=== PATIENT | male | born 1950 | race Caucasian/White ===

== ENCOUNTER 2016-07-16 10:21 | Inpatient (IN) | payer OTHER ==
[~2016-07-16] VITALS: Wt 121.2 kg
[2016-07-16 10:21] VITALS: BP 172/88
[~2016-07-16 10:21] MED LIST: ALBUTEROL0.09 MG/A2 INH; AMLODIPINE BESYL5 MG PO; AMOXICILLIN500 MG PO; APRESOLINE25 MG PO; ASPI-COR81 M1 PO; ASPIRIN81 M1 PO; ATARAX,VISTARIL50 MG PO; AVPAK PRIMIDONE50 M1 PO; BUSPIRONE HYDRO10 MG PO; BUSPIRONE10 MG PO; CAPSAICIN0.025% T; CARBIDOPA & LEV1 TA1 PO; CARVEDILOL25 MG PO; CLONIDINE0.1 MG PO; CLOPIDOGREL75 MG PO; COREG25 MG PO; DEBROX 15 ML15 M1 OT; DEEP SEA 45 ML45 ML NAS; DOXYCYCLINE HY100 M5 PO; DOXYCYCLINE100 M3 PO; DUONEB 3 MG/3 ML3 M1 NEB; Econopred Plus 15 ML OPH; FINASTERIDE5 M1 PO; FLUTICASON0.05 MG/AC NAS; FOSINOPRIL20 MG PO; FUROSEMIDE40 MG PO; GABAPENTIN300 MG PO; GLUCOSE4 G1 PO; GLUCOSE4 GM PO; HUMALOG100 U/ML SC; IBUPROFEN600 MG PO; IMDUR SA30 MG PO; IMDUR SA60 M1 PO; INSULIN; INSULIN-HUMA100 U/ML; ISOSORBIDE30 MG PO; LANTUS SOLOS100 U/M1 SC; LANTUS100 U/ML SC; LASIX20 MG PO; LASIX40 MG PO; LEVOFLOXACIN500 MG PO; LISINOPRIL2.5 MG PO; MULTIVITAMIN PO; NASALIDE0.025 MG/A NAS; NEOMYCIN/POLY B10 M1 OPH; NEURONTIN300 MG PO; NORVASC2.5 MG PO; NOVOLOG FLEX100 U/ML SC; NOVOLOG100 U/ML SC; OMEPRAZOLE D/R20 MG PO; OPTIVE 0.5%-0.9%5 ML OU; OPTIVE OP; PRED FORTE OPH; PREDNISOLONE ACE5 M4 OPH; PREDNISONE10 MG PO; PREDNISONE50 MG PO; PRILOSEC20 M1 PO; PROVENTIL0.09 MG/A1 INH; REFRESH DRY EYE15 ML OPH; RESTASIS0.05% OP; SERTRALINE HCL100 MG PO; SYMBICORT1 AE1 INH; VENTOLIN 02.5 MG/3 M INH; VERAPAMIL HCL180 M1 PO; VERELAN SR 240240 MG PO; VICODIN 5-3001 EACH PO; VISTARIL25 M1 PO; VISTARIL25 MG PO; VISTARIL50 MG PO; VITAMIN B12500 MCG PO; VITAMIN D2400 IU PO; VITAMIN D31000 IU PO; VITAMIN D50000 I1 PO; VITAMIN D50000 I3 PO; VOLTAREN 0.1%2.5 M1 OP; Ventolin 02.5 MG/3 M INH; ZESTRIL,PRINIVI20 MG PO; ZOFRAN4 MG PO; ZOLOFT100 MG PO; [UNRECOGNIZED DRUG - OTHER] T; [UNRECOGNIZED DRUG - OTHER] TP
[2016-07-16 10:58] LABS: HEMATOCRIT 34.5 % (42.0-52.0); HEMOGLOBIN 11.1 g/dl (14.0-18.0); MEAN CELL VOLUME 86.3 fl (80.0-94.0); MEAN CORPUSCULAR HGB 27.8 pg (27.0-31.0); MEAN CORPUSCULAR HGB CONC 32.2 g/dl (33.0-37.0); PLATELET COUNT AUTOMATED 172 10*3/uL (130-400); RED CELL DISTRI WIDTH 14.1 % (0-14.5); WHITE BLOOD COUNT 10.7 10*3/uL (4.8-10.8)
[2016-07-16 11:14] LABS: BUN 44 mg/dl (7-24); CARBON DIOXIDE 29 mmol/L (21-32); CHLORIDE 103 mmol/L (98-107); EST GLOM FILT AFRICAN AMERICAN 23 ml/min; GLUCOSE 108 mg/dL (65-99); POTASSIUM 4.6 mmol/L (3.5-5.1); SODIUM 140 mmol/L (136-145)
[2016-07-16 11:15] LABS: TROPONIN I < 0.015 ng/ml (<0.5)
[2016-07-16 11:19] LABS: LYMPHOCYTE # 0.3 10*3/uL (1.3-4.4); MONOCYTE # 0.3 10*3/uL (0.1-1.0); NEUTROPHIL # 10.1 10*3/uL (2.3-7.9); NEUTROPHILS 94 % (47-73); PLATELET SUFFICIENCY NORMAL (NORMAL); TOTAL CELLS COUNTED 100 #CELLS
[2016-07-16 11:26] VITALS: BP 157/57
[2016-07-16 13:00] VITALS: BP 166/91
[2016-07-16 14:36] VITALS: BP 147/82
[2016-07-16 16:00] VITALS: BP 162/78
[2016-07-16 18:55] LABS: CPK 67 U/L (39-308)
[2016-07-16 19:03] LABS: CKMB < 0.5 ng/ml (0.5-3.6); TROPONIN I < 0.015 ng/ml (<0.5)
[2016-07-16 20:00] VITALS: BP 159/89
[2016-07-17 00:44] LABS: CKMB 0.5 ng/ml (0.5-3.6)
[2016-07-17 00:46] LABS: CPK 84 U/L (39-308); TROPONIN I < 0.015 ng/ml (<0.5)
[2016-07-17 02:00] VITALS: BP 167/74
[2016-07-17 06:36] LABS: HEMATOCRIT 36.2 % (42.0-52.0); HEMOGLOBIN 11.3 g/dl (14.0-18.0); MEAN CORPUSCULAR HGB 27.2 pg (27.0-31.0); MEAN CORPUSCULAR HGB CONC 31.2 g/dl (33.0-37.0); MEAN PLATELET VOLUME 10.7 fl (9.6-12.3); PLATELET COUNT AUTOMATED 168 10*3/uL (130-400); RED BLOOD COUNT 4.16 10*6/uL (4.50-5.90); RED CELL DISTRI WIDTH 14.1 % (0-14.5); WHITE BLOOD COUNT 15.3 10*3/uL (4.8-10.8)
[2016-07-17 06:52] LABS: CKMB 0.7 ng/ml (0.5-3.6); CPK 101 U/L (39-308)
[2016-07-17 06:53] LABS: TROPONIN I < 0.015 ng/ml (<0.5)
[2016-07-17 06:55] LABS: HEMOGLOBIN A1c 8.6 % (4.8-5.6)
[2016-07-17 07:00] LABS: ALBUMIN 3.1 gm/dl (3.1-4.5); BILIRUBIN, TOTAL 0.5 mg/dl (0.2-1.0); FREE T4 0.94 ng/dl (0.76-1.46); MAGNESIUM 2.3 mg/dL (1.5-2.1); PHOSPHOROUS 4.5 mg/dL (2.5-4.9); POTASSIUM 4.6 mmol/L (3.5-5.1); THYROID STIM HORMONE (HS) 0.508 uIU/ml (0.358-4.75); TOTAL PROTEIN 7.3 gm/dL (6.4-8.2)
[2016-07-17 07:18] LABS: INTERNATIONAL NORM RATIO 1.2 (2.0-3.5); PROTHROMBIN TIME 12.7 SECONDS (9.0-12.4)
[2016-07-17 07:21] LABS: FOLIC ACID 13.13 ng/mL (>5.38)
[2016-07-17 07:44] LABS: LYMPHOCYTE # 0.2 10*3/uL (1.3-4.4); MONOCYTE # 0.2 10*3/uL (0.1-1.0); NEUTROPHILS 98 % (47-73); PLATELET SUFFICIENCY NORMAL (NORMAL); TOTAL CELLS COUNTED 100 #CELLS
[2016-07-17 08:00] VITALS: BP 150/64
[2016-07-17] MEDS ORDERED: OMEPRAZOLE D/R20 MG PO (10:56)
[2016-07-17] MEDS ORDERED: FISH OIL500 M1 PO (10:57)
[2016-07-17] MEDS ORDERED: ATORVASTATIN CA20 M1 PO (11:04)
[2016-07-17] MEDS ORDERED: FINASTERIDE5 M1 PO (11:13)
[2016-07-17] MEDS ORDERED: CARVEDILOL25 MG PO (11:15)
[2016-07-17] MEDS ORDERED: EFFIENT10 M1 PO (11:17)
[2016-07-17 12:00] VITALS: BP 156/68
[2016-07-17 16:00] VITALS: BP 178/79
[2016-07-17 20:00] VITALS: BP 171/80
[2016-07-18] VITALS: BP 169/79
[2016-07-18 06:39] LABS: HEMATOCRIT 34.7 % (42.0-52.0); HEMOGLOBIN 11.3 g/dl (14.0-18.0); MEAN CELL VOLUME 84.8 fl (80.0-94.0); MEAN CORPUSCULAR HGB 27.6 pg (27.0-31.0); MEAN CORPUSCULAR HGB CONC 32.6 g/dl (33.0-37.0); PLATELET COUNT AUTOMATED 164 10*3/uL (130-400); RED BLOOD COUNT 4.09 10*6/uL (4.50-5.90); RED CELL DISTRI WIDTH 13.9 % (0-14.5); WHITE BLOOD COUNT 11.4 10*3/uL (4.8-10.8)
[2016-07-18 07:04] LABS: LYMPHOCYTE # 0.1 10*3/uL (1.3-4.4); MONOCYTE # 0.2 10*3/uL (0.1-1.0); NEUTROPHIL # 11.1 10*3/uL (2.3-7.9); NEUTROPHILS 97 % (47-73); TOTAL CELLS COUNTED 100 #CELLS
[2016-07-18 07:05] LABS: PLATELET SUFFICIENCY NORMAL (NORMAL)
[2016-07-18 07:12] LABS: BILIRUBIN, TOTAL 0.3 mg/dl (0.2-1.0); POTASSIUM 4.6 mmol/L (3.5-5.1); TOTAL PROTEIN 6.9 gm/dL (6.4-8.2)
[2016-07-18 08:00] VITALS: BP 176/82
[2016-07-18 09:42] LABS: CKMB 0.8 ng/ml (0.5-3.6); TROPONIN I 0.029 ng/ml (<0.5)
[2016-07-18 12:00] VITALS: BP 140/60
[2016-07-18] MEDS ORDERED: ATORVASTATIN CA20 M1 PO (13:20)
[2016-07-18] MEDS ORDERED: D-1000 185 MG-11 TAB PO (13:20)
[2016-07-18] MEDS ORDERED: IMDUR SA60 M1 PO (13:22)
[2016-07-18] MEDS ORDERED: LANTUS100 U/ML SC ×2 (13:22)
[2016-07-18] MEDS ORDERED: PREDNISONE10 MG PO (13:39)
[2016-07-18] MEDS ORDERED: DOXYCYCLINE100 M3 PO (13:39)
[2016-08-08] MEDS ORDERED: DUONEB 3 MG/3 ML3 M1 INH (18:06)
[2016-08-08] MEDS ORDERED: VIBRAMYCIN100 MG PO (18:06)
[2016-09-05] MEDS ORDERED: NEURONTIN300 MG PO (01:12)
[2016-09-06] MEDS ORDERED: FEROSUL325 MG PO (11:40)
[2016-09-06] MEDS ORDERED: CARDURA2 M1 PO (11:40)
== END 2016-07-18 14:30 | disposition home or self-care (01) | DRG 871 ==
LOC: ED 10:21 → 4E 13:13 → EDHOLD 13:13 → 4E 14:03
PROVIDERS: Emergency Medicine; Family Medicine Adult Medicine; Hospitalist
DX: A41.9 Sepsis, unspecified organism (principal); J96.00 Acute respiratory failure, unspecified whether with hypoxia or hypercapnia; I13.0 Hypertensive heart and chronic kidney disease with heart failure and stage 1 through stage 4 chronic kidney disease, or unspecified chronic kidney disease; N18.4 Chronic kidney disease, stage 4 (severe); E11.22 Type 2 diabetes mellitus with diabetic chronic kidney disease; J18.9 Pneumonia, unspecified organism; I50.9 Heart failure, unspecified; J44.1 Chronic obstructive pulmonary disease with (acute) exacerbation; E66.2 Morbid (severe) obesity with alveolar hypoventilation; J44.0 Chronic obstructive pulmonary disease with (acute) lower respiratory infection; E11.65 Type 2 diabetes mellitus with hyperglycemia; E78.5 Hyperlipidemia, unspecified; D64.9 Anemia, unspecified; J45.909 Unspecified asthma, uncomplicated; I25.10 Atherosclerotic heart disease of native coronary artery without angina pectoris; N40.0 Benign prostatic hyperplasia without lower urinary tract symptoms; E55.9 Vitamin D deficiency, unspecified; Z90.11 Acquired absence of right breast and nipple; Z98.52 Vasectomy status; Z68.39 Body mass index [BMI] 39.0-39.9, adult; Z98.890 Other specified postprocedural states; Z80.9 Family history of malignant neoplasm, unspecified; Z88.5 Allergy status to narcotic agent; Z88.1 Allergy status to other antibiotic agents; Z88.8 Allergy status to other drugs, medicaments and biological substances; Z79.82 Long term (current) use of aspirin; Z79.4 Long term (current) use of insulin; Z79.899 Other long term (current) drug therapy

== ENCOUNTER 2016-12-23 08:59 | Inpatient (IN) | payer OTHER ==
[2016-12-23] VITALS (13 sets, daily range): BP systolic 131–202; BP diastolic 59–112
[~2016-12-23] VITALS: Ht 188 cm; Wt 121.6 kg
[~2016-12-23 08:59] MED LIST changes: +ATORVASTATIN CA20 M1 PO; +CARDURA2 M1 PO; +D-1000 185 MG-11 TAB PO; +DUONEB 3 MG/3 ML3 M1 INH; +EFFIENT10 M1 PO; +FEROSUL325 MG PO; +FISH OIL500 M2 PO; +VIBRAMYCIN100 MG PO
[2016-12-23 09:30] LABS: BASO % 0.3 % (0.0-1.0); EOS # 0.1 10*3/uL (0.0-0.4); EOS % 1.1 % (1.0-4.0); HEMATOCRIT 34.4 % (42.0-52.0); HEMOGLOBIN 11.4 g/dl (14.0-18.0); LYMPH # 1.1 10*3/uL (1.3-4.4); LYMPH % 15.7 % (27.0-41.0); MEAN CELL VOLUME 85.4 fl (80.0-94.0); MEAN CORPUSCULAR HGB 28.3 pg (27.0-31.0); MEAN CORPUSCULAR HGB CONC 33.1 g/dl (33.0-37.0); MONO # 0.5 10*3/uL (0.1-1.0); NEUT # 5.2 10*3/uL (2.3-7.9); NEUT % 75.3 % (47.0-73.0); PLATELET COUNT AUTOMATED 205 10*3/uL (130-400); RED BLOOD COUNT 4.03 10*6/uL (4.50-5.90); RED CELL DISTRI WIDTH 13.9 % (0-14.5)
[2016-12-23 09:39] LABS: INTERNATIONAL NORM RATIO 1.1 (2.0-3.5); PROTHROMBIN TIME 11.8 SECONDS (9.0-12.4)
[2016-12-23 09:45] LABS: ALBUMIN 3.2 gm/dl (3.1-4.5); BILIRUBIN, TOTAL 0.5 mg/dl (0.2-1.0); C-REACTIVE PROTEIN 0.98 MG/DL (0-0.3); CKMB 1.1 ng/ml (0.5-3.6); MAGNESIUM 2.3 mg/dL (1.5-2.1); POTASSIUM 3.5 mmol/L (3.5-5.1); TOTAL PROTEIN 7.3 gm/dL (6.4-8.2)
[2016-12-23 09:50] LABS: TROPONIN I 0.107 ng/ml (<0.045)
[2016-12-23 14:57] LABS: BILIRUBIN NEGATIVE (NEGATIVE); BLOOD 2+ (NEGATIVE); CLARITY CLEAR (CLEAR); COLOR YELLOW (YELLOW); GLUCOSE TRACE (NEGATIVE); KETONE NEGATIVE (NEGATIVE); LEUKO ESTERASE NEGATIVE (NEGATIVE); NITRITE NEGATIVE (NEGATIVE); PH 6.5 (5.0-9.0); PROTEIN 3+ (NEGATIVE); SPECIFIC GRAVITY 1.015 (1.005-1.030); UROBILINOGEN 0.2 E.U./dl (0.2-1.0)
[2016-12-23 15:08] LABS: BACTERIA 1+; EPITHELIAL CELLS 0-2; URINE REFLEX COMMENT YES (NO)
[2016-12-23] MEDS ORDERED: FREEZE IT RE113.4 GM T (15:39)
[2016-12-23] MEDS ORDERED: WELLBUTRIN SR100 MG PO (15:44)
[2016-12-23] MEDS ORDERED: VISTARIL50 MG PO (15:47)
[2016-12-23] MEDS ORDERED: LIPITOR40 MG PO (16:06)
[2016-12-23] MEDS ORDERED: LANTUS100 U/ML SC (16:18)
[2016-12-23] MEDS ORDERED: VITAMIN D5000 UNI1 PO (16:27)
[2016-12-23] MEDS ORDERED: ACETAMINOPHEN500 M4 PO (16:28)
[2016-12-24] VITALS: BP 161/79
[2016-12-24 04:00] VITALS: BP 176/86
[2016-12-24 05:49] LABS: FREE T4 0.99 ng/dl (0.76-1.46); PHOSPHOROUS 4.1 mg/dL (2.5-4.9)
[2016-12-24 05:55] LABS: THYROID STIM HORMONE (HS) 0.803 uIU/ml (0.358-4.75)
[2016-12-24 06:20] LABS: BASO % 0.3 % (0.0-1.0); EOS # 0.1 10*3/uL (0.0-0.4); EOS % 1.8 % (1.0-4.0); HEMATOCRIT 33.9 % (42.0-52.0); HEMOGLOBIN 10.9 g/dl (14.0-18.0); LYMPH # 1.9 10*3/uL (1.3-4.4); LYMPH % 27.6 % (27.0-41.0); MEAN CELL VOLUME 86.9 fl (80.0-94.0); MEAN CORPUSCULAR HGB 27.9 pg (27.0-31.0); MEAN CORPUSCULAR HGB CONC 32.2 g/dl (33.0-37.0); MONO # 0.5 10*3/uL (0.1-1.0); MONO % 7.7 % (3.0-9.0); NEUT # 4.3 10*3/uL (2.3-7.9); NEUT % 62.3 % (47.0-73.0); PLATELET COUNT AUTOMATED 191 10*3/uL (130-400); RED CELL DISTRI WIDTH 14.2 % (0-14.5); WHITE BLOOD COUNT 6.8 10*3/uL (4.8-10.8)
[2016-12-24 06:23] LABS: HEMOGLOBIN A1c 9.8 % (4.8-5.6)
[2016-12-24 07:32] LABS: VITAMIN D, 25-HYDROXY 19.6 ng/mL (30-100)
[2016-12-24 07:33] LABS: FOLIC ACID 8.35 ng/mL (>5.38)
[2016-12-24 08:00] VITALS: BP 172/90
[2016-12-24 16:00] VITALS: BP 149/74
[2016-12-24 20:00] VITALS: BP 169/79
[2016-12-25 00:08] VITALS: BP 166/82
[2016-12-25 03:57] VITALS: BP 156/852
[2016-12-25 05:26] LABS: ALBUMIN 2.8 gm/dl (3.1-4.5); BILIRUBIN, TOTAL 0.2 mg/dl (0.2-1.0); POTASSIUM 4.3 mmol/L (3.5-5.1); TOTAL PROTEIN 6.4 gm/dL (6.4-8.2)
[2016-12-25 05:45] LABS: BASO % 0.2 % (0.0-1.0); EOS # 0.1 10*3/uL (0.0-0.4); EOS % 1.7 % (1.0-4.0); HEMATOCRIT 32.8 % (42.0-52.0); HEMOGLOBIN 10.6 g/dl (14.0-18.0); LYMPH # 1.7 10*3/uL (1.3-4.4); LYMPH % 27.5 % (27.0-41.0); MEAN CELL VOLUME 87.2 fl (80.0-94.0); MEAN CORPUSCULAR HGB 28.2 pg (27.0-31.0); MEAN CORPUSCULAR HGB CONC 32.3 g/dl (33.0-37.0); MEAN PLATELET VOLUME 11.3 fl (9.6-12.3); MONO # 0.5 10*3/uL (0.1-1.0); MONO % 7.5 % (3.0-9.0); NEUT # 3.8 10*3/uL (2.3-7.9); NEUT % 62.6 % (47.0-73.0); PLATELET COUNT AUTOMATED 166 10*3/uL (130-400); RED BLOOD COUNT 3.76 10*6/uL (4.50-5.90); RED CELL DISTRI WIDTH 14.3 % (0-14.5)
[2016-12-25 05:51] VITALS: BP 160/88
[2016-12-25 08:00] VITALS: BP 176/88
[2016-12-25 12:00] VITALS: BP 149/84
[2016-12-25 15:00] VITALS: BP 156/89
== END 2016-12-25 16:08 | disposition home or self-care (01) | DRG 281 ==
LOC: ED 08:59 → EDHOLD 12:42 → ICCU 12:42 → 4E 13:01 → ICCU 14:09
PROVIDERS: Internal Medicine; Registered Nurse; Student in an Organized Health Care Education/Training Program
PROC: 4A02XM4 Measurement of Cardiac Total Activity, External Approach (ICD-10-PCS; principal; 2016-12-23)
DX: I21.4 Non-ST elevation (NSTEMI) myocardial infarction (principal); I16.1 Hypertensive emergency; N18.4 Chronic kidney disease, stage 4 (severe); I13.0 Hypertensive heart and chronic kidney disease with heart failure and stage 1 through stage 4 chronic kidney disease, or unspecified chronic kidney disease; I50.32 Chronic diastolic (congestive) heart failure; E44.1 Mild protein-calorie malnutrition; E83.41 Hypermagnesemia; E11.65 Type 2 diabetes mellitus with hyperglycemia; E11.22 Type 2 diabetes mellitus with diabetic chronic kidney disease; E11.40 Type 2 diabetes mellitus with diabetic neuropathy, unspecified; E78.5 Hyperlipidemia, unspecified; J44.9 Chronic obstructive pulmonary disease, unspecified; D64.9 Anemia, unspecified; K27.9 Peptic ulcer, site unspecified, unspecified as acute or chronic, without hemorrhage or perforation; Z90.11 Acquired absence of right breast and nipple; Z80.9 Family history of malignant neoplasm, unspecified; Z88.6 Allergy status to analgesic agent; Z88.5 Allergy status to narcotic agent; Z88.1 Allergy status to other antibiotic agents; Z88.8 Allergy status to other drugs, medicaments and biological substances; Z79.1 Long term (current) use of non-steroidal anti-inflammatories (NSAID); Z79.51 Long term (current) use of inhaled steroids; Z79.82 Long term (current) use of aspirin; Z79.899 Other long term (current) drug therapy; Z79.4 Long term (current) use of insulin; Z68.34 Body mass index [BMI] 34.0-34.9, adult; Z95.5 Presence of coronary angioplasty implant and graft

== ENCOUNTER 2016-12-31 06:23 | Inpatient (IN) | payer OTHER ==
[~2016-12-31] VITALS: Ht 182.9 cm; Wt 120.3 kg
[2016-12-31] VITALS (9 sets, daily range): BP systolic 144–165; BP diastolic 63–89
[~2016-12-31 06:23] MED LIST changes: +ACETAMINOPHEN500 M4 PO; +FREEZE IT RE113.4 GM T; +LIPITOR40 MG PO; +VITAMIN D5000 UNI1 PO; +WELLBUTRIN SR100 MG PO
[2016-12-31 06:40] LABS: BASO % 0.3 % (0.0-1.0); EOS # 0.1 10*3/uL (0.0-0.4); EOS % 1.9 % (1.0-4.0); HEMATOCRIT 31.2 % (42.0-52.0); HEMOGLOBIN 10.5 g/dl (14.0-18.0); LYMPH # 1.9 10*3/uL (1.3-4.4); LYMPH % 26.1 % (27.0-41.0); MEAN CELL VOLUME 85.2 fl (80.0-94.0); MEAN CORPUSCULAR HGB 28.7 pg (27.0-31.0); MEAN CORPUSCULAR HGB CONC 33.7 g/dl (33.0-37.0); MEAN PLATELET VOLUME 10.3 fl (9.6-12.3); MONO # 0.8 10*3/uL (0.1-1.0); MONO % 10.4 % (3.0-9.0); NEUT # 4.5 10*3/uL (2.3-7.9); NEUT % 60.8 % (47.0-73.0); PLATELET COUNT AUTOMATED 196 10*3/uL (130-400); RED BLOOD COUNT 3.66 10*6/uL (4.50-5.90); RED CELL DISTRI WIDTH 13.9 % (0-14.5); WHITE BLOOD COUNT 7.4 10*3/uL (4.8-10.8)
[2016-12-31 06:56] LABS: BILIRUBIN, TOTAL 0.3 mg/dl (0.2-1.0); MAGNESIUM 1.9 mg/dL (1.5-2.1); POTASSIUM 3.7 mmol/L (3.5-5.1); TOTAL PROTEIN 6.7 gm/dL (6.4-8.2); TROPONIN I 0.021 ng/ml (<0.045)
[2016-12-31] MEDS ORDERED: IMDUR SA60 M1 PO (14:18)
[2016-12-31] MEDS ORDERED: RANEXA500 M1 PO (14:18)
== END 2016-12-31 17:35 | disposition short-term general hospital (02) | DRG 57 ==
LOC: ED 06:23 → EDHOLD 10:19 → 5E 10:33
PROVIDERS: Student in an Organized Health Care Education/Training Program
DX: G91.2 (Idiopathic) normal pressure hydrocephalus (principal); I13.2 Hypertensive heart and chronic kidney disease with heart failure and with stage 5 chronic kidney disease, or end stage renal disease; N18.4 Chronic kidney disease, stage 4 (severe); E11.22 Type 2 diabetes mellitus with diabetic chronic kidney disease; E44.1 Mild protein-calorie malnutrition; M94.0 Chondrocostal junction syndrome [Tietze]; I25.2 Old myocardial infarction; K27.9 Peptic ulcer, site unspecified, unspecified as acute or chronic, without hemorrhage or perforation; E55.9 Vitamin D deficiency, unspecified; E11.65 Type 2 diabetes mellitus with hyperglycemia; E78.5 Hyperlipidemia, unspecified; J44.9 Chronic obstructive pulmonary disease, unspecified; E66.9 Obesity, unspecified; Z68.39 Body mass index [BMI] 39.0-39.9, adult; Z80.9 Family history of malignant neoplasm, unspecified; Z79.899 Other long term (current) drug therapy; Z79.82 Long term (current) use of aspirin; I50.9 Heart failure, unspecified; E11.40 Type 2 diabetes mellitus with diabetic neuropathy, unspecified; R07.89 Other chest pain

== ENCOUNTER 2017-02-06 14:03 | Emergency (ER) | payer OTHER ==
[~2017-02-06] VITALS: Wt 117.9 kg
[~2017-02-06 14:03] MED LIST changes: +RANEXA500 M1 PO
[2017-02-06 14:35] LABS: BASO % 0.3 % (0.0-1.0); EOS # 0.1 10*3/uL (0.0-0.4); EOS % 1.5 % (1.0-4.0); HEMATOCRIT 31.8 % (42.0-52.0); HEMOGLOBIN 10.2 g/dl (14.0-18.0); LYMPH # 1.5 10*3/uL (1.3-4.4); MEAN CELL VOLUME 89.8 fl (80.0-94.0); MEAN CORPUSCULAR HGB 28.8 pg (27.0-31.0); MEAN CORPUSCULAR HGB CONC 32.1 g/dl (33.0-37.0); MEAN PLATELET VOLUME 9.6 fl (9.6-12.3); MONO # 0.5 10*3/uL (0.1-1.0); MONO % 7.3 % (3.0-9.0); NEUT % 69.5 % (47.0-73.0); PLATELET COUNT AUTOMATED 154 10*3/uL (130-400); RED BLOOD COUNT 3.54 10*6/uL (4.50-5.90); RED CELL DISTRI WIDTH 15.4 % (0-14.5); WHITE BLOOD COUNT 7.1 10*3/uL (4.8-10.8)
[2017-02-06 14:51] LABS: BILIRUBIN, TOTAL 0.4 mg/dl (0.2-1.0); C-REACTIVE PROTEIN 0.52 MG/DL (0-0.3); CKMB 2.7 ng/ml (0.5-3.6); POTASSIUM 4.7 mmol/L (3.5-5.1); TOTAL PROTEIN 7.1 gm/dL (6.4-8.2); TROPONIN I 0.018 ng/ml (<0.045)
[2017-02-06 15:04] LABS: INTERNATIONAL NORM RATIO 1.1 (2.0-3.5); PROTHROMBIN TIME 11.2 SECONDS (9.0-12.4)
[2017-02-06 15:38] VITALS: BP 172/74
[2017-02-06] MEDS ORDERED: APRESOLINE10 MG PO (16:48)
== END 2017-02-06 17:10 | disposition home or self-care (01) ==
LOC: ED 14:03
PROVIDERS: Emergency Medicine
DX: I11.0 Hypertensive heart disease with heart failure (principal); I50.9 Heart failure, unspecified; K21.9 Gastro-esophageal reflux disease without esophagitis; E78.5 Hyperlipidemia, unspecified; E11.9 Type 2 diabetes mellitus without complications; J44.9 Chronic obstructive pulmonary disease, unspecified; Z88.1 Allergy status to other antibiotic agents; Z88.6 Allergy status to analgesic agent; Z88.8 Allergy status to other drugs, medicaments and biological substances; Z79.899 Other long term (current) drug therapy

== ENCOUNTER 2017-03-20 14:55 | Inpatient (IN) | payer OTHER ==
[~2017-03-20] VITALS: Ht 182.8 cm; Wt 116.6 kg
--- NOTE | ~2017-03-20 | PR ---
[place], [place] PROGRESS NOTE NAME: NOBLE GENTILE UNIT #: [id number] ROOM: 506 DOCTOR: MOIZ PALOMARES MD BIRTHDATE: [birth year] DOS: 03/22/2017 SUBJECTIVE: The patient was seen and examined. He is awake and alert. He is eating dinner. Denies shortness of breath. Denies nausea or vomiting. He wants to be discharged. He states to me he has an appointment at [place] tomorrow, he has to get to. PHYSICAL EXAMINATION: VITAL SIGNS: Showed temperature 98.3, pulse 65, respiration rate 18, blood pressure 156/67. HEENT: Shows no JVD. Sclerae anicteric. LUNGS: Clear. No crackles or wheeze. HEART: Normal S1, S2. No rub, thrill or gallop. ABDOMEN: Soft, nontender. There is no organomegaly. EXTREMITIES: Showed trace edema. SKIN: Showed no rash. LABORATORY DATA: Sodium 134, potassium 4.1, CO2 of 22, BUN 49, creatinine 3.7. Glucose 327, calcium 8.3. Hemoglobin 10.1, white count is 7.5, platelets of 185. ASSESSMENT AND PLAN: 1. Stage 4 chronic kidney disease. The patient's baseline creatinine appears to be in the upper 3s range. Renal function is at baseline. 2. Recent falls with questionable normal pressure hydrocephalus. Await plans. 3. Anemia of chronic disease. Current H and H is acceptable. 4. Hypertension. Continue medications. 5. Coronary artery disease with history of congestive heart failure. Continue medications. Diuretics as needed. 6. Diabetes mellitus. On insulin. 7. From a renal standpoint, he is acceptable for discharge. He should follow up with his primary data management consultant in [place]. [place], [place] PROGRESS NOTE NAME: NOBLE GENTILE UNIT #: [id number] ROOM: 506 DOCTOR: MOIZ PALOMARES MD BIRTHDATE: [birth year] MOIZ PALOMARES MD CM:PNTRANS [phone] MOIZ PALOMARES MD 03/22/17 2310 interface
--- NOTE | ~2017-03-20 | CON ---
[place], [place] REPORT OF CONSULTATION NAME: NOBLE GENTILE UNIT #: [id number] ROOM: 506 DOCTOR: SAADIA GARVEY,SUDHAKAR BIRTHDATE: [birth year] DOS: 03/21/2017 REASON FOR CONSULTATION: Elevated cardiac enzymes. CONSULTING PHYSICIAN: Dr. Monte. CLINICAL HISTORY: The patient is a 66-year-old patient with history of chronic kidney disease, anemia, hypertension and diabetes who was brought to the Emergency Room for weakness and frequent falls. He also has some urinary incontinence, so he was found to have possible normal pressure hydrocephalus couple of months ago. His blood work showed elevated cardiac troponin, hence Cardiology was consulted for further recommendations. He denies any chest pain, dizziness. No palpitation. No PND, no orthopnea. No nausea, vomiting or diarrhea. No cough or hemoptysis. No fever and chills. No tingling, numbness or weakness. No blurred vision or double vision. No genitourinary symptoms. His main complaint is just weakness and frequent falls. No syncope. REVIEW OF SYSTEMS: Review of the 8 systems negative except as mentioned above. PAST MEDICAL HISTORY: 1. Hypertension. 2. Diabetes type 2. 3. Normal pressure hydrocephalus. 4. Chronic kidney disease. 5. Anemia. 6. Obesity, non-morbid. 7. Peptic ulcer disease. 8. Malnutrition. 9. COPD. 10. Frequent falls. PAST SURGICAL HISTORY: History of back surgery, history of hernia repair, history of vasectomy and right mastectomy. SOCIAL HISTORY: The patient does not smoke or drink, does not use any illicit drugs. FAMILY HISTORY: Noncontributory. Father at the age of 46 from cancer. Mother at the age of 80 from cancer. ALLERGIES: THE PATIENT IS ALLERGIC TO MORPHINE, CIPRO, ZETIA AND FLUVASTATIN. HOME MEDICATIONS: Reviewed. PHYSICAL EXAMINATION: VITAL SIGNS: Blood pressure 148/58, pulse ____ and respiratory rate 20. Weight 113 kilos with a BMI of 35.4. GENERAL: Alert, comfortable, in no acute distress. HEENT: Pupils are round and equal. No jaundice. NECK: Supple, no distended neck veins, no carotid bruit. [place], [place] REPORT OF CONSULTATION NAME: NOBLE GENTILE UNIT #: [id number] ROOM: [facility] DOCTOR: SAADIA GARVEY,SUDHAKAR BIRTHDATE: [birth year] CHEST: Symmetrical, nontender. LUNGS: Clear to auscultation bilaterally. HEART: Regular rhythm. No S3, no grade 1/6 systolic murmur. ABDOMEN: Benign, nontender. Bowel sounds normal. EXTREMITIES: Showed 1+ edema bilaterally. Distal pulses are palpable. SKIN: Warm and dry. No cyanosis, no clubbing. NEUROLOGIC: The patient is alert, oriented. No focal neurologic deficit. RECTAL: Deferred. GENITOURINARY: Deferred. MUSCULOSKELETAL: No joint tenderness or swelling. REVIEW OF THE DIAGNOSTIC TESTS: EKG shows sinus rhythm with lateral ST-T changes. His labs reviewed. Pertinent labs include hemoglobin 10.0, creatinine 4.3. The troponins are 0.48, 0.28 and 0.19 on trending down. CK-MBs are normal. IMPRESSION: 1. Borderline elevation of cardiac troponin due to his chronic kidney disease. 2. Frequent falls. 3. Acute renal failure on top of chronic kidney disease. 4. Hypertension. 5. Diabetes type 2. 6. Normal pressure hydrocephalus. 7. Anemia. RECOMMENDATIONS: 1. He denies any chest pains. 2. Currently, blood pressure and heart rates are stable. 3. Continue IV fluids for acute renal failure. 4. Continue his aspirin and his Coreg. 5. His echo from November 2016 reviewed. 6. No further cardiac testing at this time and continue to watch his heart rate and blood pressures. 7. There is no family at bedside at the time of my examination. SUDHAKAR ZEE MD CM:CONSTR:REPORT OF CONSULTATION 1442 03/21/17 0273 interface
--- NOTE | ~2017-03-20 | CON ---
[place], [place] RE[facility] OF CON[facility]ULTATION [id number] UN[facility] #: [id number] ROOM: 506 DOCTOR: MOIZ PALOMARES MD BIRTHDATE: [birth year] DOS: 03/21/2017 REASON FOR CONSULTATION: Chronic kidney disease, 1950. HISTORY OF PRESENT ILLNESS: This patient is a 66-year-old gentleman with past medical history of known chronic kidney disease. He has a history of uncontrolled diabetes and hypertension. He has been seen by our service in the past. Reviewing his record, he appears to have stage IV chronic kidney disease with a baseline creatinine in the upper 3s range with labs that were noted from earlier this year and just a few months ago. I am not clear of the details but he states to me he does follow with the metal machine operator in [place]. He came to the hospital with complaints of weakness and frequent falls and questionable urinary incontinence, apparently, this year, a few months ago with similar complaints. There had been some concerns and suspicion for possible normal pressure hydrocephalus. He is being admitted for further evaluation presently. His creatinine levels were noted to be slightly higher than baseline. Started on IV fluids and admitted. When I had seen him, he was eating lunch. He denied any major complaints to me. Denied fevers, chills or night sweats, nausea or vomiting. Denied dysuria or hematuria. ALLERGIES: Listed to MORPHINE, QUINOLONE, CIPROFLOXACIN, ZETIA, FLUVASTATIN, NIACIN, PRAVASTATIN, CRESTOR, SIMVASTATIN, CODEINE. HOME MEDICATIONS: Included Tylenol, aspirin, albuterol, Symbicort, Wellbutrin, Coreg, vitamin D, finasteride, Lasix 40 mg daily, Vistaril, insulin, fish oil, omeprazole, FEN. PAST MEDICAL HISTORY: 1. Known chronic kidney disease as stated above. 2. CHF. 3. COPD. 4. Longstanding diabetes. 5. Diabetic neuropathy. 6. Hyperlipidemia. 7. Hypertension. 8. Questionable normal pressure hydrocephalus. 9. Coronary artery disease. 10. Obesity. 11. Peptic ulcer disease. 12. Vitamin D deficiency. 13. Cardiac catheterization. 14. Back surgery. 15. Colonoscopy. 16. EGD. 17. Inguinal hernia repair. 18. Right mastectomy. 19. Vasectomy. 20. Tonsillectomy. FAMILY HISTORY: Negative for chronic kidney disease, otherwise, [place], [place] REPORT OF CONSULTATION NAME: NOBLE GENTILE UNIT #: [id number] ROOM: 506 DOCTOR: MOIZ PALOMARES MD BIRTHDATE: [birth year] noncontributory. SOCIAL HISTORY: No current tobacco, alcohol or illicit drugs were noted. REVIEW OF SYSTEMS: As per HPI, otherwise, a 10-point review of systems was reviewed and was negative. PHYSICAL EXAMINATION: VITAL SIGNS: Temperature afebrile, pulse 66, respiratory rate 20, blood pressure 148/50. GENERAL: He is awake, alert, resting comfortably, in no acute distress. HEENT: Shows no JVD. Sclerae are anicteric. Mucous membranes were moist. Pharynx is clear. NECK: Supple. Trachea was midline. There is no neck lymphadenopathy. There is no thyromegaly. LUNGS: Diminished breath sounds, appreciable wheezes. No tactile fremitus. He is not using accessory muscles of respiration. HEART: Normal S1, S2. No rub, thrill or gallop. ABDOMEN: Soft, nontender. There is no organomegaly or rigidity, rebound or guarding. There is no CVA tenderness. EXTREMITIES: Had 1+ edema. There is no lower extremity lymphadenopathy. Distal pulses are 2+. SKIN: Showed no overt rash. There is no petechiae or purpura. Skin temperature was warm. NEUROLOGIC: He is awake, alert. He was following commands. Cranial nerves are intact. LABORATORY DATA: Glucose 513, sodium 133, potassium 4.2, CO2 23, calcium 7.9, phosphorus 3.9, magnesium 2.3, albumin of 2.9, BUN 55, creatinine 4.19, hemoglobin 10.0, white count of 5.6, platelets of 155. IMPRESSION: 1. Stage 4 chronic kidney disease. The patient's baseline creatinine in the upper 3s range. He has a slight acute element likely related to prerenal factors. 2. Recent falls with questionable normal pressure hydronephrosis. 3. Anemia. 4. Hypertension. 5. Coronary artery disease. 6. Longstanding diabetes. 7. Coronary artery disease with history of congestive heart failure. PLAN: 1. Would discontinue IV fluids. 2. Dose medication for current creatinine clearance. 3. Hold Lasix for now. He likely will require his home dose soon, especially if his creatinine remains stable. 4. Replace electrolytes as needed. 5. Avoid NSAIDs, the nephrotoxic agents. 6. There is no indication for renal replacement therapy presently. [place], [place] REPORT OF CONSULTATION NAME: NOBLE GENTILE UNIT #: [id number] ROOM: [facility] DOCTOR: MOIZ PLAOMARES MD BIRTHDATE: [birth year] Thank you for this consultation. We will follow with you. MOIZ PALOMARES MD CM:CONSTR:REPORT OF CONSULTATION 1506 03/21/17 2323 interface
--- NOTE | ~2017-03-20 | PR ---
[place], [place] PROGRESS NOTE NAME: NOBLE GENTILE UNIT #: [id number] ROOM: 506 DOCTOR: SUDHAKAR ZEE MD BIRTHDATE: [birth year] DOS: 03/22/2017 REASON FOR VISIT: Hypertension and elevated cardiac enzymes. HISTORY OF PRESENT ILLNESS: He is feeling: Denies any chest pain or shortness of breath. Breathing is better. No PND, no orthopnea. No dizziness or syncope. No nausea, vomiting, diarrhea. No cough or hemoptysis. REVIEW OF SYSTEMS: Review of the 8 systems negative except as mentioned above. RHYTHM STRIPS: The patient in sinus rhythm. PHYSICAL EXAMINATION: VITAL SIGNS: Blood pressure 176/71, pulse 60, respiratory rate 18. GENERAL: Alert, comfortable, in no acute distress. HEENT: Pupils are round and equal. No jaundice. Tongue was moist and pharynx was clear. NECK: Supple. No distinct mass, no carotid bruit. CHEST: Symmetrical, nontender. LUNGS: Clear to auscultation bilaterally. HEART: Regular rhythm, no S3, grade 1/6 systolic murmur. ABDOMEN: Benign, nontender. Bowel sounds normal. EXTREMITIES: Showed 1+ edema. Distal pulses palpable. SKIN: Warm and dry. No cyanosis, no clubbing. NEUROLOGIC: The patient is alert, oriented. No focal neurologic deficit. IMPRESSION: 1. Elevated cardiac troponins, due to chronic kidney disease. The patient denied any chest pain. He had a nonischemic stress test, 05/2016. 2. Hypertension, monitor blood pressure. If it is high, increase his hydralazine. 3. Chronic kidney disease. 4. Recurrent falls. 5. Hypertension. 6. Diabetes type 2. 7. Mild valvular heart disease. 8. No further cardiac testing at this time. [place], [place] PROGRESS NOTE NAME: NOBLE GENTILE UNIT #: [id number] ROOM: 506 DOCTOR: SUDHAKAR ZEE MD BIRTHDATE: [birth year] SUDHAKAR ZEE MD CM:PNTRANS 39 [phone] SUDHAKAR ZEE MD 03/22/172349 interface
--- NOTE | ~2017-03-20 | EKG ---
[place], [place] ELECTROCARDIOGRAM REPORT NAME: NOBLE GENTILE UNIT #: [id number] ROOM: 506 DOCTOR: SAADIA GARVEY,SUDHAKAR BIRTHDATE: [birth year] DOS: 03/20/2017 TIME: 1705 hours. IMPRESSION: 1. Normal sinus rhythm. 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 3. Lateral ST-T changes, nondiagnostic. 4. Prolonged QT interval. SUDHAKAR ZEE MD CM:EKGRPT:ELECTROCARDIOGRAM REPORT 1452 [id number] SUDHAKAR ZEE MD
[2017-03-20 14:55] VITALS: BP 137/61
[~2017-03-20 14:55] MED LIST changes: +APRESOLINE10 MG PO
[2017-03-20 16:14] LABS: BASO % 0.3 % (0.0-1.0); EOS # 0.1 10*3/uL (0.0-0.4); EOS % 2.1 % (1.0-4.0); HEMATOCRIT 30.3 % (42.0-52.0); LYMPH # 1.2 10*3/uL (1.3-4.4); LYMPH % 17.6 % (27.0-41.0); MEAN CELL VOLUME 89.1 fl (80.0-94.0); MEAN CORPUSCULAR HGB 29.4 pg (27.0-31.0); MONO # 0.7 10*3/uL (0.1-1.0); MONO % 9.7 % (3.0-9.0); NEUT # 4.8 10*3/uL (2.3-7.9); PLATELET COUNT AUTOMATED 163 10*3/uL (130-400); RED CELL DISTRI WIDTH 14.6 % (0-14.5); WHITE BLOOD COUNT 6.8 10*3/uL (4.8-10.8)
[2017-03-20 16:24] LABS: INTERNATIONAL NORM RATIO 1.1 (2.0-3.5)
[2017-03-20 16:32] LABS: ALBUMIN 3.2 gm/dl (3.1-4.5); CKMB 1.1 ng/ml (0.5-3.6); CREATININE 4.31 mg/dL (0.70-1.30); MAGNESIUM 2.1 mg/dL (1.5-2.1); POTASSIUM 3.9 mmol/L (3.5-5.1)
[2017-03-20 16:38] LABS: TROPONIN I 0.484 ng/ml (<0.045)
[2017-03-20 17:42] LABS: BILIRUBIN NEGATIVE (NEGATIVE); BLOOD 2+ (NEGATIVE); CLARITY CLEAR (CLEAR); COLOR YELLOW (YELLOW); GLUCOSE 2+ (NEGATIVE); KETONE NEGATIVE (NEGATIVE); LEUKO ESTERASE NEGATIVE (NEGATIVE); NITRITE NEGATIVE (NEGATIVE); UROBILINOGEN 0.2 E.U./dl (0.2-1.0)
--- NOTE | 2017-03-20 17:47 | NUR ---
PATIENT UP TO BATHROOM, AMBULATORY WITH A WALKER AT THIS TIME WITH ASSIST OF 1.PATIENT REQESTING DINNER TRAY AT THIS TIME. VITALS STABLE.
[2017-03-20 17:49] VITALS: BP 134/80
[2017-03-20 17:56] LABS: BACTERIA 1+
[2017-03-20 21:57] VITALS: BP 156/84
[2017-03-20 22:20] VITALS: BP 190/92
--- NOTE | 2017-03-20 22:20 | NUR ---
A 66, admitted to , under the services of JOAO Sinclair DO with a diagnosis of FALLS, GEN WEAKNESS, CKD. Chief complaint is MULTIPLE FALLS AT HOME. Patient arrived via wheel chair from ER. Monitor applied. Initial assessment completed. Vital signs taken and recorded. JOAO SINCLAIR DO / DR CRUZ / DR BROWN notified of admission to the unit. Orders received. See assessment for past medical history, medications and allergies. Patient and/or family oriented to unit. [facility] visitation policy reviewed. Clothing/patient valuable form completed. SKY OLSON
[2017-03-20] MEDS ORDERED: AMLODIPINE BESYL5 MG PO (22:43)
[2017-03-20] MEDS ORDERED: LANTUS SOL100 UNIT/1 SC (22:47)
[2017-03-20] MEDS ORDERED: NOVOLOG10 ML SC (22:54)
[2017-03-20] MEDS ORDERED: VISTARIL25 MG PO (22:55)
--- NOTE | 2017-03-20 23:30 | NUR ---
DR UPTON CONTACTED REGARDING CONSULT, NEW ORDERS RECEIVED
--- NOTE | 2017-03-20 23:35 | NUR ---
DR BROWN CONTACTED REGARDING ELEVATED BP, NEW ORDERS RECEIVED
--- NOTE | 2017-03-21 00:11 | NUR ---
MEDICATED WITH TYLENOL PER PRN ORDER FOR COMPLAINTS OF BACK PAIN RATING A 4. ALSO REQUESTED AND RECEIVED RESTORIL TO ASSIST WITH SLEEP. CALL LIGHT WITHIN REACH. WILL MONITOR FOR EFFECTIVENESS
--- NOTE | 2017-03-21 00:30 | NUR ---
TROPONIN CRITICAL HIGH BUT TRENDING DOWN, DR BROWN AWARE
--- NOTE | 2017-03-21 02:00 | NUR ---
DROWSY, RESTING WITH EYES CLOSED. RESPIRATIONS EASY. CALL LIGHT WITHIN REACH. BED ALARM MAINTAINED FOR SAFETY
[2017-03-21 03:30] VITALS: BP 188/90
--- NOTE | 2017-03-21 03:30 | NUR ---
DR BROWN CONTACTED AND MADE AWARE OF ELEVATED TROPONINS THAT ARE TRENDING DOWN. INFORMED BP REMAINS ELEVATED 188/90. ALSO INFORMED OF WOUNDS X 2 TO SECOND TOE OF LEFT FOOT
--- NOTE | 2017-03-21 04:30 | NUR ---
MEDICATED WITH APRESOLINE 1 TIME DOSE FOR ELEVATED BP. WILL MONITOR
[2017-03-21 05:45] VITALS: BP 182/84
--- NOTE | 2017-03-21 06:00 | NUR ---
BP REMAINS 182/84. IV HYDRALAZINE GIVEN PER ORDER. WILL CONTINUE TO MONITOR. BSG CRITICAL HIGH, STAT REFLEX ORDERED PER POLICY
[2017-03-21 06:17] LABS: BASO % 0.4 % (0.0-1.0); EOS # 0.1 10*3/uL (0.0-0.4); EOS % 2.3 % (1.0-4.0); LYMPH # 1.2 10*3/uL (1.3-4.4); LYMPH % 20.4 % (27.0-41.0); MEAN CELL VOLUME 89.3 fl (80.0-94.0); MEAN CORPUSCULAR HGB 29.8 pg (27.0-31.0); MEAN CORPUSCULAR HGB CONC 33.3 g/dl (33.0-37.0); MEAN PLATELET VOLUME 10.7 fl (9.6-12.3); MONO # 0.6 10*3/uL (0.1-1.0); MONO % 9.8 % (3.0-9.0); NEUT # 3.8 10*3/uL (2.3-7.9); NEUT % 66.6 % (47.0-73.0); PLATELET COUNT AUTOMATED 155 10*3/uL (130-400); RED BLOOD COUNT 3.36 10*6/uL (4.50-5.90); RED CELL DISTRI WIDTH 14.5 % (0-14.5); WHITE BLOOD COUNT 5.6 10*3/uL (4.8-10.8)
[2017-03-21 06:26] LABS: ALBUMIN 2.9 gm/dl (3.1-4.5); CREATININE 4.19 mg/dL (0.70-1.30); MAGNESIUM 2.3 mg/dL (1.5-2.1); PHOSPHOROUS 3.9 mg/dL (2.5-4.9); POTASSIUM 4.2 mmol/L (3.5-5.1); TOTAL PROTEIN 6.9 gm/dL (6.4-8.2)
[2017-03-21 06:32] LABS: THYROID STIM HORMONE (HS) 1.08 uIU/ml (0.358-4.75)
--- NOTE | 2017-03-21 06:35 | NUR ---
DR BROWN CONTACTED AND INFORMED OF CRITICAL TROPONIN AND BSG.
[2017-03-21 07:04] LABS: ACT PARTIAL THROMBO TIME 26.7 SECONDS (20.8-31.5); INTERNATIONAL NORM RATIO 1.1 (2.0-3.5)
[2017-03-21 07:37] LABS: VITAMIN D, 25-HYDROXY 15.6 ng/mL (30-100)
--- NOTE | 2017-03-21 07:55 | NUR ---
ATTEMPTED TO REACH NEPHROLOGY REGARDING CONSULT. MESSAGE LEFT WITH JOSE AT ANSWERING SERVICE. PER [facility]IENT, [facility]
[2017-03-21 08:00] VITALS: BP 175/70
--- NOTE | 2017-03-21 10:00 | NUR ---
DR. NICHOLS IN TO SEE PATIENT.
--- NOTE | 2017-03-21 10:00 | NUR ---
APRESOLINE GIVEN FOR ELEVATED BLOOD PRESSURE.
[2017-03-21 12:00] VITALS: BP 148/58
[2017-03-21 16:00] VITALS: BP 146/66
--- NOTE | 2017-03-21 18:22 | NUR ---
RESTING WITH NO COMPLAINTS.
[2017-03-21 20:00] VITALS: BP 180/102; BP 202/94
--- NOTE | 2017-03-21 20:30 | NUR ---
RESTING IN BED WITH NO ACUTE DISTRESS NOTED. RESPIRATIONS EASY. LUNGS DIMINISHED, CLEAR. PULSE OX 96% RA. CALL LIGHT WITHIN REACH. NO VOICED COMPLAINTS
--- NOTE | 2017-03-21 20:55 | NUR ---
DR CRUZ CONTACTED REGARDING BP 202/94. NEW ORDERS RECEIVED
--- NOTE | 2017-03-21 21:10 | NUR ---
1 TIME IV APRESOLINE GIVEN PER ORDER.
--- NOTE | 2017-03-21 23:00 | NUR ---
VOMITED X 1. IV ZOFRAN GIVEN PER ORDER. WILL MONITOR
[2017-03-22] VITALS: BP 160/90
--- NOTE | 2017-03-22 | NUR ---
STATES RELIEF FROM EARLIER ZOFRAN. RESTING MORE COMFORTABLY. RESPIRATIONS EASY. HR 83. BP IMPROVED 160/90. DENIES NAUSEA. CALL LIGHT WITHIN REACH. NO FURTHER VOICED COMPLAINTS
[2017-03-22 04:00] VITALS: BP 182/70
--- NOTE | 2017-03-22 04:00 | NUR ---
SLEEPING WITH NO DISTRESS NOTED. AWAKENS EASILY. RESPIRATIONS EASY. HR 74. BP 182/70. CALL LIGHT WITHIN REACH. NO VOICED COMPLAINTS
--- NOTE | 2017-03-22 06:00 | NUR ---
SLEPT THROUGHOUT NIGHT WITH NO DISTRESS NOTED. RESPIRATIONS EASY. CALL LIGHT WITHIN REACH. NO VOICED COMPLAINTS THIS SHIFT
[2017-03-22 06:10] LABS: BASO % 0.3 % (0.0-1.0); EOS # 0.1 10*3/uL (0.0-0.4); EOS % 1.9 % (1.0-4.0); HEMATOCRIT 30.1 % (42.0-52.0); HEMOGLOBIN 10.1 g/dl (14.0-18.0); LYMPH # 1.3 10*3/uL (1.3-4.4); LYMPH % 17.4 % (27.0-41.0); MEAN CELL VOLUME 88.5 fl (80.0-94.0); MEAN CORPUSCULAR HGB 29.7 pg (27.0-31.0); MEAN CORPUSCULAR HGB CONC 33.6 g/dl (33.0-37.0); MEAN PLATELET VOLUME 10.1 fl (9.6-12.3); MONO # 0.6 10*3/uL (0.1-1.0); NEUT # 5.4 10*3/uL (2.3-7.9); NEUT % 71.9 % (47.0-73.0); PLATELET COUNT AUTOMATED 185 10*3/uL (130-400); RED CELL DISTRI WIDTH 14.6 % (0-14.5); WHITE BLOOD COUNT 7.5 10*3/uL (4.8-10.8)
[2017-03-22 06:32] LABS: CREATININE 3.69 mg/dL (0.70-1.30); POTASSIUM 4.1 mmol/L (3.5-5.1)
--- NOTE | 2017-03-22 06:37 | NUR ---
REQUESTED AND RECEIVED TYLENOL PER PRN ORDER FOR COMPLAINTS OF HEADACHE RATING A 5. CALL LIGHT WITHIN REACH. WILL MONITOR FOR EFFECTIVENESS
[2017-03-22 08:00] VITALS: BP 176/74
--- NOTE | 2017-03-22 10:00 | NUR ---
AM MEDS TAKEN.
[2017-03-22 12:00] VITALS: BP 156/67
--- NOTE | 2017-03-22 14:07 | NUR ---
PATIENT RESTING. NO COMPLAINTS VOICED.
[2017-03-22 16:00] VITALS: BP 189/88
--- NOTE | 2017-03-22 16:13 | NUR ---
DR. NICHOLS NOTIFIED OF BLOOD PRESSURE.
[2017-03-22] MEDS ORDERED: APRESOLINE25 MG PO (17:48)
--- NOTE | 2017-03-22 18:46 | NUR ---
IV REMOVED FOR DISCHARGE. Discharge instructions reviewed with patient/family. Patient receptive and verbalizes understanding. Follow-up care arranged. Written instructions given to patient/family. CHAGO CORADO
== END 2017-03-22 18:50 | disposition home or self-care (01) | DRG 56 ==
LOC: ED 14:55 → 5E 20:56 → EDHOLD 20:56 → 5E 21:32
PROVIDERS: Family Medicine; Hospitalist; Nurse Practitioner Family; ADMIT Internal Medicine
DX: G91.2 (Idiopathic) normal pressure hydrocephalus (principal); N17.0 Acute kidney failure with tubular necrosis; I13.0 Hypertensive heart and chronic kidney disease with heart failure and stage 1 through stage 4 chronic kidney disease, or unspecified chronic kidney disease; E44.1 Mild protein-calorie malnutrition; E66.2 Morbid (severe) obesity with alveolar hypoventilation; N18.4 Chronic kidney disease, stage 4 (severe); E11.22 Type 2 diabetes mellitus with diabetic chronic kidney disease; I50.9 Heart failure, unspecified; D63.1 Anemia in chronic kidney disease; R29.6 Repeated falls; E78.5 Hyperlipidemia, unspecified; E55.9 Vitamin D deficiency, unspecified; E11.42 Type 2 diabetes mellitus with diabetic polyneuropathy; R74.8 Abnormal levels of other serum enzymes; G20 Parkinson's disease; I25.10 Atherosclerotic heart disease of native coronary artery without angina pectoris; J44.9 Chronic obstructive pulmonary disease, unspecified; Z88.6 Allergy status to analgesic agent; Z88.8 Allergy status to other drugs, medicaments and biological substances; Z79.82 Long term (current) use of aspirin; Z79.899 Other long term (current) drug therapy; I25.2 Old myocardial infarction; Z79.4 Long term (current) use of insulin; Z87.11 Personal history of peptic ulcer disease; Z90.11 Acquired absence of right breast and nipple; Z90.89 Acquired absence of other organs; Z98.61 Coronary angioplasty status; Z80.9 Family history of malignant neoplasm, unspecified; Z68.35 Body mass index [BMI] 35.0-35.9, adult

== ENCOUNTER 2017-04-05 05:51 | Emergency (ER) | payer OTHER ==
[~2017-04-05] VITALS: Ht 182.8 cm; Wt 117.9 kg
[~2017-04-05 05:51] MED LIST changes: +LANTUS SOL100 UNIT/1 SC; +NOVOLOG10 ML SC
[2017-04-05 06:22] LABS: BASO % 0.4 % (0.0-1.0); EOS # 0.2 10*3/uL (0.0-0.4); EOS % 2.2 % (1.0-4.0); HEMATOCRIT 30.7 % (42.0-52.0); HEMOGLOBIN 9.9 g/dl (14.0-18.0); LYMPH # 1.3 10*3/uL (1.3-4.4); LYMPH % 17.6 % (27.0-41.0); MEAN CELL VOLUME 91.4 fl (80.0-94.0); MEAN CORPUSCULAR HGB 29.5 pg (27.0-31.0); MEAN CORPUSCULAR HGB CONC 32.2 g/dl (33.0-37.0); MEAN PLATELET VOLUME 9.9 fl (9.6-12.3); MONO # 0.7 10*3/uL (0.1-1.0); MONO % 9.1 % (3.0-9.0); NEUT # 5.2 10*3/uL (2.3-7.9); NEUT % 70.3 % (47.0-73.0); PLATELET COUNT AUTOMATED 157 10*3/uL (130-400); RED BLOOD COUNT 3.36 10*6/uL (4.50-5.90); RED CELL DISTRI WIDTH 13.9 % (0-14.5); WHITE BLOOD COUNT 7.4 10*3/uL (4.8-10.8)
[2017-04-05 06:37] LABS: ALBUMIN 3.2 gm/dl (3.1-4.5); CREATININE 3.94 mg/dL (0.70-1.30); MAGNESIUM 2.3 mg/dL (1.5-2.1); TOTAL PROTEIN 7.1 gm/dL (6.4-8.2)
[2017-04-05 06:38] LABS: TROPONIN I 0.136 ng/ml (<0.045)
[2017-04-05 08:28] LABS: BILIRUBIN NEGATIVE (NEGATIVE); BLOOD 1+ (NEGATIVE); CLARITY SL CLOUDY (CLEAR); COLOR YELLOW (YELLOW); GLUCOSE TRACE (NEGATIVE); KETONE NEGATIVE (NEGATIVE); LEUKO ESTERASE NEGATIVE (NEGATIVE); NITRITE NEGATIVE (NEGATIVE); UROBILINOGEN 0.2 E.U./dl (0.2-1.0)
[2017-04-05 08:37] LABS: BACTERIA TRACE; WBC 0-2 wbc/hpf (0-5)
[2017-04-05 08:52] VITALS: BP 161/74
== END 2017-04-05 09:12 | disposition home or self-care (01) ==
LOC: ED 05:51
PROVIDERS: Emergency Medicine Emergency Medical Services
DX: E11.649 Type 2 diabetes mellitus with hypoglycemia without coma (principal); I13.0 Hypertensive heart and chronic kidney disease with heart failure and stage 1 through stage 4 chronic kidney disease, or unspecified chronic kidney disease; E11.22 Type 2 diabetes mellitus with diabetic chronic kidney disease; N18.9 Chronic kidney disease, unspecified; E11.40 Type 2 diabetes mellitus with diabetic neuropathy, unspecified; E78.5 Hyperlipidemia, unspecified; Z88.1 Allergy status to other antibiotic agents; Z88.8 Allergy status to other drugs, medicaments and biological substances; Z88.6 Allergy status to analgesic agent; Z79.899 Other long term (current) drug therapy; Z79.4 Long term (current) use of insulin

== ENCOUNTER 2017-04-13 00:26 | Emergency (ER) | payer OTHER ==
[~2017-04-13] VITALS: Ht 182.8 cm; Wt 117.9 kg
[2017-04-13 01:08] LABS: BASO % 0.2 % (0.0-1.0); EOS % 0.3 % (1.0-4.0); HEMATOCRIT 33.4 % (42.0-52.0); HEMOGLOBIN 10.8 g/dl (14.0-18.0); LYMPH # 0.9 10*3/uL (1.3-4.4); LYMPH % 9.3 % (27.0-41.0); MEAN CELL VOLUME 88.8 fl (80.0-94.0); MEAN CORPUSCULAR HGB 28.7 pg (27.0-31.0); MEAN CORPUSCULAR HGB CONC 32.3 g/dl (33.0-37.0); MEAN PLATELET VOLUME 10.9 fl (9.6-12.3); MONO # 0.4 10*3/uL (0.1-1.0); MONO % 4.3 % (3.0-9.0); NEUT # 8.5 10*3/uL (2.3-7.9); NEUT % 85.5 % (47.0-73.0); PLATELET COUNT AUTOMATED 182 10*3/uL (130-400); RED BLOOD COUNT 3.76 10*6/uL (4.50-5.90); RED CELL DISTRI WIDTH 13.8 % (0-14.5)
[2017-04-13 01:18] LABS: ACT PARTIAL THROMBO TIME 25.5 SECONDS (20.8-31.5); INTERNATIONAL NORM RATIO 1.1 (2.0-3.5)
[2017-04-13 01:24] LABS: ALBUMIN 3.2 gm/dl (3.1-4.5); CREATININE 4.28 mg/dL (0.70-1.30); POTASSIUM 5.8 mmol/L (3.5-5.1); TOTAL PROTEIN 7.6 gm/dL (6.4-8.2)
[2017-04-13 01:36] LABS: TROPONIN I 0.606 ng/ml (<0.045)
[2017-04-13 03:00] VITALS: BP 158/75
[2017-04-13 03:09] LABS: BILIRUBIN NEGATIVE (NEGATIVE); BLOOD 2+ (NEGATIVE); CLARITY CLEAR (CLEAR); COLOR YELLOW (YELLOW); GLUCOSE 3+ (NEGATIVE); KETONE TRACE (NEGATIVE); LEUKO ESTERASE NEGATIVE (NEGATIVE); NITRITE NEGATIVE (NEGATIVE); UROBILINOGEN 0.2 E.U./dl (0.2-1.0)
== END 2017-04-13 03:43 | disposition short-term general hospital (02) ==
LOC: ED 00:26
PROVIDERS: Student in an Organized Health Care Education/Training Program
DX: I13.0 Hypertensive heart and chronic kidney disease with heart failure and stage 1 through stage 4 chronic kidney disease, or unspecified chronic kidney disease (principal); E11.22 Type 2 diabetes mellitus with diabetic chronic kidney disease; N18.4 Chronic kidney disease, stage 4 (severe); J18.9 Pneumonia, unspecified organism; J96.90 Respiratory failure, unspecified, unspecified whether with hypoxia or hypercapnia; E78.5 Hyperlipidemia, unspecified; E11.40 Type 2 diabetes mellitus with diabetic neuropathy, unspecified; J44.9 Chronic obstructive pulmonary disease, unspecified; Z88.6 Allergy status to analgesic agent; Z79.4 Long term (current) use of insulin; Z88.1 Allergy status to other antibiotic agents; Z88.8 Allergy status to other drugs, medicaments and biological substances; Z79.899 Other long term (current) drug therapy

== ENCOUNTER 2017-05-15 04:58 | Inpatient (IN) | payer OTHER ==
[~2017-05-15] VITALS: Ht 182.9 cm; Wt 115.7 kg
[2017-05-15] VITALS (7 sets, daily range): BP systolic 128–194; BP diastolic 72–93
--- NOTE | ~2017-05-15 | CON ---
[place], [place] REPORT OF CONSULTATION NAME: NOBLE GENTILE UNIT #: [id number] ROOM: 406 DOCTOR: ZENAIDA MERINO MDTAY BIRTHDATE: [birth year] DOS: 05/15/2017 REQUESTING PHYSICIAN: Hospitalist services for assessment of abnormal respiratory symptoms, possibility of pneumonia and others. The patient was independently seen today for the [id number] encounter. The history was personally taken from the patient's physical examination performed. All the available labs were reviewed for the patient including the radiology data from the PAC system. The assessment and management, which was done for this patient personally made for today's visit. Note done by the medical billing supervisor was approved as well. HISTORY OF PRESENT ILLNESS: A 67-year-old poor historian has been admitted to the hospital initially on 05/15/2017. The patient stated that he has been recently admitted to the [facility] in [place], [place], as the patient developed acute myocardial infarction. He required cardiac catheterization and acute coronary intervention with 3 stents inserted. He stated that he has developed symptoms of increased shortness of breath recently. The symptoms have been noted with gradual worsening. The patient was noted with some cough and clear sputum expectoration. He thought that he was getting cold for this patient presented to the hospital Emergency Room and was noted with the decreased oxygen saturation. The patient has been assessed in the hospital currently being admitted for further care. He denies any symptoms of hemoptysis. Denies symptoms of wheezing. Pain was described by the patient intermittently only mild for the patient in the retrosternal area at times, but have not lasted for a significant amount of time. REVIEW OF SYSTEMS: Already done by the medical billing supervisor. PAST MEDICAL HISTORY: 1. Noted with patient with history of congestive heart failure with a diastolic and systolic dysfunction and left ventricular ejection fraction of 40%. 2. Coronary artery disease. 3. Type 2 diabetes mellitus. 4. Essential hypertension. 5. Chronic obesity. 6. Diabetic neuropathy. 7. History of bronchial asthma and chronic obstructive pulmonary disease. 8. Anemia of chronic disease. 9. Vitamin D deficiency. 10. History reported for Pickwickian syndrome, but I do not have any documentation to support that at this time. 11. History of chronic kidney disease stage 3 with the usual creatinine about 3.0 was reported as baseline, which was dictated by the Nephrology services for this patient was last assessment in 02/2017. PAST SURGICAL HISTORY: 1. Reported as previous cardiac catheterization and coronary artery stent insertion. 2. Lumbar laminectomy. 3. Colonoscopy and EGD. [place], [place] REPORT OF CONSULTATION NAME: NOBLE GENTILE UNIT #: [id number] ROOM: 406 DOCTOR: ZENAIDA MERINO MD,TAY BIRTHDATE: [birth year] 4. Bilateral inguinal hernia repair. 5. Right mastectomy. 6. Vasectomy. 7. Tonsillectomy. SOCIAL HISTORY: The patient stated that he is currently not , lives at home. He denies any history of tobacco, alcohol or any illicit drug use for the patient at the present time. He used to drink alcohol in the past, which has been discontinued several years ago. MEDICATIONS: From home were noted as use of Tylenol, Proventil HFA inhaler, aspirin, Symbicort, Wellbutrin, Coreg, vitamin D, finasteride, hydroxyzine, Lantus insulin, omega-3 fatty acid, omeprazole, and Effient. DRUG ALLERGIES: Noted several allergies that include: 1. MORPHINE. 2. FLUOROQUINOLONES. 3. ZETIA. 4. NIACIN. 5. STATIN DRUGS. 6. CODEINE PHOSPHATE. PHYSICAL EXAMINATION: GENERAL: This is a 67-year-old white male, currently sitting at this time on his bed without any distress; use of oxygen supplementation via nasal cannula was noted. Height of 6 feet, weight of 263 pounds, BMI 35.7. VITAL SIGNS: For the patient, which have been recorded shows normal temperature, respiratory rate 20-24, heart 78-80, blood pressure 154/77-128/74. Intake for the patient and output for the patient were not documented yet. Pulse ox saturation with 4 liters nasal cannula 99% saturation. Oxygen saturations noted about 80% room air at presentation in the Emergency Room. HEENT: Moderate obesity. Neck was supple. Head was atraumatic. Eyes nonicterus. NECK: Supple. CARDIOVASCULAR: S1, S2 is audible. LUNGS: For the patient was noted with moderate decreased breath sounds for the patient was noted with inspiratory crackles noted diffusely in the lungs bilaterally. There were no wheezing heard. ABDOMEN: Soft and obese. EXTREMITIES: The patient was noted with minimal edema. CENTRAL NERVOUS SYSTEM: Cranial nerves 2-12 intact. MUSCULOSKELETAL: No deformities. SKIN: No lesions or rashes. LABORATORY DATA: CBC of the patient of 05/15/2017, hemoglobin 7.6, hematocrit 24.1, WBC count normal, platelet count was normal. CMP of the patient this morning, BUN 56, creatinine 4.44. Glucose 115. ProBNP was 3746. The troponin first set was noted as normal. Influenza A and B, nasal washing antigen were noted as negative. CMP repeated again on 05/16/2017 for this patient shows BUN 55, creatinine 4.822. [place], [place] REPORT OF CONSULTATION NAME: NOBLE GENTILE UNIT #: [id number] ROOM: 406 DOCTOR: ZENAIDA MERINO MD,[facility] BIRTHDATE: [birth year] IMPRESSION: The patient presented to the hospital for symptoms of shortness of breath, acute hypoxic respiratory failure secondary to fluid overload related to acute on chronic kidney injury. Possibility of prerenal azotemia of contrast induced to the lung to be considered superimposed on chronic kidney disease stage 3 as one of the causation. There was no evidence of pneumonia for this patient noted for this patient with the chest x-ray suggestive of cardiomegaly with mild pulmonary venous congestion on presentation. 1. Chronic obesity. 2. Rule out obesity hypoventilation. 3. Strong suspicion of current body habitus for obstructive sleep apnea disorder. 4. History of reported bronchial asthma and chronic obstructive pulmonary disease, which is being treated for this patient with medication at this time, the patient does not represent any findings consistent with acute exacerbation of chronic obstructive pulmonary disease or bronchial asthma. PLAN AND RECOMMENDATIONS: Assessment and management of the patient with acute kidney superimposed patient chronic kidney disease with consultation from the nephrology services ____ anemia for this patient as well. Obtain arterial blood gas of the patient on room air for this patient to assess the ventilatory status of the patient and hypercarbia if present. The patient is already noted without any evidence of acute pneumonia for this patient antibiotic use on patient would not be necessary. He was ordered one dose of Lasix 40 mg daily for this patient as well. Consider discontinuation of antibiotics on the patient after all the results become negative. Discontinuation of Solu-Medrol is not needed since there was no evidence of congestive heart failure. Bronchodilators will be continued with patient as previously ordered. DVT prophylaxis in the form of the heparin sulfate for the patient is already continued at 5000 units b.i.d. Supportive plan and management and other care. Cardiac assessment. The patient could be recommended this patient less likely to have another acute myocardial infarction. After the recent coronary intervention the patient already getting Effient. However, the stent closure of the patient would be considered as well. Usual care. All other supportive therapy, plan of management and care plan. Additional treatment changes will be made for this patient based on the progression of the illness. Obtain PA and lateral chest x-ray in the morning to assess the resolution of pulmonary venous congestion, fluid overload or congestive heart failure. He has been known with past history of cardiomyopathy, left ventricular ejection as 40% with systolic and diastolic dysfunction. Thanks for allowing me to participate in the care of this patient. [place], [place] REPORT OF CONSULTATION NAME: NOBLE GENTILE UNIT #: [id number] ROOM: 406 DOCTOR: TAY MCGOWAN MD BIRTHDATE: [birth year] TAY ESTEVEZ MD CM:CONSTR:REPORT OF CONSULTATION 1204 05/15/17 [id number] interface
--- NOTE | ~2017-05-15 | PR ---
[place], [place] PROGRESS NOTE NAME: NOBLE GENTILE UNIT #: [id number] ROOM: 406 DOCTOR: TAY MCGOWAN MD BIRTHDATE: [birth year] DOS: 05/16/2017 PULMONARY FOLLOWUP SUBJECTIVE: He has been noted reduction in symptoms of shortness of breath from yesterday. Minimal cough was noted with symptoms of chest pain or any abdominal pain. He was given diuretic, Lasix yesterday noted ____ for about 1.205 liters. OBJECTIVE: VITAL SIGNS: Temperature remains normal, respiratory rate 16, heart rate 73, blood pressure 114/75 this morning, pulse oxygen saturation recorded at 91% on room air. HEENT: Showed no new change. NECK: Supple. CARDIOVASCULAR: S1, S2 audible. LUNGS: Occasional crackle noted significant improvement noted from yesterday. There was no wheezing. ABDOMEN: Soft, obese, nontender. EXTREMITIES: Showed no new changes. LABORATORY DATA: BMP today: BUN 63, creatinine 4.10. Glucose 226. CBC 05/16/2017, hemoglobin 8.4, hematocrit 25.9. Platelet count was noted as normal. The PTH level was noted as 187, which was elevated. Echocardiogram was done yesterday and that has been dictated by Dr. Sage, media marketing coordinator described with the findings of left ventricle ejection fraction was noted as normal. Mild mitral valve regurgitation was described. IMPRESSION: 1. Acute kidney injury on chronic kidney disease with pulmonary venous congestion, congestive heart failure resulting in shortness of breath was noted, improved from yesterday. 2. Anemia of chronic disease. 3. Recent acute coronary intervention for coronary artery disease. 4. Severe obesity with suspicion of obstructive sleep apnea disorder clinical assessment. PLAN OF MANAGEMENT: Continuation of the current plan of therapy at this time. Nephrology services follow the patient to manage the acute superimposed chronic kidney disease. Continue other supportive therapy, plan of management and care. The Lasix had been given 40 mg IV daily. Antibiotics certainly could be discontinued. There was no suspicion of acute pneumonia. [place], [place] PROGRESS NOTE NAME: NOBLE GENTILE UNIT #: [id number] ROOM: 406 DOCTOR: TYA MCGOWAN MD BIRTHDATE: [birth year] TAY ESTEVEZ MD CM:PNTRANS [phone] TAY MERINO MD 05/16/17 2358 interface
--- NOTE | ~2017-05-15 | PR ---
[place], [place] PROGRESS NOTE NAME: NOBLE GENTILE [facility] #: [id number] UNIT #: [id number] ROOM: 406 DOCTOR: ZENAIDA MERINO MD,TAY BIRTHDATE: [birth year] DOS: 05/18/2017 SUBJECTIVE: He has been noted comfortable at this time, resting in the bed. He has been reported with significant reduction in symptoms of coughing, wheezing, shortness of breath as the patient was started corticosteroid yesterday. He denies any symptoms of chest pain, able to expectorate [id number] amount of sputum, described to be purulent. OBJECTIVE: VITAL SIGNS: Shows a normal temperature, respiratory rate of 20. This morning, heart rate 71, blood pressure 166/80 at 8:00 a.m. Pulse oxygen saturation of the patient was noted as 94% on room air. HEENT: Examination shows no new change. Chronic obesity. CARDIOVASCULAR: S1, S2 audible. LUNGS: Shows reduction in the wheezing were noted, however the wheezing was noted moderate at the present time. ABDOMEN: Soft, obese, nontender. Bowel sounds present. EXTREMITIES: Noted without any edema. LABORATORY DATA: The BMP of patient that was done this morning shows glucose 233. BUN 69, creatinine 3.74. Sodium 134. The CBC of the patient that was done this morning shows hemoglobin of 8.6, hematocrit 26.9, WBC count were normal. Platelet count normal, 95% segmented neutrophils. Bedside blood glucose yesterday evening was noted at 514. IMPRESSION: 1. The patient has been noted with interval development of acute exacerbation of bronchial asthma, acute bronchitis, responding to treatment very well. Reduction of the symptoms in the last 24 hours. 2. Severe hyperglycemia. The patient was also noted related to use of corticosteroid. 3. Resolving acute kidney injury superimposed on chronic kidney disease as well. 4. Severe steroid-induced hyperglycemia. PLAN OF TREATMENT: Reduce dose of Solu-Medrol to 40 mg daily dose for the patient today. Monitor respiratory status. Maximize the ____ diabetes mellitus, which are resulting in improvement in the hyperglycemia. Other supportive therapy, plan of management and care. Continue to monitor and Nephrology services for medical management of acute kidney injury and superimposed chronic kidney disease as well. Ambulation was encouraged for the patient. Continuation of bronchodilators administration as well. [place], [place] PROGRESS NOTE NAME: NOBLE GENTILE UNIT #: [id number] ROOM: 406 DOCTOR: TAY MCGOWAN MD BIRTHDATE: [birth year] TAY ESTEVEZ MD CM:MICHELLE [id number] TAY MERINO MD 05/19/17 0039 interface
--- NOTE | ~2017-05-15 | PR ---
[place], [place] PROGRESS NOTE [id number] UN[facility] #: [id number] ROOM: 406 DOCTOR: JELANI GARVEY,MOIZ Moss BIRTHDATE: [birth year] DOS: 05/16/2017 SUBJECTIVE: The patient was seen and examined. He is awake and alert. He is lying in bed on room air. He tells me he feels much better. Denies fevers, chills or night sweats. Denies dysuria. PHYSICAL EXAMINATION: VITAL SIGNS: Temperature 98, pulse 73, respiratory rate 16, blood pressure 149/75. HEENT: Shows no JVD. LUNGS: Diminished breath sounds with an occasional wheeze. HEART: Normal S1, S2. No rub, thrill or gallop. ABDOMEN: Soft, nontender. There is no organomegaly. EXTREMITIES: Showed no edema. SKIN: Showed no rash. LABORATORY DATA: Hemoglobin 8.4, white count of 8.5, platelets 162, BUN 63, creatinine 4.1, sodium 136, potassium 4.4, CO2 of 26, calcium 8.1, phosphorus 4.5, magnesium 1.9, albumin 3.3. IMPRESSION: 1. Stage 4-5 chronic kidney disease. The patient's true baseline creatinine is not clear, but likely is near baseline. Renal function seems to be fairly stable. He has no uremic symptoms. Continue to follow laboratory data closely. Dose adjusted meds for current creatinine clearance. Avoid nephrotoxic agents. 2. Anemia. The patient likely will require erythropoietin stimulating agents. We can likely provide a dose prior to discharge. 3. Congestive heart failure. He is clinically improving. Diuretics ongoing. 4. Hypertension. Continue medications. 5. Coronary artery disease, status post stenting. Continue medications per Cardiology. MOIZ PALOMARES MD CM:PNTRANS [id number] MOIZ PALOMARES MD 05/16/17 2318 interface
--- NOTE | ~2017-05-15 | PR ---
[place], [place] PROGRESS NOTE NAME: NOBLE GENTILE UNIT #: [id number] ROOM: 406 DOCTOR: MOIZ PALOMARES MD BIRTHDATE: [birth year] DOS: 05/17/2017 SUBJECTIVE: The patient was seen and examined. He is somewhat more short of breath today. He states he has been coughing quite a bit. He denied nausea or vomiting. He was lying flat on room air when I had seen him. He was having his pulse ox taken and was noted to be 92 on room air at the time of evaluation. PHYSICAL EXAMINATION: VITAL SIGNS: Temperature 98.4, pulse 76, respiratory rate 20, blood pressure 154/74. HEENT AND NECK: Shows no JVD. Sclerae are anicteric. LUNGS: Had diminished breath sounds with noted wheeze. HEART: Normal S1, S2. No rub, thrill or gallop. ABDOMEN: Soft, nontender. There is no organomegaly. EXTREMITIES: Had trace edema. SKIN: Showed no rash. LABORATORY DATA: Hemoglobin 8.0, white count of 9.2, platelets of 170. Sodium 137, potassium 4.2, CO2 of 28, BUN 64, creatinine 3.85, calcium 7.7, phosphorus 3.2, magnesium 1.9. IMPRESSION: 1. Stage 4-5 chronic kidney disease with an unclear true baseline creatinine, although likely near baseline. Renal function remains stable. There is no evidence of uremic symptoms at the present time. Continue to follow labs closely. Dose adjust medication for current creatinine clearance and avoid nephrotoxic agents. 2. Anemia. The patient will likely require erythropoietin stimulating agents. This can be provided likely with one dose prior to discharge from the hospital. 3. Congestive heart failure. Continue diuresis. He is wheezing today. Pulmonary is following the case and adjusting some of his therapy. He may require oxygen. 4. Hypertension. Continue medications. 5. Coronary artery disease, status post stenting. Continue medications. [place], [place] PROGRESS NOTE NAME: NOBLE GENTILE UNIT #: [id number] ROOM: 406 DOCTOR: MOIZ PALOMARES MD BIRTHDATE: [birth year] MOIZ PALOMARES MD CM:PNTRANS [phone] MOIZ PALOMARES MD 05/17/17 2001 interface
--- NOTE | ~2017-05-15 | PR ---
[place], [place] PROGRESS NOTE [id number] UN[facility] #: [id number] ROOM: 406 DOCTOR: ZENAIDA MERINO MD,TAY BIRTHDATE: [birth year] DOS: 05/20/2017 SUBJECTIVE: The patient was seen and examined in [id number] encounter today. The history of the patient confirmed. Physical exam was performed. All the labs available were reviewed. The assessment, management personally completed and the recommendation about the management changes were personally made as well. The note done by the er medical technician was approved. The patient has been showing progressive resolution of the current acute symptoms. The coughing has improved markedly. Shortness of breath resolved. There were no symptoms of chest pain. The patient was also showing progressive resolution of the kidney function to the baseline chronic kidney disease stage 4. OBJECTIVE: VITAL SIGNS: Reviewed and they were noted as normal except mildly uncontrolled systolic hypertension. Auscultation of lung were noted clear. Pulse oxygen saturation of the patient on room air was noted as normal at 96%. Lungs were noted clear to auscultation. ABDOMEN: Noted chronic obesity. PLAN OF TREATMENT: The patient could be discharged home today to be followed up by his primary care physician in the office for his pulmonary and cardiology as well. Tapering dose of prednisone should be given. The patient was advised to continue Symbicort inhaler and other medical treatments. ADDENDUM. The patient's note is to be attached to that dictated separately by Dr. Estevez. SUBJECTIVE: The patient was evaluated today. He was awake, alert, oriented, in no acute distress. He states he feels much better and is looking forward to go home. He denies any chest pain, nausea, vomiting, diarrhea or any other symptoms overnight. He states his breathing is significantly improved since the time he has been admitted. OBJECTIVE: VITAL SIGNS: Temperature 97.9, pulse 59, respiratory rate 18, blood pressure 183/75, bedside pulse oximetry 96% on room air. GENERAL: Awake, alert, oriented, no acute distress. CARDIAC: Regular rate and rhythm. No murmurs. LUNGS: Diminished breath sounds with some scattered wheezes, but no rhonchi, rales or crackles. ABDOMEN: Soft, nontender, nondistended. EXTREMITIES: No lower extremity edema, no erythema. NEUROLOGIC: No new focal neural deficits. PSYCHOLOGIC: Appropriate affect and mood. SKIN: No new lesions. IMAGES: No new images today. ASSESSMENT AND PLAN: Acute respiratory failure from congestive heart failure [place], [place] PROGRESS NOTE NAME: NOBLE GENTILE UNIT #: [id number] ROOM: [facility] DOCTOR: ZENAIDA MERINO MD,TAY BIRTHDATE: [birth year] and chronic obstructive pulmonary disease, both seem to be resolving quite well and the patient is okay to be discharged from a pulmonary standpoint. He will need to be on a prednisone taper, but otherwise see Dr. Estevez's note for more details. TAY ESTEVEZ MD CM:PNTRANS [id number] TAY MERINO MD 05/27/17 1902 interface
--- NOTE | ~2017-05-15 | PR ---
[place], [place] PROGRESS NOTE NAME: [facility]ILE [facility] [id number] UNIT #: [id number] ROOM: 406 DOCTOR: ZENAIDA MERINO MD,TAY BIRTHDATE: [birth year] DOS: 05/19/2017 SUBJECTIVE: He continued to do well at this time, getting physical therapy. Shortness of breath has been improving. There was no chest pain. The coughing and wheezing has been improved progressively. OBJECTIVE: VITAL SIGNS: For the patient which has been recorded shows the temperature noted as normal. The respiratory rate recorded as 20, heart rate 63, blood pressure 162/67. Pulse oxygen saturation, 96% saturation on room air. HEENT: Chronic obesity. NECK: Supple. CARDIOVASCULAR: S1, S2 audible. LUNGS: The patient was noted without any wheezing or crackles at the present time. ABDOMEN: Soft, nontender. IMPRESSION: 1. Progressive resolution and improvement was continued for the patient for acute exacerbation of bronchial asthma and acute bronchitis. 2. Resolving acute congestive heart failure as well as acute kidney injury. PLAN OF TREATMENT: No changes from the Pulmonary standpoint. Continue the patient's current therapy as previously in progress. Other supportive therapy, plan of management as well. TAY ESTEVEZ MD CM:PNTRANS 1116 TAY MERINO MD 05/20/1731 interface
--- NOTE | ~2017-05-15 | CON ---
[place], [place] REPORT OF CONSULTATION NAME: NOBLE GENTILE UNIT #: [id number] ROOM: 406 DOCTOR: RUFINO CRUZ DO BIRTHDATE: [birth year] DOS: 05/15/2017 ADDENDUM. Please attach it to Dr. Estevez's a consult note which he will dictate separately and see that for more details if necessary. REASON FOR CONSULTATION: Shortness of breath. HISTORY OF PRESENT ILLNESS: The patient is a 67-year-old male who presented to the ER last night with complaints of shortness of breath. He is status post CA and stent, reportedly receiving 3 stents 2 weeks ago. He states that he has been coughing and having chills and this cough has been productive. He was reportedly found to have a pulse ox in the 80s yesterday when EMS arrived at his home. He admits to having lightheadedness, chest pain and blurred vision. The patient denies any abdominal pain, but he does state that he had a couple episodes of vomiting several days ago. The patient is a poor historian overall and he is somnolent at the time of encounter; therefore, limiting the HPI. PAST MEDICAL HISTORY: Significant for: 1. Recent myocardial infarction. 2. Congestive heart failure. 3. Chronic renal failure, stage 4. 4. Anemia of chronic disease. 5. Chronic obstructive pulmonary disease. 6. Generalized weakness. 7. Hypertension. 8. Insulin-dependent diabetes mellitus. 9. Morbid obesity. 10. Recurrent falls. 11. Normal pressure hydrocephalus. 12. Pickwickian syndrome. 13. Peptic ulcer disease. 14. Vitamin D deficiency. PAST SURGICAL HISTORY: 1. History of heart catheterization as of 2 weeks ago. 2. History of back surgery. 3. Colonoscopy and EGD. 4. History of inguinal hernia repair. 5. History of right mastectomy. 6. History of vasectomy. 7. History of tonsillectomy. SOCIAL HISTORY: Does not drink, smoke or use any drugs. FAMILY HISTORY: Father at the age of 46 from an unknown cancer. Mother at the age of 40 of an unknown cancer. ALLERGIES: MORPHINE, QUINOLONE, CIPRO, NIACIN, PREVASTATIN, , SIMVASTATIN, [place], [place] REPORT OF CONSULTATION NAME: NOBLE GENTILE UNIT #: [id number] ROOM: [facility] DOCTOR: NANCY RUFINO BIRTHDATE: [birth year] [place], and ZETIA. HOME MEDICATIONS: Tylenol as needed, albuterol, aspirin, Symbicort, bupropion, HCL, carvedilol, vitamin D, dextrose p.r.n., finasteride, hydroxyzine, insulin aspart and insulin glargine, methanol/camphor p.r.n., [place] 3 fatty acids, omeprazole, prasugrel (which is Effient). REVIEW OF SYSTEMS: GENERAL: Denies chills, fevers but admits to malaise. HEENT: Reports blurred vision. Denies hearing loss. Denies nasal discharge. Denies ear pain. Denies any throat pain or any other symptoms. CARDIOVASCULAR: Reports chest pain. Reports lower extremity edema. Denies palpitations, diaphoresis. RESPIRATORY: Reports shortness of breath, cough, wheezing and dyspnea on exertion as well as sputum production. ABDOMEN: Reports nausea and vomiting that have now resolved. Denies abdominal pain, diarrhea, or constipation. GENITOURINARY: Denies dysuria, hematuria, but he does have some urgency and frequency occasionally. NEUROLOGIC: Does report lightheadedness and some dizziness and has a history of frequent falls, but denies any confusion. PSYCHIATRIC: Denies depression and anxiety. ENDOCRINE: Denies polydipsia, heat or cold intolerance. SKIN: Denies any new lesions or ulcerations. PHYSICAL EXAMINATION: VITAL SIGNS: Most recent set of vital signs, temperature 98, pulse 78, respiratory rate 20, blood pressure 154/77, bedside pulse oximetry 99% on 4 liters nasal cannula. GENERAL: The patient is arousable, responsive but somnolent. Does not appear to be in acute distress. HEAD: Normocephalic, atraumatic. EYES: PERRL. NECK: Trachea is nondeviated. No masses. THROAT: No erythema. PULMONARY: Bilateral wheezes, crackles can be heard in lower lung rogel bilaterally and there are diminished breath sounds bilaterally as well. CARDIAC: S1, S2 heard. ABDOMEN: Obese, nondistended, nontender. SKIN: No ulcers, no new lesions. NEUROLOGIC: Generalized weakness but no new focal deficits. PSYCHIATRIC: Poor historian. Good remote memory. MUSCULOSKELETAL: Generalized weakness. EXTREMITIES: Edema in lower extremities. No clubbing, no cyanosis. LABORATORY DATA: Chemistries: Sodium 139, potassium 3.9, chloride 104, carbon dioxide 26, BUN 56, creatinine 4.4, GFR 13, glucose 115. Lactic acid 1.3. Total bilirubin is 0.2, AST is 26, ALT 39, alkaline phosphatase 129. Troponin less than 0.015. ProBNP 3746, total protein 6.7, albumin 3.2. Hematology: WBC 5.9, hemoglobin 7.6, hematocrit 24.1 and platelet count is 145. Microbiology [place], [place] REPORT OF CONSULTATION NAME: NOBLE GENTILE UNIT #: [id number] ROOM: 406 DOCTOR: RUFINO CRUZ DO BIRTHDATE: [birth year] cultures pending. We will obtain sputum samples. IMAGING: Chest x-ray shows congestion, but no clear evidence of consolidation. ASSESSMENT: 1. Respiratory failure likely associated with combination of comorbidities with acute congestive heart failure being high on the list. 2. Pickwickian syndrome with hypoxia and poor overall respiratory status chronically, likely due to hypoinflation of the lungs. 3. Status post myocardial infarction. 4. Chest pain. 5. Chronic renal failure. MANAGEMENT AND PLAN: The patient has been given a dose of Bumex. We will add another diuretic, Lasix 40 mg daily has been started. Repeat chest x-ray tomorrow. We will also obtain sputum cultures and gram-stains. We will also obtain a UA as the patient does have some urinary symptoms. Continue to monitor and repeat basic as well as manage and control his diabetes as per orders from the primary care team. Otherwise, we will evaluate tomorrow. Please see Dr. Estevez's note for further details. RUFINO CRUZ DO TAY ESTEVEZ MD CM:CONSTR:REPORT OF CONSULTATION 1236 05/15/17 [id number] interface
--- NOTE | ~2017-05-15 | PR ---
[place], [place] PROGRESS NOTE [id number] UNIT #: [id number] ROOM: 406 DOCTOR: LEVI RODRIGUEZ MD BIRTHDATE: [birth year] DOS: 05/16/2017 SUBJECTIVE: The patient is sleeping flat in bed, does not appear in distress. Denies any ongoing complaint of chest pain. No symptomatic palpitation. OBJECTIVE: VITAL SIGNS: Blood pressure 149/75, heart rate 73, respiratory rate of 14, temperature 98, T-max is 98.3. NECK: Good upstroke. No bruit. HEART: S1, S2 with holosystolic murmur at the left upper sternal border. LUNGS: Significant decrease in air movement. There is also end-expiratory wheezing with mild rhonchi at the base bilateral, slightly improved with deep cough. ABDOMEN: Obese, soft, nontender, present bowel sounds. EXTREMITIES: Lower extremities, edema present. LABORATORY DATA: White count 8.5, hemoglobin currently is 8.4, up from 7.6. Potassium 4.4, BUN 63, creatinine 4.1. GFR is 15%. Alkaline phosphatase 138. Troponin less than 0.015. Vitamin D is 20. ASSESSMENT AND PLAN: Current presentation with complaint of chest pain in a patient who has a previous history of coronary artery disease and stent placed about 3 weeks ago. The patient appears to be in volume overload, most likely due to his acute on chronic renal failure. His hemoglobin appears to be contributing to difficulty in diuresing the patient. His echocardiogram was checked today and showing normal left ventricular function with no significant wall motion abnormalities. At this stage, we will continue with current medical regimen. We will consider adding aspirin when his hemoglobin continues to stabilize. Call us for any chest pains or angina-like symptoms. Increase activity. No further cardiac testing at this time. LEVI RODRIGUEZ MD CM:PNTRANS [phone] LEVI RODRIGUEZ MD 05/27/17 [id number] interface
--- NOTE | ~2017-05-15 | PR ---
[place], [place] PROGRESS NOTE [id number] UNIT #: [id number] ROOM: 406 DOCTOR: ZENAIDA MERINO MD,TAY BIRTHDATE: [birth year] DOS: 05/17/2017 SUBJECTIVE: The patient has been noted without any ongoing acute complaints at this time. He has not been noted symptoms of chest pain, shortness of breath has been improving. He was reported with [id number] nonproductive cough. OBJECTIVE: VITAL SIGNS: For the patient which has been recorded shows the blood pressure was noted as 168/78, respiratory rate 22, heart rate 74, temperature was normal. HEENT: No acute change. NECK: Supple. CARDIOVASCULAR: S1, S2 audible. LUNGS: Shows interval development of [id number]-[id number] expiratory wheezing in the lungs bilaterally. There was no scattered crackles in the lungs. ABDOMEN: Soft and obese. EXTREMITIES: Remains unchanged. LABORATORY DATA: Blood culture from 05/15 showed no bacterial growth. CBC today, hemoglobin 8.0, hematocrit 25.3, platelet count were normal. CMP this morning, BUN 64, creatinine of 3.85, glucose 164. Remaining CMP was normal. Chest x-ray of the patient, which was done, 1 view this morning was personally reviewed from the PACS images as well. The chest x-ray was noted with the cardiomegaly with possibility of small pleural fluid in the right side cannot be excluded, otherwise noted clear for any other acute abnormalities. IMPRESSION: 1. The patient who has been currently noted with acute congestive heart failure, resolving acute chronic injury. 2. The patient with evidence of bronchospasm noted with wheezing as well. PLAN OF TREATMENT: The patient has been started on the respiratory medication of symptomatic management. The cough as well as IV Solu-Medrol 60 mg q.8 hours. The dose will be decreased based on improvement of the respiratory status. However, the dose is noted quite high, which was ordered by the primary care physician and it will be changed to 40 mg b.i.d. should suffice for the current medical management. The patient was given 125 mg Solu-Medrol as well. Other supportive therapy, plan of management and care plan. Usual care and other treatment plan of therapies. [place], [place] PROGRESS NOTE NAME: NOBLE GENTILE UNIT #: [id number] ROOM: [facility] DOCTOR: TAY MCGOWAN MD BIRTHDATE: [birth year] TAY ESTEVEZ MD CM:PNTRANS [id number] TAY MERINO MD 05/18/17 0059 interface
[~2017-05-15 04:58] MED LIST changes: +ASPIR 8181 MG PO; -ASPIRIN81 M1 PO; -EFFIENT10 M1 PO; -LANTUS SOL100 UNIT/1 SC; +LANTUS SOL100 UNIT/1 SQ; +PRASUGREL HCL10 MG PO; +SYMB160 INH; +VITAMIN D31000 UNI1 PO; -VITAMIN D5000 UNI1 PO; -WELLBUTRIN SR100 MG PO; +Wellbutrin Sr100 MG PO
[2017-05-15 05:52] LABS: BASO % 0.2 % (0.0-1.0); EOS # 0.1 10*3/uL (0.0-0.4); EOS % 1.9 % (1.0-4.0); HEMATOCRIT 24.1 % (42.0-52.0); HEMOGLOBIN 7.6 g/dl (14.0-18.0); LYMPH # 1.1 10*3/uL (1.3-4.4); LYMPH % 19.4 % (27.0-41.0); MEAN CELL VOLUME 88.3 fl (80.0-94.0); MEAN CORPUSCULAR HGB 27.8 pg (27.0-31.0); MEAN CORPUSCULAR HGB CONC 31.5 g/dl (33.0-37.0); MEAN PLATELET VOLUME 10.3 fl (9.6-12.3); MONO # 0.7 10*3/uL (0.1-1.0); MONO % 11.9 % (3.0-9.0); NEUT # 3.9 10*3/uL (2.3-7.9); NEUT % 65.9 % (47.0-73.0); PLATELET COUNT AUTOMATED 145 10*3/uL (130-400); RED BLOOD COUNT 2.73 10*6/uL (4.50-5.90); WHITE BLOOD COUNT 5.9 10*3/uL (4.8-10.8)
[2017-05-15 06:00] LABS: ALBUMIN 3.2 gm/dl (3.1-4.5); ALKALINE PHOSPHATASE 129 U/L (45-117); BUN 56 mg/dl (7-24); CHLORIDE 104 mmol/L (98-107); CREATININE 4.44 mg/dL (0.70-1.30); POTASSIUM 3.9 mmol/L (3.5-5.1); SGOT/AST 26 IU/L (3-35); SGPT/ALT 39 U/L (12-78); SODIUM 139 mmol/L (136-145); TOTAL PROTEIN 6.7 gm/dL (6.4-8.2)
[2017-05-15 06:01] LABS: TROPONIN I < 0.015 ng/ml (<0.045)
[2017-05-15 06:04] LABS: ACT PARTIAL THROMBO TIME 25.5 SECONDS (20.8-31.5); INTERNATIONAL NORM RATIO 1.1 (2.0-3.5)
--- NOTE | 2017-05-15 06:22 | NUR ---
CALLED 4E TO GIVE REPORT, NRS IN MEETING, TOLD THEY WOULD CALL BACK LANCE
--- NOTE | 2017-05-15 06:44 | NUR ---
PATIENT SLEEPING IN BED IN LOW FOWLERS POSITION, PULSE OX 97% ON 4LPM VIA NC, AWAITING CALL [facility] TO GIVE REPORT
--- NOTE | 2017-05-15 07:00 | NUR ---
A 67, admitted to , under the services of JYOTSNA Lopez DO with a diagnosis of CHF,ANEMIA,RESP FAILURE. Chief complaint is PT. BECAME SOB. BROUGHT TO ER VIA [facility]. O2 4L IN ROUTHE WITH BREATHING TX. PULSE OX 90%.WHEEZING WITH NO CHEST PAIN. . Patient arrived via stretcher from ER. Monitor applied. Initial assessment completed. Vital signs taken and recorded. JYOTSNA LOPEZ DO notified of admission to the unit. Orders received. See assessment for past medical history, medications and allergies. Patient and/or family oriented to unit. [facility] visitation policy reviewed. Clothing/patient valuable form completed. JEANIE VEGA
--- NOTE | 2017-05-15 07:16 | NUR ---
PT. UNSURE OF ALL MEDICATIONS HE IS ON AT HOME SAID "I FORGOT MY BAG OF MEDICATIONS AT HOME." PT. RECIEVES ALL HIS MEDICATIONS FROM [facility]
[2017-05-15 08:47] LABS: CHOLESTEROL 182 mg/dL (<200); FREE T4 0.81 ng/dl (0.76-1.46); HDL CHOLESTEROL 38 mg/dl (40-60); LDL CHOLESTEROL 101 mg/dL (9-159); PHOSPHOROUS 3.1 mg/dL (2.5-4.9); TRIGLYCERIDES 216 mg/dl (<150); VLDL CHOLESTEROL 43 mg/dL (6-40)
[2017-05-15 08:49] LABS: TROPONIN I < 0.015 ng/ml (<0.045)
--- NOTE | 2017-05-15 09:09 | NUR ---
DR. ESTEVEZ AWARE OF CONSULT AND IN TO SEE PATIENT RE: PLAN OF CARE.
--- NOTE | 2017-05-15 09:55 | NUR ---
PATIENT SIGNED RELEASE OF INFORMATION FOR MEDICAL RECORDS FROM [facility] RE: [place] AND [place], ALSO FOR [facility] TO REQUEST A CURRENT HOME MEDICATIONS LIST. AWAITING FAX FROM BOTH [facility] FACILITIES.
--- NOTE | 2017-05-15 10:39 | NUR ---
DR. RIVERA'S ANSWERING SERVICE NOTIFIED OF CONSULT.
[2017-05-15 10:57] LABS: VITAMIN D, 25-HYDROXY 20.8 ng/mL (30-100)
--- NOTE | 2017-05-15 11:24 | NUR ---
PHYSICAL THERAPY PAtient evaluated on 4, ful evaluation to follow. Continue with PT as p rplanof care with fall, max (A) x 2, acuted ebility and 02 preccautions. PAtient si high complexity via chart review, tests and evaaltuion: 54332. Recommend LTAC versus SNF for significantly impaired mobility. Thank you for this referral. Angie Benson,PT
[2017-05-15 11:41] LABS: HEMATOCRIT 25.2 % (42.0-52.0); HEMOGLOBIN 8.1 g/dl (14.0-18.0); MEAN CELL VOLUME 89.4 fl (80.0-94.0); MEAN CORPUSCULAR HGB 28.7 pg (27.0-31.0); MEAN CORPUSCULAR HGB CONC 32.1 g/dl (33.0-37.0); MEAN PLATELET VOLUME 10.1 fl (9.6-12.3); PLATELET COUNT AUTOMATED 133 10*3/uL (130-400); RED BLOOD COUNT 2.82 10*6/uL (4.50-5.90); RED CELL DISTRI WIDTH 13.9 % (0-14.5); WHITE BLOOD COUNT 5.8 10*3/uL (4.8-10.8)
[2017-05-15 11:43] LABS: ALBUMIN 3.1 gm/dl (3.1-4.5); ALKALINE PHOSPHATASE 138 U/L (45-117); BUN 55 mg/dl (7-24); CHLORIDE 102 mmol/L (98-107); CREATININE 4.22 mg/dL (0.70-1.30); POTASSIUM 4.5 mmol/L (3.5-5.1); SGOT/AST 21 IU/L (3-35); SGPT/ALT 36 U/L (12-78); SODIUM 137 mmol/L (136-145); TOTAL PROTEIN 7.1 gm/dL (6.4-8.2)
[2017-05-15 11:56] LABS: TROPONIN I < 0.015 ng/ml (<0.045)
--- NOTE | 2017-05-15 11:59 | NUR ---
Occupational Therapy evaluation completed on 4 with full eval to follow. Precautions include fall risk, O2 dep, acute debility, high complexity level 12955. Recommend OT per POC and SNF upon d/c to enable safe return to home at [facility]. Thank you for this referral. Luz Elena Stone OTR/L
--- NOTE | 2017-05-15 12:34 | NUR ---
DR. MALDONADO'S OFFICE STAFF NOTIFIED OF CONSULT RE: CHEST PAIN/RECENT ND W/STENTS.
[2017-05-15 12:39] LABS: ABG BASE EXCESS -0.3 mmol/L (-2.0-2.0); ABG HCO3 24.7 mmol/l (22-26); ABG O2 SATURATION 97.5 % (95-97); ARTERIAL BLOOD GAS PCO2 44.5 mmHg (35-45); ARTERIAL BLOOD GAS PH 7.361 (7.35-7.45); ARTERIAL BLOOD GAS PO2 94.5 mmHg (80-90)
[2017-05-15] MEDS ORDERED: LASIX40 MG PO (12:41)
[2017-05-15 12:52] LABS: TOTAL CELLS COUNTED 100 #CELLS
[2017-05-15 12:53] LABS: PLATELET SUFFICIENCY NORMAL (NORMAL); POLYCHROMASIA SLIGHT
[2017-05-15] MEDS ORDERED: NOVOLOG10 ML SC (13:08)
--- NOTE | 2017-05-15 13:08 | NUR ---
MED REC UPDATED PER [facility].
--- NOTE | 2017-05-15 13:10 | NUR ---
DR ABRAMS NOTIFIED OF MED REC UPDATE.
[2017-05-15 13:25] LABS: BILIRUBIN NEGATIVE (NEGATIVE); BLOOD TRACE-INTACT (NEGATIVE); CLARITY CLEAR (CLEAR); COLOR YELLOW (YELLOW); GLUCOSE 2+ (NEGATIVE); KETONE NEGATIVE (NEGATIVE); LEUKO ESTERASE NEGATIVE (NEGATIVE); NITRITE NEGATIVE (NEGATIVE); PH 6.5 (5.0-9.0); UROBILINOGEN 0.2 E.U./dl (0.2-1.0)
[2017-05-15 13:40] LABS: RBC 0-2 rbc/hpf (0-2); WBC 0-2 wbc/hpf (0-5)
--- NOTE | 2017-05-15 13:43 | NUR ---
Volunteer Recruiter in to talk to patient. Patient states lives at home with . There are few steps in the home. Physician: lizbeth [facility]: [facility] Home health services: none Patient's level of ADLs: MODERATE ASSIST Patient has working utilities: all working DME: scooter, walker, ane Follow-up physician's appointment after d/c: will be made by hospitalist nurse director upon discharge Does patient want to access PORTAL?: no Discharge plan discussed with patient, patient lives at home with his , has a scooter and walker, hasn't been getting around very well at this time, discussed with him a short term alf stay and he was agreeable with this, he stated he wanted to go to [facility], asked for a second choice if they didn't have any beds and he didn't have one at this time. cyber intel planner will send referral to [facility], patient will need an insurance precert prior to going. also discussed with patient the follow up from [facility], patient stated that he recently had stents put in and [facility] was supposed to make a cardiology appointment. he also stated that his has talked with someone at [facility] and they are working on this. ANDREAS BARRIENTOS
--- NOTE | 2017-05-15 14:29 | NUR ---
Patient requested referral to be made to [facility] for short term rehab. Contacted stephanie and faxed referral. Waiting on acceptance, will require 3 night stay.
--- NOTE | 2017-05-15 14:48 | NUR ---
PT WAS GIVEN FLUTTER VALVE. INSTRUCTED. PT PERFORMED CORRECTLY INSTRUCTED TO DO IT ON HIS OWN, 10 BREATHS AN HOUR EVERY HOUR WHILE AWAKE
--- NOTE | 2017-05-15 15:45 | NUR ---
PATIENT VOIDED 525ML CLEAR YELLOW URINE, THEN BLADDER SCANNED FOR 0ML URINE.
--- NOTE | 2017-05-15 16:04 | NUR ---
BLADDER SCAN SHOWED ZERO RESIDUAL, DR ABRAMS NOTIFIED. ALSO TO UPDATE MAR [facility]UL[facility].
[2017-05-16] VITALS: BP 154/76
[2017-05-16 06:22] LABS: BASO % 0.1 % (0.0-1.0); HEMATOCRIT 25.9 % (42.0-52.0); HEMOGLOBIN 8.4 g/dl (14.0-18.0); LYMPH # 0.7 10*3/uL (1.3-4.4); LYMPH % 8.7 % (27.0-41.0); MEAN CELL VOLUME 86.9 fl (80.0-94.0); MEAN CORPUSCULAR HGB 28.2 pg (27.0-31.0); MEAN CORPUSCULAR HGB CONC 32.4 g/dl (33.0-37.0); MEAN PLATELET VOLUME 10.8 fl (9.6-12.3); MONO # 0.4 10*3/uL (0.1-1.0); MONO % 4.7 % (3.0-9.0); NEUT # 7.3 10*3/uL (2.3-7.9); NEUT % 86.1 % (47.0-73.0); PLATELET COUNT AUTOMATED 162 10*3/uL (130-400); RED BLOOD COUNT 2.98 10*6/uL (4.50-5.90); RED CELL DISTRI WIDTH 13.9 % (0-14.5); WHITE BLOOD COUNT 8.5 10*3/uL (4.8-10.8)
[2017-05-16 06:57] LABS: ALBUMIN 3.3 gm/dl (3.1-4.5); CREATININE 4.1 mg/dL (0.70-1.30); PHOSPHOROUS 4.5 mg/dL (2.5-4.9); POTASSIUM 4.4 mmol/L (3.5-5.1)
[2017-05-16 08:00] VITALS: BP 170/90
--- NOTE | 2017-05-16 08:00 | NUR ---
PT RESTING IN BED, NO DISTRESS NOTED. LUNG SOUNDS WHEEZY, PT DENIES SOB AT REST, PT ON 4L NC CURRENTLY O2 SAT 99%, TITRATED PT TO 2L NC-98%, REMOVED OXYGEN, PT REMAINS 96%. PT DENIES ANY SOB. PT REPORTS NON-PROD COUGH, SPUTUM CUP AT BEDSIDE. PT DENEIS ANY COMPLAINTS. CALL LIGHT WITHIN REACH.
[2017-05-16 08:23] LABS: FERRITIN 31.8 ng/mL (22.0-322.0); PTH INTACT 187.4 pg/mL (14.0-72.0)
[2017-05-16 11:45] VITALS: BP 149/75
[2017-05-16 16:00] VITALS: BP 162/78; BP 183/71
--- NOTE | 2017-05-16 17:28 | NUR ---
PT RESTING UP IN BED, NO DISTRESS NOTED. STATES HIS BREATHING IS IMPROVED. PT CURRENTLY ON ROOM AIR, NO SOB NOTED AT REST. PT VOIDING WITH URINAL AT BEDSIDE. PT DENIES ANY COMPLAINTS AT THIS TIME. CALL LIGHT WITHIN REACH.
--- NOTE | 2017-05-16 18:51 | NUR ---
SPOKE WITH DR CRUZ REGARDING PT'S COMPLAINTS OF COUGH, ORDER RECEIVED FOR HENRRY WOMACK.
[2017-05-16 20:00] VITALS: BP 153/89
[2017-05-17] VITALS: BP 185/70
--- NOTE | 2017-05-17 02:34 | NUR ---
PT GIVEN TESSALON FOR COUGH SUPRESSION. WILL CONINUE TO MONITOR PT.
[2017-05-17 06:55] LABS: ALBUMIN 3.1 gm/dl (3.1-4.5); CREATININE 3.85 mg/dL (0.70-1.30); PHOSPHOROUS 3.2 mg/dL (2.5-4.9); POTASSIUM 4.2 mmol/L (3.5-5.1)
[2017-05-17 08:00] VITALS: BP 154/74
[2017-05-17 09:59] LABS: BASO % 0.1 % (0.0-1.0); EOS # 0.1 10*3/uL (0.0-0.4); EOS % 0.8 % (1.0-4.0); HEMATOCRIT 25.3 % (42.0-52.0); LYMPH # 1.1 10*3/uL (1.3-4.4); LYMPH % 12.3 % (27.0-41.0); MEAN CELL VOLUME 89.1 fl (80.0-94.0); MEAN CORPUSCULAR HGB 28.2 pg (27.0-31.0); MEAN CORPUSCULAR HGB CONC 31.6 g/dl (33.0-37.0); MONO # 0.7 10*3/uL (0.1-1.0); MONO % 7.7 % (3.0-9.0); NEUT # 7.2 10*3/uL (2.3-7.9); NEUT % 78.6 % (47.0-73.0); PLATELET COUNT AUTOMATED 170 10*3/uL (130-400); RED BLOOD COUNT 2.84 10*6/uL (4.50-5.90); RED CELL DISTRI WIDTH 13.9 % (0-14.5); WHITE BLOOD COUNT 9.2 10*3/uL (4.8-10.8)
[2017-05-17 10:32] LABS: TOTAL PROTEIN 6.8 gm/dL (6.4-8.2)
[2017-05-17 10:34] LABS: ALBUMIN 3.1 gm/dl (3.1-4.5); CREATININE 3.85 mg/dL (0.70-1.30); POTASSIUM 4.2 mmol/L (3.5-5.1)
[2017-05-17 12:00] VITALS: BP 165/72; BP 168/78
--- NOTE | 2017-05-17 12:00 | NUR ---
PT LYING FAR DOWN IN THE BED WITH LEGS HANGING OVER SIDE. ATTEMPTED TO ASSIST PT TO MORE COMFORTABLE POSITION & PT ADAMANTLY DECLINES STATING "I JUST GOT COMFORTABLE" BODY ALARM ATTACHED FOR PT SAFETY. WILL CONTINUE TO MONITOR.
--- NOTE | 2017-05-17 15:00 | NUR ---
ASSUMED CARE OF PT. PT IN BED, SLEEPING. AROUSES EASILY. LUNGS DIMINISHED, DENIES COUGH. PT IS PLEASANT AND COOPERATIVE. NO COMPLAINTS AT THIS TIME.
[2017-05-17 16:00] VITALS: BP 180/80
--- NOTE | 2017-05-17 16:25 | NUR ---
DR. CAMPOS NOTIFIED OF PTs ELEVATED BP.
[2017-05-17 20:00] VITALS: BP 171/79
--- NOTE | 2017-05-17 23:15 | NUR ---
PT REQUESTED PAIN MEDICATION FOR CHRONIC BACK PAIN. PAIN RATED AT 5 OUT OF 10 AND IS DESCRIBED DULL AND ACHING. PRN TYLENOL GIVEN.
--- NOTE | 2017-05-17 23:26 | NUR ---
DR. CARMONA NOTIFIED OF CRITICAL HIGH GLUCOSE. ORDERED TO FOLLOW SLIDING SCALE PER POLICY.
[2017-05-18] VITALS: BP 186/74
--- NOTE | 2017-05-18 00:56 | NUR ---
24 HR chart check completed.
[2017-05-18 04:00] VITALS: BP 164/70
--- NOTE | 2017-05-18 04:08 | NUR ---
Medicated with Tylenol po prn for chronic back pain rating 5/10. Will monitor effectiveness. Call light within reach.
--- NOTE | 2017-05-18 05:10 | NUR ---
Patient resting quietly in bed with eyes closed. Tylenol effective. Will continue to monitor. Call light within reach.
[2017-05-18 07:28] LABS: HEMATOCRIT 26.9 % (42.0-52.0); HEMOGLOBIN 8.6 g/dl (14.0-18.0); MEAN CELL VOLUME 86.2 fl (80.0-94.0); MEAN CORPUSCULAR HGB 27.6 pg (27.0-31.0); MEAN PLATELET VOLUME 10.9 fl (9.6-12.3); PLATELET COUNT AUTOMATED 182 10*3/uL (130-400); RED BLOOD COUNT 3.12 10*6/uL (4.50-5.90); RED CELL DISTRI WIDTH 13.4 % (0-14.5); WHITE BLOOD COUNT 8.5 10*3/uL (4.8-10.8)
[2017-05-18 07:46] LABS: ALBUMIN 3.1 gm/dl (3.1-4.5); CREATININE 3.74 mg/dL (0.70-1.30); PHOSPHOROUS 3.7 mg/dL (2.5-4.9); POTASSIUM 4.2 mmol/L (3.5-5.1); TOTAL PROTEIN 7.3 gm/dL (6.4-8.2)
[2017-05-18 08:00] VITALS: BP 166/80
[2017-05-18 08:06] LABS: PLATELET SUFFICIENCY NORMAL (NORMAL); POLYCHROMASIA SLIGHT; TOTAL CELLS COUNTED 100 #CELLS
--- NOTE | 2017-05-18 09:00 | NUR ---
case management visits with patient, patient has been referred to [facility], will need an insurance precert prior to going, senior vice president working on this
--- NOTE | 2017-05-18 10:56 | NUR ---
PATIENT SEEN 1:1 OT THIS DATE 17 MINUTES THIS DATE. IDENTIFIED PATIENT BY NAME AND DATE OF . PATIENT COMPLETED ADL TASK DRESSING UB/LB MIN A THIS DATE WITH MIN VERBAL CUES SAFETY. COMPLETED SIT TO STAND FROM BED MIN A WITH VERBAL CUES PROPER HAND PLACEMENT AND AMBULATION SHORT DISTANCE TO RECLINER USE FWW CGA AND MIN VERBAL CUES SAFETY USE FWW. PATIENT COMPLETED STAND TOLERANCE CGA USE FWW ACTIVITY 3 MINUTES X 1 AND 2 MINUTES X SECOND STAND WITH C/O FATIGUE AND VERBAL CUES PURSE LIP BREATHING. ANNA ROBLES/Saeed
--- NOTE | 2017-05-18 11:21 | NUR ---
TYLENOL GIVEN FOR C/O GENERALIZED DISCOMFORT. WILL MONITOR.
--- NOTE | 2017-05-18 11:42 | NUR ---
NOTIFIED DR. WILBURN OF PT'S BP. NEW ORDERS GIVEN.
[2017-05-18 11:59] VITALS: BP 180/82
--- NOTE | 2017-05-18 12:20 | NUR ---
TYLENOL EFFECTIVE PER PT.
--- NOTE | 2017-05-18 13:39 | NUR ---
PHYSICAL THERAPY Patient was sitting up in bedside chair upon therapist arrival for pm visit and reports no new c/o's other than increased global weakness. Patient transfers sit to stand CGA x 1 with slow rise and use of wh walker support for standing balance. Patient ambulates 75'x 1, wh walker, demonstrating slow mary with shuffling gait pattern. Patient instructed to improve to even stride with increased heel strike and demosntrates increased fatigue > 50 feet. Patient reports no bouts of dizziness and mild LE weakness upon return to bedside chair. Patient remained in chair with call light, telephone and tray table and would benefit from continued therapy services to improve safe, functional transfers and mobility. Will continue per POC as tolerated. Pancho Malave, BOND BROKER
[2017-05-18 16:00] VITALS: BP 180/80
[2017-05-18 20:00] VITALS: BP 172/80
[2017-05-19] VITALS: BP 171/67
--- NOTE | 2017-05-19 01:25 | NUR ---
PATIENT RESTING IN BED WITH NO S/S OF DISTRESS. RESPS EASY AND REGULAR. BED IN LOWEST POSITION, CALL LIGHT IN REACH
--- NOTE | 2017-05-19 01:47 | NUR ---
24 HR chart check completed.
--- NOTE | 2017-05-19 07:40 | NUR ---
Referred to [facility], waiting on precert.
[2017-05-19 08:00] VITALS: BP 162/67
--- NOTE | 2017-05-19 09:00 | NUR ---
case management visits with patient, patient will be going to [facility] as soon as insurance precert has been obtained
--- NOTE | 2017-05-19 10:23 | NUR ---
PATIENT SEEN 1:1 OT THIS DATE 30 MINUTES. PATIENT INDENTIFIED BY NAME AND DATE OF . PATIENT SEATED IN ARM CHAIR THIS DATE. PATIENT C/O SORENESS IN HIS BACK BUT REPORTS TOLERABLE. PATIENT COMPLETED FUNCTIONAL XFER TRAINING IN ROOM THAT INCLUDED TRANSFERS USE FWW CGA AND COMPLETING SIT TO STAND FROM BED X2, TOILET X 1 USE FWW, AND RECLINER X 4. PATIENT REQUIRED MIN VERBAL CUES PROPER HAND PLACEMENT AND MIN VERBAL CUES FWW MANAGEMENT ESPECIALLY WITH TURNS. PATIENT COMPLETED SIT TO STAND FROM CHAIR WITHOUT ARM REST MIN A AND VERBAL CUES TECHNIQUE AND FORM. PATIENT REQUIRED MOD REST BREAKS THROUGHOUT SESSION THIS DATE. PATIENT COMPLETED STANDING TOLERANCE ACTIVITY USE FWW SUPPORT CGA 1 1/2 MIN X 1 DYNAMIC STAND AND 4 MINUTES STATIC STAND. PATIENT DEMONSTRATED FAIR ACTIVITY TOLERANCE OVERALL THIS DATE THROUGHOUT SESSION. ANNA DONNELLY
--- NOTE | 2017-05-19 11:01 | NUR ---
Abi from [facility] stated they are out of network for patients insurance as are all of the other local facilities. She suggested the [facility] in [place]. Contacted Asiya at the [facility], they are in network. Discussed this with the patient who is in agreement. Faxed referral, waiting on precert.
--- NOTE | 2017-05-19 11:34 | NUR ---
PHYSICAL THERAPY Jose seen this AM 1:1 this is my first time working with Pt. Pt sitting independent at bedside said he was ready to gait. Transfer sit/stand standing balance MIN A X 1. Followed by gait with wheeled walker 80' X 2, with cueing for gait, walker safety and MOD MECHANICAL LEAD X 1, and is very pleased with his progress. Pt up in his bedside chair, call light no complaints. YENNY THOMAS OCCUPATIONAL THERAPY ASSISTANT.
[2017-05-19 12:00] VITALS: BP 153/74
[2017-05-19 16:00] VITALS: BP 165/70
[2017-05-19 20:00] VITALS: BP 166/72
--- NOTE | 2017-05-19 20:43 | NUR ---
PATIENT RESTING IN BED WITH NO S/S OF DISTRESS. RESPS EASY AND REGULAR. BED IN LOWEST POSITION, CALL LIGHT IN REACH
--- NOTE | 2017-05-19 21:18 | NUR ---
PATIENT MEDICATED WITH PRN RESTORIL FOR C/O SLEEPLESSNESS
[2017-05-20] VITALS: BP 172/78
--- NOTE | 2017-05-20 03:00 | NUR ---
PATIENT RESTING IN BED WITH NO S/S OF DISTRESS. RESPS EASY AND REGULAR. BED IN LOWEST POSITION, CALL LIGHT IN REACH
[2017-05-20 08:00] VITALS: BP 183/75
--- NOTE | 2017-05-20 10:38 | NUR ---
PHYSICAL THERAPY Patient presented to therapy sitting at EOB Independently. Patient says he feels great and wants to walk and do therapy. Patient also says he may get to go home today. Patient performed sit to stand transfer Independently. Patient performed gait with W/W and Supervision for 200' x 1. Patient then sat in bedside chair and performed seated ther ex in all planes of mvmt. x 20 reps each. Patient was left in seated position with call light within reach. Patient was 1:1 with this JAI ALAI PLAYER for 25 minutes total. Chris Chanel JAI ALAI PLAYER
--- NOTE | 2017-05-20 11:17 | NUR ---
Patient is referred to the [facility] in [facility], waiting on precert. [facility] instructed to call nursing floor if precert is obtained.
[2017-05-20] MEDS ORDERED: FUROSEMIDE80 MG PO (11:21)
[2017-05-20] MEDS ORDERED: LEVEMIR100 UNIT/1 SC (11:21)
[2017-05-20] MEDS ORDERED: FEROSUL325 MG PO (11:21)
[2017-05-20] MEDS ORDERED: KLOR-CON 1010 ME1 PO (11:26)
[2017-05-20] MEDS ORDERED: HYDRALAZINE HYD50 MG PO (11:26)
--- NOTE | 2017-05-20 11:43 | NUR ---
Patient is discharged, however still waiting on auth for precert. Notified Asiya from the [facility] to please call the nursing floor when precert obtained.
[2017-05-20 12:00] VITALS: BP 181/75
--- NOTE | 2017-05-20 12:45 | NUR ---
CALLED AND GAVE REPORT TO FRANCISCO AT [facility]. A FULL HEALTH HX WAS GIVEN WELL A HEAD TO TOE ASSESSMENT. NO CONCERNS FROM THE NURSE AT [facility] AND PHONE NUMBER LEFT WITH FRANCISCO INCASE OF ANY FUTURE QUESTIONS.
--- NOTE | 2017-05-20 12:56 | NUR ---
PHYSICAL THERAPY CO-SIGN I approve of the Phyical Therapy notes written above. JEWELS SERVIN PT
--- NOTE | 2017-05-20 14:40 | NUR ---
JUST NOTIFIED THAT THE PATIENT HAS REFUSED TO GO TO [facility] AND IS BEING SENT HOME. [facility] NOTIFIED. NO OTHER CONCERNS.
--- NOTE | 2017-05-20 16:10 | NUR ---
Discharge instructions reviewed with patient/family. Patient receptive and verbalizes understanding. Follow-up care arranged. Written instructions given to patient/family. VIRGINIA VASQUEZ
== END 2017-05-20 16:10 | disposition home or self-care (01) | DRG 871 ==
LOC: ED 04:58 → 4E 06:07 → EDHOLD 06:07 → 4E 06:14
PROVIDERS: Hospitalist; Internal Medicine; Internal Medicine Critical Care Medicine; Internal Medicine Nephrology; Student in an Organized Health Care Education/Training Program; ADMIT Internal Medicine
DX: A41.9 Sepsis, unspecified organism (principal); N17.0 Acute kidney failure with tubular necrosis; J96.01 Acute respiratory failure with hypoxia; I50.43 Acute on chronic combined systolic (congestive) and diastolic (congestive) heart failure; E44.0 Moderate protein-calorie malnutrition; I24.9 Acute ischemic heart disease, unspecified; E83.51 Hypocalcemia; N18.4 Chronic kidney disease, stage 4 (severe); I13.0 Hypertensive heart and chronic kidney disease with heart failure and stage 1 through stage 4 chronic kidney disease, or unspecified chronic kidney disease; E66.2 Morbid (severe) obesity with alveolar hypoventilation; J45.901 Unspecified asthma with (acute) exacerbation; J44.0 Chronic obstructive pulmonary disease with (acute) lower respiratory infection; E11.42 Type 2 diabetes mellitus with diabetic polyneuropathy; K27.9 Peptic ulcer, site unspecified, unspecified as acute or chronic, without hemorrhage or perforation; K21.9 Gastro-esophageal reflux disease without esophagitis; F41.9 Anxiety disorder, unspecified; R07.89 Other chest pain; E11.22 Type 2 diabetes mellitus with diabetic chronic kidney disease; E78.5 Hyperlipidemia, unspecified; D50.9 Iron deficiency anemia, unspecified; T38.0X5A Adverse effect of glucocorticoids and synthetic analogues, initial encounter; J20.9 Acute bronchitis, unspecified; D63.1 Anemia in chronic kidney disease; E11.65 Type 2 diabetes mellitus with hyperglycemia; Z68.35 Body mass index [BMI] 35.0-35.9, adult; Z99.81 Dependence on supplemental oxygen; Z72.89 Other problems related to lifestyle; I25.2 Old myocardial infarction; Z88.6 Allergy status to analgesic agent; Z88.1 Allergy status to other antibiotic agents; Z88.5 Allergy status to narcotic agent; Z88.8 Allergy status to other drugs, medicaments and biological substances; Z79.4 Long term (current) use of insulin; Z79.82 Long term (current) use of aspirin; Z79.899 Other long term (current) drug therapy; Z87.01 Personal history of pneumonia (recurrent); Z95.818 Presence of other cardiac implants and grafts; Z90.11 Acquired absence of right breast and nipple; Z98.52 Vasectomy status; Z98.49 Cataract extraction status, unspecified eye; Z80.9 Family history of malignant neoplasm, unspecified; Z83.3 Family history of diabetes mellitus; Z82.49 Family history of ischemic heart disease and other diseases of the circulatory system; Y92.89 Other specified places as the place of occurrence of the external cause

== ENCOUNTER 2017-06-16 05:00 | Inpatient (IN) | payer OTHER ==
[2017-06-16] VITALS (8 sets, daily range): BP systolic 125–195; BP diastolic 59–93
[~2017-06-16] VITALS: Ht 182.9 cm; Wt 117.0 kg
--- NOTE | ~2017-06-16 | PR ---
[place], [place] PROGRESS NOTE NAME: NOBLE GENTILE [facility] #: [id number] UNIT #: [id number] ROOM: [place] [address] DOCTOR: GABRIELE CHRISTIANSON MD BIRTHDATE: [birth year] DOS: 06/17/2017 CARDIOLOGY PROGRESS NOTE SUBJECTIVE: The patient was seen at his bedside today, 06/17/2017 for followup of his atherosclerotic heart disease. He is a 67-year-old man who presented to the hospital with diabetic ketoacidosis. In the hospital, he was noted to have an elevation in troponin. He was recently hospitalized at the [facility] in March 2017 with unstable angina. Catheterization showed multivessel disease. He was evaluated by Surgery and told that he was a very poor candidate for surgery. He then had 4 stents placed. Records are pending. He presented to the hospital now with nausea, vomiting, diarrhea, dyspnea, cough, lightheadedness and malaise. He was found to be in diabetic ketoacidosis and was treated appropriately. Today, he does feel considerably better. He is breathing easily. He has never had chest pain." PHYSICAL EXAMINATION: VITAL SIGNS: His pulse is 65 and regular, blood pressure is 177/97. He is afebrile. NECK: Supple. He has no jugular distention. Carotids are full. LUNGS: Respirations are unlabored. His chest has decreased breath sounds at the bases. HEART: Has a regular rhythm with an S4 gallop. I did not hear an S3. ABDOMEN: Benign. EXTREMITIES: Showed no edema. LABORATORY DATA: His most recent troponin level was 2.260, which is down from its peak of 2.370. Sodium today is 137, potassium 4.4, BUN 52, down from a high of 58, creatinine is 3.54, down from a peak of 3.83. IMPRESSION: 1. Diabetic ketoacidosis, improving. 2. Coronary artery disease. 3. Acute non-ST elevation myocardial infarction, possibly due to medication noncompliance and withholding dual antiplatelet therapies when he was ill with nausea and vomiting. 4. Diabetes, out of control. 5. Acute on chronic renal failure. PLAN: The patient appears hemodynamically stable and is a poor candidate for another catheterization. We will therefore continue to observe him medically. We have reinstituted aspirin and Effient. He will remain on a heparin drip for the time being as well. We will continue to adjust his medications to treat his blood pressure. I did speak to him about a risk stratifying pharmacologic stress test after he has improved further, but he is very unwilling to consider that option and would rather we continue to treat him medically for the time being. [place], [place] PROGRESS NOTE NAME: NOBLE GENTILE UNIT #: [id number] ROOM: [place] [address] DOCTOR: GABRIELE CHRISTIANSON MD BIRTHDATE: [birth year] I thank the hospitalist group for asking our advice regarding his care. GABRIELE CHRISTIANSON MD CM:MICHELLE 15 [phone] GABRIELE CHRISTIANSON MD 06/17/[id number] interface
[~2017-06-16 05:00] MED LIST changes: +FUROSEMIDE80 MG PO; +HYDRALAZINE HYD50 MG PO; +KLOR-CON 1010 ME1 PO; +LEVEMIR100 UNIT/1 SC
[2017-06-16 05:15] LABS: BILIRUBIN NEGATIVE (NEGATIVE); BLOOD 1+ (NEGATIVE); CLARITY CLEAR (CLEAR); COLOR YELLOW (YELLOW); GLUCOSE 3+ (NEGATIVE); KETONE 1+ (NEGATIVE); LEUKO ESTERASE NEGATIVE (NEGATIVE); NITRITE NEGATIVE (NEGATIVE); PH 5.5 (5.0-9.0); UROBILINOGEN 0.2 E.U./dl (0.2-1.0)
[2017-06-16 05:21] LABS: BASO % 0.1 % (0.0-1.0); EOS % 0.1 % (1.0-4.0); HEMATOCRIT 28.8 % (42.0-52.0); HEMOGLOBIN 9.5 g/dl (14.0-18.0); LYMPH # 0.9 10*3/uL (1.3-4.4); LYMPH % 10.5 % (27.0-41.0); MEAN CELL VOLUME 80.4 fl (80.0-94.0); MEAN CORPUSCULAR HGB 26.5 pg (27.0-31.0); MEAN PLATELET VOLUME 10.2 fl (9.6-12.3); MONO # 0.5 10*3/uL (0.1-1.0); MONO % 5.8 % (3.0-9.0); NEUT # 7.5 10*3/uL (2.3-7.9); NEUT % 82.9 % (47.0-73.0); PLATELET COUNT AUTOMATED 237 10*3/uL (130-400); RED BLOOD COUNT 3.58 10*6/uL (4.50-5.90); RED CELL DISTRI WIDTH 13.7 % (0-14.5)
--- NOTE | 2017-06-16 05:21 | NUR ---
PT STATES MED LIST HAS CHANGED "A LOT" AND HE DOES NOT HAVE CURRENT LIST HERE WITH HIM. GETS MEDS FROM [facility].
[2017-06-16 05:25] LABS: BACTERIA TRACE; WBC 0-2 wbc/hpf (0-5)
[2017-06-16 05:31] LABS: ACT PARTIAL THROMBO TIME 28.7 SECONDS (20.8-31.5); INTERNATIONAL NORM RATIO 1.1 (2.0-3.5)
[2017-06-16 05:36] LABS: ALBUMIN 3.4 gm/dl (3.1-4.5); CREATININE 3.75 mg/dL (0.70-1.30); POTASSIUM 5.6 mmol/L (3.5-5.1); TOTAL PROTEIN 7.3 gm/dL (6.4-8.2)
[2017-06-16 05:37] LABS: TROPONIN I 0.468 ng/ml (<0.045)
--- NOTE | 2017-06-16 06:45 | NUR ---
BLOOD SUGAR REMAINS CRITICALLY HIGH. INSULIN DRIP IS AT 12 UNITS/HOUR. CCM INTACT. HYPERTENSIVE BP \
--- NOTE | 2017-06-16 06:48 | NUR ---
[facility] WILL CALL FOR ADMISSION REPORT.
--- NOTE | 2017-06-16 07:30 | NUR ---
A 67, admitted to [facility], under the services of ANNIA Peterson DO with a diagnosis of DKA. Chief complaint is NAUSEA, BODY ACHES. Patient arrived via wheel chair from ER. Monitor applied. Initial assessment completed. Vital signs taken and recorded. ANNIA PETERSON DO notified of admission to the unit. Orders received. See assessment for past medical history, medications and allergies. Patient and/or family oriented to unit. [facility] visitation policy reviewed. Clothing/patient valuable form completed. LEONARDA BENZ
--- NOTE | 2017-06-16 07:33 | NUR ---
[facility] CALLED [facility] CLOS[facility] 0800. WILL ATTEMPT TO RECALL AT A LATER TIME. PER THE PATIENT HE HAS NO CLUE WHAT HE TAKES.
--- NOTE | 2017-06-16 08:13 | NUR ---
DR CHRISTIANSON IN TO SEE PT.
[2017-06-16 08:27] LABS: CREATININE 3.82 mg/dL (0.70-1.30)
[2017-06-16 08:29] LABS: POTASSIUM 4.6 mmol/L (3.5-5.1)
[2017-06-16 08:30] LABS: TROPONIN I 1.59 ng/ml (<0.045)
--- NOTE | 2017-06-16 08:30 | NUR ---
DR WHITEHEAD MADE AWARE OF PT'S ELEVATED CRITICAL TROPONIN OF 1.590.
--- NOTE | 2017-06-16 10:40 | NUR ---
HEPARIN GTT STARTED PER PROTOCOL.
--- NOTE | 2017-06-16 10:49 | NUR ---
I SPOKE WITH [facility] AND THEY STATED THEY WOULD FAX ME A CURRENT MED LIST.
[2017-06-16] MEDS ORDERED: LASIX40 MG PO (11:10)
[2017-06-16] MEDS ORDERED: NORVASC5 MG PO (11:22)
[2017-06-16 11:24] LABS: CREATININE 3.58 mg/dL (0.70-1.30); POTASSIUM 4.2 mmol/L (3.5-5.1)
[2017-06-16 11:26] LABS: TROPONIN I 2.37 ng/ml (<0.045)
[2017-06-16] MEDS ORDERED: LIPITOR40 MG PO (11:36)
[2017-06-16] MEDS ORDERED: FISH OIL 1,0001 EAC5 PO (11:38)
--- NOTE | 2017-06-16 11:45 | NUR ---
DR CHRISTIANSON NOTIFIED OF CRITICAL TROPONIN OF 2.370. ORDER FOR STAT EKG RECEIVED.
--- NOTE | 2017-06-16 12:24 | NUR ---
PT MEDICATED WITH TYLENOL FOR C/O CHRONIC LEG PAIN.
--- NOTE | 2017-06-16 12:48 | NUR ---
DR DAVE MADE AWARE OF PT'S BEDSIDE GLUCOSE DOWN TO 177. STATED HE WILL PUT NEW ORDER IN.
[2017-06-16 14:17] LABS: CREATININE 3.39 mg/dL (0.70-1.30); POTASSIUM 3.8 mmol/L (3.5-5.1)
[2017-06-16 14:24] LABS: TROPONIN I 2.26 ng/ml (<0.045)
--- NOTE | 2017-06-16 14:33 | NUR ---
DUE TO BEDSIDE GLUCOSE OF 90 INSULIN GTT DOSE CUT IN HALF TO 6UNITS/KG/HR PER ORDER BY DR DAVE.
--- NOTE | 2017-06-16 14:55 | NUR ---
DR RIVERA IN TO SEE PT.
--- NOTE | 2017-06-16 16:18 | NUR ---
DR DAVE MADE AWARE OF PT'S BEDSIDE GLUCOSE OF 74 AFTER EATING. INSULIN GTT DECREASED TO 3UNITS/KG/HR. D51/2 NS CONTINUES INFUSING AT 100CC/HR.
[2017-06-16 16:27] LABS: CREATININE 3.27 mg/dL (0.70-1.30); POTASSIUM 3.8 mmol/L (3.5-5.1)
--- NOTE | 2017-06-16 16:30 | NUR ---
INSULIN GTT DC'D PER DR REYES.
--- NOTE | 2017-06-16 16:42 | NUR ---
HEPARIN GTT INCREASED BY 2UNITS/KG/HR TO 14UNITS/KG/HR.
[2017-06-16 18:35] LABS: CREATININE 3.33 mg/dL (0.70-1.30)
[2017-06-16 18:42] LABS: POTASSIUM 4.8 mmol/L (3.5-5.1)
--- NOTE | 2017-06-16 21:09 | NUR ---
PATIENTS BLOOD SUGAR CAME BACK AT CRITICAL HIGH AWATING STAT REFLEX TOLD TO CALL SOON I GET RESULTS.
[2017-06-16] MEDS ORDERED: LANTUS SOL100 UNIT/1 IM (21:47)
--- NOTE | 2017-06-16 21:47 | NUR ---
MED REC UPDATED
[2017-06-16 22:56] LABS: CREATININE 3.54 mg/dL (0.70-1.30); POTASSIUM 4.7 mmol/L (3.5-5.1)
[2017-06-17] VITALS: BP 155/71
[2017-06-17 02:13] LABS: CREATININE 3.83 mg/dL (0.70-1.30); POTASSIUM 4.5 mmol/L (3.5-5.1)
[2017-06-17 04:02] VITALS: BP 157/67
--- NOTE | 2017-06-17 06:10 | NUR ---
PATIENTS APTT WAS DRAWN LATE DUE TO HEPARIN HAVING TO BE TURNED OFF FOR AT LEAST 15MINS PATIENT CAN ONLY BE DRAWN IN RIGHT ARM.
--- NOTE | 2017-06-17 06:25 | NUR ---
PATIENT SLEPT VERY LITTLE THROUGHOUT THE NIGHT DUE4 Q1 HOUR BLOOD SUGARS PATIENT HAS DENIED PAIN. ONLY ASKING THIS MORNING WHEN HE CAN ORDER BREAKFAST.
[2017-06-17 06:33] LABS: BASO % 0.2 % (0.0-1.0); EOS # 0.2 10*3/uL (0.0-0.4); EOS % 2.3 % (1.0-4.0); HEMATOCRIT 25.9 % (42.0-52.0); HEMOGLOBIN 8.5 g/dl (14.0-18.0); LYMPH # 2.3 10*3/uL (1.3-4.4); LYMPH % 26.7 % (27.0-41.0); MEAN CELL VOLUME 81.2 fl (80.0-94.0); MEAN CORPUSCULAR HGB 26.6 pg (27.0-31.0); MEAN CORPUSCULAR HGB CONC 32.8 g/dl (33.0-37.0); MEAN PLATELET VOLUME 10.1 fl (9.6-12.3); MONO # 0.8 10*3/uL (0.1-1.0); MONO % 9.4 % (3.0-9.0); NEUT # 5.3 10*3/uL (2.3-7.9); NEUT % 60.8 % (47.0-73.0); PLATELET COUNT AUTOMATED 172 10*3/uL (130-400); RED BLOOD COUNT 3.19 10*6/uL (4.50-5.90); RED CELL DISTRI WIDTH 13.7 % (0-14.5); WHITE BLOOD COUNT 8.7 10*3/uL (4.8-10.8)
[2017-06-17 06:58] LABS: ALBUMIN 2.9 gm/dl (3.1-4.5); CREATININE 3.51 mg/dL (0.70-1.30); PHOSPHOROUS 3.7 mg/dL (2.5-4.9); TOTAL PROTEIN 6.1 gm/dL (6.4-8.2)
[2017-06-17 07:00] LABS: INTERNATIONAL NORM RATIO 1.1 (2.0-3.5)
[2017-06-17 08:00] VITALS: BP 177/75
--- NOTE | 2017-06-17 08:30 | NUR ---
Bariatric Physician in to talk to patient. Patient states lives at home with his . There are 0 steps in the home. Physician: Dr. Eric Montes Pharmacy: [facility], [place] Home health services: none Patient's level of ADLs: MINIMAL ASSIST Patient has working utilities: yes DME: walker, cane Follow-up physician's appointment after d/c: will be made by hospitalist nurse director upon discharge Does patient want to access PORTAL?: no Discharge plan discussed with patient. He lives at home with his . He ambulates with a cane/walker. He has steps in his house that he doesn't use because he has an incline. [facility] on [facility]. DANEIL BRAVO
[2017-06-17 10:24] LABS: CREATININE 3.54 mg/dL (0.70-1.30); POTASSIUM 4.4 mmol/L (3.5-5.1)
--- NOTE | 2017-06-17 10:30 | NUR ---
DR. RIVERA HERE AND RAMONA AND IS AWARE OF BLOODPRESSURE. IVF'S D/C AT THIS TIME.
[2017-06-17 12:00] VITALS: BP 177/97
--- NOTE | 2017-06-17 12:00 | NUR ---
CALLED DR. DAVE AND UPDATED THAT BP IS STILL ELEVATED AND PATIENT FEELS SHORT OF BREATH. POX 98% RA 2L NC PLACED.
--- NOTE | 2017-06-17 13:12 | NUR ---
Per Lorena at the [facility] there are no ICU beds available today. Will reach out again tomorrow.
[2017-06-17 16:00] VITALS: BP 178/80
[2017-06-17 19:25] LABS: CREATININE 3.68 mg/dL (0.70-1.30); POTASSIUM 4.7 mmol/L (3.5-5.1)
[2017-06-17 20:00] VITALS: BP 197/92
--- NOTE | 2017-06-17 20:15 | NUR ---
CALLED DOCTOR NICHOLS WITH PATIENTS BP OF 197/92. INFORMED THAT PATIENTS BP MEDS WERE DUE AT 2200 HE SAID GIVE THEM NOW. MEDS WERE GIVEN.
--- NOTE | 2017-06-17 20:40 | NUR ---
ORDER TO D/C INSULIN DRIP AFTER CALLING DOCTOR MAGDALENA WITH PATIENTS CURRENT BLOOD GLUCOSE OF 202 AT 1999. AT 2039 PATIENT GIVEN SLIDING SCALE COVERAGE FOR 1999 BLOOD GLUCOSE AND THEN INSULIN DRIP WAS SHUT OFF. PATIENT RESTING COMFORTABLY AT THIS TIME.
--- NOTE | 2017-06-17 22:11 | NUR ---
PATIENT BLOOD GLUCOSE IS 245 CALLED DOCTOR NICHOLS WHO SAID TO COVER HIM WITH THE SLIDING SCALE AGAIN NOW.
[2017-06-18] VITALS (7 sets, daily range): BP systolic 155–198; BP diastolic 60–91
--- NOTE | 2017-06-18 00:03 | NUR ---
CALLED DOCTOR NICHOLS CONCERNING PATIENTS BP OF 176/91. IV HYDRALIZINE ORDER GIVEN.
--- NOTE | 2017-06-18 05:43 | NUR ---
PATIENT SITTING ON THE SIDE OF THE BED STATED HE FELT A LITTLE LIGHT HEADED CHECKED PATIENTS BLOOD GLUCOSE 98 PATIENT STATED HE IS NOT USE TO IT BEING THAT LOW PATIENT GIVEN MILK AND CRACKERS.
[2017-06-18 06:06] LABS: CREATININE 3.46 mg/dL (0.70-1.30); POTASSIUM 4.2 mmol/L (3.5-5.1); TOTAL PROTEIN 6.5 gm/dL (6.4-8.2)
[2017-06-18 06:07] LABS: BASO % 0.2 % (0.0-1.0); EOS # 0.2 10*3/uL (0.0-0.4); EOS % 2.5 % (1.0-4.0); HEMATOCRIT 26.6 % (42.0-52.0); HEMOGLOBIN 8.7 g/dl (14.0-18.0); LYMPH % 24.2 % (27.0-41.0); MEAN CELL VOLUME 81.6 fl (80.0-94.0); MEAN CORPUSCULAR HGB 26.7 pg (27.0-31.0); MEAN CORPUSCULAR HGB CONC 32.7 g/dl (33.0-37.0); MEAN PLATELET VOLUME 10.9 fl (9.6-12.3); MONO # 0.7 10*3/uL (0.1-1.0); MONO % 8.4 % (3.0-9.0); NEUT # 5.3 10*3/uL (2.3-7.9); NEUT % 64.2 % (47.0-73.0); PLATELET COUNT AUTOMATED 180 10*3/uL (130-400); RED BLOOD COUNT 3.26 10*6/uL (4.50-5.90); RED CELL DISTRI WIDTH 14.1 % (0-14.5); WHITE BLOOD COUNT 8.3 10*3/uL (4.8-10.8)
--- NOTE | 2017-06-18 07:23 | NUR ---
Shift chart check completed.24 HR chart check completed.
--- NOTE | 2017-06-18 08:54 | NUR ---
ON ASSESSMENT PATIENT AROUSES EASILY TO HIS NAME, FLAT AFFECT. DENIES PAIN OR SHORTNESS OF BREATH. DR CHRISTIANSON HAS VISITED. HEPARIN DRIP OFF PER ORDER. SEE ALL APPROPRIATE INTERVENTIONS.
--- NOTE | 2017-06-18 13:18 | NUR ---
SPOKE TO YAKELIN AT THE [facility]. THERE ARE NO ICU BEDS AVAILABLE AT THIS TIME. CALL AGAIN IN THE MORNING.
--- NOTE | 2017-06-18 14:10 | NUR ---
PT ARRIVED TO FLOOR FROM ICU.
--- NOTE | 2017-06-18 14:40 | NUR ---
DR DAVE CALLED , PT REQUESTING VILLALOBOS BE REMOVED.
--- NOTE | 2017-06-18 15:20 | NUR ---
VILLALOBOS CATHETER DISCONTINUED.
--- NOTE | 2017-06-18 19:30 | NUR ---
ASSUMED CARE OF PATIENT. PATIENT RESTING IN BEDSIDE CHAIR. PATIENT VERBALIZES FEELING TIRED AND UNABLE TO SLEEP THE PAST FEW DAYS. PATIENT DENIES ANY PAIN OR DISCOMFORT UPON ASSESSMENT. PATIENT DENIES SOB OR DIZZINESS WHEN AMBULATING WITH WALKER +1ASSIST. CALL LIGHT WITHIN REACH. SEE SHIFT ASSESSMENT
[2017-06-19 05:20] LABS: BASO % 0.3 % (0.0-1.0); EOS # 0.2 10*3/uL (0.0-0.4); EOS % 3.1 % (1.0-4.0); HEMOGLOBIN 8.8 g/dl (14.0-18.0); LYMPH # 1.5 10*3/uL (1.3-4.4); LYMPH % 21.4 % (27.0-41.0); MEAN CELL VOLUME 81.3 fl (80.0-94.0); MEAN CORPUSCULAR HGB 26.5 pg (27.0-31.0); MEAN CORPUSCULAR HGB CONC 32.6 g/dl (33.0-37.0); MEAN PLATELET VOLUME 9.5 fl (9.6-12.3); MONO # 0.7 10*3/uL (0.1-1.0); MONO % 9.4 % (3.0-9.0); NEUT # 4.7 10*3/uL (2.3-7.9); NEUT % 65.1 % (47.0-73.0); PLATELET COUNT AUTOMATED 159 10*3/uL (130-400); RED BLOOD COUNT 3.32 10*6/uL (4.50-5.90); RED CELL DISTRI WIDTH 14.3 % (0-14.5); WHITE BLOOD COUNT 7.2 10*3/uL (4.8-10.8)
[2017-06-19 05:42] LABS: CREATININE 3.34 mg/dL (0.70-1.30); POTASSIUM 4.1 mmol/L (3.5-5.1)
[2017-06-19 05:43] LABS: PHOSPHOROUS 3.4 mg/dL (2.5-4.9)
[2017-06-19 08:00] VITALS: BP 180/80
--- NOTE | 2017-06-19 08:00 | NUR ---
Director Supply in to see patient. No new needs or request at this time. He states he is hoping to be discharged today. When medically stable he will be discharged to home.
--- NOTE | 2017-06-19 09:26 | NUR ---
Message left for Lorena at the [facility], [phone], regarding patient being moved from the ICU to a med surg floor. Awaiting return call.
--- NOTE | 2017-06-19 09:58 | NUR ---
ONE TIME DOSE OF IMMODIUM GIVEN FOR PT REPORT DIARRHEA.
[2017-06-19 12:00] VITALS: BP 180/86
--- NOTE | 2017-06-19 14:10 | NUR ---
Attempted PT evaluation wt pt sleeping. Will attempt at later time. Carli Bryan, PT
[2017-06-19 16:00] VITALS: BP 164/70
[2017-06-19] MEDS ORDERED: DOXYCYCLINE100 M3 PO (16:15)
[2017-06-19] MEDS ORDERED: HYDRALAZINE HYD50 MG PO (16:15)
[2017-06-19] MEDS ORDERED: EFFIENT10 M1 PO (16:15)
--- NOTE | 2017-06-19 17:24 | NUR ---
Discharge instructions reviewed with patient/family. Patient receptive and verbalizes understanding. Follow-up care arranged. Written instructions given to patient/family. PALOMA GUERRERO
--- NOTE | 2017-06-23 15:34 | NUR ---
Message left for Lorena at the [place], [phone] regarding patient discharge on 06/19. Awaiting return call.
== END 2017-06-19 17:24 | disposition home or self-care (01) | DRG 280 ==
LOC: ED 05:00 → EDHOLD 05:56 → ICCU 05:56 → 5E 06-18 13:54
PROVIDERS: Emergency Medicine Emergency Medical Services; Family Medicine; Internal Medicine; Student in an Organized Health Care Education/Training Program; ADMIT Emergency Medicine
DX: I21.A1 Myocardial infarction type 2 (principal); J96.00 Acute respiratory failure, unspecified whether with hypoxia or hypercapnia; E11.10 Type 2 diabetes mellitus with ketoacidosis without coma; N17.9 Acute kidney failure, unspecified; E44.0 Moderate protein-calorie malnutrition; J18.1 Lobar pneumonia, unspecified organism; E11.22 Type 2 diabetes mellitus with diabetic chronic kidney disease; E11.49 Type 2 diabetes mellitus with other diabetic neurological complication; I13.0 Hypertensive heart and chronic kidney disease with heart failure and stage 1 through stage 4 chronic kidney disease, or unspecified chronic kidney disease; I50.42 Chronic combined systolic (congestive) and diastolic (congestive) heart failure; G91.2 (Idiopathic) normal pressure hydrocephalus; N18.4 Chronic kidney disease, stage 4 (severe); J44.0 Chronic obstructive pulmonary disease with (acute) lower respiratory infection; E66.2 Morbid (severe) obesity with alveolar hypoventilation; I16.1 Hypertensive emergency; E87.1 Hypo-osmolality and hyponatremia; K27.9 Peptic ulcer, site unspecified, unspecified as acute or chronic, without hemorrhage or perforation; E87.5 Hyperkalemia; R74.8 Abnormal levels of other serum enzymes; R79.82 Elevated C-reactive protein (CRP); E55.9 Vitamin D deficiency, unspecified; K21.9 Gastro-esophageal reflux disease without esophagitis; D63.1 Anemia in chronic kidney disease; E11.65 Type 2 diabetes mellitus with hyperglycemia; I25.10 Atherosclerotic heart disease of native coronary artery without angina pectoris; Z79.4 Long term (current) use of insulin; Z88.1 Allergy status to other antibiotic agents; Z88.5 Allergy status to narcotic agent; Z88.8 Allergy status to other drugs, medicaments and biological substances; Z79.82 Long term (current) use of aspirin; Z90.11 Acquired absence of right breast and nipple; Z98.52 Vasectomy status; Z82.49 Family history of ischemic heart disease and other diseases of the circulatory system; Z83.3 Family history of diabetes mellitus; Z80.9 Family history of malignant neoplasm, unspecified; Z91.14 Patient's other noncompliance with medication regimen; Z68.35 Body mass index [BMI] 35.0-35.9, adult; I25.2 Old myocardial infarction

== ENCOUNTER 2017-06-28 15:32 | Inpatient (IN) | payer OTHER ==
[~2017-06-28] VITALS: Ht 183 cm; Wt 116.7 kg
[~2017-06-28 15:32] MED LIST changes: +EFFIENT10 M1 PO; +FISH OIL 1,0001 EAC5 PO; +LANTUS SOL100 UNIT/1 IM; +NORVASC5 MG PO
[2017-06-28 15:49] LABS: BASO % 0.3 % (0.0-1.0); EOS # 0.1 10*3/uL (0.0-0.4); EOS % 1.8 % (1.0-4.0); HEMATOCRIT 26.7 % (42.0-52.0); HEMOGLOBIN 8.5 g/dl (14.0-18.0); LYMPH # 1.6 10*3/uL (1.3-4.4); LYMPH % 24.1 % (27.0-41.0); MEAN CORPUSCULAR HGB 26.7 pg (27.0-31.0); MEAN CORPUSCULAR HGB CONC 31.8 g/dl (33.0-37.0); MEAN PLATELET VOLUME 10.2 fl (9.6-12.3); MONO # 0.5 10*3/uL (0.1-1.0); NEUT # 4.4 10*3/uL (2.3-7.9); NEUT % 65.4 % (47.0-73.0); PLATELET COUNT AUTOMATED 192 10*3/uL (130-400); RED BLOOD COUNT 3.18 10*6/uL (4.50-5.90); WHITE BLOOD COUNT 6.7 10*3/uL (4.8-10.8)
[2017-06-28 16:00] LABS: ACT PARTIAL THROMBO TIME 25.3 SECONDS (20.8-31.5); INTERNATIONAL NORM RATIO 1.1 (2.0-3.5)
[2017-06-28 16:06] LABS: ALBUMIN 2.9 gm/dl (3.1-4.5); ALKALINE PHOSPHATASE 113 U/L (45-117); BUN 68 mg/dl (7-24); CHLORIDE 102 mmol/L (98-107); CREATININE 3.78 mg/dL (0.70-1.30); SGOT/AST 9 IU/L (3-35); SGPT/ALT 16 U/L (12-78); SODIUM 137 mmol/L (136-145); TOTAL PROTEIN 6.3 gm/dL (6.4-8.2)
[2017-06-28 16:07] LABS: TROPONIN I < 0.015 ng/ml (<0.045)
[2017-06-28 16:55] VITALS: BP 137/69
[2017-06-28 17:52] VITALS: BP 119/76
[2017-06-28 18:30] VITALS: BP 150/86
[2017-06-28 18:48] VITALS: BP 183/77
[2017-06-28 18:59] VITALS: BP 183/77
[2017-06-28 20:00] VITALS: BP 170/73
[2017-06-29] VITALS: BP 167/71
[2017-06-29 06:51] LABS: BASO % 0.2 % (0.0-1.0); EOS # 0.2 10*3/uL (0.0-0.4); EOS % 2.3 % (1.0-4.0); HEMATOCRIT 27.2 % (42.0-52.0); HEMOGLOBIN 8.6 g/dl (14.0-18.0); LYMPH # 1.8 10*3/uL (1.3-4.4); LYMPH % 21.8 % (27.0-41.0); MEAN CELL VOLUME 83.2 fl (80.0-94.0); MEAN CORPUSCULAR HGB 26.3 pg (27.0-31.0); MEAN CORPUSCULAR HGB CONC 31.6 g/dl (33.0-37.0); MEAN PLATELET VOLUME 10.1 fl (9.6-12.3); MONO # 0.7 10*3/uL (0.1-1.0); MONO % 8.9 % (3.0-9.0); NEUT # 5.4 10*3/uL (2.3-7.9); NEUT % 66.3 % (47.0-73.0); PLATELET COUNT AUTOMATED 189 10*3/uL (130-400); RED BLOOD COUNT 3.27 10*6/uL (4.50-5.90); RED CELL DISTRI WIDTH 14.9 % (0-14.5); WHITE BLOOD COUNT 8.1 10*3/uL (4.8-10.8)
[2017-06-29 06:59] LABS: CREATININE 3.43 mg/dL (0.70-1.30); POTASSIUM 3.8 mmol/L (3.5-5.1)
[2017-06-29 07:04] LABS: THYROID STIM HORMONE (HS) 0.8 uIU/ml (0.358-4.75)
[2017-06-29 08:00] VITALS: BP 167/94
[2017-06-29] MEDS ORDERED: FEROSUL325 MG PO (10:07)
[2017-06-29] MEDS ORDERED: BENEFIBER1 EACH PO (10:07)
== END 2017-06-29 12:29 | disposition home or self-care (01) | DRG 552 ==
LOC: ED 15:32 → EDHOLD 17:18 → 4E 18:03
PROVIDERS: Emergency Medicine; Student in an Organized Health Care Education/Training Program
DX: M54.2 Cervicalgia (principal); E44.0 Moderate protein-calorie malnutrition; E11.22 Type 2 diabetes mellitus with diabetic chronic kidney disease; E11.40 Type 2 diabetes mellitus with diabetic neuropathy, unspecified; N18.4 Chronic kidney disease, stage 4 (severe); I13.0 Hypertensive heart and chronic kidney disease with heart failure and stage 1 through stage 4 chronic kidney disease, or unspecified chronic kidney disease; E66.2 Morbid (severe) obesity with alveolar hypoventilation; I50.42 Chronic combined systolic (congestive) and diastolic (congestive) heart failure; J44.9 Chronic obstructive pulmonary disease, unspecified; E11.65 Type 2 diabetes mellitus with hyperglycemia; D64.9 Anemia, unspecified; R07.9 Chest pain, unspecified; I25.2 Old myocardial infarction; Z79.82 Long term (current) use of aspirin; Z79.4 Long term (current) use of insulin; Z68.34 Body mass index [BMI] 34.0-34.9, adult; Z87.11 Personal history of peptic ulcer disease; Z90.11 Acquired absence of right breast and nipple; Z95.5 Presence of coronary angioplasty implant and graft; Z98.52 Vasectomy status; Z82.49 Family history of ischemic heart disease and other diseases of the circulatory system; Z80.9 Family history of malignant neoplasm, unspecified; Z88.1 Allergy status to other antibiotic agents; Z88.8 Allergy status to other drugs, medicaments and biological substances; Z79.899 Other long term (current) drug therapy; Z98.49 Cataract extraction status, unspecified eye; Z83.3 Family history of diabetes mellitus; Z98.41 Cataract extraction status, right eye; Z98.42 Cataract extraction status, left eye

== ENCOUNTER 2017-07-20 13:23 | Inpatient (IN) | payer OTHER ==
[~2017-07-20] VITALS: Ht 182.8 cm; Wt 122.6 kg
--- NOTE | ~2017-07-20 | PR ---
[place], [place] PROGRESS NOTE NAME: NOBLE GENTILE UNIT #: [id number] ROOM: 507 DOCTOR: GABRIELE CHRISTIANSON MD BIRTHDATE: [birth year] DOS: 07/22/2017 SUBJECTIVE: The patient was seen in the cardiology department just prior to his stress test today 07/22/2017. He states that since hospitalization, he has felt well. He has not had any further shoulder or arm pain and denies any cramping in his right hand. Since he has been admitted, his electrolytes have remained stable. Troponin levels have been unremarkable. PHYSICAL EXAMINATION: VITAL SIGNS: Pulse is 62 and regular, blood pressure is 153/75. He is afebrile. He weighs 122.6 kilograms. NECK: Supple. He has no jugular distention. Carotids are full. LUNGS: Respirations are unlabored. His chest is clear to auscultation and percussion. HEART: Has a regular rhythm with an S4 gallop, but no S3 or murmur. ABDOMEN: Soft and normally active. EXTREMITIES: Showed no edema. IMPRESSION: 1. Atypical chest and arm discomfort. 2. Atherosclerotic heart disease, status post cardiac stenting a little over a year ago. 3. Ischemic cardiomyopathy. Echocardiogram 06/18/2017 showed ejection fraction 45-50% with stage 2 diastolic dysfunction. 4. Type 2 diabetes mellitus. 5. Chronic obstructive pulmonary disease. 6. Obesity. PLAN: We will proceed with a pharmacologic stress test today. Further recommendations regarding his cardiac management will depend upon the results of those images. In the interim, we should continue aggressive risk factor modification. I will be increasing his amlodipine to try to better control his blood pressure. I thank his physicians for asking our advice regarding his care. [place], [place] PROGRESS NOTE NAME: NOBLE GENTILE UNIT #: [id number] ROOM: 507 DOCTOR: GABRIELE CHRISTIANSON MD BIRTHDATE: [birth year] GABRIELE CHRISTIANSON MD CM:PNTRANS [id number] GABRIELE CHRISTIANSON MD 07/22/17 1338 interface
[~2017-07-20 13:23] MED LIST changes: +BENEFIBER1 EACH PO
[2017-07-20 13:41] VITALS: BP 110/49
[2017-07-20 14:22] LABS: BASO % 0.1 % (0.0-1.0); EOS # 0.1 10*3/uL (0.0-0.4); EOS % 1.7 % (1.0-4.0); HEMATOCRIT 28.3 % (42.0-52.0); HEMOGLOBIN 8.9 g/dl (14.0-18.0); LYMPH # 1.2 10*3/uL (1.3-4.4); LYMPH % 14.8 % (27.0-41.0); MEAN CORPUSCULAR HGB 26.7 pg (27.0-31.0); MEAN CORPUSCULAR HGB CONC 31.4 g/dl (33.0-37.0); MEAN PLATELET VOLUME 9.6 fl (9.6-12.3); MONO # 0.4 10*3/uL (0.1-1.0); MONO % 5.2 % (3.0-9.0); NEUT # 6.4 10*3/uL (2.3-7.9); NEUT % 77.7 % (47.0-73.0); PLATELET COUNT AUTOMATED 196 10*3/uL (130-400); RED BLOOD COUNT 3.33 10*6/uL (4.50-5.90); RED CELL DISTRI WIDTH 16.4 % (0-14.5); WHITE BLOOD COUNT 8.3 10*3/uL (4.8-10.8)
[2017-07-20 14:31] LABS: ACT PARTIAL THROMBO TIME 24.9 SECONDS (20.8-31.5); INTERNATIONAL NORM RATIO 1.1 (2.0-3.5)
[2017-07-20 14:38] LABS: ALBUMIN 3.1 gm/dl (3.1-4.5); ALKALINE PHOSPHATASE 110 U/L (45-117); BUN 67 mg/dl (7-24); CHLORIDE 108 mmol/L (98-107); CREATININE 4.05 mg/dL (0.70-1.30); POTASSIUM 5.3 mmol/L (3.5-5.1); SGOT/AST 12 IU/L (3-35); SGPT/ALT 24 U/L (12-78); SODIUM 142 mmol/L (136-145); TOTAL PROTEIN 6.6 gm/dL (6.4-8.2)
[2017-07-20 14:39] LABS: TROPONIN I < 0.015 ng/ml (<0.045)
[2017-07-20 15:21] VITALS: BP 112/62
[2017-07-20 16:30] VITALS: BP 115/62
[2017-07-20 17:30] VITALS: BP 164/76
[2017-07-20 17:55] VITALS: BP 164/76
[2017-07-20] MEDS ORDERED: OMEPRAZOLE20 M2 PO (17:55)
[2017-07-20] MEDS ORDERED: BUSPIRONE10 MG PO (17:57)
[2017-07-20] MEDS ORDERED: ZOLOFT100 MG PO (17:58)
[2017-07-20] MEDS ORDERED: HYDROXYZINE HCL25 M1 PO (18:01)
[2017-07-20 20:00] VITALS: BP 145/76
[2017-07-21] VITALS: BP 154/55
[2017-07-21 07:02] LABS: BASO % 0.3 % (0.0-1.0); EOS # 0.2 10*3/uL (0.0-0.4); EOS % 2.8 % (1.0-4.0); HEMATOCRIT 27.8 % (42.0-52.0); HEMOGLOBIN 8.7 g/dl (14.0-18.0); LYMPH # 1.7 10*3/uL (1.3-4.4); LYMPH % 23.4 % (27.0-41.0); MEAN CELL VOLUME 84.2 fl (80.0-94.0); MEAN CORPUSCULAR HGB 26.4 pg (27.0-31.0); MEAN CORPUSCULAR HGB CONC 31.3 g/dl (33.0-37.0); MEAN PLATELET VOLUME 10.5 fl (9.6-12.3); MONO # 0.6 10*3/uL (0.1-1.0); NEUT # 4.6 10*3/uL (2.3-7.9); NEUT % 64.9 % (47.0-73.0); PLATELET COUNT AUTOMATED 205 10*3/uL (130-400); RED CELL DISTRI WIDTH 16.4 % (0-14.5); WHITE BLOOD COUNT 7.1 10*3/uL (4.8-10.8)
[2017-07-21 07:14] LABS: ALBUMIN 3.1 gm/dl (3.1-4.5); CREATININE 3.82 mg/dL (0.70-1.30); PHOSPHOROUS 4.3 mg/dL (2.5-4.9); TOTAL PROTEIN 6.4 gm/dL (6.4-8.2)
[2017-07-21 07:20] LABS: FREE T4 0.74 ng/dl (0.76-1.46); THYROID STIM HORMONE (HS) 1.77 uIU/ml (0.358-4.75)
[2017-07-21 07:21] LABS: POTASSIUM 4.3 mmol/L (3.5-5.1)
[2017-07-21 07:34] LABS: ACT PARTIAL THROMBO TIME 25.1 SECONDS (20.8-31.5); INTERNATIONAL NORM RATIO 1.1 (2.0-3.5)
[2017-07-21 08:00] VITALS: BP 130/70
[2017-07-21 12:00] VITALS: BP 150/64
[2017-07-21 16:00] VITALS: BP 171/75
[2017-07-21 20:00] VITALS: BP 158/79
[2017-07-22] VITALS: BP 155/57
[2017-07-22 07:07] LABS: BASO % 0.3 % (0.0-1.0); EOS # 0.2 10*3/uL (0.0-0.4); EOS % 2.6 % (1.0-4.0); HEMATOCRIT 28.9 % (42.0-52.0); HEMOGLOBIN 9.5 g/dl (14.0-18.0); LYMPH # 1.6 10*3/uL (1.3-4.4); LYMPH % 25.5 % (27.0-41.0); MEAN CELL VOLUME 84.5 fl (80.0-94.0); MEAN CORPUSCULAR HGB 27.8 pg (27.0-31.0); MEAN CORPUSCULAR HGB CONC 32.9 g/dl (33.0-37.0); MEAN PLATELET VOLUME 10.2 fl (9.6-12.3); MONO # 0.5 10*3/uL (0.1-1.0); MONO % 8.4 % (3.0-9.0); NEUT # 3.8 10*3/uL (2.3-7.9); NEUT % 62.9 % (47.0-73.0); PLATELET COUNT AUTOMATED 178 10*3/uL (130-400); RED BLOOD COUNT 3.42 10*6/uL (4.50-5.90); WHITE BLOOD COUNT 6.1 10*3/uL (4.8-10.8)
[2017-07-22 07:29] LABS: CREATININE 3.73 mg/dL (0.70-1.30); POTASSIUM 4.3 mmol/L (3.5-5.1)
[2017-07-22 08:00] VITALS: BP 153/75
== END 2017-07-22 16:43 | disposition home or self-care (01) | DRG 73 ==
LOC: ED 13:23 → EDHOLD 15:00 → 5E 15:00
PROVIDERS: Emergency Medicine; Family Medicine; Internal Medicine
PROC: 4A02XM4 Measurement of Cardiac Total Activity, External Approach (ICD-10-PCS; principal; 2017-07-22)
PROC: 3E073KZ Introduction of Other Diagnostic Substance into Coronary Artery, Percutaneous Approach (ICD-10-PCS; 2017-07-22)
DX: G58.8 Other specified mononeuropathies (principal); N17.0 Acute kidney failure with tubular necrosis; G91.2 (Idiopathic) normal pressure hydrocephalus; E44.0 Moderate protein-calorie malnutrition; E66.2 Morbid (severe) obesity with alveolar hypoventilation; I13.0 Hypertensive heart and chronic kidney disease with heart failure and stage 1 through stage 4 chronic kidney disease, or unspecified chronic kidney disease; I50.42 Chronic combined systolic (congestive) and diastolic (congestive) heart failure; N18.4 Chronic kidney disease, stage 4 (severe); E11.22 Type 2 diabetes mellitus with diabetic chronic kidney disease; E11.49 Type 2 diabetes mellitus with other diabetic neurological complication; K21.9 Gastro-esophageal reflux disease without esophagitis; R07.89 Other chest pain; E11.65 Type 2 diabetes mellitus with hyperglycemia; I25.119 Atherosclerotic heart disease of native coronary artery with unspecified angina pectoris; E55.9 Vitamin D deficiency, unspecified; D63.1 Anemia in chronic kidney disease; I25.5 Ischemic cardiomyopathy; J44.9 Chronic obstructive pulmonary disease, unspecified; E87.5 Hyperkalemia; K27.9 Peptic ulcer, site unspecified, unspecified as acute or chronic, without hemorrhage or perforation; I25.2 Old myocardial infarction; Z79.4 Long term (current) use of insulin; Z68.36 Body mass index [BMI] 36.0-36.9, adult; Z95.5 Presence of coronary angioplasty implant and graft; Z98.52 Vasectomy status; Z90.11 Acquired absence of right breast and nipple; Z80.9 Family history of malignant neoplasm, unspecified; Z88.1 Allergy status to other antibiotic agents; Z88.8 Allergy status to other drugs, medicaments and biological substances; Z79.82 Long term (current) use of aspirin; Z79.899 Other long term (current) drug therapy; Z98.49 Cataract extraction status, unspecified eye; Z83.3 Family history of diabetes mellitus; Z82.49 Family history of ischemic heart disease and other diseases of the circulatory system

== ENCOUNTER 2017-08-11 07:51 | Inpatient (IN) | payer OTHER ==
[~2017-08-11] VITALS: Ht 182.8 cm; Wt 122.5 kg
[2017-08-11 07:51] VITALS: BP 151/69
[~2017-08-11 07:51] MED LIST changes: +HYDROXYZINE HCL25 M1 PO; +OMEPRAZOLE20 M2 PO
[2017-08-11 08:16] LABS: BASO % 0.2 % (0.0-1.0); EOS # 0.1 10*3/uL (0.0-0.4); EOS % 1.9 % (1.0-4.0); HEMATOCRIT 30.1 % (42.0-52.0); HEMOGLOBIN 9.6 g/dl (14.0-18.0); LYMPH # 0.8 10*3/uL (1.3-4.4); LYMPH % 13.6 % (27.0-41.0); MEAN CORPUSCULAR HGB 27.4 pg (27.0-31.0); MEAN CORPUSCULAR HGB CONC 31.9 g/dl (33.0-37.0); MEAN PLATELET VOLUME 10.6 fl (9.6-12.3); MONO # 0.5 10*3/uL (0.1-1.0); MONO % 8.8 % (3.0-9.0); NEUT # 4.6 10*3/uL (2.3-7.9); NEUT % 74.9 % (47.0-73.0); PLATELET COUNT AUTOMATED 141 10*3/uL (130-400); RED CELL DISTRI WIDTH 17.2 % (0-14.5); WHITE BLOOD COUNT 6.2 10*3/uL (4.8-10.8)
[2017-08-11 08:30] LABS: ALBUMIN 3.4 gm/dl (3.1-4.5); CREATININE 4.32 mg/dL (0.70-1.30); POTASSIUM 4.1 mmol/L (3.5-5.1); TOTAL PROTEIN 6.9 gm/dL (6.4-8.2)
[2017-08-11 08:43] VITALS: BP 152/70
[2017-08-11 10:08] VITALS: BP 158/73
[2017-08-11 12:00] VITALS: BP 161/78
[2017-08-11 16:00] VITALS: BP 136/66
[2017-08-11 20:00] VITALS: BP 142/89
[2017-08-12] VITALS: BP 142/72
[2017-08-12 07:19] LABS: BASO % 0.3 % (0.0-1.0); EOS # 0.1 10*3/uL (0.0-0.4); HEMATOCRIT 29.1 % (42.0-52.0); HEMOGLOBIN 9.5 g/dl (14.0-18.0); LYMPH # 1.3 10*3/uL (1.3-4.4); LYMPH % 18.1 % (27.0-41.0); MEAN CELL VOLUME 84.8 fl (80.0-94.0); MEAN CORPUSCULAR HGB 27.7 pg (27.0-31.0); MEAN CORPUSCULAR HGB CONC 32.6 g/dl (33.0-37.0); MEAN PLATELET VOLUME 10.9 fl (9.6-12.3); MONO # 0.5 10*3/uL (0.1-1.0); MONO % 6.8 % (3.0-9.0); NEUT # 5.1 10*3/uL (2.3-7.9); NEUT % 72.5 % (47.0-73.0); PLATELET COUNT AUTOMATED 157 10*3/uL (130-400); RED BLOOD COUNT 3.43 10*6/uL (4.50-5.90); RED CELL DISTRI WIDTH 17.1 % (0-14.5); WHITE BLOOD COUNT 7.1 10*3/uL (4.8-10.8)
[2017-08-12 07:41] LABS: POTASSIUM 4.5 mmol/L (3.5-5.1)
[2017-08-12 08:00] VITALS: BP 167/65
[2017-08-12 08:00] LABS: ACT PARTIAL THROMBO TIME 25.9 SECONDS (20.8-31.5); INTERNATIONAL NORM RATIO 1.1 (2.0-3.5)
[2017-08-12 08:23] LABS: ALBUMIN 3.2 gm/dl (3.1-4.5); CREATININE 4.03 mg/dL (0.70-1.30); FREE T4 0.74 ng/dl (0.76-1.46); PHOSPHOROUS 3.5 mg/dL (2.5-4.9); THYROID STIM HORMONE (HS) 0.907 uIU/ml (0.358-4.75); TOTAL PROTEIN 6.6 gm/dL (6.4-8.2)
[2017-08-12 08:49] LABS: VITAMIN D, 25-HYDROXY 15.8 ng/mL (30-100)
== END 2017-08-12 12:40 | disposition home or self-care (01) | DRG 638 ==
LOC: ED 07:51 → EDHOLD 08:38 → 5E 08:38
PROVIDERS: Emergency Medicine; Family Medicine
DX: E11.649 Type 2 diabetes mellitus with hypoglycemia without coma (principal); I50.42 Chronic combined systolic (congestive) and diastolic (congestive) heart failure; N18.4 Chronic kidney disease, stage 4 (severe); E66.2 Morbid (severe) obesity with alveolar hypoventilation; I13.0 Hypertensive heart and chronic kidney disease with heart failure and stage 1 through stage 4 chronic kidney disease, or unspecified chronic kidney disease; D72.9 Disorder of white blood cells, unspecified; D72.810 Lymphocytopenia; D64.9 Anemia, unspecified; S50.319A Abrasion of unspecified elbow, initial encounter; J44.9 Chronic obstructive pulmonary disease, unspecified; R74.8 Abnormal levels of other serum enzymes; K27.9 Peptic ulcer, site unspecified, unspecified as acute or chronic, without hemorrhage or perforation; E11.42 Type 2 diabetes mellitus with diabetic polyneuropathy; I25.118 Atherosclerotic heart disease of native coronary artery with other forms of angina pectoris; X58.XXXA Exposure to other specified factors, initial encounter; Z91.81 History of falling; Z88.5 Allergy status to narcotic agent; Z88.1 Allergy status to other antibiotic agents; Z88.8 Allergy status to other drugs, medicaments and biological substances; Z79.899 Other long term (current) drug therapy; I25.2 Old myocardial infarction; Z95.5 Presence of coronary angioplasty implant and graft; Z90.11 Acquired absence of right breast and nipple; Z98.52 Vasectomy status; Z90.49 Acquired absence of other specified parts of digestive tract; Z98.42 Cataract extraction status, left eye; Z98.41 Cataract extraction status, right eye; Z80.9 Family history of malignant neoplasm, unspecified; Z82.49 Family history of ischemic heart disease and other diseases of the circulatory system; Z83.3 Family history of diabetes mellitus; Z79.4 Long term (current) use of insulin; Y93.89 Activity, other specified; Y92.89 Other specified places as the place of occurrence of the external cause; Y99.8 Other external cause status; Z68.36 Body mass index [BMI] 36.0-36.9, adult

== ENCOUNTER 2017-08-25 16:00 | Emergency (ER) | payer OTHER ==
[~2017-08-25] VITALS: Ht 182.8 cm; Wt 136.1 kg
[2017-08-25 17:20] LABS: BILIRUBIN NEGATIVE (NEGATIVE); BLOOD NEGATIVE (NEGATIVE); CLARITY CLEAR (CLEAR); COLOR YELLOW (YELLOW); GLUCOSE 1+ (NEGATIVE); KETONE NEGATIVE (NEGATIVE); LEUKO ESTERASE NEGATIVE (NEGATIVE); NITRITE NEGATIVE (NEGATIVE); UROBILINOGEN 0.2 E.U./dl (0.2-1.0)
[2017-08-25 17:39] LABS: BACTERIA TRACE; WBC 0-2 wbc/hpf (0-5)
[2017-08-25 17:58] LABS: BASO % 0.2 % (0.0-1.0); EOS # 0.1 10*3/uL (0.0-0.4); EOS % 1.2 % (1.0-4.0); HEMATOCRIT 30.8 % (42.0-52.0); HEMOGLOBIN 9.7 g/dl (14.0-18.0); LYMPH # 1.4 10*3/uL (1.3-4.4); LYMPH % 20.5 % (27.0-41.0); MEAN CELL VOLUME 87.7 fl (80.0-94.0); MEAN CORPUSCULAR HGB 27.6 pg (27.0-31.0); MEAN CORPUSCULAR HGB CONC 31.5 g/dl (33.0-37.0); MONO # 0.7 10*3/uL (0.1-1.0); MONO % 10.3 % (3.0-9.0); NEUT # 4.4 10*3/uL (2.3-7.9); NEUT % 67.2 % (47.0-73.0); PLATELET COUNT AUTOMATED 175 10*3/uL (130-400); RED BLOOD COUNT 3.51 10*6/uL (4.50-5.90); RED CELL DISTRI WIDTH 17.2 % (0-14.5); WHITE BLOOD COUNT 6.6 10*3/uL (4.8-10.8)
[2017-08-25 18:16] LABS: ALBUMIN 3.5 gm/dl (3.1-4.5); CREATININE 3.85 mg/dL (0.70-1.30); POTASSIUM 4.9 mmol/L (3.5-5.1)
[2017-08-25 21:12] VITALS: BP 182/86
== END 2017-08-26 00:25 | disposition short-term general hospital (02) ==
LOC: ED 16:00
PROVIDERS: Nurse Practitioner
DX: I13.0 Hypertensive heart and chronic kidney disease with heart failure and stage 1 through stage 4 chronic kidney disease, or unspecified chronic kidney disease (principal); N18.9 Chronic kidney disease, unspecified; E11.22 Type 2 diabetes mellitus with diabetic chronic kidney disease; J45.901 Unspecified asthma with (acute) exacerbation; E78.5 Hyperlipidemia, unspecified; I25.10 Atherosclerotic heart disease of native coronary artery without angina pectoris; Z88.6 Allergy status to analgesic agent; Z88.1 Allergy status to other antibiotic agents; Z88.8 Allergy status to other drugs, medicaments and biological substances; Z79.899 Other long term (current) drug therapy

== ENCOUNTER 2017-09-08 20:57 | Inpatient (IN) | payer OTHER ==
[~2017-09-08] VITALS: Ht 180.3 cm; Wt 113.4 kg
[~2017-09-08 20:57] MED LIST changes: -LANTUS SOL100 UNIT/1 IM; +LANTUS SOL100 UNIT/1 SC
[2017-09-08 20:58] VITALS: BP 134/62
[2017-09-08 21:27] LABS: BASO % 0.2 % (0.0-1.0); EOS # 0.1 10*3/uL (0.0-0.4); EOS % 0.8 % (1.0-4.0); HEMATOCRIT 37.1 % (42.0-52.0); HEMOGLOBIN 11.7 g/dl (14.0-18.0); LYMPH % 9.3 % (27.0-41.0); MEAN CELL VOLUME 87.7 fl (80.0-94.0); MEAN CORPUSCULAR HGB 27.7 pg (27.0-31.0); MEAN CORPUSCULAR HGB CONC 31.5 g/dl (33.0-37.0); MEAN PLATELET VOLUME 10.1 fl (9.6-12.3); MONO # 0.6 10*3/uL (0.1-1.0); MONO % 5.7 % (3.0-9.0); NEUT # 8.7 10*3/uL (2.3-7.9); PLATELET COUNT AUTOMATED 177 10*3/uL (130-400); RED BLOOD COUNT 4.23 10*6/uL (4.50-5.90); RED CELL DISTRI WIDTH 16.9 % (0-14.5); WHITE BLOOD COUNT 10.5 10*3/uL (4.8-10.8)
[2017-09-08 21:38] LABS: ACT PARTIAL THROMBO TIME 25.4 SECONDS (20.8-31.5); INTERNATIONAL NORM RATIO 1.1 (2.0-3.5)
[2017-09-08 21:45] LABS: ALBUMIN 3.7 gm/dl (3.1-4.5); ALKALINE PHOSPHATASE 105 U/L (45-117); BUN 65 mg/dl (7-24); CHLORIDE 107 mmol/L (98-107); CREATININE 4.53 mg/dL (0.70-1.30); POTASSIUM 3.9 mmol/L (3.5-5.1); SGOT/AST 26 IU/L (3-35); SGPT/ALT 33 U/L (12-78); SODIUM 142 mmol/L (136-145); TOTAL PROTEIN 7.7 gm/dL (6.4-8.2)
[2017-09-08 21:48] LABS: TROPONIN I < 0.015 ng/ml (<0.045)
[2017-09-08 23:42] VITALS: BP 167/79
[2017-09-09] VITALS: BP 167/79
[2017-09-09 07:12] LABS: BASO % 0.2 % (0.0-1.0); EOS # 0.1 10*3/uL (0.0-0.4); EOS % 1.2 % (1.0-4.0); HEMATOCRIT 33.4 % (42.0-52.0); HEMOGLOBIN 10.9 g/dl (14.0-18.0); LYMPH # 1.5 10*3/uL (1.3-4.4); MEAN CORPUSCULAR HGB 28.4 pg (27.0-31.0); MEAN CORPUSCULAR HGB CONC 32.6 g/dl (33.0-37.0); MEAN PLATELET VOLUME 10.7 fl (9.6-12.3); MONO # 0.5 10*3/uL (0.1-1.0); MONO % 6.2 % (3.0-9.0); NEUT % 73.8 % (47.0-73.0); PLATELET COUNT AUTOMATED 173 10*3/uL (130-400); RED BLOOD COUNT 3.84 10*6/uL (4.50-5.90); RED CELL DISTRI WIDTH 17.2 % (0-14.5); WHITE BLOOD COUNT 8.2 10*3/uL (4.8-10.8)
[2017-09-09 07:29] LABS: ALBUMIN 3.2 gm/dl (3.1-4.5); CREATININE 4.42 mg/dL (0.70-1.30); PHOSPHOROUS 4.4 mg/dL (2.5-4.9); TOTAL PROTEIN 6.4 gm/dL (6.4-8.2)
[2017-09-09 07:35] LABS: THYROID STIM HORMONE (HS) 0.436 uIU/ml (0.358-4.75)
[2017-09-09 08:00] VITALS: BP 154/78
[2017-09-09 08:31] LABS: VITAMIN D, 25-HYDROXY 20.9 ng/mL (30-100)
[2017-09-09] MEDS ORDERED: HYDRALAZINE HYD50 MG PO (11:14)
[2017-09-09 12:00] VITALS: BP 149/56
== END 2017-09-09 16:40 | disposition home or self-care (01) | DRG 638 ==
LOC: ED 20:57 → EDHOLD 21:18 → 4E 22:07
PROVIDERS: Internal Medicine; Student in an Organized Health Care Education/Training Program
DX: E11.649 Type 2 diabetes mellitus with hypoglycemia without coma (principal); E66.2 Morbid (severe) obesity with alveolar hypoventilation; N17.0 Acute kidney failure with tubular necrosis; F33.9 Major depressive disorder, recurrent, unspecified; I13.0 Hypertensive heart and chronic kidney disease with heart failure and stage 1 through stage 4 chronic kidney disease, or unspecified chronic kidney disease; I50.42 Chronic combined systolic (congestive) and diastolic (congestive) heart failure; Y99.8 Other external cause status; E11.22 Type 2 diabetes mellitus with diabetic chronic kidney disease; E11.42 Type 2 diabetes mellitus with diabetic polyneuropathy; N18.4 Chronic kidney disease, stage 4 (severe); E11.40 Type 2 diabetes mellitus with diabetic neuropathy, unspecified; R00.1 Bradycardia, unspecified; D64.9 Anemia, unspecified; M47.819 Spondylosis without myelopathy or radiculopathy, site unspecified; K27.9 Peptic ulcer, site unspecified, unspecified as acute or chronic, without hemorrhage or perforation; J44.9 Chronic obstructive pulmonary disease, unspecified; E83.41 Hypermagnesemia; E83.51 Hypocalcemia; D72.810 Lymphocytopenia; I25.10 Atherosclerotic heart disease of native coronary artery without angina pectoris; Z88.1 Allergy status to other antibiotic agents; Z88.6 Allergy status to analgesic agent; Z88.8 Allergy status to other drugs, medicaments and biological substances; I25.2 Old myocardial infarction; Z79.4 Long term (current) use of insulin; Z95.5 Presence of coronary angioplasty implant and graft; Z90.11 Acquired absence of right breast and nipple; Z98.52 Vasectomy status; Z98.49 Cataract extraction status, unspecified eye; Z79.899 Other long term (current) drug therapy; Z79.82 Long term (current) use of aspirin; Z68.33 Body mass index [BMI] 33.0-33.9, adult; W18.39XA Other fall on same level, initial encounter; Y93.89 Activity, other specified; Y92.89 Other specified places as the place of occurrence of the external cause

== ENCOUNTER 2017-10-19 19:24 | Emergency (ER) | payer OTHER ==
[~2017-10-19] VITALS: Ht 182.8 cm; Wt 117.9 kg
[2017-10-19] MEDS ORDERED: NAPROSYN500 MG PO ×2 (21:03→21:19)
== END 2017-10-19 21:12 | disposition home or self-care (01) ==
LOC: ED 19:24
DX: M70.31 Other bursitis of elbow, right elbow (principal); Z90.89 Acquired absence of other organs; J44.9 Chronic obstructive pulmonary disease, unspecified; F32.9 Major depressive disorder, single episode, unspecified; E16.2 Hypoglycemia, unspecified; I12.9 Hypertensive chronic kidney disease with stage 1 through stage 4 chronic kidney disease, or unspecified chronic kidney disease; E11.22 Type 2 diabetes mellitus with diabetic chronic kidney disease; N18.4 Chronic kidney disease, stage 4 (severe); I25.10 Atherosclerotic heart disease of native coronary artery without angina pectoris; Y93.89 Activity, other specified

== ENCOUNTER 2017-10-28 21:47 | Inpatient (IN) | payer OTHER ==
[~2017-10-28] VITALS: Ht 182.8 cm; Wt 109.4 kg
--- NOTE | ~2017-10-28 | PR ---
[place], [place] PROGRESS NOTE NAME: NOBLE GENTILE [facility] #: [id number] UNIT #: [id number] ROOM: 510 DOCTOR: ZENAIDA MERINO MD,TAY BIRTHDATE: [birth year] DOS: 10/31/2017 SUBJECTIVE: He has been noted comfortable at this time, but complaining of symptoms of shortness of breath with some chest congestion and stating that he has not been feeling better. He denies symptoms of chest pain. Denies symptoms of nausea, vomiting, diarrhea or abdominal pain. The patient denies symptoms of hemoptysis or any chest pain. He had not been noted any symptoms of edema or pain of the lower extremity. Denies symptoms of dizziness, headache, diplopia or syncopal episodes. The remaining system review of the patient were noted all negative. OBJECTIVE: VITAL SIGNS: Normal temperature, respiratory rate 18-20, heart rate 71-74, blood pressure 149/60-142/60, pulse oxygen saturation noted 4 L nasal cannula 95% saturation. HEENT: Shows head was atraumatic. Eyes nonicterus. NECK: Supple. CARDIOVASCULAR: S1, S2 is audible. LUNGS: The patient noted moderate decreased breath sounds, scattered crackles, no wheezing. ABDOMEN: Soft, nontender, bowel sounds present. CENTRAL NERVOUS SYSTEM: The patient was noted without any acute edema, clubbing or cyanosis. MUSCULOSKELETAL SYMPTOM: Without acute deformities. LABORATORY DATA: The CBC of this morning; WBC count 11.6, hemoglobin 9.6, hematocrit 31.7, platelet count 237,000. Renal function panel today; BUN of 67, creatinine 4.36, glucose 105. CT scan of the chest that I ordered for the patient, which was completed without contrast was reviewed personally shows trace bilateral pleural fluids. Central distribution of the current pulmonary infiltration noted with nonspecific acute interstitial lung disease, sparing mostly the periphery with the central areas involvement. IMPRESSION: The patient who has been currently noted with persistent acute respiratory failure, current nonspecific interstitial pneumonitis with a strong possibility with evidence of pulmonary edema, atypical presentation, acute infection. The patient remains in consideration with other interstitial lung diseases to be excluded as well. Current finding usually not seen in hypersensitivity pneumonitis. PLAN OF MANAGEMENT: Maximize the fluid removal with hemodialysis. Ordered the workup of interstitial lung disease. Continue current antibiotic as well. Serology will be ordered. Viral serology was pending. Titrate oxygen supplementation, maintain saturation 92% or greater. Trial of the corticosteroids could be given as well with additional treatment changes to be made with the progression or the overall illness. Workup for the connective tissue and others with chronic infection has been ordered, which is available to be ordered inpatient. Vitals available. Consideration for upper bronchoscopy, BAL specimen for the next week as well if the patient's symptoms of current radiologic or other findings persisted. [place], [place] PROGRESS NOTE NAME: NOBLE GENTILE UNIT #: [id number] ROOM: [facility] DOCTOR: TAY MCGOWAN MD BIRTHDATE: [birth year] TAY ESTEVEZ MD CM:PNTRANS 00 6 TAY MERINO MD 11/01/17 0256 interface
--- NOTE | ~2017-10-28 | PR ---
[place], [place] PROGRESS NOTE NAME: NOBLE GENTILE UNIT #: [id number] ROOM: 510 DOCTOR: MOIZ PALOMARES MD BIRTHDATE: [birth year] DOS: 11/01/2017 SUBJECTIVE: The patient was seen and examined. He is awake and alert. He is having a neb treatment. He tells me he is feeling much better. His oxygen is being weaned. He denied nausea or vomiting. PHYSICAL EXAMINATION: VITAL SIGNS: Temperature 97.7, pulse 102, respiration 20, blood pressure 137/56. HEENT: Shows no JVD. LUNGS: Diminished breath sounds. No wheeze. HEART: S1, S2. No rub, thrill or gallop. ABDOMEN: Soft, nontender. EXTREMITIES: Had trace edema. SKIN: Showed no rash. LABORATORY DATA: No labs were noted for today. From yesterday, hemoglobin 9.8, phosphorus 4.8, albumin 2.9, creatinine 4.36, BUN 67, CO2 27. ASSESSMENT AND PLAN: 1. Stage 4-5 chronic kidney disease. He has a slight acute element related to prerenal factors. Labs will be rechecked tomorrow. He remains on diuretics. There is no urgent need for dialysis at this time. Dose medication for current creatinine clearance. Replace electrolytes as needed. 2. Anemia. Follow H and H. We will transfuse as needed. We can consider erythropoietin stimulating agents at some point. 3. Probable pneumonia. Continue supportive care. Antibiotics per the primary service. 4. Hypertension. Continue medications. MOIZ PALOMARES MD CM:PNTRANS [phone] MOIZ PALOMARES MD 11/01/171918 interface
--- NOTE | ~2017-10-28 | CON ---
[place], [place] REPORT OF CONSULTATION NAME: NOBLE GENTILE [facility] #: [id number] UNIT #: [id number] ROOM: [facility] DOCTOR: TAY MCGOWAN MD BIRTHDATE: [birth year] DOS: 10/29/2017 PULMONARY CONSULTATION, EVALUATION AND MANAGEMENT CONSULTATION REQUESTED BY: Hospitalist service. REASON FOR CONSULTATION: For assessment of symptoms of shortness of breath and respiratory failure. HISTORY OF PRESENT ILLNESS: This is a 67-year-old white male patient who originally admitted to the hospital with the symptoms of increased shortness of breath for the patient that has been occurring at home for the past 3 to 4 days. The symptoms associated with general weakness and fatigue. The patient also reported symptoms of nausea and vomiting that occurred at home with his chest tightness. He does have a cough, which is described to be mostly nonproductive. He denies symptoms of nausea, vomiting at the present time. The patient was admitted to the telemetry floor and then transferred to the Intensive Care Unit after the arterial blood gas was taken, which was showing evidence of worsening of the respiratory failure with hypercapnia. The patient has been ordered the BiPAP, which has noted in place on this morning. REVIEW OF SYSTEMS: CONSTITUTIONAL SYMPTOMS: Fatigue and tiredness noted for the patient without symptoms of fever or chills. EYES: Denies any burning, redness, or tenderness. EARS, NOSE AND THROAT: Denies sore throat, hoarseness, otalgia, postnasal drainage. CARDIOVASCULAR: Denies angina pain, edema or pain of the lower extremities. GASTROINTESTINAL: Denies symptoms of dysphagia, nausea, vomiting at this time, but noted nausea and vomiting previously. No symptoms of hematemesis, melena, or hematochezia. GENITOURINARY: History of end-stage renal failure, currently planned for a fistula formation for possibility of hemodialysis might be started for the patient in the very near future. MUSCULOSKELETAL: No acute joint pain, redness, or tenderness. The patient denies any pain or aches. SKIN: There are no abnormal lesions or rashes. CENTRAL NERVOUS SYSTEM: No dizziness, headache, diplopia or syncopal episodes. Remaining systems of the patient were reviewed, they were noted all negative. PAST MEDICAL HISTORY: Noted with: 1. Coronary artery disease with previous myocardial infarction. 2. Chronic obstructive pulmonary disease. 3. Chronic kidney disease stage 4. 4. General anxiety and depression. 5. Diabetic nephropathy. 6. Chronic obesity. 7. Essential hypertension. 8. Obstructive sleep apnea disorder, nonadherent with the treatment. [place], [place] REPORT OF CONSULTATION NAME: NOBLE GENTILE UNIT #: [id number] ROOM: [facility] DOCTOR: ZENAIDA MERINO MD,TAY BIRTHDATE: [birth year] 9. Osteoarthritis, intervertebral disk of the spine. 10. Diabetic neuropathy and diabetic nephropathy. Normal pressure hydrocephalus. 11. Vitamin D deficiency. PAST SURGICAL HISTORY: 1. Cardiac catheterization, coronary artery stent insertion. 2. Surgery of low back, laminectomy. 3. Inguinal hernia repair. 4. Right mastectomy. 5. Vasectomy. 6. Tonsillectomy. SOCIAL HISTORY: The patient denies any history of tobacco, alcohol or illicit drug use. The patient is and has 2 children. FAMILY HISTORY: The patient's father at 46-year-old with complication of cancer, unknown primary. Mother at age of 8080 years old, complication of cancer, unknown primary as well. HOME MEDICATIONS: Listed at time of admission noted as use of Effient, naproxen, Coreg, aspirin, Symbicort, omega 3 fatty acid, hydralazine, finasteride, sertraline, Proventil HFA inhaler, Lasix, Norvasc, Lantus insulin ____, use of NovoLog coverage for this patient during the day, omeprazole and hydroxyzine. ALLERGIES: The drug allergy history patient reported with several allergies that include: 1. MORPHINE. 2. FLUOROQUINOLONES. 3. ZETIA. 4. NIACIN. 5. STATIN DRUGS CAUSING MUSCLE ACHES AND CRAMPS. PHYSICAL EXAMINATION: GENERAL: This is a 67-year-old white male who has been noted awake and alert patient without any acute distress at this time. The height of the patient noted 6 feet, weight of 256 pounds for this patient. VITAL SIGNS: For the patient which has been recorded showed the temperature noted as normal, respiratory rate of 32-22, heart rate 78-85, blood pressure 201/85 on admission and this morning was noted as 164/90. Pulse oxygen saturation of the patient noted on room air, 89% on 3 liters nasal cannula this morning 91% with BiPAP at this time, saturation of oxygen noted about 96% saturation. HEENT: Severe obesity. Head was atraumatic. Eyes, nonicterus. Decreased posterior pharyngeal space. CARDIOVASCULAR: S1, S2 is audible. LUNGS: The patient was noted with moderate general reduction of the breath sounds in the lungs were noted with occasional crackles. There was no wheezing. ABDOMEN: Noted to have moderate obesity. Bowel sounds present without any [place], [place] REPORT OF CONSULTATION NAME: NOBLE GENTILE UNIT #: [id number] ROOM: [facility] DOCTOR: ZENAIDA MERINO MD,TAY BIRTHDATE: [birth year] tenderness. EXTREMITIES: Without any edema, clubbing, cyanosis. SKIN: Visible skin, no lesions or rashes. MUSCULOSKELETAL: Without any acute deformities. CENTRAL NERVOUS SYSTEM: No focal deficit. Cranial nerves 2-12 intact. LABORATORY DATA: The lactic acid noted yesterday normal in the Emergency Room. CBC of the patient 10/28/2017, WBC count 11.2, hemoglobin 10, platelet count was normal. The CMP of the patient was noted on 10/28/2017, BUN 54, creatinine 3.99, glucose 159, sodium 133, potassium 5.2 for this patient. Troponin noted as normal. The troponin of the patient 3 sets yesterday and this morning were all noted normal. CMP this morning, glucose 395, BUN 54, creatinine 3.89, sodium 135. The PT, PTT of the patient done this morning normal. Arterial blood gas this morning, pH of 7.33, pCO2 of 40, pO2 of 58 on 3-liter nasal cannula supplementation of oxygen. REVIEW OF THE RADIOLOGY DATA: Chest x-ray, PA lateral for the patient that was completed on 10/28/2017 was reviewed independently from the PACS images, bilateral diffuse infiltration noted in the lungs. IMPRESSION: 1. The patient who has been currently admitted to the hospital with bilateral pulmonary infiltration at this time with current symptom possibility of viral pneumonia would be considered with other bacterial infection to be excluded. Other possibility would be a congestive heart failure of the patient, fluid overload with chronic kidney disease stage 4, past history of congestive heart failure, cardiomyopathy, would be also exacerbating the problem. The acute hypoxic respiratory failure resulting from all of the above. 2. Chronic obesity with history of obstructive sleep apnea disorder, nonradiating treatment. 3. Severely uncontrolled diabetes mellitus. The patient was also noted past history of longstanding diabetes mellitus. PLAN OF MANAGEMENT: Nephrology consultation for possible consideration of diuresing for this patient, which has been ordered for the patient is 80 mg b.i.d. Close monitor kidney functions. Monitor chest x-ray closely. BiPAP for the patient that will be continued with settings would be 11/04 for this patient should suffice for this patient. Monitor chest x-ray closely. Consider the patient's CT scan of the chest if necessary for further assessment. Empirical treatment of the patient at this time will be started for anti-flu therapy. Continue antibiotic until the influenza infection is excluded. All other supportive therapy, plan of management and care plan. Usual treatment. Obtain the respiratory viral panel as well. Sputum for Gram stain, culture will be ordered. The patient is able to expectorate any sputum. Thanks for allowing me to participate in the care of this patient. [place], [place] REPORT OF CONSULTATION NAME: KRUPANOBLE Alden UNIT #: [id number] ROOM: [facility] DOCTOR: TAY MCGOWAN MD BIRTHDATE: [birth year] TAY ESTEVEZ MD CM:CONSTR:REPORT OF CONSULTATION 1243 10/30/17 0249 interface
--- NOTE | ~2017-10-28 | PR ---
[place], [place] [facility]GRESS NOTE [id number] UN[facility] #: [id number] ROOM: 510 DOCTOR: JELANI GARVEY,MOIZ Moss BIRTHDATE: [birth year] DOS: SUBJECTIVE: The patient was seen and examined. He is awake and alert. He is lying in bed. He is on nasal cannula. ____ states he feels weak and some shortness of breath. His appetite has not been very good today. PHYSICAL EXAMINATION: VITAL SIGNS: Temperature 97.3, pulse 74, respiratory rate 18, blood pressure 143/55. HEENT: Shows no JVD. LUNGS: Had a few scattered rhonchi. HEART: Normal S1, S2. No rub, thrill or gallop. ABDOMEN: Soft and nontender. ____. EXTREMITIES: Had trace edema. SKIN: Showed no rash. LABORATORY DATA: Hemoglobin 9.8, white count of 11.6, platelets 237. Sodium 137, potassium 4.2, CO2 of 27, BUN 67, creatinine 4.36, glucose 105, calcium 8.2, phosphorus 4.8, magnesium 2.4, albumin 2.9. IMPRESSION AND PLAN: 1. Stage 4-5 chronic kidney disease with slight acute element likely related to prerenal factors. The patient's electrolytes are stable. He has adequate urine output. He remains on diuretics. His true volume status is not clear, but seems reasonable with his respiratory issues to keep him on the sock drier side. Replace electrolytes as needed. There is no urgent need for dialysis at this time. 2. Anemia. Follow H and H and transfuse as necessary. We can consider ESAs at some point if needed. 3. Probable pneumonia. Continue ongoing supportive care. Antibiotics as per the primary service. 4. Hypertension. Continue medications. MOIZ PALOMARES MD CM:PNTRANS [id number] MOIZ PALOMARES MD 11/01/17 0039 interface
--- NOTE | ~2017-10-28 | PR ---
[place], [place] PROGRESS NOTE NAME: NOBLE GENTILE [facility] #: [id number] UNIT #: [id number] ROOM: 510 DOCTOR: ZENAIDA MERINO MD,TAY BIRTHDATE: [birth year] DOS: 10/30/2017 SUBJECTIVE: The patient was noted comfortable at this time, resting on the bed without any acute distress. Significant improvement in reduction of all of the respiratory symptom noted lasting for the current medical management. He used the BiPAP last night. This morning, the patient was using the oxygen supplementation with nasal cannula. The patient denies symptoms of nausea, vomiting, diarrhea, abdominal pain, hematemesis, melena, hematochezia. Denies symptoms of hemoptysis. Denies any symptoms of chest pain or any abdominal pain. Denies any pain of the lower extremity. General weakness, the patient was noted, but better from yesterday. OBJECTIVE: VITAL SIGNS: There is a normal temperature, respiratory 20, heart rate 71, blood pressure 137/74. Pulse oxygen saturation on 4 liter nasal cannula was 96% saturation. BiPAP earlier was 98% saturation, 40% oxygen. HEENT: Examination shows head was atraumatic. Eyes nonicterus. NECK: Supple. CARDIOVASCULAR: S1, S2 is audible. LUNGS: The patient was noted without any wheezing. Scattered crackles in the lungs. ABDOMEN: Soft, obese, nontender. EXTREMITIES: Without any acute edema. SKIN: No lesions or rashes. MUSCULOSKELETAL SYMPTOMS: Without acute deformities. CENTRAL NERVOUS SYSTEM: Cranial nerves 2-12 intact. LABORATORY DATA: Labs in this patient, blood culture from the 2nd this month showed no bacterial growth. CMP this morning, BUN 50, creatinine 4.09, glucose 195. The chest x-ray that was done for the patient, 1 view this morning still noted with interstitial edema bilaterally with possibility of pulmonary infiltration. Cardiomegaly was seen. Possible consolidation in the left lower lobe cannot be completely excluded. Influenza A and B nasal washing antigens were negative. The results of the other viral panel for the patient PCR results were pending, which were taken yesterday. The patient also has an echocardiogram that was completed on 10/29/2017. The patient reported by the panel sewer, Dr. Jacobsen as findings of left ventricle, ejection fraction 50% with grade 2 diastolic dysfunction. Right ventricle systolic function was reported as normal, trivial mitral valve regurgitation reported. IMPRESSION: 1. The patient, who has been noted persistent acute severe hypoxic respiratory failure with the possibility of pulmonary edema, rule out pneumonia, viral or bacterial at the present time as well. 2. Possibility of consolidation of the abnormality noted in the left lower lobe as well. 3. Chronic obesity. 4. Acute on chronic kidney injury known with history of chronic kidney disease [place], [place] PROGRESS NOTE NAME: NOBLE GENTILE UNIT #: [id number] ROOM: [facility] DOCTOR: TAY MCGOWAN MD BIRTHDATE: [birth year] stage 4 with worsening of the creatinine in the last 24 hours, may be related to diuretics and other reasons. PLAN OF MANAGEMENT: CT scan of the chest will be done without contrast for more clear, assessment ongoing pulmonary process. Continuation of the current antibiotics, patient at this time should suffice. Diuretics per guidance with the Nephrology services. Continue with the antibiotic therapy for influenza infection until excluded for patient with respiratory viral panel. The other supportive therapy, plan of management and care plan. Usual treatment. Continue use of BiPAP intermittently for the patient with other treatment plan of management. Additional, past family and social history was completed yesterday for the patient, remains unchanged. TAY ESTEVEZ MD CM:PNTRANS [id number] TAY MERINO MD 11/04/17 1615 interface
--- NOTE | ~2017-10-28 | PR ---
[place], [place] PROGRESS NOTE NAME: NOBLE GENTILE UNIT #: [id number] ROOM: 510 DOCTOR: TAY MCGOWAN MD BIRTHDATE: [birth year] DOS: 11/04/2017 SUBJECTIVE: The patient has been noted comfortable at this time, has shown further resolution of the acute respiratory symptom. Denies symptoms of coughing, sputum expectoration, or chest pain. Denies symptoms of wheezing. OBJECTIVE: VITAL SIGNS: Normal temperature, respiratory rate 18, heart rate 66, blood pressure 150/66. Pulse oxygen saturation on room air 94% saturation. HEENT: Examination shows head was atraumatic. Eyes nonicterus. NECK: Supple. ABDOMEN: He was obese. CARDIOVASCULAR SYSTEM: S1, S2 audible. LUNGS: The patient was noted without any crackle, rhonchi or wheezing at the present time. The breaths are noted decreased for this patient only mildly. ABDOMEN: Soft and obese. EXTREMITIES: Without any acute edema. LABORATORY DATA: BMP today: BUN 91, creatinine 3.68. Sodium 135. Pneumocystis stain for the patient was noted negative. CBC: The patient's WBC count 12,000, hemoglobin 10.6, normal platelet count. The culture of the bronchial washing shows a normal jose. Antibody for this patient noted negative. The further workup of the patient's interstitial lung disease was pending. IMPRESSION: 1. Progressive and gradual resolution of the acute respiratory failure, status post bronchoscopy. 2. With interstitial lung disease for the patient was noted possibility of acute allergic reaction. The medication can be excluded. 3. Resolving acute on chronic kidney injury. The findings were not consistent with any bacterial or viral pneumonia. PLAN OF MANAGEMENT: Tapering dose of prednisone completion of the patient upon discharge. Outpatient followup to be done. No other additional changes at this time. Treatment will be needed. No further use of antibiotic will be required. Outpatient followup will benefit the patient in the office as well if he desires to do so. [place], [place] PROGRESS NOTE NAME: NOBLE GENTILE UNIT #: [id number] ROOM: 510 DOCTOR: TAY MCGOWAN MD BIRTHDATE: [birth year] TAY ESTEVEZ MD CM:PNTRANS [id number] TAY MERINO MD 11/04/17 1903 interface
--- NOTE | ~2017-10-28 | PROC NOTE ---
[place], [place] PROCEDURE NOTE [facility] [id number] UNIT #: [id number] ROOM: 510 DOCTOR: ZENAIDA MERINO MD,TAY BIRTHDATE: [birth year] DOS: 11/02/2017 PREOPERATIVE DIAGNOSES: Bilateral pulmonary infiltration and cough. POSTOPERATIVE DIAGNOSES: Removal of the mucus impactions of bilateral lower lobe endobronchial subsegment as a bronchoscopy, washings were taken. BAL specimen was also obtained from the patient's right lower lobe endobronchial tree. PROCEDURE DESCRIPTION: Informed consent obtained. The patient brought to the OR and placed in supine position. Conscious sedation administered by the Anesthesia Department. After achieving appropriate sedation, airway introduced into the mouth. Bronchoscope advanced through airway into the laryngeal area. Epiglottis and vocal cords were seen. Vocal moving symmetrically with movements. Bronchoscope advanced to the vocal cord and tracheal lumen. Tracheal lumen was noted with moderate amount of mucus with some purulent secretions, suctioned at paola level. Paola noted sharp. Right upper, right middle, right lower, left upper, lingular lower bronchi were all examined. Basically infection of the mucus plug was noted and the lower lobe endobronchial tree. After removing the mucous plug, a bronchial washing taken from the endobronchial tree. BAL specimen obtained from the right lower lobe endobronchial tree successfully without difficulty. Procedure was tolerated by the patient without difficulty. Postoperative findings were discussed when the patient recovery effects of acute sedation. TAY ESTEVEZ MD CM:PROCNOTE:PROCEDURE NOTE [id number] TAY MERINO MD
--- NOTE | ~2017-10-28 | PR ---
[place], [place] PROGRESS NOTE NAME: NOBLE GENTILE [facility] #: [id number] UNIT #: [id number] ROOM: 510 DOCTOR: ZENAIDA MERINO MDTAY BIRTHDATE: [birth year] DOS: 11/03/2017 SUBJECTIVE: The patient was noted without any acute new respiratory complaints. The patient has not been noted any symptoms of chest pain or any hemoptysis. Bronchoscopy done yesterday for the patient. The respiratory symptoms have improved significantly after removal of mucus plug from the endobronchial tree. The BAL specimen was also obtained for the patient as well in the right upper lobe. He has not been noted any symptoms of chest pain. Currently, comfortably sitting on the chair. He denies symptoms of edema or pain in the lower extremity. Denies symptoms of nausea, vomiting, diarrhea, abdominal pain. Denies symptoms of hemoptysis. Remaining systems were reviewed, they were noted all negative. OBJECTIVE: VITAL SIGNS: Normal temperature, respiratory rate 118/68, blood pressure 167/55. The pulse oxygen saturation of the patient recorded on room air 93% saturation. HEENT: No acute change. NECK: Supple. CARDIOVASCULAR: S1, S2 audible. LUNGS: The patient was noted without any wheeze or crackles. ABDOMEN: Soft, nontender, positive present. EXTREMITIES: Without any acute edema. MUSCULOSKELETAL: No acute deformities. SKIN: No lesions or rashes. CENTRAL NERVOUS SYSTEM: Cranial nerves 2-12 intact. LABORATORY DATA: Blood culture, no bacterial growth from the 10/28/2017. Chest x-ray of the patient showed marked improvement in the aeration of the lungs. Respiratory viral panel was noted negative. Cell count with differential, which was done right upper lung was noted mainly macrophages with 3% neutrophils. The Gram stain of the bronchial washing for the patient noted few white blood cells, epithelial cells, gram-positive cocci in clusters and few budding yeast. Preliminary normal jose was noted. BUN noted today in the renal function panel of 88, creatinine 4.12, glucose 231 IMPRESSION: 1. The patient noted with reduction and improvement in the pulmonary infiltration with most likely pulmonary edema, congestive heart failure, possibly interstitial pneumonia. The patient was also considered at this time, no specific organisms were identified so far with the bronchial washing cultures. 2. Improving acute severe hypoxic respiratory failure secondary to the above. 3. Resolving acute kidney injury. 4. Hyperglycemia secondary to corticosteroids. PLAN OF MANAGEMENT: Decrease Solu-Medrol dose to 40 mg daily. That should also result in improvement in the hypoxia. Potential discharge of the patient could be considered for the morning. Monitor results of the bronchial washing cultures. Continue other supportive therapy, plan of management and other care [place], [place] [facility]GR[id number] #: [id number] ROOM: [facility] DOCTOR: ZENAIDA MERINO MD,TAY BIRTHDATE: [birth year] plan. Usual treatment. The oxygen supplementation to maintain a pulse ox saturation 92% or greater. TAY ESTEVEZ MD CM:PNTRANS 1345 16 TAY MERINO MD 11/03/17 1816 interface
--- NOTE | ~2017-10-28 | PR ---
[place], [place] PROGRESS NOTE NAME: NOBLE GENTILE UNIT #: [id number] ROOM: 510 DOCTOR: ZENAIDA MERINO MD,TAY BIRTHDATE: [birth year] DOS: 11/02/2017 PULMONARY PROGRESS NOTE SUBJECTIVE: He has been admitted past midnight. Bronchoscopy planned for today for bilateral pulmonary infiltration. Cough and shortness of breath today have been still reported by the patient. Denies any symptoms of abdominal pain, nausea, vomiting, or diarrhea. There were no signs or symptoms of edema or pain of the lower extremities reported. He is receiving hemodialysis for long-term management of end-stage renal failure for the patient during current hospitalization as well. The remaining systems were reviewed that were noted all negative. PHYSICAL EXAMINATION: VITAL SIGNS: Normal temperature, respiratory rate 20, heart rate 69, blood pressure 156/76. Pulse oxygen saturation on 3 liters nasal cannula 95% saturation. HEENT: Examination shows head was atraumatic. Eyes nonicterus. NECK: Supple. CARDIOVASCULAR SYSTEM: S1, S2 audible. LUNGS: The patient was noted with decreased breath sounds bilaterally, scattered crackles. ABDOMEN: Soft, nontender. EXTREMITIES: Chronic obesity. SKIN: Visible skin, no lesions or rashes. MUSCULOSKELETAL: Symptoms without any acute deformities. CENTRAL NERVOUS SYSTEM: Cranial nerves 2-12 intact. No focal deficit. LABORATORY DATA: CBC today, WBC count 14,000, hemoglobin 9.6, hematocrit 30.3, platelet count was normal. BMP this morning, 11/02/2017, BUN 85, creatinine 4.31, glucose 351, sodium 132. Urine for legionella antigen was negative. IMPRESSION: 1. Bilateral pulmonary infiltration for nonspecific interstitial pneumonia for the patient. Further assessment of the patient will be done with bronchoscopy, BAL specimen, other cultures. 2. The patient with persistent acute severe hypoxic respiratory failure, stable. 3. End-stage renal failure, on hemodialysis. 4. Chronic obesity. PLAN OF MANAGEMENT: Proceed with bronchoscopy as planned. Obtain the cell for differential for this patient to characterize the patient's inflammatory condition. Continuation of bronchodilators, oxygen supplementation. Additional treatment changes if necessary will be made after the bronchoscopy. Otherwise, no major change in treatment will be necessary. Continue hemodialysis per order from Nephrology services. [place], [place] PROGRESS NOTE NAME: NOBLE GENTILE UNIT #: [id number] ROOM: [facility] DOCTOR: TAY MCGOWAN MD BIRTHDATE: [birth year] TAY ESTEVEZ MD CM:PNTRANS 1031 0026 TAY MERINO MD 11/03/17 0025 interface
[2017-10-28 21:47] VITALS: BP 201/85
[~2017-10-28 21:47] MED LIST changes: +NAPROSYN500 MG PO
[2017-10-28 22:46] LABS: BASO % 0.2 % (0.0-1.0); EOS % 0.3 % (1.0-4.0); LYMPH # 0.8 10*3/uL (1.3-4.4); MEAN CELL VOLUME 87.9 fl (80.0-94.0); MEAN CORPUSCULAR HGB 27.5 pg (27.0-31.0); MEAN CORPUSCULAR HGB CONC 31.3 g/dl (33.0-37.0); MEAN PLATELET VOLUME 10.1 fl (9.6-12.3); MONO # 0.7 10*3/uL (0.1-1.0); MONO % 6.4 % (3.0-9.0); NEUT # 9.6 10*3/uL (2.3-7.9); NEUT % 85.5 % (47.0-73.0); PLATELET COUNT AUTOMATED 208 10*3/uL (130-400); RED BLOOD COUNT 3.64 10*6/uL (4.50-5.90); RED CELL DISTRI WIDTH 14.1 % (0-14.5); WHITE BLOOD COUNT 11.2 10*3/uL (4.8-10.8)
[2017-10-28 22:47] VITALS: BP 172/74
[2017-10-28 23:04] LABS: ALBUMIN 3.4 gm/dl (3.1-4.5); CREATININE 3.99 mg/dL (0.70-1.30); POTASSIUM 5.2 mmol/L (3.5-5.1); TOTAL PROTEIN 7.1 gm/dL (6.4-8.2)
[2017-10-29] VITALS (7 sets, daily range): BP systolic 122–166; BP diastolic 55–90
[2017-10-29 01:10] LABS: BILIRUBIN NEGATIVE (NEGATIVE); BLOOD 1+ (NEGATIVE); CLARITY CLEAR (CLEAR); COLOR YELLOW (YELLOW); GLUCOSE 3+ (NEGATIVE); KETONE 1+ (NEGATIVE); LEUKO ESTERASE NEGATIVE (NEGATIVE); NITRITE NEGATIVE (NEGATIVE); SPECIFIC GRAVITY 1.015 (1.005-1.030); UROBILINOGEN 0.2 E.U./dl (0.2-1.0)
[2017-10-29 01:16] LABS: WBC 0-2 wbc/hpf (0-5)
[2017-10-29 05:14] LABS: CREATININE 3.89 mg/dL (0.70-1.30); PHOSPHOROUS 4.5 mg/dL (2.5-4.9); POTASSIUM 5.1 mmol/L (3.5-5.1); TOTAL PROTEIN 6.5 gm/dL (6.4-8.2)
[2017-10-29 05:15] LABS: FREE T4 0.81 ng/dl (0.76-1.46)
[2017-10-29 05:20] LABS: THYROID STIM HORMONE (HS) 0.971 uIU/ml (0.358-4.75)
[2017-10-29 06:13] LABS: BASO % 0.2 % (0.0-1.0); EOS % 0.4 % (1.0-4.0); HEMATOCRIT 31.4 % (42.0-52.0); HEMOGLOBIN 9.6 g/dl (14.0-18.0); LYMPH # 1.2 10*3/uL (1.3-4.4); LYMPH % 10.9 % (27.0-41.0); MEAN CELL VOLUME 89.5 fl (80.0-94.0); MEAN CORPUSCULAR HGB 27.4 pg (27.0-31.0); MEAN CORPUSCULAR HGB CONC 30.6 g/dl (33.0-37.0); MEAN PLATELET VOLUME 10.7 fl (9.6-12.3); MONO # 0.7 10*3/uL (0.1-1.0); MONO % 6.7 % (3.0-9.0); NEUT # 8.8 10*3/uL (2.3-7.9); NEUT % 81.2 % (47.0-73.0); PLATELET COUNT AUTOMATED 212 10*3/uL (130-400); RED BLOOD COUNT 3.51 10*6/uL (4.50-5.90); RED CELL DISTRI WIDTH 14.3 % (0-14.5); WHITE BLOOD COUNT 10.8 10*3/uL (4.8-10.8)
[2017-10-29 06:22] LABS: ACT PARTIAL THROMBO TIME 31.9 SECONDS (20.8-31.5); INTERNATIONAL NORM RATIO 1.2 (2.0-3.5)
[2017-10-29 06:53] LABS: ABG BASE EXCESS -3.7 mmol/L (-2.0-2.0); ABG HCO3 21.5 mmol/l (22-26); ABG O2 SATURATION 90.9 % (95-97); ARTERIAL BLOOD GAS PCO2 40.8 mmHg (35-45); ARTERIAL BLOOD GAS PH 7.336 (7.35-7.45); ARTERIAL BLOOD GAS PO2 58.8 mmHg (80-90)
[2017-10-29 08:09] LABS: VITAMIN D, 25-HYDROXY 14.1 ng/mL (30-100)
[2017-10-29] MEDS ORDERED: MELATONIN3 MG PO (10:43)
[2017-10-30] VITALS (7 sets, daily range): BP systolic 127–160; BP diastolic 47–74
[2017-10-30 06:42] LABS: ALBUMIN 2.8 gm/dl (3.1-4.5); POTASSIUM 4.5 mmol/L (3.5-5.1)
[2017-10-30 06:45] LABS: CREATININE 4.09 mg/dL (0.70-1.30); PHOSPHOROUS 4.2 mg/dL (2.5-4.9); TOTAL PROTEIN 6.4 gm/dL (6.4-8.2)
[2017-10-31 00:46] VITALS: BP 129/58
[2017-10-31 07:14] LABS: BASO % 0.3 % (0.0-1.0); EOS # 0.2 10*3/uL (0.0-0.4); EOS % 2.1 % (1.0-4.0); HEMATOCRIT 31.7 % (42.0-52.0); HEMOGLOBIN 9.8 g/dl (14.0-18.0); LYMPH # 0.6 10*3/uL (1.3-4.4); LYMPH % 5.1 % (27.0-41.0); MEAN CELL VOLUME 88.5 fl (80.0-94.0); MEAN CORPUSCULAR HGB 27.4 pg (27.0-31.0); MEAN CORPUSCULAR HGB CONC 30.9 g/dl (33.0-37.0); MEAN PLATELET VOLUME 10.3 fl (9.6-12.3); MONO # 0.8 10*3/uL (0.1-1.0); MONO % 6.5 % (3.0-9.0); NEUT # 9.9 10*3/uL (2.3-7.9); NEUT % 85.2 % (47.0-73.0); PLATELET COUNT AUTOMATED 237 10*3/uL (130-400); RED BLOOD COUNT 3.58 10*6/uL (4.50-5.90); RED CELL DISTRI WIDTH 14.2 % (0-14.5); WHITE BLOOD COUNT 11.6 10*3/uL (4.8-10.8)
[2017-10-31 07:24] LABS: ALBUMIN 2.9 gm/dl (3.1-4.5); CREATININE 4.36 mg/dL (0.70-1.30); PHOSPHOROUS 4.8 mg/dL (2.5-4.9); POTASSIUM 4.2 mmol/L (3.5-5.1)
[2017-10-31 08:00] VITALS: BP 142/60
[2017-10-31 12:00] VITALS: BP 143/55
[2017-10-31 16:00] VITALS: BP 149/62
[2017-10-31 20:00] VITALS: BP 138/65
[2017-11-01] VITALS: BP 177/70
[2017-11-01 08:00] VITALS: BP 150/65
[2017-11-01 12:00] VITALS: BP 137/56
[2017-11-01 16:00] VITALS: BP 144/61
[2017-11-01 20:00] VITALS: BP 171/68
[2017-11-02] VITALS (12 sets, daily range): BP systolic 142–170; BP diastolic 54–86
[2017-11-02 06:27] LABS: CREATININE 4.31 mg/dL (0.70-1.30); PHOSPHOROUS 4.4 mg/dL (2.5-4.9); POTASSIUM 5.1 mmol/L (3.5-5.1)
[2017-11-02 06:39] LABS: HEMATOCRIT 30.3 % (42.0-52.0); HEMOGLOBIN 9.6 g/dl (14.0-18.0); MEAN CELL VOLUME 86.6 fl (80.0-94.0); MEAN CORPUSCULAR HGB 27.4 pg (27.0-31.0); MEAN CORPUSCULAR HGB CONC 31.7 g/dl (33.0-37.0); MEAN PLATELET VOLUME 10.8 fl (9.6-12.3); PLATELET COUNT AUTOMATED 222 10*3/uL (130-400); RED CELL DISTRI WIDTH 14.1 % (0-14.5)
[2017-11-02 07:11] LABS: PLATELET SUFFICIENCY NORMAL (NORMAL); TOTAL CELLS COUNTED 100 #CELLS
[2017-11-02 07:12] LABS: ROULEAUX SLIGHT
[2017-11-02 13:32] LABS: BF LYMPHOCYTES 1 %; BF MACROPHAGES 95 %; BF NEUTROPHILS 3 %
[2017-11-03] VITALS: BP 153/66
[2017-11-03 01:04] LABS: ADENOVIRUS Negative (Negative); INFLUENZA A Negative (Negative); INFLUENZA B Negative (Negative); METAPNEUMOVIRUS Negative (Negative); PARAINFLUENZA 1 Negative (Negative); PARAINFLUENZA 2 Negative (Negative); PARAINFLUENZA 3 Negative (Negative); RHINOVIRUS Negative (Negative); RSV A Negative (Negative); RSV B Negative (Negative)
[2017-11-03 07:28] LABS: ALBUMIN 2.9 gm/dl (3.1-4.5); CREATININE 4.12 mg/dL (0.70-1.30); PHOSPHOROUS 4.7 mg/dL (2.5-4.9); POTASSIUM 4.9 mmol/L (3.5-5.1)
[2017-11-03 08:00] VITALS: BP 167/55
[2017-11-03 08:11] LABS: IMMUNOGLOBULIN M, QNT 37 mg/dL (20-172); RHEUMATOID ARTHRITIS FACTOR 14.9 IU/mL (0.0-13.9)
[2017-11-03 15:07] LABS: ALDOLASE 002030 5.4 U/L (3.3-10.3); ANGIOTENSIN-CONVERTING ENZYME 56 U/L (14-82)
[2017-11-03 15:07] LABS: ACID FAST SPEC PROCESSING Concentration (.)
[2017-11-03 16:00] VITALS: BP 170/76
[2017-11-03 16:09] LABS: ATYPICAL PANCA <1:20 titer (Neg:<1:20); CYTOPLASMIC (C-ANCA) <1:20 titer (Neg:<1:20)
[2017-11-03 20:00] VITALS: BP 184/84
[2017-11-04 00:27] VITALS: BP 168/84
[2017-11-04 01:05] LABS: IGG SUBCLASS 1 359 mg/dL (248-810); IGG SUBCLASS 2 174 mg/dL (130-555); IGG SUBCLASS 3 73 mg/dL (15-102); IGG SUBCLASS 4 12 mg/dL (2-96); IMMUNOGLOBULIN G, QNT 625 mg/dL (700-1600)
[2017-11-04 07:21] LABS: BASO % 0.1 % (0.0-1.0); HEMATOCRIT 33.6 % (42.0-52.0); HEMOGLOBIN 10.6 g/dl (14.0-18.0); LYMPH # 0.6 10*3/uL (1.3-4.4); LYMPH % 5.3 % (27.0-41.0); MEAN CELL VOLUME 86.2 fl (80.0-94.0); MEAN CORPUSCULAR HGB 27.2 pg (27.0-31.0); MEAN CORPUSCULAR HGB CONC 31.5 g/dl (33.0-37.0); MEAN PLATELET VOLUME 10.5 fl (9.6-12.3); MONO # 0.4 10*3/uL (0.1-1.0); MONO % 3.1 % (3.0-9.0); NEUT # 10.9 10*3/uL (2.3-7.9); PLATELET COUNT AUTOMATED 247 10*3/uL (130-400); RED CELL DISTRI WIDTH 13.9 % (0-14.5); WHITE BLOOD COUNT 12.1 10*3/uL (4.8-10.8)
[2017-11-04 07:42] LABS: CREATININE 3.68 mg/dL (0.70-1.30); POTASSIUM 4.8 mmol/L (3.5-5.1)
[2017-11-04 08:00] VITALS: BP 150/66
[2017-11-04] MEDS ORDERED: PREDNISONE10 MG PO (12:31)
[2017-11-04] MEDS ORDERED: HYDRALAZINE HYD50 MG PO (12:31)
[2017-11-04] MEDS ORDERED: LASIX40 MG PO (12:34)
[2017-11-06 05:13] LABS: IMMUNOGLOBULIN IgE 002170 5 IU/mL (0-100)
== END 2017-11-04 13:27 | disposition home or self-care (01) | DRG 166 ==
LOC: ED 21:47 → 5E 23:57 → EDHOLD 23:57 → ICCU 23:57 → 4E 10-29 00:07 → ICCU 10-29 08:18 → 5E 10-30 13:53
PROVIDERS: Family Medicine; Internal Medicine; Internal Medicine Critical Care Medicine; Internal Medicine Hospice and Palliative Medicine; Nurse Practitioner Family; Student in an Organized Health Care Education/Training Program
PROC: 5A09357 Assistance with Respiratory Ventilation, Less than 24 Consecutive Hours, Continuous Positive Airway Pressure (ICD-10-PCS; 2017-10-29)
PROC: 5A09357 Assistance with Respiratory Ventilation, Less than 24 Consecutive Hours, Continuous Positive Airway Pressure (ICD-10-PCS; 2017-10-30)
PROC: 0BC88ZZ Extirpation of Matter from Left Upper Lobe Bronchus, Via Natural or Artificial Opening Endoscopic (ICD-10-PCS; principal; 2017-11-02)
PROC: 0BCB8ZZ Extirpation of Matter from Left Lower Lobe Bronchus, Via Natural or Artificial Opening Endoscopic (ICD-10-PCS; principal; 2017-11-02)
PROC: 0BC68ZZ Extirpation of Matter from Right Lower Lobe Bronchus, Via Natural or Artificial Opening Endoscopic (ICD-10-PCS; principal; 2017-11-02)
PROC: 0BC58ZZ Extirpation of Matter from Right Middle Lobe Bronchus, Via Natural or Artificial Opening Endoscopic (ICD-10-PCS; principal; 2017-11-02)
PROC: 0BC98ZZ Extirpation of Matter from Lingula Bronchus, Via Natural or Artificial Opening Endoscopic (ICD-10-PCS; principal; 2017-11-02)
PROC: 0B9F8ZX Drainage of Right Lower Lung Lobe, Via Natural or Artificial Opening Endoscopic, Diagnostic (ICD-10-PCS; principal; 2017-11-02)
PROC: 0BC78ZZ Extirpation of Matter from Left Main Bronchus, Via Natural or Artificial Opening Endoscopic (ICD-10-PCS; principal; 2017-11-02)
PROC: 0BC18ZZ Extirpation of Matter from Trachea, Via Natural or Artificial Opening Endoscopic (ICD-10-PCS; principal; 2017-11-02)
PROC: 0BC48ZZ Extirpation of Matter from Right Upper Lobe Bronchus, Via Natural or Artificial Opening Endoscopic (ICD-10-PCS; principal; 2017-11-02)
PROC: 0BC38ZZ Extirpation of Matter from Right Main Bronchus, Via Natural or Artificial Opening Endoscopic (ICD-10-PCS; principal; 2017-11-02)
DX: J18.9 Pneumonia, unspecified organism (principal); J96.01 Acute respiratory failure with hypoxia; N17.9 Acute kidney failure, unspecified; I13.2 Hypertensive heart and chronic kidney disease with heart failure and with stage 5 chronic kidney disease, or end stage renal disease; T17.590A Other foreign object in bronchus causing asphyxiation, initial encounter; T17.490A Other foreign object in trachea causing asphyxiation, initial encounter; E66.01 Morbid (severe) obesity due to excess calories; I42.9 Cardiomyopathy, unspecified; N18.6 End stage renal disease; E87.1 Hypo-osmolality and hyponatremia; I50.42 Chronic combined systolic (congestive) and diastolic (congestive) heart failure; I16.1 Hypertensive emergency; G91.2 (Idiopathic) normal pressure hydrocephalus; E11.40 Type 2 diabetes mellitus with diabetic neuropathy, unspecified; E11.22 Type 2 diabetes mellitus with diabetic chronic kidney disease; E11.65 Type 2 diabetes mellitus with hyperglycemia; I25.10 Atherosclerotic heart disease of native coronary artery without angina pectoris; E78.5 Hyperlipidemia, unspecified; E87.5 Hyperkalemia; E55.9 Vitamin D deficiency, unspecified; I25.2 Old myocardial infarction; M47.9 Spondylosis, unspecified; F32.9 Major depressive disorder, single episode, unspecified; T38.0X5A Adverse effect of glucocorticoids and synthetic analogues, initial encounter; J44.9 Chronic obstructive pulmonary disease, unspecified; F41.1 Generalized anxiety disorder; G47.33 Obstructive sleep apnea (adult) (pediatric); X58.XXXA Exposure to other specified factors, initial encounter; Y93.89 Activity, other specified; Z99.81 Dependence on supplemental oxygen; Z88.5 Allergy status to narcotic agent; Z88.1 Allergy status to other antibiotic agents; Z98.49 Cataract extraction status, unspecified eye; Y92.89 Other specified places as the place of occurrence of the external cause; Z98.61 Coronary angioplasty status; Z87.11 Personal history of peptic ulcer disease; Z79.4 Long term (current) use of insulin; Z83.3 Family history of diabetes mellitus; Z82.49 Family history of ischemic heart disease and other diseases of the circulatory system; Z80.8 Family history of malignant neoplasm of other organs or systems; Y99.8 Other external cause status; Z68.34 Body mass index [BMI] 34.0-34.9, adult

== ENCOUNTER 2017-11-29 23:06 | Inpatient (IN) | payer OTHER ==
[~2017-11-29] VITALS: Ht 182.8 cm; Wt 113.4 kg
[~2017-11-29 23:06] MED LIST changes: +MELATONIN3 MG PO
[2017-11-29 23:08] VITALS: BP 156/72
[2017-11-29 23:58] LABS: BASO % 0.1 % (0.0-1.0); EOS # 0.3 10*3/uL (0.0-0.4); EOS % 3.3 % (1.0-4.0); HEMOGLOBIN 9.1 g/dl (14.0-18.0); LYMPH # 1.1 10*3/uL (1.3-4.4); LYMPH % 14.7 % (27.0-41.0); MEAN CELL VOLUME 88.4 fl (80.0-94.0); MEAN CORPUSCULAR HGB 27.7 pg (27.0-31.0); MEAN CORPUSCULAR HGB CONC 31.4 g/dl (33.0-37.0); MEAN PLATELET VOLUME 9.8 fl (9.6-12.3); MONO # 0.9 10*3/uL (0.1-1.0); MONO % 11.5 % (3.0-9.0); NEUT # 5.2 10*3/uL (2.3-7.9); NEUT % 69.3 % (47.0-73.0); PLATELET COUNT AUTOMATED 197 10*3/uL (130-400); RED BLOOD COUNT 3.28 10*6/uL (4.50-5.90); RED CELL DISTRI WIDTH 15.5 % (0-14.5); WHITE BLOOD COUNT 7.6 10*3/uL (4.8-10.8)
[2017-11-30] VITALS (8 sets, daily range): BP systolic 148–185; BP diastolic 54–83
[2017-11-30 00:17] LABS: ALBUMIN 2.8 gm/dl (3.1-4.5); ALKALINE PHOSPHATASE 80 U/L (45-117); BUN 58 mg/dl (7-24); CHLORIDE 106 mmol/L (98-107); CREATININE 4.02 mg/dL (0.70-1.30); POTASSIUM 5.2 mmol/L (3.5-5.1); SGOT/AST 17 IU/L (3-35); SGPT/ALT 27 U/L (12-78); SODIUM 140 mmol/L (136-145); TOTAL PROTEIN 6.3 gm/dL (6.4-8.2)
[2017-11-30 00:21] LABS: TROPONIN I < 0.015 ng/ml (<0.045)
[2017-11-30 00:32] LABS: INTERNATIONAL NORM RATIO 1.1 (2.0-3.5)
[2017-11-30 06:09] LABS: ABG BASE EXCESS -2.5 mmol/L (-2.0-2.0); ABG HCO3 21.9 mmol/l (22-26); ARTERIAL BLOOD GAS PH 7.377 (7.35-7.45); ARTERIAL BLOOD GAS PO2 74.6 mmHg (80-90)
[2017-11-30 06:44] LABS: BASO % 0.1 % (0.0-1.0); EOS # 0.1 10*3/uL (0.0-0.4); EOS % 1.7 % (1.0-4.0); HEMOGLOBIN 9.7 g/dl (14.0-18.0); LYMPH # 0.4 10*3/uL (1.3-4.4); LYMPH % 5.2 % (27.0-41.0); MEAN CELL VOLUME 88.6 fl (80.0-94.0); MEAN CORPUSCULAR HGB 26.9 pg (27.0-31.0); MEAN CORPUSCULAR HGB CONC 30.3 g/dl (33.0-37.0); MEAN PLATELET VOLUME 10.2 fl (9.6-12.3); MONO # 0.2 10*3/uL (0.1-1.0); MONO % 2.4 % (3.0-9.0); NEUT # 7.2 10*3/uL (2.3-7.9); NEUT % 89.5 % (47.0-73.0); PLATELET COUNT AUTOMATED 200 10*3/uL (130-400); RED BLOOD COUNT 3.61 10*6/uL (4.50-5.90); RED CELL DISTRI WIDTH 15.5 % (0-14.5)
[2017-11-30 07:16] LABS: ALBUMIN 2.9 gm/dl (3.1-4.5); CREATININE 3.88 mg/dL (0.70-1.30); FREE T4 0.89 ng/dl (0.76-1.46); PHOSPHOROUS 3.2 mg/dL (2.5-4.9)
[2017-11-30 07:21] LABS: THYROID STIM HORMONE (HS) 0.991 uIU/ml (0.358-4.75); TOTAL PROTEIN 6.9 gm/dL (6.4-8.2)
[2017-11-30 07:52] LABS: INTERNATIONAL NORM RATIO 1.1 (2.0-3.5)
[2017-11-30 10:16] LABS: VITAMIN D, 25-HYDROXY 17.6 ng/mL (30-100)
[2017-11-30] MEDS ORDERED: HYDRALAZINE HYD50 MG PO (10:37)
[2017-12-01] VITALS: BP 148/65
[2017-12-01 07:52] LABS: CREATININE 3.76 mg/dL (0.70-1.30); POTASSIUM 5.2 mmol/L (3.5-5.1)
[2017-12-01 09:00] VITALS: BP 156/72
== END 2017-12-01 13:40 | disposition home or self-care (01) | DRG 191 ==
LOC: ED 23:06 → EDHOLD 11-30 02:56 → 5E 11-30 02:56
PROVIDERS: Emergency Medicine; Family Medicine; Internal Medicine
DX: J44.1 Chronic obstructive pulmonary disease with (acute) exacerbation (principal); I50.42 Chronic combined systolic (congestive) and diastolic (congestive) heart failure; E44.0 Moderate protein-calorie malnutrition; E11.22 Type 2 diabetes mellitus with diabetic chronic kidney disease; E11.40 Type 2 diabetes mellitus with diabetic neuropathy, unspecified; G91.2 (Idiopathic) normal pressure hydrocephalus; N18.4 Chronic kidney disease, stage 4 (severe); I13.0 Hypertensive heart and chronic kidney disease with heart failure and stage 1 through stage 4 chronic kidney disease, or unspecified chronic kidney disease; E87.1 Hypo-osmolality and hyponatremia; I25.10 Atherosclerotic heart disease of native coronary artery without angina pectoris; F32.9 Major depressive disorder, single episode, unspecified; E11.65 Type 2 diabetes mellitus with hyperglycemia; E66.01 Morbid (severe) obesity due to excess calories; E87.5 Hyperkalemia; D64.9 Anemia, unspecified; E55.9 Vitamin D deficiency, unspecified; E78.00 Pure hypercholesterolemia, unspecified; Z88.6 Allergy status to analgesic agent; Z79.82 Long term (current) use of aspirin; Z79.899 Other long term (current) drug therapy; I25.2 Old myocardial infarction; Z79.84 Long term (current) use of oral hypoglycemic drugs; Z88.5 Allergy status to narcotic agent; Z88.8 Allergy status to other drugs, medicaments and biological substances; Z95.818 Presence of other cardiac implants and grafts; Z90.11 Acquired absence of right breast and nipple; Z98.52 Vasectomy status; Z98.49 Cataract extraction status, unspecified eye; Z80.9 Family history of malignant neoplasm, unspecified; Z83.3 Family history of diabetes mellitus; Z82.49 Family history of ischemic heart disease and other diseases of the circulatory system; Z68.33 Body mass index [BMI] 33.0-33.9, adult

== ENCOUNTER 2017-12-10 11:34 | Inpatient (IN) | payer OTHER ==
[~2017-12-10] VITALS: Ht 180.3 cm; Wt 109.9 kg
[2017-12-10 11:34] VITALS: BP 163/72
[2017-12-10 11:53] LABS: BASO % 0.1 % (0.0-1.0); EOS # 0.1 10*3/uL (0.0-0.4); EOS % 0.9 % (1.0-4.0); HEMATOCRIT 33.8 % (42.0-52.0); HEMOGLOBIN 10.5 g/dl (14.0-18.0); LYMPH # 0.7 10*3/uL (1.3-4.4); LYMPH % 8.1 % (27.0-41.0); MEAN CORPUSCULAR HGB 27.3 pg (27.0-31.0); MEAN CORPUSCULAR HGB CONC 31.1 g/dl (33.0-37.0); MEAN PLATELET VOLUME 10.2 fl (9.6-12.3); MONO # 0.6 10*3/uL (0.1-1.0); MONO % 6.8 % (3.0-9.0); NEUT # 6.7 10*3/uL (2.3-7.9); NEUT % 82.5 % (47.0-73.0); PLATELET COUNT AUTOMATED 175 10*3/uL (130-400); RED BLOOD COUNT 3.84 10*6/uL (4.50-5.90); RED CELL DISTRI WIDTH 15.3 % (0-14.5); WHITE BLOOD COUNT 8.1 10*3/uL (4.8-10.8)
[2017-12-10 12:03] LABS: ACT PARTIAL THROMBO TIME 30.7 SECONDS (20.8-31.5); INTERNATIONAL NORM RATIO 1.1 (2.0-3.5)
[2017-12-10 12:09] LABS: ALBUMIN 3.1 gm/dl (3.1-4.5); ALKALINE PHOSPHATASE 105 U/L (45-117); BUN 60 mg/dl (7-24); CHLORIDE 95 mmol/L (98-107); CREATININE 4.45 mg/dL (0.70-1.30); LIPASE 90 U/L (73-393); POTASSIUM 5.3 mmol/L (3.5-5.1); SGOT/AST 7 IU/L (3-35); SGPT/ALT 16 U/L (12-78); SODIUM 130 mmol/L (136-145); TOTAL PROTEIN 7.1 gm/dL (6.4-8.2)
[2017-12-10 12:13] LABS: TROPONIN I < 0.015 ng/ml (<0.045)
[2017-12-10 12:30] VITALS: BP 153/74
[2017-12-10 13:39] LABS: ABG HCO3 14.5 mmol/l (22-26); ABG O2 SATURATION 95.9 % (95-97); ARTERIAL BLOOD GAS PCO2 33.6 mmHg (35-45); ARTERIAL BLOOD GAS PH 7.26 (7.35-7.45); ARTERIAL BLOOD GAS PO2 89.4 mmHg (80-90)
[2017-12-10 13:40] LABS: ABG BASE EXCESS -11.2 mmol/L (-2.0-2.0)
[2017-12-10 13:45] VITALS: BP 163/72
[2017-12-10 14:00] VITALS: BP 163/71
[2017-12-10 14:12] LABS: CREATININE 4.44 mg/dL (0.70-1.30)
[2017-12-10] MEDS ORDERED: LASIX40 MG PO (14:16)
[2017-12-10] MEDS ORDERED: HUMALOG100 UNIT/1 SQ (14:27)
[2017-12-10] MEDS ORDERED: TYLENOL325 M1 PO (14:28)
[2017-12-10] MEDS ORDERED: VITAMIN D5000 UNIT PO (14:29)
[2017-12-10 16:00] VITALS: BP 169/74
[2017-12-10 19:01] LABS: CREATININE 4.34 mg/dL (0.70-1.30); POTASSIUM 4.7 mmol/L (3.5-5.1)
[2017-12-10 20:00] VITALS: BP 165/83
[2017-12-11] VITALS: BP 147/70
[2017-12-11 00:48] LABS: CREATININE 4.18 mg/dL (0.70-1.30); POTASSIUM 4.5 mmol/L (3.5-5.1)
[2017-12-11 04:00] VITALS: BP 161/77
[2017-12-11 05:41] LABS: ALBUMIN 2.8 gm/dl (3.1-4.5); CREATININE 4.06 mg/dL (0.70-1.30); FREE T4 0.71 ng/dl (0.76-1.46); PHOSPHOROUS 3.6 mg/dL (2.5-4.9); POTASSIUM 4.3 mmol/L (3.5-5.1); TOTAL PROTEIN 6.6 gm/dL (6.4-8.2)
[2017-12-11 05:46] LABS: THYROID STIM HORMONE (HS) 1.25 uIU/ml (0.358-4.75)
[2017-12-11 05:57] LABS: BASO % 0.2 % (0.0-1.0); EOS # 0.2 10*3/uL (0.0-0.4); EOS % 1.7 % (1.0-4.0); HEMATOCRIT 31.3 % (42.0-52.0); LYMPH # 1.3 10*3/uL (1.3-4.4); LYMPH % 13.3 % (27.0-41.0); MEAN CELL VOLUME 86.7 fl (80.0-94.0); MEAN CORPUSCULAR HGB 27.7 pg (27.0-31.0); MEAN CORPUSCULAR HGB CONC 31.9 g/dl (33.0-37.0); MEAN PLATELET VOLUME 10.9 fl (9.6-12.3); MONO # 0.7 10*3/uL (0.1-1.0); MONO % 7.4 % (3.0-9.0); NEUT # 7.6 10*3/uL (2.3-7.9); NEUT % 76.6 % (47.0-73.0); PLATELET COUNT AUTOMATED 204 10*3/uL (130-400); RED BLOOD COUNT 3.61 10*6/uL (4.50-5.90); RED CELL DISTRI WIDTH 15.4 % (0-14.5); WHITE BLOOD COUNT 9.9 10*3/uL (4.8-10.8)
[2017-12-11 06:28] LABS: ACT PARTIAL THROMBO TIME 27.6 SECONDS (20.8-31.5); INTERNATIONAL NORM RATIO 1.1 (2.0-3.5)
[2017-12-11 07:04] LABS: VITAMIN D, 25-HYDROXY 18.3 ng/mL (30-100)
[2017-12-11 08:00] VITALS: BP 169/97
[2017-12-11 08:34] LABS: CREATININE 3.93 mg/dL (0.70-1.30); POTASSIUM 4.3 mmol/L (3.5-5.1)
[2017-12-11 12:00] VITALS: BP 142/60
[2017-12-11 16:00] VITALS: BP 160/71
[2017-12-11 20:00] VITALS: BP 180/84
[2017-12-12] VITALS: BP 159/78
[2017-12-12 06:07] LABS: CREATININE 3.65 mg/dL (0.70-1.30); POTASSIUM 4.5 mmol/L (3.5-5.1)
[2017-12-12 08:00] VITALS: BP 149/78
[2017-12-12] MEDS ORDERED: SODIUM BICARBO650 MG PO (11:44)
[2017-12-12] MEDS ORDERED: LANTUS SOL100 UNIT/1 SC (11:44)
[2017-12-12 12:00] VITALS: BP 150/71
== END 2017-12-12 15:05 | disposition home or self-care (01) | DRG 637 ==
LOC: ED 11:34 → EDHOLD 12:26 → ICCU 12:26 → 4E 12-11 12:36
PROVIDERS: Emergency Medicine; Internal Medicine
PROC: 5A09357 Assistance with Respiratory Ventilation, Less than 24 Consecutive Hours, Continuous Positive Airway Pressure (ICD-10-PCS; principal; 2017-12-11)
PROC: 5A09357 Assistance with Respiratory Ventilation, Less than 24 Consecutive Hours, Continuous Positive Airway Pressure (ICD-10-PCS; 2017-12-12)
DX: E11.10 Type 2 diabetes mellitus with ketoacidosis without coma (principal); N17.0 Acute kidney failure with tubular necrosis; I13.2 Hypertensive heart and chronic kidney disease with heart failure and with stage 5 chronic kidney disease, or end stage renal disease; N18.5 Chronic kidney disease, stage 5; N17.9 Acute kidney failure, unspecified; E44.1 Mild protein-calorie malnutrition; E66.2 Morbid (severe) obesity with alveolar hypoventilation; I50.42 Chronic combined systolic (congestive) and diastolic (congestive) heart failure; E87.1 Hypo-osmolality and hyponatremia; J44.9 Chronic obstructive pulmonary disease, unspecified; I25.10 Atherosclerotic heart disease of native coronary artery without angina pectoris; D64.9 Anemia, unspecified; E87.5 Hyperkalemia; R06.82 Tachypnea, not elsewhere classified; E11.42 Type 2 diabetes mellitus with diabetic polyneuropathy; E55.9 Vitamin D deficiency, unspecified; K27.9 Peptic ulcer, site unspecified, unspecified as acute or chronic, without hemorrhage or perforation; M47.9 Spondylosis, unspecified; F32.9 Major depressive disorder, single episode, unspecified; E78.00 Pure hypercholesterolemia, unspecified; E11.22 Type 2 diabetes mellitus with diabetic chronic kidney disease; Z88.5 Allergy status to narcotic agent; Z88.8 Allergy status to other drugs, medicaments and biological substances; Z88.1 Allergy status to other antibiotic agents; Z79.82 Long term (current) use of aspirin; I25.2 Old myocardial infarction; Z87.01 Personal history of pneumonia (recurrent); Z79.4 Long term (current) use of insulin; Z79.899 Other long term (current) drug therapy; Z87.11 Personal history of peptic ulcer disease; Z95.818 Presence of other cardiac implants and grafts; Z90.11 Acquired absence of right breast and nipple; Z98.52 Vasectomy status; Z98.49 Cataract extraction status, unspecified eye; Z80.9 Family history of malignant neoplasm, unspecified; Z83.3 Family history of diabetes mellitus; Z82.49 Family history of ischemic heart disease and other diseases of the circulatory system; Z68.33 Body mass index [BMI] 33.0-33.9, adult

== ENCOUNTER 2017-12-17 09:16 | Inpatient (IN) | payer MEDICARE ==
[2017-12-17] VITALS (8 sets, daily range): BP systolic 168–197; BP diastolic 83–112
[~2017-12-17] VITALS: Ht 182.8 cm; Wt 111.0 kg
--- NOTE | ~2017-12-17 | O ---
[place], [place] OPERATIVE NOTE NAME: NOBLE GENTILE UNIT #: [id number] ROOM: 507 DOCTOR: LEONEL RICE DMD BIRTHDATE: [birth year] DOS: 12/18/2017 PREOPERATIVE DIAGNOSES: Caries and multiple medical history. POSTOPERATIVE DIAGNOSES: Caries and multiple medical history. ANESTHESIA: General anesthesia with endotracheal intubation. FLUIDS: Minimal. ESTIMATED BLOOD LOSS: Minimal. COMPLICATIONS: None. CONDITION: To PACU, stable. DESCRIPTION OF PROCEDURE: The patient was brought to the OR and placed in supine position. IV and EKG lines were placed. Endotracheal intubation and general anesthesia was administered. The patient was prepped and draped for oral procedures. Risks and benefits were explained to the patient prior to surgery. Clinical exam and x-rays taken determined multiple nonrestorable teeth and periodontal disease. PROCEDURES PERFORMED: Complete extraction of teeth numbers 7, 8, 9, 10, 15 and 20. Minimal alveoplasty sutured with 3-0 Vicryl and lavaged x 2. Throat pack removed. The patient left the OR in good condition and went to the PACU. The patient is okay for dental discharge with oral antibiotics and pain medication as per hospitalist. LEONEL RICE DMD CM:OPRECORD:OPERATIVE NOTE [id number] LEONEL RICE DMD 12/21/17 1137 interface
--- NOTE | ~2017-12-17 | CON ---
[place], [place] REPORT OF CONSULTATION [id number] UN[facility] #: [id number] ROOM: 507 DOCTOR: GABRIELE CHRISTIANSON MD BIRTHDATE: [birth year] DOS: 12/17/2017 REASON FOR CONSULTATION: Preoperative assessment prior to total odontectomy. HISTORY OF PRESENT ILLNESS: The patient is a 67-year-old man who does have a history of diabetes, chronic renal insufficiency, and coronary artery disease. He presented to the hospital in 04/2016 with chest tightness. A stress test done at that time was a high risk study with transient left ventricular cavity dilation, inferior akinesis and an ejection fraction of 51%. There was evidence for a small inferior wall myocardial infarction with considerable inferolateral ischemia as well as a small area of anterior and inferoseptal ischemia. The patient was sent to [facility] where he did undergo catheterization, 05/09/2016. The left main was normal. The LAD had a 50% stenosis. The circumflex was normal, but a small vessel. The right coronary artery had a 40% mid vessel stenosis and a 95% stenosis of the PDA. He was treated with a drug-eluting stent to the PDA. We lost him to our followup at that point and he states that he was followed [facility] the [facility] after that. The patient states that he was reasonably well until sometime either late last year or early this year. He cannot recall the exact date. He presented feeling poorly with increased dyspnea and chest discomfort. He was transferred to the [facility] and then to the [facility], presumably in [facility]. A catheterization was done and he had 3 stents placed at that time. He is not aware of the location of the stents and those records are not yet available to me. He has been on aspirin and prasugrel since then. Complicating his cardiac issues is the fact that he does have chronic and progressive renal insufficiency. Creatinine now is 4.25. He was told that he should have a fistula placed in anticipation of dialysis, but he has severe dental caries and Vascular Surgery was reluctant to do a procedure on him for fear that it would become infected. In the last year or two, he has had several teeth break and fall out. He has been on dual antiplatelet therapy for most of this time and dentists have refused to do oral surgery on him because of the risk of bleeding. He was hospitalized on this occasion because of worsening dental pain. He did admit that he had gone to a dentist a few days ago and received ampicillin to treat a dental infection, but he was advised to see an oral surgeon. We were asked to determine if it would be possible for him to undergo oral surgery at this time. The patient states that he feels "miserable," most of this is due to his dental pain. He denies dyspnea even though he is obviously tachypneic. He denies any chest pain. PAST MEDICAL HISTORY: Includes: 1. Diabetes mellitus, on insulin. 2. Chronic renal insufficiency, nearing dialysis. 3. Coronary artery disease. [place], [place] REPORT OF CONSULTATION NAME: NOBLE GENTILE UNIT #: [id number] ROOM: 50 DOCTOR: GABRIELE CHRISTIANSON MD BIRTHDATE: [birth year] 4. Obstructive pulmonary disease. 5. Hyperlipidemia. 6. Hypertension. 7. Pickwickian syndrome. 8. Coronary artery disease, first documented by stress test 05/07/2016 and subsequent catheterization, 05/09/2016, at that time, he had a 0% left main stenosis with a 50% LAD stenosis, a normal small circumflex and a right coronary artery with a 50% mid vessel stenosis followed by 95% PDA stenosis. He was treated with a 2.8 mm drug-eluting stent to the right coronary artery. 9. Transfer to [facility] and then to the [facility] in [place], late 2017 or early 2017 for an acute coronary syndrome and syncope. The patient reports having 3 stents placed at that time, but he does not know the anatomy nor even the date that this occurred. REVIEW OF SYSTEMS: The patient denies diplopia or loss of vision. He does have chronic fatigue, which has gotten worse lately. He denies fevers. He does have severe mouth pain. He denies nausea or vomiting, but he has a poor appetite. He denies syncope. He denies hemoptysis or hematemesis. He denies change in bowel or bladder habits and denies blood in his stools. He denies any peripheral edema. The remainder of the review of systems is negative except as noted above. FAMILY HISTORY: The patient's father at age 46 from cancer. His mother at age 80 from cancer. There is no family history of early coronary disease. 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 PHYSICAL EXAMINATION: GENERAL: The patient is awake white male who is awake, alert and oriented. VITAL SIGNS: Pulse is 84 and regular, blood pressure is 168/91. He is afebrile. He weighs 111 kg and has a body mass index of 33.2. HEENT: Normocephalic and atraumatic. Extraocular muscles are intact. Sclerae are clear. Pupils are equal, round and react to light. The oral mucosa is moist. Tongue is midline. He does have multiple carious teeth and several broken teeth. NECK: Supple. He has no jugular distention or hepatojugular reflux. Carotids are full without bruits. LUNGS: Respirations are slightly tachypneic at rest. He does have clear lungs without wheezes or rales. He has no presacral edema or chest wall tenderness. CARDIOVASCULAR: His heart has a regular rhythm with an S4 gallop. There is no S3. The PMI is not displaced. There is no precordial heave, lift or thrill. ABDOMEN: Obese, but otherwise benign, without masses, organomegaly or bruits. EXTREMITIES: Showed no edema. Peripheral pulses are absent in the feet. LABORATORY DATA: His electrocardiogram shows sinus rhythm with left ventricular hypertrophy and secondary ST changes. No acute ST elevation is seen. [place], [place] REPORT OF CONSULTATION [facility] [id number] UNIT #: [id number] ROOM: 507 DOCTOR: GABRIELE CHRISTIANSON MD BIRTHDATE: [birth year] A chest x-ray shows clear lungs and no evidence for infiltrates or heart failure. White count 7400, hemoglobin 10.9, hematocrit 34.2. Sodium is 137, potassium 4.7, chloride 105, CO2 24, BUN 56, creatinine 4.25. Troponins have been normal this hospitalization thus far. IMPRESSION: 1. Acute and chronic dental pain. 2. Multiple carious teeth with reported dental infections. 3. Coronary artery disease, status post angioplasty of the right coronary artery in 04/2016. The patient reportedly had catheterization at the [facility] in [place], sometime in the recent past, although the details are not yet known. 4. Chronic renal failure, nearing dialysis. 5. Obstructive lung disease. 6. Type 2 diabetes mellitus, on insulin. 7. Hypertension. 8. Hyperlipidemia. 9. Obesity. 10. Pickwickian syndrome. From a cardiac point of view, the patient certainly could withstand dental extractions with low cardiac risk. From our perspective, any surgery should be done while the patient is still on dual antiplatelet therapies. If we can confirm that his most recent angioplasty and stent procedure was over 6 months ago, it would be reasonable to stop prasugrel, but he should still continue his aspirin through the dental procedure and resume dual antiplatelet therapy as soon as possible afterwards. If it has been less than 6 months, I think that it would be very risky to stop dual antiplatelet therapy. We will request records from the [facility] in [place] and make further recommendations when they are available. I thank the hospitalist physicians for asking our advice regarding his care. GABRIELE CHRISTIANSON MD CM:CONSTR:REPORT OF CONSULTATION 12 12/18/17 0626 interface
--- NOTE | ~2017-12-17 | CON ---
[place], [place] REPORT OF CONSULTATION NAME: NOBLE GENTILE UNIT #: [id number] ROOM: 507 DOCTOR: ASHA RIVERA MD BIRTHDATE: [birth year] DOS: 12/18/2017 NEPHROLOGY CONSULTATION TIME OF SERVICE: 1420 hours. HISTORY OF PRESENT ILLNESS: The patient is a pleasant 67-year-old gentleman well known to me for multiple history of admissions and followup of chronic kidney disease stage IV. He was seen by our service just earlier this month during hospitalization here with ongoing shortness of breath and exacerbation of COPD or volume overload from diastolic heart failure. He is admitted now with preop clearance for left-sided facial pain and extensive periodontal disease, requiring multiple extractions of very poor dentition. We were consulted for CKD management while he is hospitalized. He has a known history of CAD with some diastolic dysfunction, followed at the [facility] mostly. He has been planning an outpatient AV fistula, but has had multiple hospitalizations, which have limited his follow through on all these issues. In general, his baseline creatinine is mostly as high as 3s, with levels in August as high as 4.5 and most recently this month between 3.6 and 3.9 for the lows and 4.2 to 4.5 in highs. He feels well. He is not having any acute shortness of breath anymore. He was seen just status post surgery. I cleared him from a renal standpoint for dental extractions. Monitored for signs or symptoms of bleeding with DDAVP as necessary at that point. He tolerated these procedures well and is hopeful for discharge now. He understands that he needs to get outpatient followup for his AV fistula. REVIEW OF SYSTEMS: All negative except for as per HPI. PAST MEDICAL HISTORY: Unchanged from prior consultation earlier this month. FAMILY HISTORY: Unchanged from prior consultation earlier this month. SOCIAL HISTORY: Unchanged from prior consultation earlier this month. PHYSICAL EXAMINATION: VITAL SIGNS: Today blood pressure is 163/64, slightly high postoperatively, temperature 98.2, pulse 84, respiratory rate 18. GENERAL: he is awake, alert and oriented, age appropriate gentleman, poor oral hygiene and dental care. HEENT: Extraocular muscles are intact. Sclerae are anicteric. External nose and nares are clear. Ears are normal. Hearing is intact. NECK: No JVD. No lymphadenopathy. No carotid bruits. CARDIOVASCULAR: Regular rate. No rub. ABDOMEN: Soft, nontender, not distended. LUNGS: Clear bilaterally. No rales or wheeze. EXTREMITIES: Without cyanosis, clubbing or edema. NEUROLOGIC: Gross motor function and sensation is intact. PSYCHIATRIC: Mood and affect are normal. LABORATORIES AND DIAGNOSTICS: White blood cell count 6.5, hemoglobin 11.4, platelets 226. Sodium 135, current potassium 4.9, chloride 103, bicarb 21, BUN [place], [place] REPORT OF CONSULTATION NAME: NOBLE GENTILE UNIT #: [id number] ROOM: 50 DOCTOR: ASHA RIVERA MD BIRTHDATE: [birth year] 53, creatinine 4.18, glucose 300, lactate 0.9, calcium 9.4, albumin 3.2. ASSESSMENT AND PLAN: 1. Chronic kidney disease stage 4, moving to stage 5, EGFR generally between 13 and 16. The patient's plan for vascular followup for AV fistula creation is underway. Hypertension and volume overload issues had been treated just earlier this month during hospitalizations. He is doing well from that standpoint. From anemia and chronic kidney disease standpoint, he is stable. No requirements for acute KIKE dosing. Monitor for signs and symptoms of acute blood loss. 2. Metabolic bone disease, calcium and phosphorus levels are stable. He has mild hyponatremia. Continue to limit excessive fluid intake and encourage oral protein intake. Mild hyperkalemia, potassium of 5.4 has improved this morning on recheck to 4.9, likely secondary to uncontrolled glucose and diabetes control. Thank you very much for the kind consultation. The patient is stable for discharge and outpatient followup. ASHA RIVERA MD CM:CONSTR:REPORT OF CONSULTATION 2139 12/29/17 0658 interface
--- NOTE | ~2017-12-17 | CON ---
[place], [place] REPORT OF CONSULTATION NAME: NOBLE GENTILE UNIT #: [id number] ROOM: 507 DOCTOR: LEONEL RICE DMD BIRTHDATE: [birth year] DOS: 12/17/2017 The patient was admitted for a left-sided facial pain. On exam, no extraoral swelling is noted. The patient denies any dysphagia or dyspnea. The patient is in obvious distress. Intraoral exam reveals multiple carious and nonrestorable teeth. Extensive periodontal disease, teeth #16 and 20 are carious to the gumline with extreme tenderness to palpation. Discussed treatment options with the patient. Recommend full mouth extraction and upper and lower dentures. We will recommended that [facility] [place] [facility]. The [facility] claimed that [facility] [place] [facility] not [facility] him because he is only on partial disability. The patient did see Dr. Nguyen last week, was given oral antibiotic and referred to OMFS. The patient requested extractions of the offending teeth and notified the patient of the need for cardiac clearance prior to general anesthesia and extractions. The patient was scheduled at 7:30 a.m. for surgery pending med clearance. LEONEL RICE DMD CM:CONSTR:REPORT OF CONSULTATION 1935 12/18/17 0639 interface
--- NOTE | ~2017-12-17 | PR ---
[place], [place] PROGRESS NOTE [id number] UNIT #: [id number] ROOM: 507 DOCTOR: GABRIELE CHRISTIANSON MD BIRTHDATE: [birth year] DOS: 12/18/2017 SUBJECTIVE: The patient was seen today for followup of his atherosclerotic heart disease on 12/18/2017. We were asked yesterday to provide a preoperative assessment prior to resection of multiple teeth. My opinion was that he would tolerate the procedure well, but that it would be dangerous to stop his dual antiplatelet therapies since we were not sure when his last angioplasty had occurred. The oral surgeon was able to do the procedure while he was on aspirin and Effient and the patient now seems to be feeling well. PHYSICAL EXAMINATION: VITAL SIGNS: Pulse is 84 and regular, blood pressure is 163/64. He is afebrile. NECK: Supple. He has no jugular distention. Carotids are full. LUNGS: Respirations are unlabored. His chest is clear. HEART: Has a regular rhythm with an S4 gallop. ABDOMEN: Benign. EXTREMITIES: Showed no edema. He tolerated this morning's procedure well. He should continue his current medications including aspirin and Effient. We will remain available to see him as needed and he will [facility]. We thank the hospitalist physicians for asking our advice regarding his care. GABRIELE CHRISTIANSON MD CM:PNTRANS [id number] GABRIELE CHRISTIANSON MD 12/19/17 1216 interface
[~2017-12-17 09:16] MED LIST changes: +HUMALOG100 UNIT/1 SQ; +SODIUM BICARBO650 MG PO; +TYLENOL325 M1 PO; +VITAMIN D5000 UNIT PO
[2017-12-17 09:52] LABS: BASO % 0.4 % (0.0-1.0); EOS # 0.3 10*3/uL (0.0-0.4); EOS % 3.8 % (1.0-4.0); HEMATOCRIT 34.2 % (42.0-52.0); HEMOGLOBIN 10.9 g/dl (14.0-18.0); LYMPH # 1.1 10*3/uL (1.3-4.4); LYMPH % 14.2 % (27.0-41.0); MEAN CELL VOLUME 87.2 fl (80.0-94.0); MEAN CORPUSCULAR HGB 27.8 pg (27.0-31.0); MEAN CORPUSCULAR HGB CONC 31.9 g/dl (33.0-37.0); MEAN PLATELET VOLUME 10.4 fl (9.6-12.3); MONO # 0.6 10*3/uL (0.1-1.0); NEUT # 5.4 10*3/uL (2.3-7.9); NEUT % 72.4 % (47.0-73.0); PLATELET COUNT AUTOMATED 218 10*3/uL (130-400); RED BLOOD COUNT 3.92 10*6/uL (4.50-5.90); RED CELL DISTRI WIDTH 15.8 % (0-14.5); WHITE BLOOD COUNT 7.4 10*3/uL (4.8-10.8)
[2017-12-17 10:01] LABS: ACT PARTIAL THROMBO TIME 26.4 SECONDS (20.8-31.5); INTERNATIONAL NORM RATIO 1.1 (2.0-3.5)
[2017-12-17 10:08] LABS: ALBUMIN 3.2 gm/dl (3.1-4.5); ALKALINE PHOSPHATASE 104 U/L (45-117); BUN 56 mg/dl (7-24); CHLORIDE 105 mmol/L (98-107); CREATININE 4.25 mg/dL (0.70-1.30); LIPASE 105 U/L (73-393); POTASSIUM 4.7 mmol/L (3.5-5.1); SGOT/AST 9 IU/L (3-35); SGPT/ALT 22 U/L (12-78); SODIUM 137 mmol/L (136-145); TOTAL PROTEIN 7.2 gm/dL (6.4-8.2)
[2017-12-17 10:10] LABS: TROPONIN I < 0.015 ng/ml (<0.045)
[2017-12-17] MEDS ORDERED: AMOXICILLIN (13:32)
[2017-12-18] VITALS (9 sets, daily range): BP systolic 124–192; BP diastolic 64–87
[2017-12-18 06:58] LABS: BASO % 0.2 % (0.0-1.0); HEMATOCRIT 36.5 % (42.0-52.0); HEMOGLOBIN 11.4 g/dl (14.0-18.0); LYMPH # 0.6 10*3/uL (1.3-4.4); LYMPH % 9.1 % (27.0-41.0); MEAN CELL VOLUME 87.5 fl (80.0-94.0); MEAN CORPUSCULAR HGB 27.3 pg (27.0-31.0); MEAN CORPUSCULAR HGB CONC 31.2 g/dl (33.0-37.0); MEAN PLATELET VOLUME 10.2 fl (9.6-12.3); MONO # 0.1 10*3/uL (0.1-1.0); MONO % 1.5 % (3.0-9.0); NEUT # 5.7 10*3/uL (2.3-7.9); NEUT % 88.1 % (47.0-73.0); PLATELET COUNT AUTOMATED 226 10*3/uL (130-400); RED BLOOD COUNT 4.17 10*6/uL (4.50-5.90); RED CELL DISTRI WIDTH 15.7 % (0-14.5); WHITE BLOOD COUNT 6.5 10*3/uL (4.8-10.8)
[2017-12-18 07:27] LABS: ALBUMIN 3.2 gm/dl (3.1-4.5); CREATININE 3.88 mg/dL (0.70-1.30); POTASSIUM 5.4 mmol/L (3.5-5.1); TOTAL PROTEIN 7.3 gm/dL (6.4-8.2)
[2017-12-18 11:44] LABS: CREATININE 4.18 mg/dL (0.70-1.30); POTASSIUM 4.9 mmol/L (3.5-5.1)
[2017-12-18] MEDS ORDERED: AMLODIPINE BESYL5 MG PO (14:50)
[2017-12-18] MEDS ORDERED: CLEOCIN HCL300 MG PO (14:50)
[2017-12-18] MEDS ORDERED: NORCO 5-325 TA1 EACH PO (14:50)
[2017-12-18] MEDS ORDERED: PREDNISONE10 MG PO (14:50)
== END 2017-12-18 16:15 | disposition home or self-care (01) | DRG 157 ==
LOC: ED 09:16 → EDHOLD 11:08 → 5E 11:08
PROVIDERS: Emergency Medicine; Internal Medicine
PROC: 0CDWXZ1 Extraction of Upper Tooth, Multiple, External Approach (ICD-10-PCS; principal; 2017-12-18)
DX: K02.9 Dental caries, unspecified (principal); N18.6 End stage renal disease; E44.0 Moderate protein-calorie malnutrition; N17.9 Acute kidney failure, unspecified; I13.2 Hypertensive heart and chronic kidney disease with heart failure and with stage 5 chronic kidney disease, or end stage renal disease; I50.42 Chronic combined systolic (congestive) and diastolic (congestive) heart failure; J44.1 Chronic obstructive pulmonary disease with (acute) exacerbation; E66.2 Morbid (severe) obesity with alveolar hypoventilation; E11.40 Type 2 diabetes mellitus with diabetic neuropathy, unspecified; E11.65 Type 2 diabetes mellitus with hyperglycemia; I16.0 Hypertensive urgency; K08.409 Partial loss of teeth, unspecified cause, unspecified class; D64.9 Anemia, unspecified; E55.9 Vitamin D deficiency, unspecified; K27.9 Peptic ulcer, site unspecified, unspecified as acute or chronic, without hemorrhage or perforation; E78.00 Pure hypercholesterolemia, unspecified; M89.8X8 Other specified disorders of bone, other site; E78.5 Hyperlipidemia, unspecified; E11.36 Type 2 diabetes mellitus with diabetic cataract; I25.10 Atherosclerotic heart disease of native coronary artery without angina pectoris; F32.9 Major depressive disorder, single episode, unspecified; M47.899 Other spondylosis, site unspecified; Z90.89 Acquired absence of other organs; Z98.52 Vasectomy status; Z88.6 Allergy status to analgesic agent; Z88.8 Allergy status to other drugs, medicaments and biological substances; Z79.899 Other long term (current) drug therapy; Z79.4 Long term (current) use of insulin; Z79.82 Long term (current) use of aspirin; Z98.890 Other specified postprocedural states; I25.2 Old myocardial infarction; Z87.11 Personal history of peptic ulcer disease; Z98.61 Coronary angioplasty status; Z82.49 Family history of ischemic heart disease and other diseases of the circulatory system; Z83.3 Family history of diabetes mellitus; Z80.8 Family history of malignant neoplasm of other organs or systems; Z90.11 Acquired absence of right breast and nipple; E87.5 Hyperkalemia; Z68.33 Body mass index [BMI] 33.0-33.9, adult

== ENCOUNTER 2018-07-01 09:50 | Emergency (ER) | payer OTHER, MEDICARE ==
[~2018-07-01] VITALS: Ht 182.8 cm; Wt 113.4 kg
--- NOTE | ~2018-07-01 | EKG ---
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
[~2018-07-01 09:50] MED LIST changes: +AMOXICILLIN; +CLEOCIN HCL300 MG PO; +NORCO 5-325 TA1 EACH PO
[2018-07-01 10:22] LABS: BASO % 0.2 % (0.0-1.0); EOS # 0.1 10*3/uL (0.0-0.4); EOS % 1.4 % (1.0-4.0); HEMOGLOBIN 10.2 g/dl (14.0-18.0); LYMPH # 0.9 10*3/uL (1.3-4.4); LYMPH % 10.4 % (27.0-41.0); MEAN CELL VOLUME 87.1 fl (80.0-94.0); MEAN CORPUSCULAR HGB 28.7 pg (27.0-31.0); MEAN CORPUSCULAR HGB CONC 32.9 g/dl (33.0-37.0); MEAN PLATELET VOLUME 10.9 fl (9.6-12.3); MONO # 0.7 10*3/uL (0.1-1.0); MONO % 7.7 % (3.0-9.0); NEUT # 6.9 10*3/uL (2.3-7.9); NEUT % 79.8 % (47.0-73.0); PLATELET COUNT AUTOMATED 198 10*3/uL (130-400); RED BLOOD COUNT 3.56 10*6/uL (4.50-5.90); RED CELL DISTRI WIDTH 14.9 % (0-14.5); WHITE BLOOD COUNT 8.6 10*3/uL (4.8-10.8)
[2018-07-01 10:40] LABS: ALBUMIN 3.4 gm/dl (3.1-4.5); ALKALINE PHOSPHATASE 115 U/L (45-117); BUN 72 mg/dl (7-24); CHLORIDE 107 mmol/L (98-107); CREATININE 5.23 mg/dL (0.70-1.30); POTASSIUM 4.1 mmol/L (3.5-5.1); SGOT/AST 15 IU/L (3-35); SGPT/ALT 38 U/L (12-78); SODIUM 140 mmol/L (136-145)
[2018-07-01 10:43] LABS: TROPONIN I < 0.015 ng/ml (<0.045)
[2018-07-01 11:25] VITALS: BP 143/67
[2018-08-20] MEDS ORDERED: NORVASC5 MG PO (18:09)
[2018-08-20] MEDS ORDERED: LASIX40 MG PO (18:13)
[2018-08-20] MEDS ORDERED: HYDRALAZINE HYD50 MG PO (18:17)
[2018-08-20] MEDS ORDERED: COUMADIN4 M2 PO (18:28)
[2018-08-20] MEDS ORDERED: COUMADIN6 M2 PO (18:29)
[2018-08-20] MEDS ORDERED: LANTUS SOL100 UNIT/1 SQ (22:56)
== END 2018-07-01 11:55 | disposition home or self-care (01) ==
LOC: ED 09:50
PROVIDERS: Emergency Medicine
DX: N28.9 Disorder of kidney and ureter, unspecified (principal); R06.02 Shortness of breath; I25.10 Atherosclerotic heart disease of native coronary artery without angina pectoris; J44.9 Chronic obstructive pulmonary disease, unspecified; I13.0 Hypertensive heart and chronic kidney disease with heart failure and stage 1 through stage 4 chronic kidney disease, or unspecified chronic kidney disease; E11.22 Type 2 diabetes mellitus with diabetic chronic kidney disease; N18.4 Chronic kidney disease, stage 4 (severe); M47.9 Spondylosis, unspecified; E11.40 Type 2 diabetes mellitus with diabetic neuropathy, unspecified; I25.2 Old myocardial infarction; E66.01 Morbid (severe) obesity due to excess calories; E11.10 Type 2 diabetes mellitus with ketoacidosis without coma; Z79.01 Long term (current) use of anticoagulants; Z79.4 Long term (current) use of insulin; Z79.899 Other long term (current) drug therapy; Z88.6 Allergy status to analgesic agent; Z88.1 Allergy status to other antibiotic agents; Z88.8 Allergy status to other drugs, medicaments and biological substances

== ENCOUNTER 2018-07-11 02:46 | Inpatient (IN) | payer OTHER, MEDICARE ==
[~2018-07-11] VITALS: Ht 182.9 cm; Wt 108.2 kg
[2018-07-11] VITALS (8 sets, daily range): BP systolic 152–182; BP diastolic 68–86
--- NOTE | ~2018-07-11 | EKG ---
[place], [place] ELECTROCARDIOGRAM REPORT NAME: NOBLE GENTILE UNIT #: [id number] ROOM: [facility] DOCTOR: JEM DRAFT REPORT BIRTHDATE: [birth year] [facility] Test Date: 2018-07-13 Test Time: 12:06:52 Pat Name: NOBLE GNETILE Department: Room: [facility] Gender: M Junior [employer] Dba: [employer]e Madden : 1950 Requested By: JYOTSNA BOYER Order Number: [id number] Reading MD: Winter Schneider MD Measurements Intervals [place] Rate: 80 P: 33 FL: 152 QRS: 3 QRSD: 110 T: 244 QT: 448 QTc: 517 Interpretive Statements Sinus rhythm LVH with secondary repolarization abnormality Prolonged QT interval Compared to ECG 07/11/2018 03:07:14 No significant changes Electronically Signed On 07-14-2018 9:31:22 PST by Winter Schneider MD CM:EKGRPT:ELECTROCARDIOGRAM REPORT [id number] JYOTSNA AUGUSTIN DRAFT REPORT JYOTSNA BOYER DO
--- NOTE | ~2018-07-11 | PR ---
[place], [place] PROGRESS NOTE [id number] UN[facility] #: [id number] ROOM: 507 DOCTOR: JAIR LR DO BIRTHDATE: [birth year] DOS: 07/14/2018 RENAL PROGRESS NOTE SUBJECTIVE: The patient states he is feeling quite well today, states his breathing is considerably improved. Denies orthopnea, PND or dyspnea. Denies chest pain, palpitations. He denies presyncope or weakness. He denies anorexia, nausea, vomiting or any specific uremic symptoms. PHYSICAL EXAMINATION: VITAL SIGNS: Blood pressure 138/53, pulse 84, respiration 16, temperature 98.8 degrees Fahrenheit. GENERAL APPEARANCE: A well-appearing male, awake, alert, oriented x 3. HEAD AND NECK: There is no JVD appreciated. LUNGS: Clear to auscultation and percussion. HEART: Regular without S3 or rub. No murmur could be appreciated. ABDOMEN: Soft. EXTREMITIES: No clubbing, cyanosis. There is no edema noted. Chest x-ray from today shows minimal pulmonary vascular congestion. LABORATORY DATA: Show a white count of 11.2, hemoglobin 9.8, hematocrit 31.1, platelets are 181,000. Sodium is 136, potassium 4.1, chloride 103, CO2 of 21, BUN of 90, creatinine 5.09, glucose 232, phosphorus 5.6, calcium 7.4, magnesium 2.3, albumin 3.1, corrected calcium is 8.1, total protein is 7.0. ALT is 32, AST is 10, alkaline phosphatase is 93, total bilirubin is 0.3. ASSESSMENT AND PLAN: 1. Chronic kidney disease stage 5, currently electrolytes with the exception of borderline low calcium and volume status are satisfactory. He has diuresed quite well. Intake is incompletely recorded, but appears that he is approximately 4.25 liters negative from yesterday. Volume status; therefore seems quite satisfactory. At present, he is maintained on a Bumex drip 0.25 mg per hour. 2. Hypertension. Blood pressure under satisfactory control. 3. Hypoxemia, resolved with Bumex drip. RECOMMENDATIONS: Discussed with the ICU house staff Dr. Woodruff and recommends placement back on p.o. diuretics. He had previously been on Lasix 40 mg p.o. b.i.d. would increase to 80 mg p.o. b.i.d. Follow intake and output as well as renal function and electrolytes closely. [place], [place] PROGRESS NOTE NAME: NOBLE GENTILE UNIT #: [id number] ROOM: [facility] DOCTOR: JAIR LR DO BIRTHDATE: [birth year] JAIR LR DO CM:PNCLAYTON [id number] JAIR LR DO 07/27/18 0727 interface
--- NOTE | ~2018-07-11 | PR ---
[place], [place] PROGRESS NOTE NAME: NOBLE GENTILE UNIT #: [id number] ROOM: 507 DOCTOR: TAY MCGOWAN MD BIRTHDATE: [birth year] DOS: 07/12/2018 SUBJECTIVE: The patient was still complaining of shortness of breath reported with intermittent cough. There were no symptoms of chest pain or hemoptysis. No symptoms of fever or chills. The patient denies symptoms of hemoptysis, nausea, vomiting, diarrhea, headache, or diplopia. General weakness, fatigue was noted. Shortness breath still occurs with exertion. OBJECTIVE: VITAL SIGNS: Normal temperature, respiratory rate 20, blood pressure 154/62. Pulse ox saturation on 3 liters nasal cannula 97% saturation. HEENT: Chronic obesity. Head was atraumatic. Eyes nonicterus. CARDIOVASCULAR: S1, S2 is audible. LUNGS: Without any wheezing. Scattered crackles in the lungs. ABDOMEN: Soft, obese, nontender, bowel sounds present. EXTREMITIES: Mild edema. MUSCULOSKELETAL: Without acute deformities. CENTRAL NERVOUS SYSTEM: Cranial nerves 2-12 intact. No focal deficit. General weakness was noted. LABORATORY DATA: BMP today: BUN 76, creatinine 4.93. CBC: WBC count of 12.6, hemoglobin 9.0, platelet count was normal. The chest x-ray that was done this morning was noted with reduction of previous noted pulmonary infiltration and finding of congestive heart failure. IMPRESSION: 1. Resolving acute congestive heart failure. 2. Acute coronary injury. 3. Chronic obesity. PLAN OF TREATMENT: No changes in treatment. Antibiotic may be discontinued for the patient tomorrow if all the cultures come back negative. Supportive therapy, plan of management and care plan to be continued as well. The patient denies symptoms of hemoptysis, nausea, vomiting, diarrhea, headache, or diplopia. General weakness, fatigue was noted. Shortness breath still occurs with exertion. CENTRAL NERVOUS SYSTEM: Cranial nerves 2-12 intact. MUSCULOSKELETAL: Without acute deformities. CENTRAL NERVOUS SYSTEM: No focal deficit. General weakness was noted. [place], [place] PROGRESS NOTE NAME: NOBLE GENTILE UNIT #: [id number] ROOM: 507 DOCTOR: TAY MCGOWAN MD BIRTHDATE: [birth year] TAY ESTEVEZ MD CM:PNTRANS [id number] TAY MERINO MD 07/27/18 0736 interface
--- NOTE | ~2018-07-11 | EKG ---
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
--- NOTE | ~2018-07-11 | PR ---
[place], [place] PROGRESS NOTE NAME: NOBLE GENTILE UNIT #: [id number] ROOM: 507 DOCTOR: JAIR LR DO BIRTHDATE: [birth year] DOS: 07/15/2018 SUBJECTIVE: The patient states overall he is feeling better today. Breathing continues to improve. He continues to void briskly. He denies orthopnea, PND, dyspnea. He denies presyncope or weakness. He denies any uremic symptoms. PHYSICAL EXAMINATION: VITAL SIGNS: Blood pressure is 130/60, pulse 70, respiration 20, temperature is 99.1 degrees Fahrenheit. GENERAL APPEARANCE: A well-appearing male, awake, alert, in no apparent distress. HEAD AND NECK: There is no JVD appreciated. LUNGS: Clear to auscultation and percussion. HEART: Regular without an S4, S3, rub, murmur or heave noted. ABDOMEN: Soft. EXTREMITIES: No clubbing, cyanosis. There is no edema noted. Chest x-ray from today is clear. LABORATORY DATA: From today, WBCs are 13.2, hemoglobin 10.0, hematocrit 32.0, platelets 210,000. Sodium is 141, potassium 3.2, chloride 105, CO2 22, BUN 91, creatinine 5.27, glucose is 77, phosphorus 5.2, magnesium is 2.2, calcium of 7.5, albumin of 3.3, corrected calcium is 8.1. ASSESSMENT AND PLAN: 1. Chronic kidney disease stage 5, volume status and electrolytes are all satisfactory with the exception of borderline low calcium and low potassium. He has been voiding well with ongoing negative balance of 2.44 liters yesterday. No specific uremic signs or symptoms are present. He has been transitioned over to oral Lasix from his Bumex drip. Had been on 40 mg of Lasix p.o. b.i.d. as an outpatient, is now taking 80 mg p.o. b.i.d. 2. Hypoxemia, this resolved. 3. Hypertension. Blood pressure has been under satisfactory control. RECOMMENDATIONS: Change in current management. No need for replacement therapy as of yet. Continue to follow renal function and electrolytes closely. [place], [place] PROGRESS NOTE NAME: NOBLE GENTILE UNIT #: [id number] ROOM: [facility] DOCTOR: JAIR LR DO BIRTHDATE: [birth year] JAIR LR DO CM:MICHELLE [id number] JAIR LR DO 07/27/18 0732 interface
--- NOTE | ~2018-07-11 | EKG ---
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
--- NOTE | ~2018-07-11 | CON ---
[place], [place] REPORT OF CONSULTATION NAME: [facility] #: [id number] UNIT #: [id number] ROOM: 406 DOCTOR: TAY MCGOWAN MD BIRTHDATE: [birth year] DOS: 07/11/2018 PULMONARY CONSULTATION, EVALUATION AND MANAGEMENT CONSULTATION REQUESTED BY: Hospitalist service. REASON FOR CONSULTATION: For possible consideration of pneumonia and other abnormal respiratory symptoms. HISTORY OF PRESENT ILLNESS: A 68-year-old white male patient with past history of bronchial asthma, history of chronic kidney disease, congestive heart failure and others. He presented to the hospital as the patient reported gradual increased shortness of breath, which has been present for the past 3-4 days. The symptoms are noted with gradual worsening. The cough, which is present associated with current symptoms with a small amount of white sputum expectoration. There were no symptoms of hemoptysis. Denies symptoms of chest pain. The patient denies symptoms of wheezing. The patient does report symptoms of orthopnea. Denies symptoms of aspiration. REVIEW OF SYSTEMS: CONSTITUTIONAL SYMPTOMS: Fatigue and tiredness noted. Denies symptoms of fever or chills. EYES: Denies burning, redness, or tenderness. EARS, NOSE, THROAT SYMPTOMS: Denies sore throat, hoarseness, otalgia, postnasal drainage or epistaxis. CARDIOVASCULAR SYSTEM: Denies angina pain, edema, or pain of the lower extremities. GASTROINTESTINAL SYSTEM: Noted without any symptoms of dysphagia, nausea, vomiting, diarrhea, abdominal pain, hematemesis, melena, or hematochezia. GENITOURINARY SYMPTOMS: History of chronic kidney disease, stage 4, currently planned for fistula formation for possible hemod[facility]. Denies any flank pain. SKIN: Denies abnormal lesions or rashes. MUSCULOSKELETAL SYMPTOMS: No joint pain, redness, or tenderness. CENTRAL NERVOUS SYSTEM: Denies dizziness, headache, diplopia, syncopal episodes or tingling sensation of the extremities. Remaining systems were reviewed. They were noted all negative. PAST MEDICAL HISTORY: The patient with history of: 1. Coronary artery disease. 2. Chronic kidney disease, stage 4. 3. Chronic obstructive pulmonary disease. 4. History of dental caries. 5. Generalized anxiety and depression. 6. Diabetic nephropathy. 7. Essential hypertension. 8. Chronic moderate to severe obesity. 9. Congestive heart failure with diastolic dysfunction. 10. Vitamin D deficiency. [place], [place] RE[facility] OF [facility]ATION [facility] [id number] UNIT #: [id number] ROOM: 406 DOCTOR: ZENAIDA MERINO MD,TAY BIRTHDATE: [birth year] PAST SURGICAL HISTORY: Noted several that includes: 1. Cardiac catheterization with coronary stent insertion. 2. Lumbar laminectomy. 3. Inguinal hernia repair. 4. Right mastectomy, nonmalignant. 5. History of vasectomy. 6. Tonsillectomy. 7. Teeth extraction. SOCIAL HISTORY: The patient lives at home. Denies history of alcohol use or any illicit drug use. Nonsmoker lifetime. FAMILY HISTORY: The patient's father at the age of 4646 years old with complication of cancer. Mother at 80 years old with complication of cancer as well. HOME MEDICATIONS: Listed on admission includes use of Tylenol, Proventil HFA, Norvasc, aspirin, Symbicort, Coreg, vitamin D, Cleocin, finasteride, Lasix, hydralazine, [place], lisinopril, melatonin, omega 3 fatty acids, Effient, prednisone 10 mg, sertraline and sodium bicarbonate. DRUG ALLERGIES: REPORTED ALLERGIES TO CIPROFLOXACIN CAUSING SHORTNESS OF BREATH, MORPHINE SULFATE CAUSING SHORTNESS OF BREATH, FLUOROQUINOLONES SHORTNESS OF BREATH, ZETIA LEG PAIN, FLUVASTATIN MUSCLE CRAMPS, NIACIN WITH FLUSHING, THE STATINS CAUSING THE MUSCLE PAIN. PHYSICAL EXAMINATION: GENERAL: This is a 68-year-old white male patient who has been currently noted comfortably resting, sitting on the side of bed without any acute distress. Height of 6 feet, weight of 247 pounds, and BMI 33.5. VITAL SIGNS: Temperature normal since admission, respiratory rate of 18-20, heart rate 76-68, blood pressure 167/81-152/68. Pulse oxygen saturation on 3 liters nasal cannula 97% saturation. Intake of 100, output 600 mL, negative 500 mL. HEENT: The patient with chronic moderate obesity. Head was atraumatic. Eyes nonicterus. Oral mucosa moist. Decreased posterior pharyngeal space. High tongue base and crowding of soft tissue structures. CARDIOVASCULAR SYSTEM: S1, S2 audible. LUNGS: Scattered crackles in the lungs were noted without any wheezing. Moderate reduction of breath sounds were noted in the lungs bilaterally. ABDOMEN: Soft with chronic obesity. Bowel sounds present. EXTREMITIES: Minimal ankle edema. VISIBLE SKIN: No lesions or rashes. CENTRAL NERVOUS SYSTEM: Cranial nerves 2-12 intact. No focal deficit. MUSCULOSKELETAL: Without any acute deformities. LABORATORY DATA: CBC that was done on admission; hemoglobin 9.6, WBC count normal, platelet count normal. Lactic acid 0.9, this morning of assessment as well. BUN 63 today, creatinine 4.68, glucose of 396. ProBNP was elevated as [place], [place] REPORT OF CONSULTATION NAME: NOBLE GENTILE UNIT #: [id number] ROOM: 406 DOCTOR: ZENAIDA MERINO MD,[facility] BIRTHDATE: [id number]. The troponin 0.079. Second and third set of troponin was noted almost similar values from admission. Chest x-ray that was done on this admission was reviewed shows bilateral infiltration with perihilar distribution with small pleural fluids cannot be excluded. The CT scan of the chest that was done without contrast review shows an area of consolidation, perihilar area distribution [place]wing appearance with small pleural effusions. Mild lymphadenopathy noted in the subcarinal region with the short dimension size of subcarinal lymph nodes of 1.1 cm in size. Small right pleural fluid was also seen. IMPRESSION: 1. The patient who has been currently admitted to the hospital with current findings highly consistent of congestive heart failure with cardiogenic pulmonary edema picture. Pneumonia cannot be completely excluded. The other consideration would be allergic drug reaction causing current pulmonary infiltration, but usually the infiltrates noted more briefly than central distribution. Pleural fluid noted small related to current ongoing acute congestive heart failure as well. 2. History of chronic moderate obesity. 3. Abnormal troponin, rule out acute myocardial injury versus increased troponin with chronic kidney disease. PLAN OF MANAGEMENT: Continue oxygen supplementation, maintain pulse oxygen 92% or greater. Diuretic therapy could be given to help improve the current pulmonary infiltration. Continue empirical antibiotic, Zithromax and Rocephin and they could be discontinued if the cultures would be noted negative of the blood. The sputum culture was ordered. Further viral assessment ordered with the influenza A, B, nasal washing antigen assessment and the respiratory viral panel. Sputum for Gram stain culture was also ordered. The patient is able to expectorate sputum. Other therapy, plan of management and monitoring the current pleural fluid. No thoracentesis would be needed at the present time because of small amount of effusion. Other supportive therapy, plan of management will be continued with additional change in treatment, modification in treatment based on progression of the illness would be suggested. Thank you for allowing me to participate in the care of this patient. TAY ESTEVEZ MD CM:CONSTR:REPORT OF CONSULTATION 1547 07/12/18 0114 interface
--- NOTE | ~2018-07-11 | PR ---
[place], [place] PROGRESS NOTE [facility] #[facility] [id number] UNIT #: [id number] ROOM: 507 DOCTOR: ZENAIDA MERINO MD,TAY BIRTHDATE: [birth year] DOS: 07/16/2018 SUBJECTIVE: The patient has been noted comfortable at this time. Denies symptoms of chest pain or coughing. Shortness of breath has been gradually subsiding. The cough has been decreasing. OBJECTIVE: VITAL SIGNS: The patient is a normal temperature, respiratory rate 20, heart rate 76, blood pressure 141/81. The pulse oxygen saturation of the patient was recorded as 97% saturation on 2 liters nasal cannula. HEENT: Examination shows head was atraumatic. Eyes nonicterus. NECK: Supple. CARDIOVASCULAR: S1, S2 is audible. LUNGS: Without any crackles, rhonchi, or wheezing. ABDOMEN: Soft and obese. EXTREMITIES: No acute edema. IMPRESSION: 1. Resolving acute pulmonary edema, congestive heart failure. 2. Chronic kidney disease stage 4. 3. The patient with resolving acute bronchitis and exacerbation of bronchial asthma as well. PLAN OF MANAGEMENT: The patient will be started on the tapering dose of prednisone at this time since the wheezing has been improving, continue bronchodilators. Other therapy, plan of management, and care plan. TAY ESTEVEZ MD CM:PNTRANS [id number] TAY MERINO MD 07/16/182027 interface
--- NOTE | ~2018-07-11 | PR ---
[place], [place] PROGRESS NOTE NAME: NOBLE GENTILE [facility] #: [id number] UNIT #: [id number] ROOM: 507 DOCTOR: ZENAIDA MERINO MD,TAY BIRTHDATE: [birth year] DOS: 07/14/2018 SUBJECTIVE: The patient has developed increased respiratory distress yesterday morning after examining the patient. He has been transferred to Intensive Care Unit. Chest x-ray was done, which shows fluid overload. The patient's congestive heart failure, worsening. He has been started on the BiPAP. He has been started on intravenous Bumex drip and the patient on Zaroxolyn with the diuresis noted adequately. The patient reported improvement in the respiratory symptom in the last 24 hours wheezing was also noted decreasing. There were no symptoms of chest pain. Denies any pain of the lower extremity. Denies symptoms of any itching or rash. Denies any symptoms of headache or diplopia. No nausea, vomiting or diarrhea. Remaining systems were reviewed. They were noted all negative. OBJECTIVE: VITAL SIGNS: For the patient this morning, normal temperature, respiratory rate of 16, heart rate 84, blood pressure 138/53. Pulse oxygen saturation on 3 liters 96% saturation. HEENT: No acute change. NECK: Supple. CARDIOVASCULAR: S1, S2 was audible. LUNGS: Without any wheezing. Occasional crackles. Breaths sounds are noted mildly diminished bilaterally. ABDOMEN: Soft, nontender. Bowel sounds present. EXTREMITIES: No acute edema. VISIBLE SKIN: No lesions or rashes. MUSCULOSKELETAL: Without any acute deformities. CENTRAL NERVOUS SYSTEM: Cranial nerves 2-12 intact. LABORATORY DATA: Chest x-ray this morning, the patient shows improvement in the finding of congestive heart failure with acute interstitial edema infiltration. CBC this morning, WBC count 11.2, hemoglobin 9.8, platelet count normal. The CMP this morning, BUN of 80, creatinine 5.09. IMPRESSION: 1. The patient with improving acute bronchial asthma exacerbation with acute fluid overload for the patient congestive heart failure, combination of both. 2. The patient has chronic kidney disease stage 4. 3. Chronic obesity. 4. Mildly abnormal troponin significance was unknown. PLAN OF MANAGEMENT: Continuation of the current diuretics at this time. The patient could be transferred from the Intensive Care Unit to the telemetry floor. The dose of Solu-Medrol was decreased to 40 mg daily. Continue Mucinex. Bronchodilators administration. Use of antibiotic for this patient in case of any suspicion for infection for this patient. At this time, the patient does not have any evidence of patient clinically for acute pneumonia. Continue oxygen supplementation to maintain pulse ox saturation 90%. No use of the BiPAP at nighttime only in day if any respiratory distress. [place], [place] PROGRESS NOTE NAME: NOBLE GENTILE UNIT #: [id number] ROOM: [facility] DOCTOR: TAY MCGOWAN MD BIRTHDATE: [birth year] TAY ESTEVEZ MD CM:MICHELLE [id number] TAY MERINO MD 07/27/18 0744 interface
--- NOTE | ~2018-07-11 | EKG ---
[place], [place] ELECTROCARDIOGRAM REPORT NAME: NOBLE GENTILE UNIT #: [id number] ROOM: 406 DOCTOR: JEM DRAFT REPORT BIRTHDATE: [birth year] [facility] Test Date: 2018-07-11 Test Time: 03:07:14 Pat Name: NOBLE GENTILE Department: 4E Room: 406 Gender: M Nurse Supervisor: Malcom Rios : 1950 Requested By: JOHAN CLAUDIO Order Number: [id number] Reading MD: Winter Schneider MD Measurements Intervals [place] Rate: 80 P: 26 FL: 147 QRS: 1 QRSD: 114 T: 38 QT: 494 QTc: 570 Interpretive Statements Sinus rhythm LVH with secondary repolarization abnormality Prolonged QT interval Compared to ECG 07/01/2018 10:12:40 Prolonged QT interval now present Electronically Signed On 07-12-2018 4:55:16 PST by Winter Schneider MD CM:EKGRPT:ELECTROCARDIOGRAM REPORT [id number] JOHAN AUGUSTIN DRAFT REPORT JOHAN CLAUDIO DO
--- NOTE | ~2018-07-11 | PR ---
[place], [place] PROGRESS NOTE NAME: NOBLE GENTILE [facility] #: [id number] UNIT #: [id number] ROOM: [facility] DOCTOR: ZENAIDA MERINO MD,TAY BIRTHDATE: [birth year] DOS: 07/13/2018 PULMONARY PROGRESS NOTE SUBJECTIVE: The patient was complaining of shortness of breath this morning with cough, which has been noted nonproductive, also developed wheezing this morning. He denies symptoms of chest pain, fever, or chills. He denies symptoms of hemoptysis. He denies symptoms of pain of the lower extremity. No symptoms of nausea, vomiting, diarrhea, abdominal pain, hematemesis, or melena. OBJECTIVE: VITAL SIGNS: The vital signs this morning, blood pressure of 162/78-150/100, respiratory rate of 18-22, heart rate of 83-79, and temperature is normal. Pulse ox saturation on 3 liters nasal cannula was noted as 96% saturation. HEENT: Moderate obesity. Head was atraumatic. Eyes nonicterus. NECK: Supple. CARDIOVASCULAR SYSTEM: S1, S2 is audible. LUNGS: The patient was noted with acute wheezing, which was noted moderate. The patient developed bilaterally from previous examination. Scattered crackles of the lungs. ABDOMEN: Soft, nontender, and obese. EXTREMITIES: With mild edema. No clubbing or cyanosis. CENTRAL NERVOUS SYSTEM: Cranial nerves 2-12 intact. MUSCULOSKELETAL: Without any acute deformities. SKIN: No lesions or rashes. LABORATORY DATA: The BMP that was done this morning, BUN of 52, creatinine of 5.01, and glucose of 236. Sodium is 135 and phosphorus is 5.4. Blood culture on 07/11/2018, 4 sets, with one set noted gram-positive cocci in pairs and chains with pending culture results and other 3 blood culture remains with no bacterial growth. Troponin this morning was 0.92. IMAGING DATA: Chest x-ray 1 view, which was obtained this morning was reviewed from the PACS images personally shows the patient with worsening of the congestive heart failure, pulmonary edema picture. IMPRESSION: 1. The patient with acute congestive heart failure noted worsening with acute respiratory symptoms of wheezing as well and nonproductive cough. Possibility of acute exacerbation of bronchial asthma would be considered with interstitial edema resulting in wheezing. 2. The patient has obesity. 3. Worsening of the acute on chronic kidney injury as well. PLAN OF THERAPY: Diuretics and other assessment per Nephrology services, who was monitoring this patient. The patient was started on Solu-Medrol 40 mg b.i.d. The bronchodilator will be continued. Other additional treatment changes will be made based on progression of the illness. [place], [place] PROGRESS NOTE NAME: NOBLE GENTILE UNIT #: [id number] ROOM: [facility] DOCTOR: TAY MCGOWAN MD BIRTHDATE: [birth year] TAY ESTEVEZ MD CM:MICHELLE [phone] TAY MERINO MD 07/14/18 0017 interface
--- NOTE | ~2018-07-11 | EKG ---
[place], [place] ELECTROCARDIOGRAM REPORT NAME: NOBLE GENTILE UNIT #: [id number] ROOM: 507 DOCTOR: JEM DRAFT REPORT BIRTHDATE: [birth year] [facility] Test Date: 2018-07-16 Test Time: 05:08:21 Pat Name: NOBLE GENTILE Department: Room: [facility] 1 Gender: M [place] Trimmer: Amy Delgado : 1950 Requested By: RYAN NICHOLS Order Number: [id number] Reading MD: Winter Schneider MD Measurements Intervals [place] Rate: 68 P: 20 RI: 148 QRS: -9 QRSD: 114 T: 157 QT: 434 QTc: 462 Interpretive Statements Sinus rhythm Probable left atrial enlargement LVH with IVCD and secondary repol abnrm Compared to ECG 07/13/2018 12:06:52 Intraventricular conduction delay now present Prolonged QT interval no longer present Electronically Signed On 07-16-2018 16:01:45 PST by Winter Schneider MD CM:EKGRPT:ELECTROCARDIOGRAM REPORT [id number] RYAN AUGUSTIN DRAFT REPORT RYAN NICHOLS DO
--- NOTE | ~2018-07-11 | PR ---
[place], [place] PROGRESS NOTE [id number] #: [id number] ROOM: 507 DOCTOR: ZENAIDA MERINO MD,TAY BIRTHDATE: [birth year] DOS: 07/15/2018 SUBJECTIVE: He has been noted comfortable, transferred from the Intensive Care Unit to Telemetry Floor. Denies symptoms of chest pain, fever or chills. Denies symptoms of abdominal pain. He has been continued on oxygen supplementation with use of the BiPAP for a few hours as well. OBJECTIVE: VITAL SIGNS: For the patient which were recorded showed the temperature noted as normal. The respiratory rate of the patient recorded as 18, heart rate 75, blood pressure 145/69. Intake for the patient of 1764, output 4.225 liters, negative 2.441 liters. Pulse oxygen saturation was recorded as 91% saturation on 3 liters nasal cannula. HEENT: No acute change. NECK: Supple. CARDIOVASCULAR: S1, S2 audible. LUNGS: The patient with occasional crackles, no wheezing. ABDOMEN: Soft and nontender. Bowel sounds present. EXTREMITIES: The patient without any acute edema. LABORATORY DATA: Chest x-ray done this morning show progressive improvement in the pulmonary infiltration and interstitial edema, and clearing in the lung. BUN today was noted 91, creatinine 5.27. IMPRESSION: 1. Chronic kidney disease stage 4 with mild worsening and hyperkalemia with diuretics. 2. Resolving acute congestive heart failure as well. 3. Improving acute exacerbation of bronchial asthma. PLAN OF THERAPY: No changes in the plan for the patient at this time. Continue the current plan of management. Maximize the cardiac management. Usual care. TAY ESTEVEZ MD CM:PNTRANS [phone] TAY MERINO MD 07/27/18 0746 interface
[2018-07-11 03:15] LABS: BASO % 0.2 % (0.0-1.0); EOS # 0.1 10*3/uL (0.0-0.4); EOS % 1.2 % (1.0-4.0); HEMATOCRIT 30.3 % (42.0-52.0); HEMOGLOBIN 9.6 g/dl (14.0-18.0); LYMPH % 10.7 % (27.0-41.0); MEAN CELL VOLUME 87.1 fl (80.0-94.0); MEAN CORPUSCULAR HGB 27.6 pg (27.0-31.0); MEAN CORPUSCULAR HGB CONC 31.7 g/dl (33.0-37.0); MEAN PLATELET VOLUME 10.2 fl (9.6-12.3); MONO # 0.7 10*3/uL (0.1-1.0); NEUT # 7.1 10*3/uL (2.3-7.9); NEUT % 79.2 % (47.0-73.0); PLATELET COUNT AUTOMATED 174 10*3/uL (130-400); RED BLOOD COUNT 3.48 10*6/uL (4.50-5.90); RED CELL DISTRI WIDTH 15.2 % (0-14.5)
--- NOTE | 2018-07-11 03:19 | NUR ---
PT UNSURE OF CURRENT MEDICATIONS, BELIEVES HE MAY HAVE NEW MEDICATION OF CRESTOR.
[2018-07-11 03:31] LABS: ALBUMIN 3.5 gm/dl (3.1-4.5); CREATININE 4.68 mg/dL (0.70-1.30); POTASSIUM 4.3 mmol/L (3.5-5.1); TOTAL PROTEIN 6.8 gm/dL (6.4-8.2)
[2018-07-11 03:35] LABS: TROPONIN I 0.079 ng/ml (<0.045)
--- NOTE | 2018-07-11 03:40 | NUR ---
PT STATES HE IS SCHEDULED TO HAVE LEFT ARM FISTULA PLACED ON Thursday07/16/18 AND DOES NOT WISH TO HAVE ANY IV,BLOODWORK OR BLOOD PRESSURES OBTAINED FROM LEFT ARM.
--- NOTE | 2018-07-11 04:30 | NUR ---
Time: 429 A 68 year old MALE admitted to 4E under services of DAVID TINSLEY DO. Pt. arrived via stretcher from ER. Chief complaint: CHF, RENAL FAILURE. PNEUMONIA. OLIVER MARION
--- NOTE | 2018-07-11 06:22 | NUR ---
DR RIVERA'S ANSWERING SERVICE NOTIFIED OF CONSULT.
--- NOTE | 2018-07-11 06:28 | NUR ---
PER DR RIVERA ADD 40MG LASIX BID IV. NO OTHER ORDERS AT THIS TIME. MEDICATIONS VERIFIED AND READ BACK.
[2018-07-11 06:34] LABS: PHOSPHOROUS 4.6 mg/dL (2.5-4.9)
[2018-07-11 06:40] LABS: TROPONIN I 0.086 ng/ml (<0.045)
--- NOTE | 2018-07-11 06:40 | NUR ---
DR BROWN NOTIFIED OF CRITICAL TROPONIN OF 0.086 NO FURTHER ORDERS AT THIS TIME.
--- NOTE | 2018-07-11 07:32 | NUR ---
VANCOMYCIN ORDERED IN ER WAS GIVEN IN ER PER PREVIOUS SHIFT, EMPTY VANCOMYCIN IS HANGING IN ROOM - WAS NOT SCANNED WHILE IN ER. REPORT FROM PREVIOUS SHIFT RECEIVED. PT IS SHORT OF BREATH, JUST RECEIVED A BREATHING TREATMENT.
--- NOTE | 2018-07-11 09:34 | NUR ---
DR. BOYER NOTIFIED OF ELEVATED TROPONIN, NO NEW ORDERS. NOTIFIED HER WITH ELEVEATED BLOOD PRESSURES AND UNABLE TO GET MEDICATION LIST DUE TO [facility] AND HE DOES NOT KNOW HIS MEDICATIONS. DR. BOYER WOULD LIKE FOR ME TO OBTAIN HIS MEDICATIONS FROM HIS LAST DISCHARGE SUMMARY AND CALL HER BACK
--- NOTE | 2018-07-11 09:43 | NUR ---
CALLED DR. BOYER WITH DISCHARGE SUMMARY FROM NOVEMBER 2017, ORDERS FOR BLOOD PRESSURE MEDICATIONS TO BE STARTED, ENTERED ORDERS
--- NOTE | 2018-07-11 11:29 | NUR ---
CALLED PATIENTS , HE IS SUPPSED TO BE USING KATERINE-HEX4 DAILY PRIOR TO SURGERY. PER PATIENTS SHE IS GOING TO CALL PATIENTS PHYSICIAN THAT IS TO PUT IN DIALYSIS CATH THURSDAY AND SEE IF THEY WILL WANT TO STILL DO THE FISTULA THIS THURSDAY
--- NOTE | 2018-07-11 11:35 | NUR ---
DR. CHRISTIANSON ANSWERING SERVICE NOTIFIED
--- NOTE | 2018-07-11 11:37 | NUR ---
DR. ESTEVEZ MADE AWARE OF NEW CONSULT, NO NEW ORDERS AT THIS TIME
--- NOTE | 2018-07-11 13:45 | NUR ---
COLLECTED RESPIRATORY VIRUS SAMPLE, PT REFUSE FLU SWAB AT THIS TIME, "WANT TO GIVE MYSELF A BREAK"
--- NOTE | 2018-07-11 18:09 | NUR ---
DR. RIVERA IN TO SEE PT, DISCUSSED IN LENGTH DIET AND HIS OPTIONS, MEDICATION EDUCATION.
--- NOTE | 2018-07-11 21:59 | NUR ---
MEDICATED WITH PRN TYLENOL FOR C/O HEADACHE RATED 7/10 ON 0/10 PAIN SCALE
[2018-07-12] VITALS: BP 148/76; BP 154/62
--- NOTE | 2018-07-12 04:06 | NUR ---
PATIENT RESTING WITH NO S/S OF DISTRESS. BED IN LOWEST POSITION, CALL LIGHT IN REACH
[2018-07-12 05:32] VITALS: BP 170/72
--- NOTE | 2018-07-12 05:58 | NUR ---
DR BROWN AWARE OF POSITIVE BLOOD CULTURES
[2018-07-12 06:26] LABS: HEMATOCRIT 28.2 % (42.0-52.0); MEAN CELL VOLUME 86.5 fl (80.0-94.0); MEAN CORPUSCULAR HGB 27.6 pg (27.0-31.0); MEAN CORPUSCULAR HGB CONC 31.9 g/dl (33.0-37.0); MEAN PLATELET VOLUME 10.8 fl (9.6-12.3); PLATELET COUNT AUTOMATED 152 10*3/uL (130-400); RED BLOOD COUNT 3.26 10*6/uL (4.50-5.90); RED CELL DISTRI WIDTH 14.7 % (0-14.5); WHITE BLOOD COUNT 12.6 10*3/uL (4.8-10.8)
--- NOTE | 2018-07-12 06:31 | NUR ---
STAT GLUCOSE ORDERED FOR CRITICAL HIGH METER READING
[2018-07-12 06:49] LABS: CREATININE 4.93 mg/dL (0.70-1.30); OVALOCYTES FEW; PHOSPHOROUS 5.1 mg/dL (2.5-4.9); POTASSIUM 4.7 mmol/L (3.5-5.1); TOTAL CELLS COUNTED 100 #CELLS
[2018-07-12 06:50] LABS: PLATELET SUFFICIENCY NORMAL (NORMAL)
--- NOTE | 2018-07-12 08:00 | NUR ---
PT AWARE WE NEED A SPUTUM SAMPLE, CUP AT BEDSIDE
[2018-07-12 08:30] VITALS: BP 170/84
--- NOTE | 2018-07-12 08:49 | NUR ---
ECHO AT BEDSIDE
--- NOTE | 2018-07-12 09:00 | NUR ---
PATIENTS CALLED IN AND STATED SHE SPOKE TO PHYSICIANS OFFICE THAT WAS TO PLACE AV FISTULA THIS THURSDAY AND THAT HAS BEEN CANCELLED DUE TO PATIENT ADMITED TO THE HOSPITAL. PT IS TO CALL AND SET UP/RESCHEDULE WHEN HE IS DISCARGED.
--- NOTE | 2018-07-12 09:00 | NUR ---
Event Organizer in to talk to patient. Patient states lives at home with . There are no steps in the home. Physician: lizbeth [place] health services: none Patient's level of ADLs: MINIMAL ASSIST Patient has working utilities: all working DME: walker, nebulizer, cpap, chair lift, motorized wheelchair, no home oxygen Follow-up physician's appointment after d/c: will be made by hospitalist nurse director upon discharge Does patient want to access PORTAL?: n Discharge plan discussed with patient, patient lives at home with , states he uses a motorized wheelchair to get around, is independent in adls, discussed with him a discharge plan including a short term [facility] for rehab, patient declined, stated he would be going home, also discussed VNA and he also declined this, case management will follow for any home needs. ANDREAS BARRIENTOS
--- NOTE | 2018-07-12 09:19 | NUR ---
PT COMPLAINS OF HEADACHE, TYLENOL GIVEN.
--- NOTE | 2018-07-12 10:30 | NUR ---
[facility]PDATED PATIENT MEDICATION LIST
[2018-07-12 12:00] VITALS: BP 110/52; BP 156/71
[2018-07-12] MEDS ORDERED: NORVASC5 MG PO (12:58)
[2018-07-12] MEDS ORDERED: CLOPIDOGREL75 MG PO (13:16)
[2018-07-12] MEDS ORDERED: BUSPIRONE HCL10 MG PO (13:17)
[2018-07-12] MEDS ORDERED: LANTUS SOL100 UNIT/1 SQ ×2 (13:23→13:24)
[2018-07-12] MEDS ORDERED: AMITRIPTYLINE25 MG PO (13:25)
--- NOTE | 2018-07-12 13:28 | NUR ---
DR. BROWN NOTIFIED THAT PT HOME MEDICATION LIST UPDATED FROM LIST RECEIVED FROM [facility]
[2018-07-12 16:00] VITALS: BP 155/73
[2018-07-12 17:44] LABS: CREATININE 4.94 mg/dL (0.70-1.30); POTASSIUM 4.4 mmol/L (3.5-5.1)
[2018-07-12 20:00] VITALS: BP 174/77
--- NOTE | 2018-07-12 20:56 | NUR ---
DR NICHOLS AWARE OF PATIENT C/O TROUBLE BREATHING. O2 3L INTACT. ORDER FOR ABG TAKEN
[2018-07-12 21:13] LABS: ABG HCO3 18.5 mmol/l (22-26); ABG O2 SATURATION 96.6 % (95-97); ARTERIAL BLOOD GAS PCO2 36.1 mmHg (35-45); ARTERIAL BLOOD GAS PH 7.325 (7.35-7.45); ARTERIAL BLOOD GAS PO2 74.9 mmHg (80-90)
[2018-07-12 21:14] LABS: ABG BASE EXCESS -6.6 mmol/L (-2.0-2.0)
--- NOTE | 2018-07-12 21:19 | NUR ---
dr ellison aware of abg results. states we will not do anything, but will order an additional duoneb
[2018-07-13] VITALS: BP 148/76
--- NOTE | 2018-07-13 00:20 | NUR ---
MEDICATED WITH PRN RESTORIL FOR C/O SLEEPLESSNESS. WILL MONITOR
--- NOTE | 2018-07-13 04:56 | NUR ---
PATIENT CALLED OUT SAYING HE CANNOT BREATH. PULSE OX 95% VIA 3L NC. 26 BREATHS PER MINUTES. AUDIBLE WHEEZES. DR NICHOLS AWARE
--- NOTE | 2018-07-13 04:58 | NUR ---
PATIENT C/O LEFT SIDED CHEST PAIN. DR NICHOLS ON FLOOR AND AWARE. STAT EKG ORDERED
[2018-07-13 05:00] VITALS: BP 162/78
[2018-07-13 05:32] LABS: ABG HCO3 18.8 mmol/l (22-26); ABG O2 SATURATION 97.8 % (95-97); ARTERIAL BLOOD GAS PCO2 39.7 mmHg (35-45); ARTERIAL BLOOD GAS PH 7.293 (7.35-7.45)
[2018-07-13 05:33] LABS: ABG BASE EXCESS -6.8 mmol/L (-2.0-2.0)
--- NOTE | 2018-07-13 05:38 | NUR ---
DR NICHOLS AWARE OF CRITICAL TROPONIN. AWARE OF ABG RESULTS. STATES NO NEED TO CALL DR CHRISTIANSON RIGHT NOW. NO NEW ORDERS
[2018-07-13 05:51] LABS: BASO % 0.1 % (0.0-1.0); EOS # 0.2 10*3/uL (0.0-0.4); EOS % 1.7 % (1.0-4.0); HEMATOCRIT 30.5 % (42.0-52.0); HEMOGLOBIN 9.5 g/dl (14.0-18.0); LYMPH # 0.9 10*3/uL (1.3-4.4); LYMPH % 8.8 % (27.0-41.0); MEAN CELL VOLUME 88.2 fl (80.0-94.0); MEAN CORPUSCULAR HGB 27.5 pg (27.0-31.0); MEAN CORPUSCULAR HGB CONC 31.1 g/dl (33.0-37.0); MEAN PLATELET VOLUME 10.6 fl (9.6-12.3); MONO # 0.7 10*3/uL (0.1-1.0); MONO % 6.6 % (3.0-9.0); NEUT # 8.6 10*3/uL (2.3-7.9); NEUT % 81.9 % (47.0-73.0); PLATELET COUNT AUTOMATED 173 10*3/uL (130-400); RED BLOOD COUNT 3.46 10*6/uL (4.50-5.90); RED CELL DISTRI WIDTH 15.2 % (0-14.5); WHITE BLOOD COUNT 10.5 10*3/uL (4.8-10.8)
[2018-07-13 08:00] VITALS: BP 150/100
--- NOTE | 2018-07-13 08:14 | NUR ---
DR. BROWN NOTIFIED OF CRITICAL LAB VALUE.
[2018-07-13 08:57] LABS: CREATININE 5.01 mg/dL (0.70-1.30); PHOSPHOROUS 5.4 mg/dL (2.5-4.9); POTASSIUM 4.3 mmol/L (3.5-5.1)
--- NOTE | 2018-07-13 09:00 | NUR ---
case management visits with patient, patient was not feeling well at this time, case management will visit at another time
[2018-07-13 11:50] LABS: ABG HCO3 19.6 mmol/l (22-26); ARTERIAL BLOOD GAS PCO2 41.2 mmHg (35-45); ARTERIAL BLOOD GAS PH 7.299 (7.35-7.45); ARTERIAL BLOOD GAS PO2 80.7 mmHg (80-90)
--- NOTE | 2018-07-13 11:50 | NUR ---
RECEIVED PT FROM 406-1 VIA BED. VSS. PT PLACED ON BIPAP 06/05 40% WITH POX 100%. WHEEZING NOTED. ABD. OBESE W/ ACTIVE BOWEL SOUNDS. VILLALOBOS PATENT FOR PALE YELLOW URINE. NO PERIPHERAL EDEMA NOTED AT THIS TIME. WILL CONTINUE TO MONITOR PT.
[2018-07-13 11:56] LABS: ABG BASE EXCESS -5.9 mmol/L (-2.0-2.0)
[2018-07-13 12:00] VITALS: BP 153/89
--- NOTE | 2018-07-13 14:00 | NUR ---
DR RIVERA IN TO SEE PT.
--- NOTE | 2018-07-13 14:20 | NUR ---
DR STORM NOTIFIED OF TROP. LEVEL.
--- NOTE | 2018-07-13 14:37 | NUR ---
2MG IV BUMEX GIVEN AND IV BUMEX STARTED PER ORDER.
[2018-07-13 16:00] VITALS: BP 152/72
--- NOTE | 2018-07-13 18:23 | NUR ---
PT TAKEN OFF OF BIPAP FOR DINNER. PT PLACED ON 3L NC. POX 96%. PT AAOX3. PT DENIES C/O AT THIS TIME.
[2018-07-13 20:00] VITALS: BP 162/60
--- NOTE | 2018-07-13 23:15 | NUR ---
PT PLACED ON BIPAP
[2018-07-14] VITALS: BP 142/76
--- NOTE | 2018-07-14 00:15 | NUR ---
PT TAKEN OFF BIPAP
[2018-07-14 04:00] VITALS: BP 165/64
[2018-07-14 04:45] LABS: HEMATOCRIT 31.1 % (42.0-52.0); HEMOGLOBIN 9.8 g/dl (14.0-18.0); MEAN CELL VOLUME 87.4 fl (80.0-94.0); MEAN CORPUSCULAR HGB 27.5 pg (27.0-31.0); MEAN CORPUSCULAR HGB CONC 31.5 g/dl (33.0-37.0); MEAN PLATELET VOLUME 10.3 fl (9.6-12.3); PLATELET COUNT AUTOMATED 181 10*3/uL (130-400); RED BLOOD COUNT 3.56 10*6/uL (4.50-5.90); WHITE BLOOD COUNT 11.2 10*3/uL (4.8-10.8)
[2018-07-14 05:04] LABS: ALBUMIN 3.1 gm/dl (3.1-4.5); CREATININE 5.09 mg/dL (0.70-1.30); PHOSPHOROUS 5.6 mg/dL (2.5-4.9); POTASSIUM 4.1 mmol/L (3.5-5.1)
[2018-07-14 05:08] LABS: MICROCYTOSIS SLIGHT; PLATELET SUFFICIENCY NORMAL (NORMAL); TOTAL CELLS COUNTED 100 #CELLS
[2018-07-14 05:09] LABS: OVALOCYTES FEW
--- NOTE | 2018-07-14 07:20 | NUR ---
PT. NOT WEARING BIPAP, STATES HE COULD NOT WEAR BIPAP LAST NIGHT.
[2018-07-14 08:00] VITALS: BP 138/53
--- NOTE | 2018-07-14 08:00 | NUR ---
PT AAOX3. VSS. RESP. EASY AT THIS TIME. EXP. WHEEZE NOTED BILAT. POX 96% ON 3L NC. MOIST NONPRODUCTIVE COUGH NOTED. VILLALOBOS PATENT FOR PALE YELLOW URINE. NO EDEMA NOTED. PT DENIES COMPLAINTS AT THIS TIME. WILL CONTINUE TO MONITOR PT.
--- NOTE | 2018-07-14 09:11 | NUR ---
DR ESTEVEZ IN TO SEE PT.
--- NOTE | 2018-07-14 11:00 | NUR ---
DR LR IN TO SEE PT. DISCUUSED PT'S CASE WITH DR STORM. NEW ORDERS RECEIVED.
[2018-07-14 12:00] VITALS: BP 136/58
--- NOTE | 2018-07-14 13:37 | NUR ---
PT REPORT GIVEN TO RECEIVING NURSE ON 5E.
--- NOTE | 2018-07-14 13:45 | NUR ---
RECEIVED REPORT FROM ZHANNA IN [facility] AND PT BROUGHT TO FLOOR.
[2018-07-14 16:00] VITALS: BP 146/64
[2018-07-14 20:00] VITALS: BP 138/52
--- NOTE | 2018-07-14 23:39 | NUR ---
PT REFUSED TO WEAR BIPAP
[2018-07-15] VITALS: BP 132/62
--- NOTE | 2018-07-15 01:43 | NUR ---
24 HR chart check completed.
[2018-07-15 05:08] LABS: ADENOVIRUS Negative (Negative); INFLUENZA A Negative (Negative); INFLUENZA B Negative (Negative); METAPNEUMOVIRUS Negative (Negative); PARAINFLUENZA 1 Negative (Negative); PARAINFLUENZA 2 Negative (Negative); PARAINFLUENZA 3 Negative (Negative); RHINOVIRUS Negative (Negative); RSV A Negative (Negative); RSV B Negative (Negative)
[2018-07-15 06:44] LABS: BASO % 0.1 % (0.0-1.0); EOS % 0.3 % (1.0-4.0); LYMPH # 1.2 10*3/uL (1.3-4.4); MEAN CELL VOLUME 87.2 fl (80.0-94.0); MEAN CORPUSCULAR HGB 27.2 pg (27.0-31.0); MEAN CORPUSCULAR HGB CONC 31.3 g/dl (33.0-37.0); MEAN PLATELET VOLUME 10.6 fl (9.6-12.3); MONO # 0.9 10*3/uL (0.1-1.0); MONO % 6.7 % (3.0-9.0); NEUT # 10.9 10*3/uL (2.3-7.9); NEUT % 82.8 % (47.0-73.0); PLATELET COUNT AUTOMATED 210 10*3/uL (130-400); RED BLOOD COUNT 3.67 10*6/uL (4.50-5.90); WHITE BLOOD COUNT 13.2 10*3/uL (4.8-10.8)
[2018-07-15 07:02] LABS: ALBUMIN 3.3 gm/dl (3.1-4.5); CREATININE 5.27 mg/dL (0.70-1.30); PHOSPHOROUS 5.2 mg/dL (2.5-4.9); POTASSIUM 3.2 mmol/L (3.5-5.1); TOTAL PROTEIN 6.8 gm/dL (6.4-8.2)
--- NOTE | 2018-07-15 07:37 | NUR ---
CHART CHECK COMPLETED.
[2018-07-15 08:00] VITALS: BP 130/60
--- NOTE | 2018-07-15 09:00 | NUR ---
case managmeent attempted to visit with patient, patient was sleeping at this time, will see at a later time
[2018-07-15 12:00] VITALS: BP 145/69
--- NOTE | 2018-07-15 12:50 | NUR ---
SPOKE WITH DR BROWN ABOUT THE PT COMPLAINING OF "NOT FEELING RIGHT." PT THOUGHT THAT HIS BLOOD GLUCOSE WAS LOW. I CHECKED THE BEDSIDE GLUCOSE AND IT WAS 271. PT IS UNABLE TO DESCRIBE SX APPROPRIATELY. NEUROLOGICAL EXAM WITHIN NORMAL LIMITS, NO SLURRED SPEECH, NO FACIAL DROP, BILATERAL HAMMER SMITH STRENGTH 4/5. DR BROWN REQUESTS ORTHOSTATIC BLOOD PRESSURE.
--- NOTE | 2018-07-15 13:03 | NUR ---
OTHROSTATIC BLOOD PRESSURE COMPLETED. SUPINE: 150/65, PULSE 70 SITTIN/67, PULSE 68 STANDIN/56, PULSE 75 PT IS SYMPTOMATIC STATING THAT HE IS LIGHTHEADED WHEN HE CHANGES POSITIONS. DR BROWN NOTIFIED.
--- NOTE | 2018-07-15 14:35 | NUR ---
INFORMED DR BROWN OF TELEMETRY STRIP APPEARING TO BE AFIB WITH PT REPORTING NO HX OF IRREGULAR RHYTHM. STAT EKG ORDERED.
--- NOTE | 2018-07-15 14:38 | NUR ---
INFORMED ACCOUNT DEVELOPMENT EXECUTIVE OF STAT EKG ORDER.
[2018-07-15 16:00] VITALS: BP 168/70
[2018-07-15 20:00] VITALS: BP 159/66
--- NOTE | 2018-07-15 20:10 | NUR ---
SITTING UP ON THE SIDE OF THE BED. ALERT AND PLEASANT. DENIES C/O'S PAIN OR DISCOMFORT. HEP LOCK INTACT. MONITOR IS NSR NOW. NO DISTRESS NOTED. VILLALOBOS PATENT AND DRAINING CLEAR YELLOW URINE.
--- NOTE | 2018-07-15 22:09 | NUR ---
RESTING IN BED WATCHING TV. NO C/O'S VOICED.
--- NOTE | 2018-07-15 22:45 | NUR ---
24 HR chart check completed.
[2018-07-16] VITALS: BP 158/62
[2018-07-16 04:00] VITALS: BP 157/72
--- NOTE | 2018-07-16 04:32 | NUR ---
PT. STILL HAVING PAIN IN RIGHT SIDE CHEST/RIB EVEN AFTER BEING ON BIPAP. DR NICHOLS HERE ON FLOOR AND ORDERS RECEIVED.
--- NOTE | 2018-07-16 05:38 | NUR ---
CRITICAL TROP 0.[address] CALLED [address] LAB[address] NICHOLS AND NOTIFIED HIM OF THIS. NO NEW ORDERS RECEIVED.
[2018-07-16 05:42] LABS: CREATININE 5.21 mg/dL (0.70-1.30); POTASSIUM 3.3 mmol/L (3.5-5.1)
--- NOTE | 2018-07-16 05:45 | NUR ---
CRITICAL GLUCOSE 41 CALLED BY LAB. DEXTROSE 50% 25GM GIVEN PER ORDER. PT. ALERT AND ORIENTED X3. PATIENT ATE TOSHA CRACKERS AND PEANUT BUTTER AND DRANK APPLE JUICE AND MILK AND CRANBERRY JUICE. [address] NICHOLS AND NOTIFIED HIM OF THIS AND TO CHECK BLOOD SUGAR AGAIN IN AN HOUR.
[2018-07-16 05:56] LABS: BASO % 0.1 % (0.0-1.0); EOS # 0.1 10*3/uL (0.0-0.4); EOS % 0.5 % (1.0-4.0); HEMATOCRIT 33.2 % (42.0-52.0); HEMOGLOBIN 10.5 g/dl (14.0-18.0); LYMPH # 1.5 10*3/uL (1.3-4.4); LYMPH % 9.7 % (27.0-41.0); MEAN CELL VOLUME 87.4 fl (80.0-94.0); MEAN CORPUSCULAR HGB 27.6 pg (27.0-31.0); MEAN CORPUSCULAR HGB CONC 31.6 g/dl (33.0-37.0); MEAN PLATELET VOLUME 10.5 fl (9.6-12.3); MONO # 1.1 10*3/uL (0.1-1.0); MONO % 6.9 % (3.0-9.0); NEUT # 12.6 10*3/uL (2.3-7.9); NEUT % 81.4 % (47.0-73.0); PLATELET COUNT AUTOMATED 250 10*3/uL (130-400); WHITE BLOOD COUNT 15.5 10*3/uL (4.8-10.8)
--- NOTE | 2018-07-16 06:28 | NUR ---
BLOOD CULTURE RESULTS CALLED AND CALLED DR. NICHOLS AND HE WILL LOOK AT SENSITIVITY.
--- NOTE | 2018-07-16 06:58 | NUR ---
CALLED DR. NICHOLS AND NOTIFIED HIM OF REPEAT BLOOD SUGAR 154
--- NOTE | 2018-07-16 08:14 | NUR ---
Face to face encounter with Dr. Faust. Discussed chest pain event through the night along with treatments and troponin levels. Dr. Faust questioned patients low blood glucose level and I updated him on treatment and stable level. No new orders.
--- NOTE | 2018-07-16 08:25 | NUR ---
Per physcian blood glucose rechecked. Level was 208 physician aware.
--- NOTE | 2018-07-16 08:30 | NUR ---
Rey catheter removed. 10cc out, 425ml clear yellow urine emptied from bag. Patient educated on notifying staff of first void. Patient said "it burned" when rey was removed but tolerated well.
[2018-07-16 08:41] VITALS: BP 142/70
--- NOTE | 2018-07-16 09:00 | NUR ---
case management visits with patient, discussed with him a short term shelter for rehab prior to going home, patient declined, also discussed with him VNA and he also declined this. case management will follow for any home needs
--- NOTE | 2018-07-16 10:57 | NUR ---
Notified Dr. Faust of troponin level. No new orders. See labs.
--- NOTE | 2018-07-16 11:00 | NUR ---
case management received a call from Aziza, case planner from [facility]. Aziza asked for patient's clinicals to be faxed, this was faxed to her. will await a return call
--- NOTE | 2018-07-16 11:47 | NUR ---
Called Dr. Faust to discuss patients blood glucose of 434. See Emar.
[2018-07-16 12:00] VITALS: BP 141/81
--- NOTE | 2018-07-16 14:46 | NUR ---
Per request of Dr. Faust I contacted Dr. Marroquin office to see if he is clear for discharge. I spoke to Isaura and she is to page Dr. Albert.
[2018-07-16] MEDS ORDERED: FUROSEMIDE80 MG PO (15:08)
[2018-07-16] MEDS ORDERED: CARVEDILOL25 MG PO (15:08)
[2018-07-16] MEDS ORDERED: ELIQUIS5 M1 PO (15:08)
[2018-07-16] MEDS ORDERED: HYDRALAZINE HYD50 MG PO (15:08)
[2018-07-16] MEDS ORDERED: AMLODIPINE BESYL5 MG PO (15:08)
[2018-07-16] MEDS ORDERED: DOXYCYCLINE100 M3 PO (15:10)
[2018-07-16] MEDS ORDERED: XARE15TA PO (15:23)
--- NOTE | 2018-07-16 16:30 | NUR ---
Discharge instructions reviewed with patient/family. Patient receptive and verbalizes understanding. Follow-up care arranged. Written instructions given to patient/family. Patient was educated on new medications. He reported a hoodie, sweatshirt and melissa-shirt missing. Lost investigation form was filled out for managment to approve reimbursement. 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 KAED LARIOS J
[2018-08-20] MEDS ORDERED: NORVASC5 MG PO (18:09)
[2018-08-20] MEDS ORDERED: LASIX40 MG PO (18:13)
[2018-08-20] MEDS ORDERED: HYDRALAZINE HYD50 MG PO (18:17)
[2018-08-20] MEDS ORDERED: COUMADIN4 M2 PO (18:28)
[2018-08-20] MEDS ORDERED: COUMADIN6 M2 PO (18:29)
[2018-08-20] MEDS ORDERED: LANTUS SOL100 UNIT/1 SQ (22:56)
[2018-10-13] MEDS ORDERED: BUSPIRONE HCL10 MG PO (13:10)
[2018-10-13] MEDS ORDERED: NOVOLOG FL100 UNIT/2 SQ (13:15)
[2018-10-13] MEDS ORDERED: FISH OIL 1,0001 EAC3 PO (13:16)
== END 2018-07-16 16:30 | disposition home or self-care (01) | DRG 291 ==
LOC: ED 02:46 → EDHOLD 04:06 → 4E 04:06 → 5E 04:06 → 4E 04:25 → ICCU 07-13 11:50 → 5E 07-14 14:22
PROVIDERS: Emergency Medicine; Family Medicine; Internal Medicine; Internal Medicine Critical Care Medicine; Internal Medicine Nephrology; Student in an Organized Health Care Education/Training Program; ADMIT Internal Medicine
PROC: 5A09357 Assistance with Respiratory Ventilation, Less than 24 Consecutive Hours, Continuous Positive Airway Pressure (ICD-10-PCS; principal; 2018-07-13)
DX: I13.2 Hypertensive heart and chronic kidney disease with heart failure and with stage 5 chronic kidney disease, or end stage renal disease (principal); J18.9 Pneumonia, unspecified organism; N18.6 End stage renal disease; I50.43 Acute on chronic combined systolic (congestive) and diastolic (congestive) heart failure; J81.0 Acute pulmonary edema; E66.2 Morbid (severe) obesity with alveolar hypoventilation; N17.9 Acute kidney failure, unspecified; I24.8 Other forms of acute ischemic heart disease; J45.901 Unspecified asthma with (acute) exacerbation; J44.0 Chronic obstructive pulmonary disease with (acute) lower respiratory infection; F32.9 Major depressive disorder, single episode, unspecified; I25.10 Atherosclerotic heart disease of native coronary artery without angina pectoris; E11.41 Type 2 diabetes mellitus with diabetic mononeuropathy; E55.9 Vitamin D deficiency, unspecified; E87.5 Hyperkalemia; E11.65 Type 2 diabetes mellitus with hyperglycemia; F41.1 Generalized anxiety disorder; J44.9 Chronic obstructive pulmonary disease, unspecified; E11.22 Type 2 diabetes mellitus with diabetic chronic kidney disease; E78.00 Pure hypercholesterolemia, unspecified; M19.90 Unspecified osteoarthritis, unspecified site; Z87.11 Personal history of peptic ulcer disease; Z79.1 Long term (current) use of non-steroidal anti-inflammatories (NSAID); Z95.5 Presence of coronary angioplasty implant and graft; I25.2 Old myocardial infarction; Z80.8 Family history of malignant neoplasm of other organs or systems; Z88.9 Allergy status to unspecified drugs, medicaments and biological substances; Z79.4 Long term (current) use of insulin; Z83.3 Family history of diabetes mellitus; Z82.49 Family history of ischemic heart disease and other diseases of the circulatory system; Z90.11 Acquired absence of right breast and nipple; Z68.33 Body mass index [BMI] 33.0-33.9, adult; J20.9 Acute bronchitis, unspecified

== ENCOUNTER 2018-08-05 15:56 | Inpatient (IN) | payer OTHER, MEDICARE ==
[~2018-08-05] VITALS: Ht 182.8 cm; Wt 110.7 kg
--- NOTE | ~2018-08-05 | EKG ---
[place], [place] ELECTROCARDIOGRAM REPORT NAME: NOBLE GENTILE UNIT #: [id number] ROOM: 528 DOCTOR: JEM DRAFT REPORT BIRTHDATE: [birth year] [facility] Test Date: 2018-08-05 Test Time: 18:59:48 Pat Name: NOBLE GENTILE Department: Room: 528 Gender: M Lawn Care Technician: EKG.[place] : 1950 Requested By: ANNIA FALK Order Number: [id number] Reading MD: Lonnie Grissom MD Measurements Intervals [place] Rate: 75 P: 31 MT: 163 QRS: -4 QRSD: 104 T: 31 QT: 373 QTc: 417 Interpretive Statements Sinus rhythm LVH with secondary repolarization abnormality Baseline wander in lead(s) V4 Compared to ECG 07/16/2018 05:08:21 No significant change Electronically Signed On 08-05-2018 18:35:25 PST by Lonnie Grissom MD CM:EKGRPT:ELECTROCARDIOGRAM REPORT [id number] ANNIA AUGUSTIN DRAFT REPORT ANNIA FALK DO
--- NOTE | ~2018-08-05 | EKG ---
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: EKG.DC : 1950 Requested By: ANNIA FALK Order Number: [id number] Reading MD: Lonnie Grissom MD Measurements Intervals [place] Rate: 82 P: 19 TN: 175 QRS: -17 QRSD: 102 T: 23 QT: 365 QTc: 427 Interpretive Statements Sinus rhythm Abnormal R-wave progression, early transition Left ventricular hypertrophy Baseline wander in lead(s) III,aVL,aVF Compared to ECG 07/16/2018 05:08:21 T-wave abnormality now present Intraventricular conduction delay no longer present Early repolarization no longer present Electronically Signed On 08-05-2018 18:32:02 PST by Lonnie Grissom MD CM:EKGRPT:ELECTROCARDIOGRAM REPORT [id number] 1832 ANNIA AUGUSTIN DRAFT REPORT ANNIA FALK DO
--- NOTE | ~2018-08-05 | EKG ---
[place], [place] ELECTROCARDIOGRAM REPORT NAME: NOBLE GENTILE UNIT #: [id number] ROOM: 528 DOCTOR: JEM DRAFT REPORT BIRTHDATE: [birth year] [facility] Test Date: 2018-08-05 Test Time: 21:33:00 Pat Name: NOBLE GENTILE Department: Room: 528 Gender: M Safety Lamp Keeper: EKG.RI : 1950 Requested By: ANNIA FALK Order Number: [id number] Reading MD: Lonnie Grissom MD Measurements Intervals [place] Rate: 81 P: 38 NH: 172 QRS: -5 QRSD: 106 T: 48 QT: 358 QTc: 416 Interpretive Statements Sinus rhythm LVH with secondary repolarization abnormality Baseline wander in lead(s) V4 Compared to ECG 08/05/2018 18:59:48 No significant changes Electronically Signed On 08-06-2018 13:58:18 PST by Lonnie Grissom MD CM:EKGRPT:ELECTROCARDIOGRAM REPORT [id number] ANNIA AUGUSTIN DRAFT REPORT ANNIA FALK DO
[~2018-08-05 15:56] MED LIST changes: +AMITRIPTYLINE25 MG PO; +BUSPIRONE HCL10 MG PO; +ELIQUIS5 M1 PO; +XARE15TA PO
[2018-08-05 16:02] VITALS: BP 170/85
[2018-08-05 16:19] LABS: BASO % 0.2 % (0.0-1.0); EOS # 0.1 10*3/uL (0.0-0.4); EOS % 1.9 % (1.0-4.0); HEMATOCRIT 29.9 % (42.0-52.0); HEMOGLOBIN 9.6 g/dl (14.0-18.0); LYMPH # 0.9 10*3/uL (1.3-4.4); LYMPH % 14.8 % (27.0-41.0); MEAN CELL VOLUME 88.5 fl (80.0-94.0); MEAN CORPUSCULAR HGB 28.4 pg (27.0-31.0); MEAN CORPUSCULAR HGB CONC 32.1 g/dl (33.0-37.0); MEAN PLATELET VOLUME 10.2 fl (9.6-12.3); MONO # 0.5 10*3/uL (0.1-1.0); MONO % 8.3 % (3.0-9.0); NEUT # 4.7 10*3/uL (2.3-7.9); NEUT % 74.3 % (47.0-73.0); PLATELET COUNT AUTOMATED 176 10*3/uL (130-400); RED BLOOD COUNT 3.38 10*6/uL (4.50-5.90); RED CELL DISTRI WIDTH 14.6 % (0-14.5); WHITE BLOOD COUNT 6.3 10*3/uL (4.8-10.8)
[2018-08-05 16:27] LABS: ACT PARTIAL THROMBO TIME 28.7 SECONDS (20.8-31.5); INTERNATIONAL NORM RATIO 1.3 (2.0-3.5)
[2018-08-05 16:36] LABS: ALBUMIN 3.4 gm/dl (3.1-4.5); ALKALINE PHOSPHATASE 94 U/L (45-117); BUN 68 mg/dl (7-24); CHLORIDE 106 mmol/L (98-107); CREATININE 4.84 mg/dL (0.70-1.30); POTASSIUM 4.7 mmol/L (3.5-5.1); SGOT/AST 17 IU/L (3-35); SGPT/ALT 29 U/L (12-78); SODIUM 138 mmol/L (136-145); TOTAL PROTEIN 7.1 gm/dL (6.4-8.2)
[2018-08-05 16:43] LABS: TROPONIN I < 0.015 ng/ml (<0.045)
--- NOTE | 2018-08-05 16:44 | NUR ---
CRITICAL RESULT CALCIUM 6.6. DR FALK NOTIFIED.
[2018-08-05 17:45] VITALS: BP 192/98
--- NOTE | 2018-08-05 18:25 | NUR ---
CURRENTLY AWAITING ROOM ASSIGNMENT.
[2018-08-05 18:31] VITALS: BP 177/88
--- NOTE | 2018-08-05 18:33 | NUR ---
PATIENT GIVEN ROOM AT THIS TIME. NO NURSE IS ASSIGNED.
[2018-08-05 19:02] VITALS: BP 160/85; BP 180/95
--- NOTE | 2018-08-05 19:03 | NUR ---
REPORT GIVEN TO MARIA TERESA ALLEN AT THIS TIME.
--- NOTE | 2018-08-05 19:03 | NUR ---
NURSE TO NURSE REPORT GIVEN TO THIS RN.PT AWAITING TRANSFER TO FLOOR.
[2018-08-05 19:50] VITALS: BP 179/74
--- NOTE | 2018-08-05 19:50 | NUR ---
A 68, admitted to , under the services of CHRISTOPHER Grande DO with a diagnosis of CHEST PAIN. Chief complaint is CHEST PAIN, DIZZINESS, AND HEADACHE. Patient arrived via stretcher from ER. Monitor applied. Initial assessment completed. Vital signs taken and recorded. CHRISTOPHER GRANDE DO notified of admission to the unit. Orders received. See assessment for past medical history, medications and allergies. Patient and/or family oriented to unit. [facility] visitation policy reviewed. Clothing/patient valuable form completed. CIPRIANO CARR
[2018-08-05 20:07] LABS: PTH INTACT 316.2 pg/mL (18.5-88.0); VITAMIN D, 25-HYDROXY 16.2 ng/mL (30-100)
[2018-08-05] MEDS ORDERED: LANTUS SOL100 UNIT/1 SQ ×2 (20:16→20:18)
--- NOTE | 2018-08-05 20:20 | NUR ---
MEDICATION LIST REVIEWED WITH PATIENT.
[2018-08-05] MEDS ORDERED: COUMADIN4 M2 PO (20:32)
--- NOTE | 2018-08-05 22:36 | NUR ---
MESSAGE LEFT WITH DURAN AT NEPHROLOGY REGARDING CONSULT ORDER FOR DR. RIVERA.
--- NOTE | 2018-08-05 23:42 | NUR ---
PATIENT REFUSING TO WEAR TEDS. STATED THEY HURT HIS LEGS. DR NICHOLS NOTIFIED.
[2018-08-06] VITALS: BP 134/39
[2018-08-06 06:15] LABS: BASO % 0.3 % (0.0-1.0); EOS # 0.2 10*3/uL (0.0-0.4); HEMATOCRIT 30.8 % (42.0-52.0); HEMOGLOBIN 9.7 g/dl (14.0-18.0); LYMPH # 1.1 10*3/uL (1.3-4.4); LYMPH % 15.6 % (27.0-41.0); MEAN CELL VOLUME 87.7 fl (80.0-94.0); MEAN CORPUSCULAR HGB 27.6 pg (27.0-31.0); MEAN CORPUSCULAR HGB CONC 31.5 g/dl (33.0-37.0); MEAN PLATELET VOLUME 9.6 fl (9.6-12.3); MONO # 0.6 10*3/uL (0.1-1.0); MONO % 8.6 % (3.0-9.0); NEUT # 4.8 10*3/uL (2.3-7.9); NEUT % 72.1 % (47.0-73.0); PLATELET COUNT AUTOMATED 181 10*3/uL (130-400); RED BLOOD COUNT 3.51 10*6/uL (4.50-5.90); RED CELL DISTRI WIDTH 14.6 % (0-14.5); WHITE BLOOD COUNT 6.7 10*3/uL (4.8-10.8)
[2018-08-06 06:43] LABS: ALBUMIN 3.1 gm/dl (3.1-4.5); CREATININE 4.82 mg/dL (0.70-1.30); PHOSPHOROUS 5.3 mg/dL (2.5-4.9); POTASSIUM 4.3 mmol/L (3.5-5.1); TOTAL PROTEIN 6.6 gm/dL (6.4-8.2)
--- NOTE | 2018-08-06 06:51 | NUR ---
PATIENT MEDICATED WITH TYLENOL PER PRN ORDER FOR C/O HEADACHE. RATED PAIN A 8/10 WITH 10 BEING THE WORST. SEE EMAR. REINFORCED USE OF CALL LIGHT.
--- NOTE | 2018-08-06 07:56 | NUR ---
VITAL SIGNS STABLE, SPO2 98% ON ROOM AIR, A&O X3, EQUAL ASSET PROTECTION GREETER BILATERALLY, CRYSTAL, CAP REFILL LESS THAN 3 SECONDS, HEART SOUNDS NORMAL AND STRONG, LUNGS SOUNDS DIMINISHED AND CLEAR BILATERALLY, NO ACCESSORY MUSCLES USED AND NON LABORED RESPIRATIONS AT TIME OF ASSESSMENT, NO EDEMA NOTED, POSTIIVE PEDAL PULSES, BS X4 QUADS, ABDOMIN SOFT NONTENDER NONDISTENDED, ORTHOSTATIC VITAL ASSESSMENT RESULTS LAYING 142/76, SITTING AT EDGE OF BED 132/76, AND STANDING 130/74, PATIENT HAD NO COMPLAINTS OF DIZZINESS AT TIME OF ASSESSMENT, SKIN PINK DRY AND INTACT LEONARDA VINCENT CHRIS
--- NOTE | 2018-08-06 12:02 | NUR ---
Pcts in to talk to patient. Patient states lives at HOME with . There are 3 steps in the home. Physician: FRAN [place]acy: [place] Home health services: NONE Patient's level of ADLs: MINIMAL ASSIST Patient has working utilities: YES DME: LIFT CHAIR ON STEPS, ELECTRIC WHEELCHAIR, CANE, WALKER, Follow-up physician's appointment after d/c: WILL BE MADE BY HOSPITALIST NURSE DIRECTOR ON DISCHARGE Does patient want to access PORTAL?: NO Discharge plan PT STATES HE LIVES AT HOME WITH HIS AND HE PLANS TO RETURN HOME. STATES HE GETS HIS MEDS AND EQUIPMENT THROUGH [place] AND HAS EVERYTHING HE NEEDS AND WILL HAVE NO NEEDS ON DISCHARGE. WILL CONTINUE TO FOLLOW.. BRANDON SORENSON
--- NOTE | 2018-08-06 12:07 | NUR ---
PATIENT C/O HEADACHE PAIN RATED 7 ON 0-10 SCALE ADMINISTERED TYLENOL 650MG PO WILL CONTINUE TO ASSESS LEONARDA CASTELLANOS
[2018-08-06 12:10] VITALS: BP 134/40
--- NOTE | 2018-08-06 13:01 | NUR ---
TYLENOL 650MG WAS EFFECTIVE PATIENT PAIN RATED AT 5 OF 10 DOWN FROM 7 OF 10 WILL CONTINUE TO ASSESS LEONARDA VINCENT SPEMILYCC
[2018-08-06 14:02] LABS: INTERNATIONAL NORM RATIO 1.2 (2.0-3.5)
--- NOTE | 2018-08-06 15:25 | NUR ---
Spoke with Sara Lundberg HOG GRADER notified that Dr. Albert was in and saw the pt. States that pt is ok for dc from this standpoint. States for pt to continue Tums and Calcitriol at home. Notified Sara of this.
[2018-08-06 16:00] VITALS: BP 153/74
[2018-08-06 20:00] VITALS: BP 142/68; BP 170/75
--- NOTE | 2018-08-06 23:00 | NUR ---
PATIENT MEDICATED WITH TYLENOL PER PRN ORDER FOR C/O HEADACHE. RATED PAIN A 5/10 WITH 10 BEING THE WORST. SEE EMAR. REINFORCED USE OF CALL LIGHT.
--- NOTE | 2018-08-06 23:53 | NUR ---
24 HR chart check completed.
[2018-08-07] VITALS: BP 135/63
[2018-08-07 08:00] VITALS: BP 146/78
[2018-08-07] MEDS ORDERED: COUMADIN5 M2 PO (11:56)
[2018-08-07] MEDS ORDERED: Oscal,Oyster S500 MG PO (11:56)
--- NOTE | 2018-08-07 13:39 | NUR ---
PATIENT REFUSED PT EVAL TODAY. WILL TRY AGAIN TOMORROW. THANK YOU FOR REFERRAL PATRICIA BAUGH PT
--- NOTE | 2018-08-07 14:15 | NUR ---
PT DISCHARGED HOME VIA WHEELCHAIR TO PRIVATE CAR BY THE PA. HEPLOCK AND SECURITY SYSTEMS MANAGER DISCONTINUED. FOLLOW UP CARE DISCUSSED.
[2018-08-20] MEDS ORDERED: NORVASC5 MG PO (18:09)
[2018-08-20] MEDS ORDERED: LASIX40 MG PO (18:13)
[2018-08-20] MEDS ORDERED: HYDRALAZINE HYD50 MG PO (18:17)
[2018-08-20] MEDS ORDERED: COUMADIN4 M2 PO (18:28)
[2018-08-20] MEDS ORDERED: COUMADIN6 M2 PO (18:29)
[2018-08-20] MEDS ORDERED: LANTUS SOL100 UNIT/1 SQ (22:56)
[2018-10-13] MEDS ORDERED: BUSPIRONE HCL10 MG PO (13:10)
[2018-10-13] MEDS ORDERED: NOVOLOG FL100 UNIT/2 SQ (13:15)
[2018-10-13] MEDS ORDERED: FISH OIL 1,0001 EAC3 PO (13:16)
== END 2018-08-07 14:44 | disposition home or self-care (01) | DRG 305 ==
LOC: ED 15:56 → 5E 17:29 → EDHOLD 17:29 → 5E 18:41
PROVIDERS: Emergency Medicine; Internal Medicine; Registered Nurse; ADMIT Internal Medicine
DX: I16.1 Hypertensive emergency (principal); E66.2 Morbid (severe) obesity with alveolar hypoventilation; N18.5 Chronic kidney disease, stage 5; I50.42 Chronic combined systolic (congestive) and diastolic (congestive) heart failure; N25.81 Secondary hyperparathyroidism of renal origin; E83.51 Hypocalcemia; M47.26 Other spondylosis with radiculopathy, lumbar region; E11.65 Type 2 diabetes mellitus with hyperglycemia; Z79.4 Long term (current) use of insulin; J44.9 Chronic obstructive pulmonary disease, unspecified; E11.40 Type 2 diabetes mellitus with diabetic neuropathy, unspecified; F32.9 Major depressive disorder, single episode, unspecified; E78.00 Pure hypercholesterolemia, unspecified; I25.119 Atherosclerotic heart disease of native coronary artery with unspecified angina pectoris; I48.0 Paroxysmal atrial fibrillation; D64.9 Anemia, unspecified; R79.1 Abnormal coagulation profile; I13.2 Hypertensive heart and chronic kidney disease with heart failure and with stage 5 chronic kidney disease, or end stage renal disease; E11.22 Type 2 diabetes mellitus with diabetic chronic kidney disease; Z88.5 Allergy status to narcotic agent; Z88.8 Allergy status to other drugs, medicaments and biological substances; Z88.1 Allergy status to other antibiotic agents; I25.2 Old myocardial infarction; Z87.01 Personal history of pneumonia (recurrent); Z95.5 Presence of coronary angioplasty implant and graft; Z98.52 Vasectomy status; Z90.11 Acquired absence of right breast and nipple; Z80.9 Family history of malignant neoplasm, unspecified; Z82.49 Family history of ischemic heart disease and other diseases of the circulatory system; Z83.3 Family history of diabetes mellitus; Z87.11 Personal history of peptic ulcer disease; Z79.01 Long term (current) use of anticoagulants; Z79.02 Long term (current) use of antithrombotics/antiplatelets; Z79.899 Other long term (current) drug therapy; Z68.33 Body mass index [BMI] 33.0-33.9, adult

== ENCOUNTER 2019-01-20 14:54 | Emergency (ER) | payer OTHER ==
[~2019-01-20] VITALS: Ht 182.8 cm; Wt 110.2 kg
--- NOTE | ~2019-01-20 | EKG ---
[place], [place] ELECTROCARDIOGRAM REPORT NAME: NOBLE GENTILE UNIT #: [id number] ROOM: DOCTOR: EPIPHANY DRAFT REPORT BIRTHDATE: [birth year] [facility] Test Date: 2019-01-20 Test Time: 15:40:29 Pat Name: NOBLE GENTILE Department: Room: Gender: Integrated Campaign Manager: Lupe Jacobo : 1950 Requested By: JOSEPH BENSON PA-C Order Number: [id number] Reading MD: Eric Baldwin Measurements Intervals [place] Rate: 78 P: 32 UT: 166 QRS: -8 QRSD: 108 T: -90 QT: 391 QTc: 446 Interpretive Statements Sinus rhythm Probable left atrial enlargement LVH with secondary repolarization abnormality Compared to ECG 11/09/2018 14:57:45 Intraventricular conduction delay no longer present Electronically Signed On 01-21-2019 12:44:38 PDT by Eric Baldwin CM:EKGRPT:ELECTROCARDIOGRAM REPORT [id number] JOSEPH BENSON PA-C EPIPHANY DRAFT REPORT JOSEPH BENSON PA-C
[~2019-01-20 14:54] MED LIST changes: +COUMADIN4 M2 PO; +COUMADIN5 M2 PO; +COUMADIN6 M2 PO; +FISH OIL 1,0001 EAC3 PO; +NOVOLOG FL100 UNIT/2 SQ; +Oscal,Oyster S500 MG PO
[2019-01-20 14:55] VITALS: BP 187/92
[2019-01-20 15:55] LABS: BASO % 0.3 % (0.0-1.0); EOS # 0.2 10*3/uL (0.0-0.4); EOS % 2.2 % (1.0-4.0); HEMOGLOBIN 11.4 g/dl (14.0-18.0); LYMPH # 1.3 10*3/uL (1.3-4.4); LYMPH % 18.7 % (27.0-41.0); MEAN CORPUSCULAR HGB 32.3 pg (27.0-31.0); MEAN CORPUSCULAR HGB CONC 31.7 g/dl (33.0-37.0); MEAN PLATELET VOLUME 10.2 fl (9.6-12.3); MONO # 0.7 10*3/uL (0.1-1.0); MONO % 9.8 % (3.0-9.0); NEUT # 4.7 10*3/uL (2.3-7.9); NEUT % 68.6 % (47.0-73.0); PLATELET COUNT AUTOMATED 171 10*3/uL (130-400); RED BLOOD COUNT 3.53 10*6/uL (4.50-5.90); RED CELL DISTRI WIDTH 15.8 % (0-14.5); WHITE BLOOD COUNT 6.9 10*3/uL (4.8-10.8)
[2019-01-20 16:05] LABS: ACT PARTIAL THROMBO TIME 30.8 SECONDS (20.0-32.1); INTERNATIONAL NORM RATIO 1.7 (2.0-3.5)
[2019-01-20 16:42] LABS: ALBUMIN 3.5 gm/dl (3.1-4.5); CREATININE 4.5 mg/dL (0.70-1.30); POTASSIUM 5.1 mmol/L (3.5-5.1); TOTAL PROTEIN 7.1 gm/dL (6.4-8.2); TROPONIN I 0.043 ng/ml (<0.045)
[2019-01-20] MEDS ORDERED: DOXYCYCLINE100 M3 PO (16:49)
== END 2019-01-20 17:12 | disposition home or self-care (01) ==
LOC: ED 14:54
PROVIDERS: Physician Assistant
DX: S01.01XA Laceration without foreign body of scalp, initial encounter (principal); R42 Dizziness and giddiness; J98.11 Atelectasis; R79.1 Abnormal coagulation profile; N18.9 Chronic kidney disease, unspecified; Z99.2 Dependence on renal dialysis; Z88.1 Allergy status to other antibiotic agents; Z88.6 Allergy status to analgesic agent; Z88.8 Allergy status to other drugs, medicaments and biological substances; Z79.899 Other long term (current) drug therapy; Z79.01 Long term (current) use of anticoagulants; W18.39XA Other fall on same level, initial encounter; Y93.89 Activity, other specified; Y92.89 Other specified places as the place of occurrence of the external cause; Y99.8 Other external cause status

== ENCOUNTER 2019-03-01 01:11 | Inpatient (IN) | payer MEDICARE ==
[~2019-03-01] VITALS: Ht 182.8 cm; Wt 114.9 kg
[2019-03-01 01:16] VITALS: BP 170/83
[2019-03-01 01:32] LABS: HEMATOCRIT 34.3 % (42.0-52.0); HEMOGLOBIN 11.2 g/dl (14.0-18.0); MEAN CELL VOLUME 99.7 fl (80.0-94.0); MEAN CORPUSCULAR HGB 32.6 pg (27.0-31.0); MEAN CORPUSCULAR HGB CONC 32.7 g/dl (33.0-37.0); MEAN PLATELET VOLUME 10.3 fl (9.6-12.3); PLATELET COUNT AUTOMATED 171 10*3/uL (130-400); RED BLOOD COUNT 3.44 10*6/uL (4.50-5.90); WHITE BLOOD COUNT 10.3 10*3/uL (4.8-10.8)
[2019-03-01 01:50] LABS: ACT PARTIAL THROMBO TIME 29.6 SECONDS (20.0-32.1); INTERNATIONAL NORM RATIO 1.4 (2.0-3.5)
[2019-03-01 01:55] LABS: ALBUMIN 3.3 gm/dl (3.1-4.5); CREATININE 4.48 mg/dL (0.70-1.30); POTASSIUM 5.2 mmol/L (3.5-5.1); TOTAL PROTEIN 7.1 gm/dL (6.4-8.2)
[2019-03-01 01:56] LABS: PLATELET SUFFICIENCY NORMAL (NORMAL); TOTAL CELLS COUNTED 100 #CELLS
[2019-03-01 02:05] LABS: TROPONIN I 0.151 ng/ml (<0.045)
[2019-03-01 02:08] VITALS: BP 180/80
--- NOTE | 2019-03-01 02:50 | NUR ---
PATIENT HAS ONE WOUND NOTED TO LEFT SECOND TOE. THE PATIENT REFUSED PICTURES AT THIS TIME AND REFUSES FOR THE REST OF BODY TO BE ASSESSED FOR WOUNDS.
[2019-03-01 03:04] VITALS: BP 172/77
--- NOTE | 2019-03-01 03:04 | NUR ---
A 68, admitted to , under the services of DAVID Reina DO with a diagnosis of CHF, GENERALIZED WEAKNESS, HYPERKALEMIA. Chief complaint is WEAKNESS. Patient arrived via bed from ER. Monitor applied. Initial assessment completed. Vital signs taken and recorded. DAVID REINA DO notified of admission to the unit. Orders received. See assessment for past medical history, medications and allergies. Patient and/or family oriented to unit. [facility] visitation policy reviewed. Clothing/patient valuable form completed. RACHELLE BEDOYA
--- NOTE | 2019-03-01 03:45 | NUR ---
PT REFUSED LASIX AT THIS TIME.
[2019-03-01 04:10] LABS: HEMATOCRIT 34.4 % (42.0-52.0); HEMOGLOBIN 11.2 g/dl (14.0-18.0); MEAN CELL VOLUME 100.9 fl (80.0-94.0); MEAN CORPUSCULAR HGB 32.8 pg (27.0-31.0); MEAN CORPUSCULAR HGB CONC 32.6 g/dl (33.0-37.0); MEAN PLATELET VOLUME 10.1 fl (9.6-12.3); PLATELET COUNT AUTOMATED 155 10*3/uL (130-400); RED BLOOD COUNT 3.41 10*6/uL (4.50-5.90); RED CELL DISTRI WIDTH 14.9 % (0-14.5)
[2019-03-01 04:26] LABS: ALBUMIN 3.3 gm/dl (3.1-4.5); CREATININE 4.54 mg/dL (0.70-1.30); PHOSPHOROUS 3.6 mg/dL (2.5-4.9); POTASSIUM 4.9 mmol/L (3.5-5.1)
[2019-03-01 04:28] LABS: FREE T4 0.93 ng/dl (0.76-1.46)
[2019-03-01 04:32] LABS: THYROID STIM HORMONE (HS) 0.884 uIU/ml (0.358-4.75)
--- NOTE | 2019-03-01 04:37 | NUR ---
DR. RON NOTIFIED OF CRITICAL TROPONIN OF 0.125. NO NEW ORDERS AT THIS TIME.
[2019-03-01 04:38] LABS: PLATELET SUFFICIENCY NORMAL (NORMAL); TOTAL CELLS COUNTED 100 #CELLS
--- NOTE | 2019-03-01 04:56 | NUR ---
DR. RON NOTIFIED OF PT NOT AWARE OF HOME MEDS. WILL CALL PHARMACY IN AM. ALSO NOTIFIED OF PT DIAGNOSIS OF DIABETES-INSULIN DEPENDENT. ORDERS RECEIVED.
--- NOTE | 2019-03-01 06:11 | NUR ---
DR. RON NOTIFIED OF NEED FOR WOUND ORDERS.
--- NOTE | 2019-03-01 06:31 | NUR ---
DR. RON NOTIFIED OF PT REQUEST FOR DUONEB. ORDERS RECEIVED.
--- NOTE | 2019-03-01 06:37 | NUR ---
LEFT MESSAGE WITH DR. MOORE'S ANSWERING SERVICE FOR CONSULT AT THIS TIME.
--- NOTE | 2019-03-01 06:41 | NUR ---
SPOKE TO DR. RIVERA'S ANSWERING SERVICE ABOUT CONSULT.
--- NOTE | 2019-03-01 06:53 | NUR ---
DR. RIVERA RETURNED CALL. GET MED LIST FROM PT .
--- NOTE | 2019-03-01 07:45 | NUR ---
I SPOKE WITH PT'S YAHIR AND ASKED IF SHE COULD BRING ALL OF HER HUSBANDS CURRENT MEDS IN SO THAT WE CAN REVIEW THEM. SHE STATED "O MY IF I CAN FIND THEM" SHE STATED HE IS VERY UNORGANIZED AND SHE IS NOT EVEN SURE WHERE HE KEEPS ALL HIS MEDS.
[2019-03-01 07:54] LABS: VITAMIN D, 25-HYDROXY 12.3 ng/mL (30-100)
--- NOTE | 2019-03-01 07:58 | NUR ---
NOBLE GENTILE [id number] Please refer to the physician's history and physical for past medical history, comorbid conditions, and allergies. Diagnosis: CHF GENERALILZED WEAKNESS, HYPERKALEMIA Tyrel Score: 16,AT RISK WOUND DESCRIPTIONS: Wound Number: 1 Location of the wound: left 2nd toe lateral Thickness: Partial Size: 0.9cm x 0.4cm x <0.1cm Tunneling: none Undermining: none Sinus Tract: none Presence of Exudate: none Amount: None Color: Red Odor: None Periwound Skin Appearance: Normal Wound edges: approximated Pain (associated with wound): none at time of assessment pt states he has neuropathy How does patient state this happened? pt is unsure how this happened but states he follows with podiatry at the [place] Dr. Frances Brown Wound Number: 2 Location of the wound: left 2nd toe medial Thickness: Partial Size: 0.3cm x 0.2cm x <0.1cm Tunneling: none Undermining: none Sinus Tract: none Presence of Exudate: none Amount: None Color: Red Odor: None Periwound Skin Appearance: Normal Wound edges: approximated Pain (associated with wound): none at time of assessment pt states he has neuropathy How does patient state this happened? pt is unsure how this happened but states he follows with podiatry at the [place] Dr. Frances Brown Surface the patient is resting on: Isoflex SKIN PREVENTION RECOMMENDATION: 1. Pressure redistribution support surface as appropriate 2. Elevate heels 3. Remove boots/TEDS every shift and reapply 4. Head of bed 30 degrees as tolerated 5. Assess nutrition and hydration 6. Manage moisture 7. Avoid the use of containment devices while in bed 8. Use absorptive products on surfaces limit layers of linens on bed 9. Turn and reposition every 1-2 hours in bed and every 1 hour in chair as tolerated 10. Weight shifts every 15 minutes while up in chair 11. Offloading with pillows or device to keep heels elevated off bed 12. Monitor skin at least every shift 13. Inspect under medical devices twice a day WOUND TREATMENT RECOMMENDATIONS: Patient state he will follow with Dr. Fritz on discharge. He stated he doesn't want to follow with podiatry while he is here. Cleanse left 2nd toe with nss and apply sureprep around the wound bactroban to wound bed and cover with bandaid daily and prn for soiling. Heel raiser pro boots to bilateral feet while in bed.
[2019-03-01 08:00] VITALS: BP 160/72
[2019-03-01] MEDS ORDERED: ASPIRIN ADULT L81 M2 PO (10:21)
[2019-03-01] MEDS ORDERED: NEURONTIN100 MG PO (10:27)
[2019-03-01] MEDS ORDERED: COZAAR25 M1 PO (10:27)
[2019-03-01] MEDS ORDERED: VITAMIN D31000 UNIT PO (10:29)
[2019-03-01] MEDS ORDERED: RENAL CAPS SOFTG1 MG PO (10:30)
[2019-03-01] MEDS ORDERED: COUMADIN4 M2 PO (10:31)
--- NOTE | 2019-03-01 10:42 | NUR ---
Dr. Silva notified of wound care recommendations.
[2019-03-01 12:00] VITALS: BP 122/66; BP 160/76
--- NOTE | 2019-03-01 12:42 | NUR ---
HEEL PROTECTORS PLACED ON PT.
--- NOTE | 2019-03-01 14:42 | NUR ---
PHYSICAL THERAPY Physical therapy evaluation offered. Patient refusing PT evaluation at this time, stating that PT has not helped him in the past. Will attempt PT evaluation again at a later date. Thank you. Shireen Cannon,PT,DPT.
[2019-03-01 20:00] VITALS: BP 156/71
[2019-03-01 20:48] LABS: BILIRUBIN NEGATIVE (NEGATIVE); BLOOD 1+ (NEGATIVE); CLARITY CLEAR (CLEAR); COLOR YELLOW (YELLOW); GLUCOSE 3+ (NEGATIVE); KETONE NEGATIVE (NEGATIVE); LEUKO ESTERASE NEGATIVE (NEGATIVE); NITRITE NEGATIVE (NEGATIVE); UROBILINOGEN 0.2 E.U./dl (0.2-1.0)
[2019-03-01 21:00] LABS: BACTERIA TRACE; EPITHELIAL CELLS 0-2; WBC 0-2 wbc/hpf (0-5)
[2019-03-02] VITALS: BP 159/63
--- NOTE | 2019-03-02 02:22 | NUR ---
24 HR chart check completed.
--- NOTE | 2019-03-02 03:23 | NUR ---
PATIENT SLEEPING. CALL LIGHT WITHIN REACH, WILL MONITOR
[2019-03-02 06:36] LABS: BASO % 0.2 % (0.0-1.0); EOS % 0.2 % (1.0-4.0); HEMATOCRIT 32.2 % (42.0-52.0); HEMOGLOBIN 10.4 g/dl (14.0-18.0); LYMPH # 0.4 10*3/uL (1.3-4.4); LYMPH % 7.7 % (27.0-41.0); MEAN CELL VOLUME 98.8 fl (80.0-94.0); MEAN CORPUSCULAR HGB 31.9 pg (27.0-31.0); MEAN CORPUSCULAR HGB CONC 32.3 g/dl (33.0-37.0); MEAN PLATELET VOLUME 10.9 fl (9.6-12.3); MONO # 0.5 10*3/uL (0.1-1.0); MONO % 9.3 % (3.0-9.0); NEUT # 4.5 10*3/uL (2.3-7.9); NEUT % 81.7 % (47.0-73.0); PLATELET COUNT AUTOMATED 135 10*3/uL (130-400); RED BLOOD COUNT 3.26 10*6/uL (4.50-5.90); RED CELL DISTRI WIDTH 14.7 % (0-14.5); WHITE BLOOD COUNT 5.5 10*3/uL (4.8-10.8)
[2019-03-02 06:57] LABS: POTASSIUM 4.6 mmol/L (3.5-5.1)
[2019-03-02 07:03] LABS: INTERNATIONAL NORM RATIO 1.3 (2.0-3.5)
[2019-03-02 07:04] LABS: ALBUMIN 3.1 gm/dl (3.1-4.5); CREATININE 5.56 mg/dL (0.70-1.30); TOTAL PROTEIN 6.6 gm/dL (6.4-8.2)
[2019-03-02 08:00] VITALS: BP 130/70
--- NOTE | 2019-03-02 09:00 | NUR ---
Windows Phone Developer in to talk to patient. Patient states lives at home with . There are few steps in the home. Physician: lizbeth [facility]: [facility] Home health services: none Patient's level of ADLs: MINIMAL ASSIST Patient has working utilities: all working DME: electric scooter, stair chair cane and walker Follow-up physician's appointment after d/c: will be made by hospitalist nurse sujit upon discharge Does patient want to access PORTAL?: no Discharge plan discussed with patient, he lives at home with , stated he has all of the equipement he needs at home discussed with him not being able to ambulate well and the risk of him falling, discussed him going to a short term half-way for rehab prior to returning home, patient wasn't sure he wanted to go to a SNF, educated him on rehab doing evaluations and case management will talk with him after PT and OT make their recommendations, patient was agreeable with this. patient has dialysis Thursday, Thursday and Thursday. ANDREAS BARRIENTOS
--- NOTE | 2019-03-02 10:00 | NUR ---
Dr. Albert in and saw pt. Notified pt that pt would have dialysis later on today.
--- NOTE | 2019-03-02 10:08 | NUR ---
PHYSICAL THERAPY Physical therapy evaluation complete, 4E. Moderate complexity evaluation (12986) per chart review and evaluation. PT to progress with transfers, gait, LE strength, and safety throughout POC. Recommend SNF at discharge. Thank you. Shireen Cannon,PT,DPT.
--- NOTE | 2019-03-02 10:18 | NUR ---
Occupational Therapy eval complete on 4 with full eval to follow. Precautions include IV UE, fall risk, bed and body alarm, and dialysis fistula in left arm, moderate complexity level 94647 via chart review, testing, and eval. Recommend OT per POC and discharge to SNF to enable safe return to prior level of independence. Thank you for this referral. Kelby Cote S/OT Luz Elena Stone OTR/L
--- NOTE | 2019-03-02 10:35 | NUR ---
Dr. Jacobsen in and saw pt.
--- NOTE | 2019-03-02 11:08 | NUR ---
Notified Dr. Silva of pt bsg of 412. Reviewed insulin order. No further orders.
[2019-03-02 12:00] VITALS: BP 148/68
--- NOTE | 2019-03-02 12:53 | NUR ---
Notified Dr. Enriquez of consult. Notiifed pt is to be having dialysis today so he won't be dc today. States he may add on pt tomorrow. States he will put orders in.
--- NOTE | 2019-03-02 13:01 | NUR ---
Pt taken off floor for dialysis.
--- NOTE | 2019-03-02 13:21 | NUR ---
Patient requesting a referral to [facility], contacted [facility] and faxed referral. Waiting on review/acceptance. Will require a precert.
--- NOTE | 2019-03-02 15:33 | NUR ---
PHYSICAL THERAPY PT OUT OF ROOM UPON ARRIVAL THIS PM. PHYSICAL THERAPY WILL TRY AGAIN AT A LATER TIME/DATE. ROSHAN CURRY PTA
[2019-03-02 16:00] VITALS: BP 147/95
--- NOTE | 2019-03-02 16:08 | NUR ---
Dr. Silva notified of wound care recommendations
--- NOTE | 2019-03-02 16:38 | NUR ---
Pt remains off floor in dialysis room on 5e.
--- NOTE | 2019-03-02 17:15 | NUR ---
Returned to floor from dialysis.
[2019-03-02 18:00] VITALS: BP 147/95
[2019-03-02 20:00] VITALS: BP 153/66
--- NOTE | 2019-03-02 20:00 | NUR ---
PATIENT TOOK HEART MONITOR OFF. STATED HE WAS DONE WITH IT AND DIDN'T WANT IT ON ANYMORE. I TOLD HIM HE WORE IT ALL NIGHT FOR ME LAST NIGHT WITH NO ISSUE. PATIENT ALERT AND ORIENTED. HE STATED IT'S ITCHY AND HE HAS NOTHING WRONG WITH HIS HEART. EXPLAINED THE HEART DOCTOR IS KEEPING IT ON BECAUSE HES GETTING A STRESS TEST TOMORROW. HE SAID THE HEART DOCTOR SAW HIM ALREADY, AND HE UNDERSTANDS HES GETTING A STRESS TEST BUT JUST ASKED IF HE COULD BE CHECKED ON EVERY ONCE AND A WHILE INSTEAD OF WEARING THAT STUPID THING. DR. RON MADE AWARE.
--- NOTE | 2019-03-02 20:29 | NUR ---
PATIENTS PULSE OX 90% ON ROOM AIR. 2L APPLIED. O2 SATS TO 95%
--- NOTE | 2019-03-02 22:00 | NUR ---
PATIENT REFUSED DRESSING TO BE PUT AND BACTROBAN OINTMENT TO BE PUT ON WOUND OF THE TOE. PATIENT STATES HE USED MEDICINE BEFORE AND IT DIDN'T HELP SO HE DOESN'T CARE TO USE IT NOW.
--- NOTE | 2019-03-02 22:30 | NUR ---
ATTEMPTED TO PUT PATIENT BACK ON THE HEART MONITOR. REFUSING AGAIN. WILL RETRY IN AM
--- NOTE | 2019-03-02 23:00 | NUR ---
PATIENT REFUSED BATH FOR TESTING WHILE GETTING UP TO THE BATHROOM. STATED HE WOULD GET ONE LATER
--- NOTE | 2019-03-02 23:44 | NUR ---
PATIENT COMPLAINING OF HEART BURN. STATED HE ATE TOO MANY TOSHA CRACKERS. NOTIFIED DR. RON. ORDER RECIEVED FOR 1000MG OF TUMS TO BE GIVEN NOW
[2019-03-03] VITALS: BP 116/57
--- NOTE | 2019-03-03 00:24 | NUR ---
24 HR chart check completed.
--- NOTE | 2019-03-03 02:24 | NUR ---
PATIENT SLEEPING. SNORING RESPIRATIONS. CALL LIGHT WITHIN REACH
--- NOTE | 2019-03-03 06:00 | NUR ---
PATIENT ONCE AGAIN REFUSED THE BATH. EXPLAINED TO PATIENT THAT HE IS HAVING A STRESS TEST TODAY ALONG WITH POSSIBLY HAVING HIS DILAYSIS CATHETER REMOVED. PATIENT ADAMATELY REFUSING
[2019-03-03 06:22] LABS: BASO % 0.3 % (0.0-1.0); EOS # 0.1 10*3/uL (0.0-0.4); EOS % 0.8 % (1.0-4.0); HEMATOCRIT 34.3 % (42.0-52.0); HEMOGLOBIN 10.9 g/dl (14.0-18.0); LYMPH # 0.7 10*3/uL (1.3-4.4); LYMPH % 10.8 % (27.0-41.0); MEAN CORPUSCULAR HGB 31.8 pg (27.0-31.0); MEAN CORPUSCULAR HGB CONC 31.8 g/dl (33.0-37.0); MEAN PLATELET VOLUME 10.8 fl (9.6-12.3); MONO # 0.6 10*3/uL (0.1-1.0); MONO % 9.3 % (3.0-9.0); NEUT # 4.8 10*3/uL (2.3-7.9); NEUT % 78.5 % (47.0-73.0); PLATELET COUNT AUTOMATED 141 10*3/uL (130-400); RED BLOOD COUNT 3.43 10*6/uL (4.50-5.90); WHITE BLOOD COUNT 6.1 10*3/uL (4.8-10.8)
[2019-03-03 06:24] LABS: CREATININE 4.44 mg/dL (0.70-1.30); POTASSIUM 4.2 mmol/L (3.5-5.1)
[2019-03-03 06:50] LABS: INTERNATIONAL NORM RATIO 1.5 (2.0-3.5)
--- NOTE | 2019-03-03 07:29 | NUR ---
SPOKE WITH DR. ARMENTA. HE STATED HE WOULD LIKE TO TAKE THE PATIENT DOWN FOR SURGERY AROUND NOON. THIS NURSE EXPLAINED TO HIM THAT THE PATIENT WAS SUPPOSED TO GO DOWN FOR A STRESS TEST TODAY BETWEEN 9-10. CALLED [facility] AND ASKED WHAT TIME THE PATIENT WOULD BE DONE WITH THE STRESS TEST AND THEY STATED THAT IT PROBABLY WOULDN'T BE UNTIL AROUND 1PM. TOLD DR. ARMENTA, HE STATED THAT THAT WAS TOO LATE FOR HIM TO DO THE REMOVAL. HE STATED THAT THIS PROCEDURE CAN BE DONE OUTPATIENT. AND THAT HE WILL BE UP TO SPEAK WITH THE PATIENT ABOUT GETTING HIM SCHEDULED WHEN HE GETS OUT OF THE HOSPITAL
--- NOTE | 2019-03-03 07:30 | NUR ---
BED SIDE REPORT RECEIVED FROM ASSISTANT DIRECTOR OF NURSING NURSE. PT IS AWAKE AT THIS TIME. PT VOICES NO COMPLAINTS AT THIS TIME. NO SIGNS OF DISTRESS NOTED. RESPIRATIONS EASY AND UNLABORED. CALL LIGHT IN REACH.
[2019-03-03 08:00] VITALS: BP 148/56
--- NOTE | 2019-03-03 09:00 | NUR ---
case management visits with patient, again discussed with him going to a short term senior living for rehab, educated patient that at this time he is not safe to return home due to him being unsteady and unable to care for himself, he stated he has his and he is not agreeable to going to a SNF. discussed with him [facility] and he is also not agreeable with this, case management will follow
--- NOTE | 2019-03-03 09:20 | NUR ---
OT NOTE Pt was seen this A.M. 1:1 for 20 minute OT session. Upon arrival pt was supine in bed, pt identified by name and . Pt had reports of feeling "terrible" however would not report why or what was feeling "terrible." Pt presented to therapy with continuous 2L-O2 via NC which he remained on throughout entire session. Pt transferred supine to sit EOB with modA X 2. While sitting EOB pt presented with P+ static sitting balance due to having multiple LOB backwards that required modA to correct. Requested for pt to brendan B socks and pt required maxA due to having LOB throughout. Sit to stand completed from bed level with Lev and use of w/w for UE support. Functional mobility then completed into the bathroom with Lev and use of w/w. Pt required constant verbal prompts for correcting walker safety due to being impulsive, staying unsafe distant away, and attempting to walk away without it. Pt transferred on/off standard commode with modA due to low surface. Requested for pt to stand sink side to wash his hands and pt declined stating he would do it while seated on the commode. While doing task seated pt got water on the floor and still attempted to stand, educated pt on safety concerns. Pt then attempted to complete functional mobility to the recliner and pt was unable to make it due to quick onset of fatigue. He then had to sit nursing home for a seated rest break. Stand pivot then completed from EOB to the recliner with modA and use of w/w. THere he was left sitting upright with call light in hand, tray table in place, and body alarm on for safety. Continue with rec D/ Cplan to SNF. TRAVIS Roth/Saeed
--- NOTE | 2019-03-03 09:30 | NUR ---
PHYSICAL THERAPY Patient presented to therapy in supine with report of being weak and feeling terrible. Patient was identified by name and on wristband. Patient gives informed consent for treatment. Patient performed supine to sitting at EOB with MOD A X 2. Patient performed sitting at EOB with retro LOB x 2 with MOD A X 2 to correct upright posture. Patient sit to stand transfer with MIN A X 1. Patient performed ambulation 12' x 1 to restroom and then 12' x 1 back ot EOB with Wh Walker with CGA X 2 with verbal cues for upright posture, pushing down on walker, and locking knees into extension to prevent knee buckling. Patient is on 2 liters of spO2 VIA NASAL CANULA. Patient x 1 LOB to the rear, rolling back on heels and required MOD A X 1 to correct to upright posture. Patient performed sit to stand transfer from bedside again, and SPT to bedside chair with MIN A X 1 SIT OT STAND FROM EOB and CGA X 1 SPT to bedside chair. Patient was left in bedside chair with chair alarm tested and attached, call light within reach, and LEs lowered. Patient was 1:1 with this DIE OUT WORKER FOR 20 MINUTES TOTAL. [employer] DIE OUT WORKER
--- NOTE | 2019-03-03 10:12 | NUR ---
PT OFF FLOOR FOR STRESS TEST.
--- NOTE | 2019-03-03 11:00 | NUR ---
INFORMED CONSENT OBTAINED FOR LEXISCAN NUCLEAR STRESS TEST WITH DR. MALDONADO. RESTING EKG NSR WITH A RESTING HR OF 87 WITH BP OF 122/60. HAS ST DOWNSLOPING AND DEPRESSION IN LEADS II,III,AVF AND V6. HAS T WAVE INVERSIONS IN LEADS V4-V5. PT COMPLETED A 1:00 LEXISCAN PROTOCOOL RECEIVING LEXISCAN 0.4 MG IV OVER 10 SECONDS. HAD NO CHEST PAIN BUT DID C/O OF FEELING OF SHORT OF BREATH AND DIZZINESS THAT SUBSIDED IN RECOVERY. NO NEW ST CHANGES. HAD A PEAK HR OF 94 WITH BP OF 110/50. LAST RECOVERY HR OF 95 WITH BP OF 120/60. AWAITING SCANNING IN STABLE CONDITION.
[2019-03-03 12:00] VITALS: BP 142/66
--- NOTE | 2019-03-03 12:20 | NUR ---
PT BACK FROM STRESS TEST. PT RESPIRATIONS EASY. NO SIGNS OF DISTRESS. NO COMPLAINTS/NEEDS AT THIS TIME. CALL LIGHT IN REACH.
[2019-03-03 12:39] VITALS: BP 142/66
--- NOTE | 2019-03-03 13:00 | NUR ---
PT STILL REFUSING HEART MONITOR AT THIS TIME. PT ALSO REFUSING WOUND CARE.
--- NOTE | 2019-03-03 15:08 | NUR ---
PHYSICAL THERAPY CO-SIGN I approve of the Physical Therapy notes written above. DANIEL GALVAN PT,DPT
[2019-03-03] MEDS ORDERED: COUMADIN5 M2 PO (15:46)
[2019-03-03] MEDS ORDERED: VITAMIN D32000 UNI1 PO (15:46)
[2019-03-03 16:00] VITALS: BP 108/50
--- NOTE | 2019-03-03 17:05 | NUR ---
DR. BROWN OKAYED PT DISCHARGE.
--- NOTE | 2019-03-03 17:25 | NUR ---
Discharge instructions reviewed with patient/family. Patient receptive and verbalizes understanding. Follow-up care arranged. Written instructions given to patient/family. RACHELLE BEDOYA
--- NOTE | 2019-03-04 15:55 | NUR ---
OCCUPATIONAL THERAPY CO-SIGN I approve of the Occupational Therapy notes written above. DANG PATRICK OTR/Saeed
== END 2019-03-03 17:25 | disposition home or self-care (01) | DRG 291 ==
LOC: ED 01:11 → EDHOLD 02:11 → 4E 02:11
PROVIDERS: Internal Medicine; Student in an Organized Health Care Education/Training Program; ADMIT Internal Medicine
PROC: 5A1D70Z Performance of Urinary Filtration, Intermittent, Less than 6 Hours Per Day (ICD-10-PCS; principal; 2019-03-02)
PROC: 4A02XM4 Measurement of Cardiac Total Activity, External Approach (ICD-10-PCS; 2019-03-03)
PROC: 3E073KZ Introduction of Other Diagnostic Substance into Coronary Artery, Percutaneous Approach (ICD-10-PCS; 2019-03-03)
DX: I13.2 Hypertensive heart and chronic kidney disease with heart failure and with stage 5 chronic kidney disease, or end stage renal disease (principal); I50.43 Acute on chronic combined systolic (congestive) and diastolic (congestive) heart failure; N18.6 End stage renal disease; E44.0 Moderate protein-calorie malnutrition; D68.59 Other primary thrombophilia; E87.1 Hypo-osmolality and hyponatremia; E66.2 Morbid (severe) obesity with alveolar hypoventilation; E87.5 Hyperkalemia; E11.22 Type 2 diabetes mellitus with diabetic chronic kidney disease; J44.9 Chronic obstructive pulmonary disease, unspecified; E11.42 Type 2 diabetes mellitus with diabetic polyneuropathy; I16.0 Hypertensive urgency; R79.89 Other specified abnormal findings of blood chemistry; E83.41 Hypermagnesemia; F32.9 Major depressive disorder, single episode, unspecified; M47.9 Spondylosis, unspecified; E11.65 Type 2 diabetes mellitus with hyperglycemia; I25.10 Atherosclerotic heart disease of native coronary artery without angina pectoris; E78.00 Pure hypercholesterolemia, unspecified; I48.2 Chronic atrial fibrillation; D53.9 Nutritional anemia, unspecified; Z79.01 Long term (current) use of anticoagulants; Z99.2 Dependence on renal dialysis; Z68.34 Body mass index [BMI] 34.0-34.9, adult; Z79.4 Long term (current) use of insulin; I25.2 Old myocardial infarction; Z87.11 Personal history of peptic ulcer disease; Z95.5 Presence of coronary angioplasty implant and graft; Z90.11 Acquired absence of right breast and nipple; Z98.52 Vasectomy status; Z80.8 Family history of malignant neoplasm of other organs or systems; Z88.5 Allergy status to narcotic agent; Z88.8 Allergy status to other drugs, medicaments and biological substances; Z88.1 Allergy status to other antibiotic agents; Z79.82 Long term (current) use of aspirin; Z79.899 Other long term (current) drug therapy; Z79.02 Long term (current) use of antithrombotics/antiplatelets

== ENCOUNTER 2019-03-08 01:15 | Inpatient (IN) | payer MEDICARE ==
[~2019-03-08] VITALS: Ht 182.9 cm; Wt 129.4 kg
--- NOTE | ~2019-03-08 | PROC NOTE ---
[place], [place] PROCEDURE NOTE [id number] #: [id number] ROOM: 403 DOCTOR: TOM REILLY BIRTHDATE: [birth year] DOS: 03/10/2019 MODIFIED BARIUM SWALLOW LOCATION: [facility], room 403, bed 2. ORDERING PHYSICIAN: Dr. Darden. RADIOLOGIST: Dr. Li. BACKGROUND INFORMATION: The patient, a 68-year-old male, was seen for a modified barium swallow. This test was ordered to rule out aspiration. The patient is diagnosed with pneumonia. Further medical history includes metabolic encephalopathy, leukocytosis, COPD, HTN, IDDM, CAD, CKD with dialysis. The patient reported that he chokes at times with food and liquid. He currently receives a regular diet and thin liquid. For today's assessment, he was alert and able to follow all commands. Respiratory status was within normal limits. Oral peripheral examination revealed presence of a couple teeth only. Lingual and labial skills were within functional limits in terms of strength, range of motion, and coordination. The patient was able to volitionally cough and swallow. METHODS AND MATERIALS USED FOR THE EXAM: The patient was positioned in the lateral plane and the exam was viewed under fluoroscopy. The patient was presented with a variety of consistencies to assess swallowing skills, including applesauce mixed with barium presented in half teaspoon amounts, barium-coated cookie taken in bite size piece and thin liquid barium taken by cup. The patient took liquids in single sip, in both large sips and small sip size amounts. ORAL PHASE: The patient achieved adequate labial seal around cup and spoon with no anterior loss. Bolus formation and transit were within normal limits. Mastication was within functional limits due to dentition. Tongue to palate contact was within normal limits. Tongue retraction was within normal limits. Velar functioning was within normal limits, with no nasal regurgitation. PHARYNGEAL PHASE: The pharyngeal swallow occurred within a timely manner. When swallowing thin liquid and a large sip size amount, silent aspiration occurred during the swallow due to reduced laryngeal elevation and epiglottic function. The patient was instructed to take a smaller sip, and when doing so, no penetration or aspiration occurred. There was no penetration or aspiration with any other consistency. There was no residue in the pharynx post-swallow. ESOPHAGEAL PHASE: This phase of the swallow was not formally assessed during this exam. IMPRESSIONS AND RECOMMENDATIONS: Based upon assessment results, this 68-year-old patient presents with a mild pharyngeal stage dysphagia characterized by silent aspiration with thin liquid when taken in large sip size amounts. No penetration or aspiration occurred with small sip of liquid or with [place], [place] PROCEDURE NOTE NAME: NOBLE GENTILE UNIT #: [id number] ROOM: [facility] DOCTOR: TOM REILLY BIRTHDATE: [birth year] any other consistency. Recommend the patient remain on current diet and consume liquids in small single sips. Short term followup therapy is recommended to ensure safety through education and adherence to safe swallow precautions. Results and recommendations were shared with the patient and his nurse and they verbalized understanding. Thank you very much for this referral. Should you have any questions regarding this patient, please contact the speech pathologist at [phone]. TOM REILLY CM:PROCNOTE:PROCEDURE NOTE 1505 [id number] TOM REILLY
--- NOTE | ~2019-03-08 | PROC NOTE ---
[place], [place] PROCEDURE NOTE [id number] UN[facility] #: [id number] ROOM: 403 DOCTOR: DELIA YOUNG MD BIRTHDATE: [birth year] DOS: 03/10/2019 PREOPERATIVE DIAGNOSIS: Right anterior chest wall hemodialysis catheter. POSTOPERATIVE DIAGNOSIS: Right anterior chest wall hemodialysis catheter. PROCEDURE: Removal of right anterior chest wall hemodialysis catheter. SURGEON: Delia Young MD BLOCK SETTER GYPSUM: ELISA. ANESTHESIA: Local. INDICATIONS: This is a 68-year-old male with a history of a right anterior chest wall hemodialysis catheter, who is here for the removal. The procedure and its complications were explained to the patient in detail preoperatively. Complications that were discussed included but were not limited to, bleeding, infection and damage to lying vital structures. He agreed to proceed. DESCRIPTION OF PROCEDURE: After identifying the patient, the patient was brought to the procedure room and laid in the supine position. After a time-out procedure was done, parts were painted and draped in the usual sterile fashion. The suture that was holding the skin edges and the catheter together was cut. Thereafter, local anesthesia was infiltrated and the cuff was dissected away from the overlying skin with the help of blunt and sharp dissection. Thereafter, the catheter was removed. Hemostasis was achieved with the help of pressure and with the help of subcuticular 3-0 suture. Thereafter, skin glue was used to approximate the skin edges and a dressing was placed. The patient tolerated the procedure well and was brought back to the recovery room in stable fashion. There were no complications. Delia Young MD CM:PROCNOTE:PROCEDURE NOTE [id number] DELIA YOUNG MD
--- NOTE | ~2019-03-08 | PR ---
[place], [place] PROGRESS NOTE [id number] UNIT #: [id number] ROOM: 427 DOCTOR: ERICA HOBBSSEPTEMBER BIRTHDATE: [birth year] DOS: 03/12/2019 SUBJECTIVE: The patient is a 68-year-old male who is being followed for Staph aureus bacteremia. Admitting blood cultures on February were positive for MRSA. He had a Tesio in place that was removed on February. His repeat blood cultures from the are sterile. He had a KARINA, which did not show any vegetation. He remains on IV vancomycin for now using his AV fistula in his left arm for his dialysis, so no new line had be placed. He has been without fevers. Denies any problems with antibiotics. No nausea, vomiting, or diarrhea. Denies cough or shortness of breath. He has had no fevers. Denies any pain. No peripheral edema. Further review of systems is unremarkable. LABORATORY DATA: WBCs 5.3, platelets 198. BUN 38, creatinine 4.11. LFTs within normal limits. Cultures as reviewed above. PHYSICAL EXAMINATION: VITAL SIGNS: Temperature 97.6, pulse 66, respirations 18, BP 142/75. GENERAL: A 68-year-old male, in no acute distress, sitting up in a chair. HEAD, EYES, EARS, NOSE, AND THROAT: Normocephalic. Mucous membranes are somewhat tacky. NECK: Supple. LUNGS: Clear to auscultation bilaterally. Respirations are even and unlabored. HEART: Regular rhythm. No murmur appreciated. ABDOMEN: Soft, obese, and nontender. EXTREMITIES: No edema or deformity. SKIN: Warm, dry, free of rashes. Left forearm AV fistula ecchymotic. ASSESSMENT: Methicillin-resistant Staphylococcus aureus bacteremia due to a Tesio infection, status post removal on February. Repeat blood cultures are sterile, and the KARINA showed no vegetations. PLAN: At this point, he needs to be continued on IV vancomycin for 2 weeks from when the line was removed until February. He is awaiting placement in a rehab. CATERINA FABY MALDONADO [place], [place] PROGRESS NOTE NAME: NOBLE GENTILE UNIT #: [id number] ROOM: 427 DOCTOR: ERICA HOBBS,SEPTEMBER BIRTHDATE: [birth year] Sirisha MD Kathleen CM:MICHELLE 51 [phone] ERICA HOBBS 03/12/192006 interface
--- NOTE | ~2019-03-08 | PR ---
[place], [place] PROGRESS NOTE NAME: NOBLE GENTILE UNIT #: [id number] ROOM: 427 DOCTOR: ERICA HOBBSSEPTEMBER BIRTHDATE: [birth year] DOS: 03/13/2019 SUBJECTIVE: The patient is being followed for chief complaint of a bacteremia. He originally had positive blood cultures on admission on February the for MRSA. Repeat blood cultures from the are clear. His Tesio was removed on the . He is alert and oriented. Denies any pain. Denies fevers, chills, nausea, vomiting or diarrhea. No cough or shortness of breath. He has had no fevers. LABORATORY DATA: WBCs 5.7, platelets 195, BUN 56, creatinine 5.39. LFTs within normal limits. Hepatitis panel negative. PHYSICAL EXAMINATION: VITAL SIGNS: Temperature 97.7, pulse 68, respirations 18, BP 154/72. GENERAL: A 68-year-old, male, in no acute distress, lying in bed, watching football. HEAD, EYES, EARS, NOSE AND THROAT: Normocephalic, no thrush. NECK: Supple. LUNGS: Clear to auscultation bilaterally. Respirations even and unlabored. HEART: Regular rhythm. No murmur appreciated. ABDOMEN: Soft, nontender. EXTREMITIES: No edema, deformity, or cyanosis. He has a left forearm AV fistula. ASSESSMENT: Methicillin-resistant Staphylococcus aureus bacteremia due to infected Tesio, tip was not cultured. Repeat blood cultures remained sterile. He had a KARINA which showed no vegetations. PLAN: He needs to be continued on IV vancomycin for 2 weeks from when the line was removed, which will take him until February. Apparently someone mentioned to him getting a PICC line. He does not need a PICC line for his IV vancomycin. It could be dosed with hemodialysis on an outpatient basis at 1.5 grams IV q. hemodialysis, again to be continued until February. SEPTEMBER FABY MALDONADO [place], [place] PROGRESS NOTE NAME: NOBLE GENTILE UNIT #: [id number] ROOM: 427 DOCTOR: ERICA HOBBSSEPTEMBER BIRTHDATE: [birth year] Sirisha Wang MD CM:MICHELLE [phone] ERICA HOBBS 03/13/19 163 interface
--- NOTE | ~2019-03-08 | CON ---
[place], [place] REPORT OF CONSULTATION NAME: NOBLE GENTILE UNIT #: [id number] ROOM: 403 DOCTOR: MASON GARSIA MD BIRTHDATE: [birth year] DOS: 03/10/2019 REASON FOR CONSULTATION: Bacteremia. CHIEF COMPLAINT: Weakness with dialysis session. HISTORY OF PRESENTING ILLNESS: This is a 68-year-old male with past medical history of end-stage renal disease, on hemodialysis through a right chest tunneled dialysis catheter that has been removed today, 03/10/2019, as he has a functioning left arm fistula, he presented because he was having weakness with the dialysis session. He was found to be hypoglycemic as well as hypotensive. On his arrival, he was afebrile. He did have a WBC count of 14,000, which on repeat is normal. CRP of 58. His blood cultures from admission, on 03/08/2019, 2 bottles out of the 4 are growing GPC in chains and pairs. He is being started on vancomycin since admission on 03/08/2019. He is also getting azithromycin plus Zosyn. He does not have any respiratory symptoms as shortness of breath, chest pain, cough, although the chest x-ray as well as the chest CT was suggestive of some questionable pneumonia. He does not have any respiratory issues at this time. The patient had 1 blood culture bottle positive for Streptococcus salivarius back in 06/2018. ID was not consulted at this time. Pulmonary was following for pneumonia. The patient was getting ceftriaxone. Later, I do not find any details on the discharge that it was treated or not. PAST MEDICAL HISTORY: Significant for asthma, atrial fibrillation; coronary artery disease, status post stent; COPD; CHF; end-stage renal disease, on hemodialysis; anemia and obesity. PAST SURGICAL HISTORY: Cardiac catheterization heart stents, back surgery, vasectomy, tonsillectomy, right mastectomy. SOCIAL HISTORY: Nonsmoker, nonalcoholic, no illicit drug use. FAMILY HISTORY: Father at age 46, cancer. Mother at age of 80, unknown cause. ALLERGIES: To MORPHINE, QUINOLONE CAUSING SHORTNESS OF BREATH, EZETIMIBE, LOVASTATIN, NIACIN, PRAVASTATIN, ROSUVASTATIN, SIMVASTATIN, BASICALLY ALL KINDS OF STATINS CAUSING MUSCLE PAIN. HOME MEDICATIONS: Reviewed. REVIEW OF SYSTEMS: A 12-point review of systems has been done. Pertinent negatives and positives included in HPI, rest are noncontributory. PHYSICAL EXAMINATION: VITAL SIGNS: Temperature 97.5, pulse rate 67, respiratory rate 18, blood pressure 158/71, oxygen saturation 96% on room air. GENERAL: The patient is alert, oriented x 3, not in acute distress. [place], [place] REPORT OF CONSULTATION NAME: NOBLE GENTILE UNIT #: [id number] ROOM: 403 DOCTOR: SUN GARVEYMASON BIRTHDATE: [birth year] HEENT: Atraumatic, normocephalic. PERRLA, EOMI. RESPIRATORY: Air entry bilaterally equal. No wheeze or crackles. CARDIOVASCULAR: Heart rate is irregular. I could hardly appreciate a grade 1/6 systolic murmur. ABDOMEN: Soft, nontender, nondistended. Bowel sounds present in 4 quadrants. EXTREMITIES: No pedal edema. SKIN: Right chest tunneled dialysis catheter site. No redness, tenderness. Dialysis catheter just removed. Left forearm fistula bruit present. LABORATORY DATA AND IMAGING: Reviewed as mentioned in HPI. ASSESSMENT: 1. Gram-positive cocci bacteremia, Streptococcus versus Enterococcus likely from the tunneled dialysis catheter, status post removal of the dialysis catheter today on 03/10/2019. 2. Other source could be oral sores, poor dental hygiene, was recommended for all the teeth to be removed. 3. History of Streptococcus salivarius bacteremia in 06/2018. There is no documentation whether it was treated or not. 4. End-stage renal disease, on hemodialysis, currently has a working left forearm fistula. PLAN: 1. At this time, continue with vancomycin for now, deescalate depending on the species identification and sensitivity of the GPC in chains, can discontinue Zosyn, azithromycin. Clinically, not concerning for pneumonia. 2. Keep the patient n.p.o. over midnight needs a KARINA with unknown duration of bacteremia and previous Streptococcus salivarius bacteremia in 06/2018, which was not treated. If the KARINA is normal, we will arrange his antibiotics with the dialysis sessions for 2 weeks at least from the last blood culture negative. Thank you for your consult. Please call for any questions. Mason Garsia MD CM:CONSTR:REPORT OF CONSULTATION 1548 03/11/19 0555 interface
--- NOTE | ~2019-03-08 | EKG ---
[place], [place] ELECTROCARDIOGRAM REPORT NAME: NOBLE GENTILE UNIT #: [id number] ROOM: 403 DOCTOR: JEM DRAFT REPORT BIRTHDATE: [birth year] [facility] Test Date: 2019-03-08 Test Time: 02:00:38 Pat Name: NOBLE GENTILE Department: Room: 403 Gender: M [employer]: : 1950 Requested By: JOHAN CLAUDIO Order Number: [id number] Reading MD: Jose Noland MD Measurements Intervals [place] Rate: 84 P: 37 UT: 167 QRS: -7 QRSD: 108 T: 184 QT: 384 QTc: 454 Interpretive Statements Sinus rhythm Probable left atrial enlargement LVH with secondary repolarization abnormality Compared to ECG 03/01/2019 07:04:51 No significant changes Electronically Signed On 03-08-2019 11:50:14 PDT by Jose Noland MD CM:EKGRPT:ELECTROCARDIOGRAM REPORT [id number] JOHAN AUGUSTIN DRAFT REPORT JOHAN CLAUDIO DO
--- NOTE | ~2019-03-08 | PR ---
[place], [place] PROGRESS NOTE NAME: NOBLE GENTILE UNIT #: [id number] ROOM: 427 DOCTOR: SIRISHA GARSIA MD BIRTHDATE: [birth year] DOS: 03/12/2019 This is an addendum to the progress note done by the nurse practitioner, Evangelina Jacobsen. I agree with the assessment and plan, reviewed the labs and imaging, made the necessary changes in the note. Sirisha Garsia MD CM:PNTRANS [id number] SIRISHA GARSIA MD 03/19/19 0156 interface
--- NOTE | ~2019-03-08 | PR ---
[place], [place] PROGRESS NOTE NAME: NOBLE GENTILE UNIT #: [id number] ROOM: 427 DOCTOR: SIRISHA GARSIA MD BIRTHDATE: [birth year] DOS: 03/13/2019 This is an addendum to the progress note done by the nurse practitioner, Evangelina Jacobsen. I agree with the assessment and plan. Sirisha Garsia MD CM:PNTRANS [id number] SIRISHA GARSIA MD 03/19/19 0157 interface
[~2019-03-08 01:15] MED LIST changes: +ASPIRIN ADULT L81 M2 PO; +COZAAR25 M1 PO; +NEURONTIN100 MG PO; +RENAL CAPS SOFTG1 MG PO; +VITAMIN D31000 UNIT PO; +VITAMIN D32000 UNI1 PO
[2019-03-08 01:20] VITALS: BP 148/75
[2019-03-08 02:01] LABS: BASO % 0.1 % (0.0-1.0); EOS % 0.2 % (1.0-4.0); HEMATOCRIT 35.4 % (42.0-52.0); HEMOGLOBIN 11.8 g/dl (14.0-18.0); LYMPH # 1.2 10*3/uL (1.3-4.4); LYMPH % 8.3 % (27.0-41.0); MEAN CORPUSCULAR HGB 32.3 pg (27.0-31.0); MEAN CORPUSCULAR HGB CONC 33.3 g/dl (33.0-37.0); MEAN PLATELET VOLUME 9.8 fl (9.6-12.3); MONO # 0.9 10*3/uL (0.1-1.0); MONO % 6.6 % (3.0-9.0); NEUT # 11.8 10*3/uL (2.3-7.9); NEUT % 84.2 % (47.0-73.0); PLATELET COUNT AUTOMATED 261 10*3/uL (130-400); RED BLOOD COUNT 3.65 10*6/uL (4.50-5.90); RED CELL DISTRI WIDTH 14.7 % (0-14.5)
[2019-03-08 02:11] LABS: INTERNATIONAL NORM RATIO 2.2 (2.0-3.5)
[2019-03-08 02:18] LABS: ALBUMIN 3.5 gm/dl (3.1-4.5); ALKALINE PHOSPHATASE 119 U/L (45-117); BUN 38 mg/dl (7-24); CHLORIDE 101 mmol/L (98-107); CREATININE 4.57 mg/dL (0.70-1.30); POTASSIUM 4.2 mmol/L (3.5-5.1); SGOT/AST 14 IU/L (3-35); SODIUM 138 mmol/L (136-145); TOTAL PROTEIN 7.5 gm/dL (6.4-8.2)
[2019-03-08 02:21] LABS: SGPT/ALT 26 U/L (12-78)
[2019-03-08 02:26] LABS: TROPONIN I < 0.015 ng/ml (<0.045)
--- NOTE | 2019-03-08 02:30 | NUR ---
PATIETN DIAPHORETIC AT THIS TIME. PER PATIENT HE JUST DOESN'T FEEL RIGHT. PATIENT APPEARS TO BE SLEEPY AT THIS TIME. LAB REPORT CRITICAL GLUCOSE 43, DR CLAUDIO AWARE. PROVIDED PATIENT WITH 2 ORANGE JUICES WITH 4 SUGAR PACKETS, MILK, APPLESAUCE WITH SUGAR PACKETS AND SANDWICH AT THIS TIME. DR CLAUDIO AT THE BEDSIDE.
[2019-03-08 02:53] VITALS: BP 145/67
[2019-03-08 06:00] VITALS: BP 154/72
--- NOTE | 2019-03-08 06:00 | NUR ---
A 68, admitted to , under the services of MARCELLA Davis DO with a diagnosis of HYPOGLYCEMIA, PNEUMONIA. Chief complaint is WEAKNESS. Patient arrived via stretcher from ER. Monitor applied. Initial assessment completed. Vital signs taken and recorded. MARCELLA DAVIS DO notified of admission to the unit. Orders received. See assessment for past medical history, medications and allergies. Patient and/or family oriented to unit. [facility] visitation policy reviewed. Clothing/patient valuable form completed. SHIRLEY ROBERTSON
--- NOTE | 2019-03-08 06:26 | NUR ---
NOBLE GENTILE [id number] Please refer to the physician's history and physical for past medical history, comorbid conditions, and allergies. Diagnosis: HYPOGLYCEMIA, PNEUMONIA Tyrel Score: 14 WOUND DESCRIPTIONS: Wound Number: 1 Location of the wound: dorsal aspect of left 2nd toe Thickness: Partial Size: 0.6cm x 0.3cm x <0.1cm Tunneling: none Undermining: none Sinus Tract: none Presence of Exudate: none Amount: None Color: Red Odor: None Periwound Skin Appearance: Normal Wound edges: approximated Pain (associated with wound): none at time of assessment pt states he has neuropathy states he follows with podiatry at the [facility] Dr. Frances Brown How does patient state this happened? pt is unsure how this happened but Surface the patient is resting on: Isoflex SKIN PREVENTION RECOMMENDATION: 1. Pressure redistribution support surface as appropriate 2. Elevate heels 3. Remove boots/TEDS every shift and reapply 4. Head of bed 30 degrees as tolerated 5. Assess nutrition and hydration 6. Manage moisture 7. Avoid the use of containment devices while in bed 8. Use absorptive products on surfaces limit layers of linens on bed 9. Turn and reposition every 1-2 hours in bed and every 1 hour in chair as tolerated 10. Weight shifts every 15 minutes while up in chair 11. Offloading with pillows or device to keep heels elevated off bed 12. Monitor skin at least every shift 13. Inspect under medical devices twice a day WOUND TREATMENT RECOMMENDATIONS: Patient state he will follow with Dr. Fritz on discharge. He stated he doesn't want to follow with podiatry while he is here. Cleanse left 2nd toe with nss and apply sureprep around the wound bactroban to wound bed and cover with bandaid daily and prn for soiling. Heel raiser pro boots to bilateral feet while in bed.
--- NOTE | 2019-03-08 06:50 | NUR ---
PHOTO OF L SECOND TOE TAKEN PER POLICY AT THIS TIME.
--- NOTE | 2019-03-08 06:54 | NUR ---
'S ANSWERING SERVICE CALLED REGARDING CONSULT. INFORMATION & CALL BACK NUMBER LEFT WITH SPREAD CUTTER SHWETA.
--- NOTE | 2019-03-08 07:14 | NUR ---
CALLED BACK AT THIS TIME. UPDATED ON PATIENT INFORMATION. NO NEW ORDERS RECEIVED AT THIS TIME.
[2019-03-08 08:00] VITALS: BP 150/70
--- NOTE | 2019-03-08 08:03 | NUR ---
Notified palliative care nurse, Mallory, of palliative care order. Order faxed to [facility].
--- NOTE | 2019-03-08 08:25 | NUR ---
Nursing screen received and Occupational Therapy referral received. Thank you. Bryant Stone OTR/l
--- NOTE | 2019-03-08 08:33 | NUR ---
Dr. Tatum notified of wound care recommendations.
--- NOTE | 2019-03-08 09:00 | NUR ---
Hand Meat Salter in to talk to patient. Patient states lives at home with . There are few steps in the home. Physician: lizbeth Pharmacy: [facility] pharmacy Home health services: none Patient's level of ADLs: MODERATE ASSIST Patient has working utilities: all working DME: electric scooter, stair chair, cane and walker Follow-up physician's appointment after d/c: will be made by hospitalist nurse director upon discharge Does patient want to access PORTAL?: no Discharge plan discussed with patient, he lives at home with , he isn't ambulating very well and is also having difficulty with adls. discussed with him being a readmission to the hospital and a discharge plan including a short term residential for rehab prior to returning home, patient was inagreement with this, he would like to be referred to [facility]. management planner will make referral, patient will need an insurance authorization prior to going to [facility]. case management will follow. ANDREAS BARRIENTOS
--- NOTE | 2019-03-08 09:06 | NUR ---
JULIETTE GENTILE'S OFFICE NOTIFIED OF CONSULT.
--- NOTE | 2019-03-08 10:25 | NUR ---
Occupational Therapy evaluation completed on 4 with full eval to follow. PRecautions include LUE AV fistula, IV UE,fall risk, vertigo in standing, acute debility, high complexity level 01193 via chart review, testing and evaluation. Recommend OT per pOC and SNF to enable return home with at independent level Thank you. Luz Elena Stone OTR/l
--- NOTE | 2019-03-08 11:53 | NUR ---
Contacted patients , Radha. She stated she would like patient to [facility]. She said she spoke with someone in the [facility] who suggested one of their rehab centers in either [place] or [place]. I will contact [facility] clinic and discuss benefits/options.
[2019-03-08 12:00] VITALS: BP 149/70
--- NOTE | 2019-03-08 12:23 | NUR ---
PHYSICAL THERAPY Physical therapy evaluation complete, 4E. Moderate complexity PT evaluation (21593) per chart review and evaluation. PT to progress transfers, gait, and LE strength per POC. Recommend SNF at discharge. Thank you. Shireen Cannon,PT,DPT.
--- NOTE | 2019-03-08 13:30 | NUR ---
Faxed referral to [facility] facility [facility] for review. Waiting on acceptance through VA benefits.
--- NOTE | 2019-03-08 13:45 | NUR ---
case management received a call from Katy, social sciences instructor jewelry department supervisor from [employer]. Katy stated patient is 80% service connected through the hi. she stated she received a call from patient's requesting skilled placement in a [facility] contracted facility, Katy stated they are not placeing patients at [facility] at this time and the requested [facility] in [place]. corporate planner will call and fax patient's information to [facility], Katy stated she will also call [facility] and inform them that she will obtain the authorization from [employer] for patient to be discharged to [facility], Katy also stated ID will make arrangements for patient to received dialysis in the [facility]
--- NOTE | 2019-03-08 14:07 | NUR ---
VA stating they are not currently in contract with [facility] and to fax- referral to [facility] in [place]. . The [facility] stating they will also contact facility and arrange for dialysis. Faxed referral. Waiting for VA to state acceptance.
--- NOTE | 2019-03-08 16:35 | NUR ---
PHYSICAL THERAPY Nursing screen received and chart reviewed. PT referral received. Physical therapy evaluation complete 03/08/19. Thank you. Shireen Cannon,PT,DPT.
[2019-03-08 20:00] VITALS: BP 193/92
--- NOTE | 2019-03-08 22:25 | NUR ---
DR. RON NOTIFIED OF CRITICAL GLUCOSE REFLEX OF 663.
[2019-03-09] VITALS: BP 150/70; BP 171/79
--- NOTE | 2019-03-09 05:36 | NUR ---
Upon discharge recommend patient to follow up for wound care in outpatient setting continue current wound care orders at discharging facility.
[2019-03-09 06:20] LABS: BASO % 0.3 % (0.0-1.0); EOS # 0.1 10*3/uL (0.0-0.4); EOS % 2.1 % (1.0-4.0); HEMATOCRIT 31.9 % (42.0-52.0); HEMOGLOBIN 10.4 g/dl (14.0-18.0); LYMPH # 1.2 10*3/uL (1.3-4.4); LYMPH % 19.6 % (27.0-41.0); MEAN CELL VOLUME 98.8 fl (80.0-94.0); MEAN CORPUSCULAR HGB 32.2 pg (27.0-31.0); MEAN CORPUSCULAR HGB CONC 32.6 g/dl (33.0-37.0); MEAN PLATELET VOLUME 10.4 fl (9.6-12.3); MONO # 0.8 10*3/uL (0.1-1.0); MONO % 12.5 % (3.0-9.0); NEUT # 4.1 10*3/uL (2.3-7.9); NEUT % 64.2 % (47.0-73.0); PLATELET COUNT AUTOMATED 205 10*3/uL (130-400); RED BLOOD COUNT 3.23 10*6/uL (4.50-5.90); RED CELL DISTRI WIDTH 14.6 % (0-14.5); WHITE BLOOD COUNT 6.3 10*3/uL (4.8-10.8)
[2019-03-09 06:57] LABS: CREATININE 5.35 mg/dL (0.70-1.30); PHOSPHOROUS 5.3 mg/dL (2.5-4.9); TOTAL PROTEIN 6.5 gm/dL (6.4-8.2)
[2019-03-09 08:00] VITALS: BP 114/58
--- NOTE | 2019-03-09 08:15 | NUR ---
OT NOTE Pt was seen this A.M. 1:1 for 15 minute OT session. Upon arrival pt was supine in bed. Pt identified by name and and had complaints of feeling dizzy. Pt transferred supine to sit EOB with modA for assist with UB. Pt completed multiple sit to stand transfers from bed level with modA X 2 and use of w/w for UE support. Challenged pt's static standing tolerance needed for increased I in self care tasks and functional transfers. Pt was able to tolerate aprox 60 seconds at a time before sitting due to fatigue and reporting that BLE were feeling weak. Pt then completed stand pivot from EOB to the bedside commode with modA and use of w/w. Pt then transferred back to the EOB with modA. Pt transferred back into bed sit to supine with Lev for assist with BLE and was rpositioned in bed with maxA X 2. There he was left with call light in hand, tray table in place, and bed alarm activated for safety. Continue with rec D/C plan to SNF. ANDRZEJ Roth
--- NOTE | 2019-03-09 08:40 | NUR ---
DR RIVERA MADE AWARE OF PT'S FLUCTUATING BLOOD GLUCOSE LEVELS.
--- NOTE | 2019-03-09 09:51 | NUR ---
PHYSICAL THERAPY PT SUPINE IN BED WITH HEAD OF BED ELEVATED AND BED ALARM ON WITH IV. PT IDENTIFIED BY NAME AND . PT AGREED TO ALL PT TREATMENT THIS VISIT. PT PERFORMED BED MOBILITY TO SITTING EOB WITH SBA WITH VC'S TO USE BED RAIL FOR ASSITANCE. PT PERFORMED STS FROM EOB TO FWW WITH VC'S FOR SAFETY WITH SBA. PT GAIT TRAINED 30FT X2 WITH FWW AND 10 X1 AND CGA REQUIRING VC'S FOR HEEL TOE GAIT PT WOULD SHUFFLE FEET DURING GAIT AND VC'S FOR PROPER SAFETY AND USE OF WALKER PT PUSHED WALKER INSTEAD OF GUIDE WALKER MAKING WALKER WITH IN UNSAFE DISTANCE FROM PT. PT PERFORMED STS TO EOB WITH PROPER SAFETY AND TECHNIQUE. PT REQUIRED SHORT SEATED BREAK BETWEEN EACH GAIT WHERE PT SAT EOB AND WORKED ON SEATED BALANCE AND SEATED POSTURE. PT STS TO RECLINER WITH PROPER TECHNIQUE AND SAFETY. PT SITTING IN RECLINER WITH BODY ALARM ON, CALL LIGHT TO RIGHT OF PT ON BED WITH IN ARMS REACH. PT SEEN 1:1 FOR 24MINS. ROSHAN CURRY PTA
--- NOTE | 2019-03-09 10:25 | NUR ---
There are currently no beds available at the [facility]. The next nearest [place] facility is the [facility]. Cheyanne from the [place] stated she called the and asked him what she wanted and she stated that it is really far but it is totally up to the patient at this time. Will follow
--- NOTE | 2019-03-09 10:30 | NUR ---
Dr. Tatum notified of wound care recommendations.
--- NOTE | 2019-03-09 10:51 | NUR ---
Contacted Cheyanne at the [place] to discuss referral to [facility]. She stated she spoke with them this morning and they do have one bed left for rehab and to fax referral. Referral was faxed, waiting on facility to review/accept.
--- NOTE | 2019-03-09 11:48 | NUR ---
PT OFF FLOOR FOR DILAYSIS AT THIS TIME.
[2019-03-09 12:00] VITALS: BP 134/56
--- NOTE | 2019-03-09 13:47 | NUR ---
DR GARSIA'S ANSWERING SERVICE MADE AWARE OF NEW CONSULT.
--- NOTE | 2019-03-09 15:46 | NUR ---
PHYSICAL THERAPY CO-SIGN I approve of the Physical Therapy notes written above. DANIEL GALVAN PT,DPT
[2019-03-09 16:00] VITALS: BP 175/81
--- NOTE | 2019-03-09 16:00 | NUR ---
PT REFUSED BACTROBAN AND BANDAID TO LEFT 2ND TOE, "STATES HE DOESN'T THINK IT'S NECESSARY, STATES IT'S NOT BLEEDING OR ANYTHING"
[2019-03-09 20:00] VITALS: BP 176/64
[2019-03-10] VITALS (10 sets, daily range): BP systolic 141–182; BP diastolic 52–89
[2019-03-10 06:46] LABS: BASO % 0.4 % (0.0-1.0); EOS # 0.1 10*3/uL (0.0-0.4); EOS % 2.1 % (1.0-4.0); HEMATOCRIT 32.9 % (42.0-52.0); HEMOGLOBIN 10.4 g/dl (14.0-18.0); LYMPH # 1.5 10*3/uL (1.3-4.4); LYMPH % 28.5 % (27.0-41.0); MEAN CELL VOLUME 100.6 fl (80.0-94.0); MEAN CORPUSCULAR HGB 31.8 pg (27.0-31.0); MEAN CORPUSCULAR HGB CONC 31.6 g/dl (33.0-37.0); MEAN PLATELET VOLUME 10.1 fl (9.6-12.3); MONO # 0.8 10*3/uL (0.1-1.0); MONO % 14.3 % (3.0-9.0); NEUT # 2.8 10*3/uL (2.3-7.9); NEUT % 53.6 % (47.0-73.0); PLATELET COUNT AUTOMATED 216 10*3/uL (130-400); RED BLOOD COUNT 3.27 10*6/uL (4.50-5.90); RED CELL DISTRI WIDTH 14.8 % (0-14.5); WHITE BLOOD COUNT 5.3 10*3/uL (4.8-10.8)
[2019-03-10 07:21] LABS: POTASSIUM 3.8 mmol/L (3.5-5.1)
[2019-03-10 07:35] LABS: ALBUMIN 2.9 gm/dl (3.1-4.5); CREATININE 3.94 mg/dL (0.70-1.30); TOTAL PROTEIN 6.7 gm/dL (6.4-8.2)
--- NOTE | 2019-03-10 07:36 | NUR ---
Spoke with Fouzia at [facility] and faxed a new med list showing 2 of the IV ATB has been discontinued. She stated they can accept this patient depending on which antibiotic he will discharge on. [facility]
--- NOTE | 2019-03-10 08:05 | NUR ---
PT REQUESTED HIS BLODD GLUCOSE BE CHECKED AGAIN BECAUSE HE FELT "ALITTLE FUNNY". COULD NOT SPECIFY HOW. PT WARM AND DRY NO OBVIOUS SIGNS OF HYPOGLYCEMIA. BLOOD GLUCOSE CHECKED AND IT WAS 124.
--- NOTE | 2019-03-10 09:00 | NUR ---
case management visits with patient, kit planner working on patient being discharged to a short term [facility] in [place], [place], case management will follow
--- NOTE | 2019-03-10 09:00 | NUR ---
OT NOTE Pt was seen this A.M. 1:1 for 15 minute OT session. Upon arrival pt was supine in bed. Pt identified by name and and had no complaints at this time. Pt transferred supine to sit EOB with SBA. Pt completed multiple sit to stand transfers from bed level with CGA and use of w/w for UE support. Challenged pt's static standing tolerance needed for increased I in self care tasks and functional transfers. Pt was able to tolerate aprox 3 minutes before sitting due to fatigue. Functional mobility completed into the bathroom where he transferred on/off standard commode with SBA and use of grab bar for UE support. Clothing management completed with SBA and toilet hygiene completed with supervision while seated. Throughout mobility pt had one LOB that occured while turning that required modA to correct and throughout pt required max verbal prompts to pick his feet up due to shuffling increasing risk of falls. Pt then stood sink side while washing his hands with SBA. Functional mobility then completed back to the recliner where he was left sitting upright with call light in hand, tray table in place, and body alarm activated for safety. Continue with rec D/C plan to SNF. TRAVIS Roth/Saeed
--- NOTE | 2019-03-10 09:52 | NUR ---
PHYSICAL THERAPY PT SUPINE IN BED WITH HEAD OF BED ELEVATED. PT IDENTIFIED BY NAME AND . PT AGREED TO ALL PHYSICAL THERAPY TREATMENT THIS VISIT. PT REPORTS " I AM FEELING GOOD TODAY." PT PERFORMED BED MOBILITY WITH SBA. PT PERFORMED STS FROM BED WITH SBA. PT GAIT TRAINED 30FT X4 WITH FWW AND VC'S FOR SAFETY WITH WALKER. PT HAD MACHINERY DISMANTLER LOB WHEN TURNING FOR A 180 DEGREE TURN. PT PERFORMED STS TO RECLINER WITH SBA AND PROPER TECHNIQUE AND SAFETY. PT SEEN 1:1 FOR 14MIN. ROSHAN CURRY PTA
--- NOTE | 2019-03-10 10:21 | NUR ---
DR PHILLIPS MADE AWARE OF NEW CONSULT ORDER FOR REMOVAL OF TDC.
--- NOTE | 2019-03-10 12:00 | NUR ---
PT TAKEN TO SURGERY DEPT FOR REMOVAL OF TDC.
--- NOTE | 2019-03-10 13:16 | NUR ---
Contacted Julianna at the [facility] dialysis clinic; she has contacted the [facility] ph: [phone] or fax [phone] to begin a [facility] The social security benefits interviewer at [facility] is out at a conference today and will not return until tomorrow morning. Will continue in the morning.
--- NOTE | 2019-03-10 13:30 | NUR ---
ASSUMED CARE FOR THIS PT AT THIS TIME. NO C/O VOICED AT PRESENT TIME. BED ALARM ON AND CALL LIGHT IN REACH. AT BEDSIDE.
--- NOTE | 2019-03-10 14:07 | NUR ---
SPEECH PATHOLOGY Modified barium swallow completed as per orders. This was ordered to rule out aspiration. Patient is diagnosed with pneumonia. Further medical history includes metabolic encephalopathy, leukocytosis, COPD, HTN, IDDM, CAD, CKD with dialysis. Patient reported that he chokes at times with food and liquid. He receives a regular diet and thin liquid. He was alert, cooperative and able to follow commands. Oral peripheral exam revealed a couple teeth only, lingual/labial skills were WFL in terms of strength, ROM and coordination. Patient was assessed with puree, solid and thin liquid consistencies. Results revealed a mild pharyngeal stage dysphagia characterized by aspiration with thin liquid, when taken in large sip. This was silent, as no immediate coughing or throat clearing was elicited. When instructed to take a smaller sip, no penetration or aspiration occurred. Patient tolerated puree and solid without difficulty. Recommend patient remain on renal diet and thin liquid, with liquids taken in small single sips. Follow up therapy is recommended to ensure safety through education and adherence to safe swallow precautions. Results and warner. were shared with patient and he verbalized understanding. His nurse will also be informed. Dictated report to follow. Thank you for this referral. TOM REILLY MSCCC-SURVEY TECHNICIAN
--- NOTE | 2019-03-10 16:53 | NUR ---
PT ASSISTED TO RECLINER CHAIR PER REQUEST. CALL LIGHT AND PHONE IN REACH. PT ENCOURAGED TO CALL FOR ASSISTANCE IF NEEDED. PT ACKNOWLEDGES.
--- NOTE | 2019-03-10 20:32 | NUR ---
DR. RON NOTIFIED OF PT'S BS OF 474 AND MANUAL BP OF 182/84. RECHECK BS IN [address] RIVERA RE BP.
--- NOTE | 2019-03-10 20:38 | NUR ---
DR. LR NOTIFIED OF PT'S ELEVATED MANUAL BP. STATES HE IS NOT CONCERNED.
--- NOTE | 2019-03-10 21:43 | NUR ---
DR. HENRY NOTIFIED OF PT'S RECHECK OF BS NOW 440.
--- NOTE | 2019-03-10 22:21 | NUR ---
DR. HENRY ADVISED THIS NURSE TO NOT ADMINISTER ANY ADDITIONAL INSULIN AT THIS TIME AND TO RECHECK BS IN 2 HRS.
--- NOTE | 2019-03-10 23:53 | NUR ---
DR. JNOES NOTIFIED THAT REPEAT BLOOD SUGAR NOW 195. NO NEW ORDERS RECEIVED.
[2019-03-11] VITALS (7 sets, daily range): BP systolic 124–178; BP diastolic 63–85
[2019-03-11 06:25] LABS: BASO % 0.4 % (0.0-1.0); EOS # 0.1 10*3/uL (0.0-0.4); EOS % 2.1 % (1.0-4.0); HEMATOCRIT 31.8 % (42.0-52.0); HEMOGLOBIN 10.2 g/dl (14.0-18.0); LYMPH # 1.3 10*3/uL (1.3-4.4); LYMPH % 23.6 % (27.0-41.0); MEAN CELL VOLUME 99.4 fl (80.0-94.0); MEAN CORPUSCULAR HGB 31.9 pg (27.0-31.0); MEAN CORPUSCULAR HGB CONC 32.1 g/dl (33.0-37.0); MEAN PLATELET VOLUME 10.6 fl (9.6-12.3); MONO # 0.8 10*3/uL (0.1-1.0); MONO % 14.6 % (3.0-9.0); NEUT # 3.3 10*3/uL (2.3-7.9); NEUT % 58.2 % (47.0-73.0); PLATELET COUNT AUTOMATED 206 10*3/uL (130-400); RED CELL DISTRI WIDTH 14.6 % (0-14.5); WHITE BLOOD COUNT 5.7 10*3/uL (4.8-10.8)
[2019-03-11 06:27] LABS: CREATININE 4.73 mg/dL (0.70-1.30); POTASSIUM 3.9 mmol/L (3.5-5.1)
[2019-03-11 06:55] LABS: INTERNATIONAL NORM RATIO 2.9 (2.0-3.5)
--- NOTE | 2019-03-11 08:13 | NUR ---
LAB CALLS WITH CRITICAL BLOOD CULTURE FINDING. DR HERNANDEZ NOTIFIED.
--- NOTE | 2019-03-11 08:26 | NUR ---
SPEECH THERAPY Patient NPO this morning for KARINA. Dysphagia treatment to be attempted at later time once patient resumes oral diet. Linda Parra MA CCC-GLASS NOVELTY MAKER
--- NOTE | 2019-03-11 08:44 | NUR ---
PHYSICAL THERAPY PT OUT OF ROOM THIS A.M UPON ARRIVAL. PYSICAL THERAPY WILL TRY AGAIN AT A LATER TIME/DATE. ROSHAN CURRY PTA
--- NOTE | 2019-03-11 09:00 | NUR ---
case management visits with patient, landscape architect and planner is working on discharge arrangements for patient, case management will follow
--- NOTE | 2019-03-11 09:14 | NUR ---
OT NOTE PATIENT OUT OF ROOM FOR PROCEDURE. WILL TRY BACK LATER TIME/DATE ANNA ROBLES/Saeed
--- NOTE | 2019-03-11 11:35 | NUR ---
Spoke with Fouzia from [facility] and updated on new contact isolation. She stated patient is in a private room so that is not an issue for her. Contacted Bonnie at [facility] who stated they are full and cannot accept a new dialysis patient. Contacted Yenni at [facility] who stated to move forward with a referral to [facility] in [place] but prior to them accepting patient he will have to have a new hepatitis panel drawn as one has not been done in the past 30 days. Contacted hospitalists office and notified of needed panel. Will follow.
--- NOTE | 2019-03-11 12:39 | NUR ---
SPEECH THERAPY Attempted to see patient this afternoon for dysphagia treatment, however patient not available as he is currently on dialysis. Short-term follow up treatment to resume at later time/date. Linda Parra MA [facility] SUPERVISOR
--- NOTE | 2019-03-11 13:13 | NUR ---
PHYSICAL THERAPY CO-SIGN I approve of the Physical Therapy notes written above. DANIEL GALVAN PT,DPT
--- NOTE | 2019-03-11 14:09 | NUR ---
PHYSICAL THERAPY PT NOT IN ROOM THIS PM UPON ARRIVAL. PHYSICAL THERAPY WILL TRY AGAIN AT A LATER TIME/DATE. ROSHAN CURRY PTA
--- NOTE | 2019-03-11 20:52 | NUR ---
24 HR chart check completed.
--- NOTE | 2019-03-11 21:00 | NUR ---
RESTING IN BED WATCHING TV, NO DISTRESS NOTED. RESPIRATIONS EASY. LUNGS DIMINISHED, CLEAR. PULSE OX 97% RA. FISTULA LEFT ARM. CALL LIGHT WITHIN REACH. NO VOICED COMPLAINTS
--- NOTE | 2019-03-11 22:34 | NUR ---
MEDICATED WITH RESTORIL TO ASSIST WITH SLEEP
--- NOTE | 2019-03-11 23:00 | NUR ---
TOOK OVER CARE OF PT AT THIS TIME. PT RESTING IN BED, HOB ELEVATED. RESPIRATIONS EASY AND UNLABORED ON ROOM AIR. NO S/S OF DISTRESS. PT AROUSED EASILY AND GIVES NO COMPLAINTS AT THIS TIME. ALL SAFETY MEASURES IN PLACE. CALL LIGHT IN REACH. PT VERBALIZES USE OF CALL LIGHT.
[2019-03-12] VITALS: BP 173/61
--- NOTE | 2019-03-12 | NUR ---
MEDS EFFECTIVE. SLEEPING. RESPIRATIONS EASY. VSS. CALL LIGHT WITHIN REACH
--- NOTE | 2019-03-12 06:00 | NUR ---
SLEPT THROUGHOUT NIGHT WITH NO DISTRESS NOTED. RESPIRATIONS EASY. CALL LIGHT WITHIN REACH. NO VOICED COMPLAINTS THIS SHIFT
[2019-03-12 06:43] LABS: BASO % 0.4 % (0.0-1.0); EOS # 0.1 10*3/uL (0.0-0.4); EOS % 2.1 % (1.0-4.0); HEMATOCRIT 33.6 % (42.0-52.0); LYMPH # 1.3 10*3/uL (1.3-4.4); LYMPH % 23.8 % (27.0-41.0); MEAN CELL VOLUME 98.2 fl (80.0-94.0); MEAN CORPUSCULAR HGB 32.2 pg (27.0-31.0); MEAN CORPUSCULAR HGB CONC 32.7 g/dl (33.0-37.0); MEAN PLATELET VOLUME 9.7 fl (9.6-12.3); MONO # 0.7 10*3/uL (0.1-1.0); MONO % 13.3 % (3.0-9.0); NEUT # 3.2 10*3/uL (2.3-7.9); NEUT % 59.3 % (47.0-73.0); PLATELET COUNT AUTOMATED 198 10*3/uL (130-400); RED BLOOD COUNT 3.42 10*6/uL (4.50-5.90); RED CELL DISTRI WIDTH 14.7 % (0-14.5); WHITE BLOOD COUNT 5.3 10*3/uL (4.8-10.8)
[2019-03-12 06:58] LABS: CREATININE 4.11 mg/dL (0.70-1.30); POTASSIUM 3.8 mmol/L (3.5-5.1); TOTAL PROTEIN 6.7 gm/dL (6.4-8.2)
[2019-03-12 08:00] VITALS: BP 153/88
[2019-03-12 08:06] LABS: HEPATITIS B SURFACE AG Negative (Negative); HEPATITIS C VIRUS ANTIBODY <0.1 s/co (0.0-0.9)
[2019-03-12 12:00] VITALS: BP 137/59
[2019-03-12 16:00] VITALS: BP 142/75
[2019-03-12 20:00] VITALS: BP 167/74
--- NOTE | 2019-03-12 20:23 | NUR ---
ASSUMED CARE OF PATIENT. PATIENT PRESENTS WITH CRACKLES IN RIGHT LUNG BASE. DENIES ANY COMPLAINTS OF SOB. DENIES ANY SYMPTOMS OF HYPOGLYCEMIA. PATIENT ALERT AND ORIENTED, FISTULA PRESENTS WITH THRILL AND BRUIT. OP-SITE ON OLD TESSIO SITE IN RIGHT CHEST INTACT. NO C/O PAIN OR DISCOMFORT. CALL LIGHT IN REACH.
--- NOTE | 2019-03-12 21:31 | NUR ---
PATIENT RECEIVED TEMAZEPAM FOR SLEEP AID AND TYLENOL FOR GENERALIZED ACHES AND PAINS.
[2019-03-13] VITALS: BP 127/42
--- NOTE | 2019-03-13 06:00 | NUR ---
BLOOD SUGAR OBTAINED THIS MORNING PER ORDERS. BLOOD SUGAR IS 72. PATIENT IS GIVEN TOSHA CRACKERS AND ORANGE JUICE. WILL MONITOR.
[2019-03-13 07:12] LABS: BASO % 0.3 % (0.0-1.0); EOS # 0.2 10*3/uL (0.0-0.4); EOS % 2.6 % (1.0-4.0); HEMATOCRIT 33.5 % (42.0-52.0); HEMOGLOBIN 10.8 g/dl (14.0-18.0); LYMPH # 1.4 10*3/uL (1.3-4.4); LYMPH % 24.2 % (27.0-41.0); MEAN CELL VOLUME 98.2 fl (80.0-94.0); MEAN CORPUSCULAR HGB 31.7 pg (27.0-31.0); MEAN CORPUSCULAR HGB CONC 32.2 g/dl (33.0-37.0); MEAN PLATELET VOLUME 10.3 fl (9.6-12.3); MONO # 0.6 10*3/uL (0.1-1.0); NEUT # 3.5 10*3/uL (2.3-7.9); NEUT % 60.7 % (47.0-73.0); PLATELET COUNT AUTOMATED 195 10*3/uL (130-400); RED BLOOD COUNT 3.41 10*6/uL (4.50-5.90); RED CELL DISTRI WIDTH 14.7 % (0-14.5); WHITE BLOOD COUNT 5.7 10*3/uL (4.8-10.8)
[2019-03-13 07:19] LABS: POTASSIUM 4.2 mmol/L (3.5-5.1)
[2019-03-13 07:26] LABS: CREATININE 5.39 mg/dL (0.70-1.30); TOTAL PROTEIN 6.6 gm/dL (6.4-8.2)
[2019-03-13 07:33] LABS: INTERNATIONAL NORM RATIO 3.9 (2.0-3.5)
[2019-03-13 08:00] VITALS: BP 119/63
[2019-03-13 12:00] VITALS: BP 154/72
[2019-03-13 16:00] VITALS: BP 163/69
[2019-03-13 20:00] VITALS: BP 150/73
--- NOTE | 2019-03-13 20:53 | NUR ---
IN TO ASSESS PATIENT. PATIENT PLEASANT AND COOPERATIVE. STATES THAT HE WILL BE GOING TO A REHAB [facility] SOON SO THAT HE CAN GET HIS THERAPY OUT OF THE WAY. ALERT AND ORIENTED. DIMINISHED LUNGS T/O. DENIES SOB, DENIES CP. ROOM AIR. NORMOACTIVE BOWELS X4 QUADS. DENIES N/V/D. NO EDEMA NOTED. DENIES DYSURIA. STATES HE MAKES AN ADEQUATE AMOUNT OF URINE FOR BEING ON DIALYSIS. + BRUIT AND THRILL TO FISTULA IN THE LEFT WRIST. CALL LIGHT WITHIN REACH, WILL MONITOR
--- NOTE | 2019-03-13 22:32 | NUR ---
PRN RESTORIL AND TYLENOL GIVEN FOR PT COMPLAINTS OF SLEEPLESSNESS AND MILD BACK PAIN. PATIENT DOESN'T GIVE A RATING. CALL LIGHT WITHIN REACH, WILL MONITOR
--- NOTE | 2019-03-13 22:45 | NUR ---
SPOKE WITH PATIENT. PATIENT REQUESTS THAT THE BED ALARM BE OFF. EXPLAINED TO PATIENT THAT IT IS ON FOR SAFETY REASONS. HE STATED THAT HE HAS BEEN GETTING AROUND FINE AND IF HE NEEDS HELP HE WILL CALL. PATIENT IS ALERT AND ORIENTED, GAIT ASSESSED AND IS STEADY AT THIS TIME
--- NOTE | 2019-03-13 23:30 | NUR ---
PRN MEDICATION APPEARS EFFECTIVE,PT SLEEPING
[2019-03-14] VITALS: BP 144/52
--- NOTE | 2019-03-14 03:09 | NUR ---
24 HR chart check completed.
--- NOTE | 2019-03-14 07:30 | NUR ---
PT TAKEN TO DIALYSIS AT THIS TIME.
[2019-03-14 08:06] LABS: BASO % 0.4 % (0.0-1.0); EOS # 0.1 10*3/uL (0.0-0.4); EOS % 2.1 % (1.0-4.0); HEMATOCRIT 32.6 % (42.0-52.0); HEMOGLOBIN 10.7 g/dl (14.0-18.0); LYMPH # 1.3 10*3/uL (1.3-4.4); LYMPH % 23.2 % (27.0-41.0); MEAN CELL VOLUME 96.4 fl (80.0-94.0); MEAN CORPUSCULAR HGB 31.7 pg (27.0-31.0); MEAN CORPUSCULAR HGB CONC 32.8 g/dl (33.0-37.0); MEAN PLATELET VOLUME 10.7 fl (9.6-12.3); MONO # 0.5 10*3/uL (0.1-1.0); MONO % 9.1 % (3.0-9.0); NEUT # 3.6 10*3/uL (2.3-7.9); NEUT % 64.1 % (47.0-73.0); PLATELET COUNT AUTOMATED 220 10*3/uL (130-400); RED BLOOD COUNT 3.38 10*6/uL (4.50-5.90); RED CELL DISTRI WIDTH 14.7 % (0-14.5); WHITE BLOOD COUNT 5.6 10*3/uL (4.8-10.8)
[2019-03-14 08:30] LABS: CREATININE 6.05 mg/dL (0.70-1.30); POTASSIUM 4.2 mmol/L (3.5-5.1)
[2019-03-14 08:35] LABS: INTERNATIONAL NORM RATIO 3.7 (2.0-3.5)
--- NOTE | 2019-03-14 09:30 | NUR ---
LAB IS ON FLOOR TO DRAW PT VANCOMYCIN TROUGH. PT IN DIALYSIS. PHARMACIST NOTIFIED THAT PT IS IN DIALYSIS AT THIS TIME AND UNABLE TO HAVE TROUGH DRAWN AND THAT VANCOMYCIN DOSE FOR 1000 WILL BE LATE. PHARMACIST STATES THAT HE WILL REVIEW PATIENT'S CHART AND MAKE CHANGES.
--- NOTE | 2019-03-14 10:00 | NUR ---
PHYSICAL THERAPY Patient out room for Dialysis this am and not available for treatment. Will continue per POC as able. Pancho Malave, LOOP DRIER OPERATOR
--- NOTE | 2019-03-14 11:48 | NUR ---
MANUFACTURING LABORER faxed Hep [facility]. -TAYLOR Mclean
[2019-03-14 12:00] VITALS: BP 149/65
--- NOTE | 2019-03-14 12:02 | NUR ---
REPORT RECEIVED FROM NURSE NARAYANAN IN DIALYSIS.
[2019-03-14 13:30] VITALS: BP 136/78
--- NOTE | 2019-03-14 14:00 | NUR ---
PHYSICAL THERAPY Patient seen this pm 1:1 for therapy visit and was supine in bed following lunch upon therapist arrival. Patient reports no new c/o's and transfers supine to sit EOB, CGA, then sit to stand CGA x 1. Patient completed several standing balance activities including eyes open / closed with LOB x 1, then several 90/180 degree turns with focus on task. Patient ambulates SHIPPING AGENT/CGA, ad kip in Isolation room, 40'x 2, demonstrating slow, cautious gait pattern. Patient needed v/c for increased stride and B arm swing prior to returning to EOB sit. Patient remained EOB with call light, tray table and telephone. Will continue per POC as tolerated, total treatment time 16 minutes. Pancho Malave, TELECOMMUNICATIONS ENGINEER
--- NOTE | 2019-03-14 14:28 | NUR ---
BOX OFFICE ATTENDANT reached out to [facility]. BOX OFFICE ATTENDANT spoke with Gregoria, who stated the referral was sent to Kathie moran and has not been reviewed as of the phone call. Will have [facility] follow up tomorrow. -TAYLOR Mclean
--- NOTE | 2019-03-14 14:51 | NUR ---
SPEECH PATHOLOGY Patient was seen for treatment this pm. Patient was tired as he recently returned from dialysis and had just completed PT and OT. Patient was cooperative for tasks. Clinician reviewed results from last week's MBS. Patient verbalized understanding and was able to recall strategy of small, single sips of liquid. He reported that he has been implementing the strategy and having no difficulty tolerating liquids or solid foods. Patient took liquids during the session. He was noted to take small single sips independently. Patient displayed no overt difficulty. He has been afebrile and WBC is currently within normal range. Recommend patient remain on renal diet and thin liquid with continued use of safe swallow precautions. As he is tolerating diet, recommend discharge from dysphagia therapy at this time. Thank you for this referral. It has been a plasure taking part in this patient's care. TOM REILLY MSCCC-FUNERAL ARRANGEMENT DIRECTOR
--- NOTE | 2019-03-14 15:01 | NUR ---
Pt was seen for 23 minutes in OT begining with sit to stand with supervison due to the hx of falls. Pt performed fxl mobility without device to bathroom area with supervision. Pt transferred to shower & toilet with supervision. Pt reached into low drawer to retrieve items with supervision. Call light within reach. Continue with OT POC. Christina PISANO
[2019-03-14 16:00] VITALS: BP 125/79
--- NOTE | 2019-03-14 19:13 | NUR ---
VERIFIED WITH DR RON THAT TONIGHT'S DOSE OF COUMADIN 5 MG IS TO BE HELD DUE TO AN INR OF 3.7.
[2019-03-14 20:00] VITALS: BP 147/68
--- NOTE | 2019-03-14 20:10 | NUR ---
1951 RESTING IN BED WATCHING TV. NO C/O'S VOICED DRSCelia D/I OLD DILAYSIS CATH SITE RSC. FISTULA INTACT L ARM WITH GOOD BRIUT AND THRILL. NO C/O'S VOICED. FLUIDS RESTRICTIONS MAINTAINED. HEP LCK INTACT.
--- NOTE | 2019-03-14 21:40 | NUR ---
2130 TYELNOL 2 PO GIVEN FOR GENERALIZED DISCOMFORT. RESTORIL GIVEN FOR SLEEP. WILL MONITOR.
--- NOTE | 2019-03-14 23:52 | NUR ---
EARLIER MEDS EFFECTIVE. RESTING IN BED WITH EYES CLOSED. APPEARS TO BE SLEEPING.
[2019-03-15] VITALS: BP 134/70
--- NOTE | 2019-03-15 04:05 | NUR ---
REMAINS SLEEPING WITHOUT DISTRESS.
--- NOTE | 2019-03-15 06:12 | NUR ---
SLEPT WELL THIS SHIFT. REMAINS WITHOUT C/O'S.
[2019-03-15 07:31] LABS: BASO % 0.5 % (0.0-1.0); EOS # 0.1 10*3/uL (0.0-0.4); EOS % 2.2 % (1.0-4.0); HEMATOCRIT 34.7 % (42.0-52.0); HEMOGLOBIN 11.2 g/dl (14.0-18.0); LYMPH # 1.4 10*3/uL (1.3-4.4); LYMPH % 21.8 % (27.0-41.0); MEAN CELL VOLUME 98.6 fl (80.0-94.0); MEAN CORPUSCULAR HGB 31.8 pg (27.0-31.0); MEAN CORPUSCULAR HGB CONC 32.3 g/dl (33.0-37.0); MEAN PLATELET VOLUME 10.3 fl (9.6-12.3); MONO # 0.7 10*3/uL (0.1-1.0); MONO % 11.1 % (3.0-9.0); NEUT % 63.3 % (47.0-73.0); PLATELET COUNT AUTOMATED 204 10*3/uL (130-400); RED BLOOD COUNT 3.52 10*6/uL (4.50-5.90); RED CELL DISTRI WIDTH 14.9 % (0-14.5); WHITE BLOOD COUNT 6.4 10*3/uL (4.8-10.8)
--- NOTE | 2019-03-15 07:50 | NUR ---
Faxed entire referral to [facility] including Hepatitis panel. Also faxed information to [facility] so they can provide the additional dialysis information to [facility].
[2019-03-15 08:00] VITALS: BP 157/72
[2019-03-15 08:02] LABS: POTASSIUM 4.1 mmol/L (3.5-5.1)
[2019-03-15 08:05] LABS: CREATININE 5.25 mg/dL (0.70-1.30)
--- NOTE | 2019-03-15 08:34 | NUR ---
Contacted Reena at [facility] and asked her to fax the remaining documents needed to Leeanne for the referral. She stated she will be taking care of that this morning. Attempted to contact Kathie harper [facility] who is working on this referral, she is not in the office until 9 am. Will call back.
--- NOTE | 2019-03-15 09:46 | NUR ---
PHYSICAL THERAPY PT SITTING IN RECLINER UPON ARRIVAL. PT IDENTIFIED BY NAME AND . PT AGREED TO ALL PHYSCIAL THERAPY TREATMENT THIS A.M. PT PERFORMED 5 STS TO AND FROM RECLINER WITH Woody X1 AND VC'S FOR SAFETY AND TECHNIQUE IN 55 SEC. PT PERFORMED STAND PIVOT TRANSFER TO EOB WITH CGA AND VC'S FOR SAFETY AND POSTURE. PT PERFORMED SITTING EOB TO SUPINE AND SUPINE TO SITTING EOB WITH CGA AND VC'S FOR SAFETY AND USE OF BED RAIL FOR ASSISTANCE. PT PERFOREMD STAND PIVIOT TRANSFER FORM EOB TO RECLINER WITH VC'S FOR SAFETY AND POSTUER. PT "PLOPPED" IN TO CHAIR AND DID NOT USE ARM REST FOR ASSITANCE. PT SITTIN IN RECLINER WITH CALL LIGHT AND PHONE SITTING ON BED TO PT RIGHT SIDE WITHIN ARMS REACH. PT SEEN 1:1 FOR 14MINS. ROSHAN CURYR PTA
--- NOTE | 2019-03-15 10:04 | NUR ---
OT NOTE PATIENT SEATED IN CHAIR SLEEPING UPON ARRIVAL. THERAPIST WILL CHECK BACK AT LATER TIME. AARON DONNELLY
--- NOTE | 2019-03-15 10:15 | NUR ---
NOBLE GENTILE [id number] Please refer to the physician's history and physical for past medical history, comorbid conditions, and allergies. Diagnosis: HYPOGLYCEMIA, PNEUMONIA Tyrel Score: 15,MODERATE RISK WOUND DESCRIPTIONS: Wound Number: 1 Location of the wound: dorsal aspect of left 2nd toe Thickness: Partial Size: 0.6cm x 0.3cm x <0.1cm Tunneling: none Undermining: none Sinus Tract: none Presence of Exudate: none Amount: None Color: Red Odor: None Periwound Skin Appearance: Normal Wound edges: approximated Pain (associated with wound): none at time of assessment pt states he has neuropathy states he follows with podiatry at the [place] Dr. Frances Brown How does patient state this happened? pt is unsure how this happened but Surface the patient is resting on: Isoflex SKIN PREVENTION RECOMMENDATION: 1. Pressure redistribution support surface as appropriate 2. Elevate heels 3. Remove boots/TEDS every shift and reapply 4. Head of bed 30 degrees as tolerated 5. Assess nutrition and hydration 6. Manage moisture 7. Avoid the use of containment devices while in bed 8. Use absorptive products on surfaces limit layers of linens on bed 9. Turn and reposition every 1-2 hours in bed and every 1 hour in chair as tolerated 10. Weight shifts every 15 minutes while up in chair 11. Offloading with pillows or device to keep heels elevated off bed 12. Monitor skin at least every shift 13. Inspect under medical devices twice a day WOUND TREATMENT RECOMMENDATIONS: Continue current orders.
--- NOTE | 2019-03-15 11:05 | NUR ---
Attempted to contact Kathie from [facility] again. Reached voicemail, left message. Contacted Mallory from the [place]; Isaura from [facility] and Reena from [facility]. [facility] stating once referral is faxed they will be able to make a determination and take patient today if ready for discharge. OR and [facility] all agree to set up with [facility]. Referral faxed.
[2019-03-15 12:00] VITALS: BP 149/66
--- NOTE | 2019-03-15 12:32 | NUR ---
OT NOTE PATIENT SEEN 1:1 FOR 15 MINUTE SESSION THIS DAY AND IDENTIFIED BY NAME AND . PATIENT SUPINE IN BED WITH HOB ELEVATED UPON ARRIVAL. PATIENT STATED HE WAS LEAVING FACILITY [facility] P[facility] BUT UNSURE OF WHAT TIME. BED MOBILITY COMPLETED WITH SBA/SUPERVISION. PATIENT ABLE TO COMPLETE SIT TO STAND FROM EOB WITH SBA. FUNCTIONAL TRANSFERS COMPLETED THIS DAY FROM EOB>TOILET AND TOILET>ARMED CHAIR WITH CGA PATIENT DEMONSTRATED FAIR/FAIR+ BALANCE. SIT TO STAND FROM TOILET USING GRAB BAR TO ASSIST. PATIENT ABLE TO MANEUVER AROUND OBJECTS IN PATHWAY IN ROOM SETTING WITH FAIR+ SAFETY AWARENESS. CONTINUE WITH CURRENT POC AND D/C PLAN TO SNF. AARON DONNELLY
--- NOTE | 2019-03-15 14:16 | NUR ---
Spoke with Braeden from [facility] who stated [facility] is accepted and [facility]. They also stated they will not dialize patient thursday, they will dialize him on with his chair time of 11:30. Notified [facility] patient is accepted, [facility] is working on transportation to and from dialysis and patient will discharge today; notified who stated she has been waiting for his discharge and will transport him to [facility].
[2019-03-15] MEDS ORDERED: CALCIUM ACETAT667 MG PO (14:25)
[2019-03-15] MEDS ORDERED: VANCOMYCIN1 GM/2502 IV (14:25)
[2019-03-15] MEDS ORDERED: COUMADIN5 M2 PO (14:26)
--- NOTE | 2019-03-15 14:50 | NUR ---
patient is discharged to [facility]. Dialysis is set up, the discharge orders have been faxed to the [place] and dialysis. is stating she is transporting patient to [place] at 3:30 today.
--- NOTE | 2019-03-15 15:15 | NUR ---
PT REFUSED DISCHARGE WOUND PIC.
--- NOTE | 2019-03-15 15:33 | NUR ---
Discharge instructions reviewed with patient/family. Patient receptive and verbalizes understanding. Follow-up care arranged. Written instructions given to patient/family. ASHIA NUÑEZ
--- NOTE | 2019-03-15 15:55 | NUR ---
REPORT GIVEN TO [facility].
--- NOTE | 2019-03-15 16:03 | NUR ---
OCCUPATIONAL THERAPY CO-SIGN I approve of the Occupational Therapy notes written above. DANG PATRICK OTR/Saeed
--- NOTE | 2019-03-15 17:25 | NUR ---
PHYSICAL THERAPY CO-SIGN I approve of the Physical Therapy notes written above. DANIEL GALVAN PT,DPT
== END 2019-03-15 15:33 | disposition other institution (70) | DRG 314 ==
LOC: ED 01:15 → 4E 05:26 → EDHOLD 05:26 → 4E 05:42
PROVIDERS: Emergency Medicine; Family Medicine; Internal Medicine; Student in an Organized Health Care Education/Training Program; ADMIT Internal Medicine
PROC: 5A1D70Z Performance of Urinary Filtration, Intermittent, Less than 6 Hours Per Day (ICD-10-PCS; 2019-03-09)
PROC: BD11YZZ Fluoroscopy of Esophagus using Other Contrast (ICD-10-PCS; principal; 2019-03-10)
PROC: BD1BYZZ Fluoroscopy of Mouth/Oropharynx using Other Contrast (ICD-10-PCS; principal; 2019-03-10)
PROC: 0JPT3XZ Removal of Tunneled Vascular Access Device from Trunk Subcutaneous Tissue and Fascia, Percutaneous Approach (ICD-10-PCS; principal; 2019-03-10)
PROC: 05PYX3Z Removal of Infusion Device from Upper Vein, External Approach (ICD-10-PCS; principal; 2019-03-10)
DX: T82.7XXA Infection and inflammatory reaction due to other cardiac and vascular devices, implants and grafts, initial encounter (principal); G93.41 Metabolic encephalopathy; N18.6 End stage renal disease; J69.0 Pneumonitis due to inhalation of food and vomit; I13.2 Hypertensive heart and chronic kidney disease with heart failure and with stage 5 chronic kidney disease, or end stage renal disease; I50.42 Chronic combined systolic (congestive) and diastolic (congestive) heart failure; G91.2 (Idiopathic) normal pressure hydrocephalus; D68.59 Other primary thrombophilia; E66.2 Morbid (severe) obesity with alveolar hypoventilation; R78.81 Bacteremia; J45.909 Unspecified asthma, uncomplicated; I48.91 Unspecified atrial fibrillation; I25.10 Atherosclerotic heart disease of native coronary artery without angina pectoris; J44.9 Chronic obstructive pulmonary disease, unspecified; E11.36 Type 2 diabetes mellitus with diabetic cataract; F32.9 Major depressive disorder, single episode, unspecified; E11.649 Type 2 diabetes mellitus with hypoglycemia without coma; R74.0 Nonspecific elevation of levels of transaminase and lactic acid dehydrogenase [LDH]; D72.829 Elevated white blood cell count, unspecified; E11.42 Type 2 diabetes mellitus with diabetic polyneuropathy; E55.9 Vitamin D deficiency, unspecified; K27.9 Peptic ulcer, site unspecified, unspecified as acute or chronic, without hemorrhage or perforation; M47.9 Spondylosis, unspecified; E11.65 Type 2 diabetes mellitus with hyperglycemia; D53.9 Nutritional anemia, unspecified; Y82.9 Unspecified medical devices associated with adverse incidents; B95.62 Methicillin resistant Staphylococcus aureus infection as the cause of diseases classified elsewhere; E78.00 Pure hypercholesterolemia, unspecified; B96.89 Other specified bacterial agents as the cause of diseases classified elsewhere; I95.9 Hypotension, unspecified; Z99.2 Dependence on renal dialysis; I25.2 Old myocardial infarction; Z60.2 Problems related to living alone; Z88.6 Allergy status to analgesic agent; Z88.8 Allergy status to other drugs, medicaments and biological substances; Z79.01 Long term (current) use of anticoagulants; Z79.899 Other long term (current) drug therapy; Z79.4 Long term (current) use of insulin; Z79.82 Long term (current) use of aspirin; Z90.11 Acquired absence of right breast and nipple; Z98.52 Vasectomy status; Z90.89 Acquired absence of other organs; Z95.5 Presence of coronary angioplasty implant and graft; Z98.42 Cataract extraction status, left eye; Z98.41 Cataract extraction status, right eye; Z80.8 Family history of malignant neoplasm of other organs or systems; Z82.49 Family history of ischemic heart disease and other diseases of the circulatory system; Z83.3 Family history of diabetes mellitus; Y92.89 Other specified places as the place of occurrence of the external cause; Z68.32 Body mass index [BMI] 32.0-32.9, adult

== ENCOUNTER 2019-04-17 15:41 | Inpatient (IN) | payer MEDICARE ==
[~2019-04-17] VITALS: Ht 182.8 cm; Wt 109.4 kg
[~2019-04-17 15:41] MED LIST changes: +CALCIUM ACETAT667 MG PO; +VANCOMYCIN1 GM/2502 IV
[2019-04-17 15:43] VITALS: BP 207/111
[2019-04-17 16:14] LABS: BASO % 0.2 % (0.0-1.0); EOS % 0.3 % (1.0-4.0); HEMATOCRIT 34.1 % (42.0-52.0); HEMOGLOBIN 11.1 g/dl (14.0-18.0); LYMPH # 0.6 10*3/uL (1.3-4.4); LYMPH % 10.4 % (27.0-41.0); MEAN CORPUSCULAR HGB 31.9 pg (27.0-31.0); MEAN CORPUSCULAR HGB CONC 32.6 g/dl (33.0-37.0); MEAN PLATELET VOLUME 10.1 fl (9.6-12.3); MONO # 0.7 10*3/uL (0.1-1.0); NEUT # 4.7 10*3/uL (2.3-7.9); NEUT % 76.8 % (47.0-73.0); PLATELET COUNT AUTOMATED 178 10*3/uL (130-400); RED BLOOD COUNT 3.48 10*6/uL (4.50-5.90); RED CELL DISTRI WIDTH 15.7 % (0-14.5); WHITE BLOOD COUNT 6.2 10*3/uL (4.8-10.8)
[2019-04-17 16:16] VITALS: BP 192/94
[2019-04-17 16:29] LABS: ACT PARTIAL THROMBO TIME 27.3 SECONDS (20.0-32.1); INTERNATIONAL NORM RATIO 1.1 (2.0-3.5)
[2019-04-17 16:34] LABS: ALBUMIN 3.5 gm/dl (3.1-4.5); CREATININE 5.06 mg/dL (0.70-1.30); POTASSIUM 4.1 mmol/L (3.5-5.1)
[2019-04-17 16:38] LABS: TROPONIN I 0.054 ng/ml (<0.045)
--- NOTE | 2019-04-17 16:38 | NUR ---
CRITICAL RESULT TROPONIN 0.054 AND LACTIC ACID IS 2.5. JOSEPH ROSSI NOTIFIED.
[2019-04-17 17:14] VITALS: BP 176/84
--- NOTE | 2019-04-17 17:40 | NUR ---
A 69, admitted to 5E, under the services of ANNIA Peterson DO with a diagnosis of ELEVATED TROPONIN, PNEUMONIA. Chief complaint is SHORTNESS OF BREATH. Patient arrived via stretcher from ER. Monitor applied. Initial assessment completed. Vital signs taken and recorded. ANNIA PETERSON DO notified of admission to the unit. Orders received. See assessment for past medical history, medications and allergies. Patient and/or family oriented to unit. [address] visitation policy reviewed. Clothing/patient valuable form completed. ASHIA NUÑEZ
--- NOTE | 2019-04-17 17:40 | NUR ---
ZITHROMAX AND VANCOMYCIN TAKEN TO ROOM 529.
[2019-04-17 17:45] VITALS: BP 182/87
--- NOTE | 2019-04-17 17:45 | NUR ---
UNABLE TO VERIFY HOME MEDS PT DOESN'T KNOW THEM.
--- NOTE | 2019-04-17 18:06 | NUR ---
CONSULT CALLED TO DR RIVERA'S ANSWERING SERVICE.
--- NOTE | 2019-04-17 18:08 | NUR ---
DIALYSIS CENTER NOTIFIED OF PT ADMISSION.
--- NOTE | 2019-04-17 19:52 | NUR ---
NOTIFIED OF PATIENT'S ADMITTING DIAGNOSIS PNEUMONIA & ELEVATED TROPONIN. DISCUSSED ORDER TO BE ADMITTED MED SURG. ALSO DISCUSSED TROPONIN DRAWN AT 1600 THAT WAS 0.054 WITHOUT REPEAT TROPONIN SCHEDULED. INSTRUCTED TO LEAVE PATIENT MED SURG. NO OTHER ORDERS RECEIVED AT THIS TIME.
[2019-04-17 20:00] VITALS: BP 136/53
[2019-04-17] MEDS ORDERED: COUMADIN5 M2 PO ×2 (23:18→23:20)
[2019-04-17] MEDS ORDERED: NOVOLOG100 UNIT/1 SQ (23:23)
[2019-04-17 23:30] VITALS: BP 182/88
--- NOTE | 2019-04-17 23:42 | NUR ---
MADE AWARE OF PATIENT'S BP 182/88 MANUALLY. DISCUSSED PO NORCO GIVEN AT 2206 AND PO RESTORIL GIVEN AT 2309. ALSO AWARE THAT PT HAS NOT HAD ANY OF HIS HOME MEDICATIONS. AWARE THAT PT TAKES COREG, COZAAR, AND LASIX. INSTRUCTED TO MONITOR BLOOD PRESSURE THROUGHOUT NIGHT. RN ASKED WHEN TO CHECK BP NEXT. PER , CHECK BP AGAIN AT 0400. WILL MONITOR PT.
--- NOTE | 2019-04-18 03:29 | NUR ---
NOTIFIED OF BP STILL ELEVATED AT 182/92. INSTRUCTED TO ORDER COZAAR AND COREG PT TAKES AT HOME. DOSE TO START NOW.
[2019-04-18 03:30] VITALS: BP 182/92
[2019-04-18 05:30] VITALS: BP 133/55
[2019-04-18 07:04] LABS: INTERNATIONAL NORM RATIO 1.1 (2.0-3.5)
[2019-04-18 07:09] LABS: BASO % 0.2 % (0.0-1.0); EOS # 0.1 10*3/uL (0.0-0.4); EOS % 1.1 % (1.0-4.0); HEMATOCRIT 30.1 % (42.0-52.0); HEMOGLOBIN 9.5 g/dl (14.0-18.0); LYMPH # 0.7 10*3/uL (1.3-4.4); LYMPH % 14.8 % (27.0-41.0); MEAN CELL VOLUME 98.4 fl (80.0-94.0); MEAN CORPUSCULAR HGB CONC 31.6 g/dl (33.0-37.0); MEAN PLATELET VOLUME 10.8 fl (9.6-12.3); MONO # 0.6 10*3/uL (0.1-1.0); MONO % 12.3 % (3.0-9.0); NEUT # 3.3 10*3/uL (2.3-7.9); NEUT % 71.2 % (47.0-73.0); PLATELET COUNT AUTOMATED 144 10*3/uL (130-400); RED BLOOD COUNT 3.06 10*6/uL (4.50-5.90); RED CELL DISTRI WIDTH 15.5 % (0-14.5); WHITE BLOOD COUNT 4.7 10*3/uL (4.8-10.8)
[2019-04-18 07:18] LABS: CREATININE 5.28 mg/dL (0.70-1.30); PHOSPHOROUS 4.3 mg/dL (2.5-4.9); POTASSIUM 4.3 mmol/L (3.5-5.1)
--- NOTE | 2019-04-18 09:00 | NUR ---
License Registration Examiner in to talk to patient. Patient states lives at home with . There are few steps in the home. Physician: lizbeth [facility] Home health services: none Patient's level of ADLs: MINIMAL ASSIST Patient has working utilities: all working DME: electric scooter, stair chair, cane Follow-up physician's appointment after d/c: will be made by hospitalist nurse director upon discharge Does patient want to access PORTAL?: no Discharge plan discussed with patient, he states he lives at home with his , he uses a cane or walker for ambulation, he states he is independent in adls, discussed a discharge plan and he stated he would be returning home when medically stable, case managmeent will follow, he has dialysis Thursday, Thursday and Thursday. ANDREAS BARRIENTOS
--- NOTE | 2019-04-18 11:00 | NUR ---
ASSUMED CARE FOR THIS PT AT THIS TIME. PT IN DIALYSIS.
--- NOTE | 2019-04-18 11:17 | NUR ---
PT. UNAVAILABLE CURRENTLY IN DIALYSIS.
[2019-04-18 12:00] VITALS: BP 190/94
[2019-04-18] MEDS ORDERED: COUMADIN4 M2 PO (12:05)
[2019-04-18] MEDS ORDERED: SYMB160 INH (12:13)
--- NOTE | 2019-04-18 12:19 | NUR ---
MED REC UPDATED BASED ON LIST PROVIDED FROM [facility].
--- NOTE | 2019-04-18 13:45 | NUR ---
PT RETURNED TO FLOOR FROM DIALYSIS AT THIS TIME. AM MEDS GIVEN.
--- NOTE | 2019-04-18 13:53 | NUR ---
PT MEDICATED W/NORCO FOR C/O LUMBAR PAIN 02/05. PT SITTING ON SIDE OF BED. PT C/O CONSTIPATION AND NO BM X3 DAYS. REFUSING LAXATIVE AT THIS TIME. ABD FIRMLY DISTENDED W/HYPO BS X4. PT TEACHING GIVEN. CALL LIGHT IN REACH.
--- NOTE | 2019-04-18 14:39 | NUR ---
Nursing screen received and chart reveiwed. Patient admitted with pneumonia. If patient should have a decline in ADLs then refer to Occupational Therapy. Thank you. Luz Elena Stone OTR/l
--- NOTE | 2019-04-18 14:51 | NUR ---
PHYSICAL THERAPY Physical therapy evaluation attempted however Pt refused. Pt reports he doesn't think he has needs but isn't sure. Will attempt at a later time. thank you Ratna Duckworth, PT, DPT
[2019-04-18 16:00] VITALS: BP 140/57
--- NOTE | 2019-04-18 16:57 | NUR ---
DR. ROLLINS NOTIFIED OF PT'S C/O LUMBAR PAIN. NO CURRENT XRAYS FOUND AND REQUESTING TO TRY KPAD.
--- NOTE | 2019-04-18 19:00 | NUR ---
PT C/O H/A. MEDICATED W/TYLENOL. WILL MONITOR FOR EFFECTIVENESS. KPAD PLACED TO LUMBAR AREA. CALL LIGHT IN REACH.
[2019-04-18 20:00] VITALS: BP 141/52
--- NOTE | 2019-04-18 20:10 | NUR ---
PT C/O NAUSEA. MEDICATED W/ZOFRAN. PT REPOSITIONED IN BED. CALL LIGHT IN REACH.
[2019-04-19] VITALS: BP 140/68
--- NOTE | 2019-04-19 02:31 | NUR ---
PT FOUND TO BE VERY SOB AND PALE. POX FOUND TO BE 86% ON ROOM AIR. O2 APPLIED VIA 2L NC. PT NOW UP TO 95%. BSG CHECKED WELL-185. PATIENT STATES HE FEELS BETTER SINCE O2 WAS APPLIED. EXP WHEEZES NOTED T/O RIVERS. RESPIRATORY CALLED TO GIVE NEXT SCHEDULED DUONEB SOON POSSIBLE. STATES THEY WILL BE UP TO FLOOR SHORTLY. VITAL SIGNS OTHERWISE STABLE. PT LEFT WITH HOB ELEVATED, O2 IN USE VIA 2L NC, CALL LIGHT IN REACH. PT DENIES SOB AT THIS TIME. WILL MONITOR.
[2019-04-19 02:35] VITALS: BP 151/63
--- NOTE | 2019-04-19 04:03 | NUR ---
MEDICATED WITH PRN TYLENOL FOR C/O HEADACHE. WILL MONITOR
--- NOTE | 2019-04-19 06:25 | NUR ---
PT REQUESTING TO WAIT FOR INSULIN UNTIL AFTER HIS BREAKFAST GETS HERE.
[2019-04-19 08:00] VITALS: BP 150/69
--- NOTE | 2019-04-19 09:00 | NUR ---
case management visits with patient, discussed a discharge plan, discussed with him a short term custodial for rehab prior to returning home, he stated he didn't feel he needed to return to a custodial, he stated [facility] physical therapy for him at home, patient stated he would be returning home and will wait for [facility] to finalize his physical therapy for home
[2019-04-19 09:18] LABS: INTERNATIONAL NORM RATIO 1.2 (2.0-3.5)
[2019-04-19 12:00] VITALS: BP 156/53
--- NOTE | 2019-04-19 13:51 | NUR ---
PHYSICAL THERAPY Physical therapy evaluation attempted however Pt refused again. Reports he would like therapy but not today. Will attempt later. Thank you Ratna Duckworth, PT, DPT
--- NOTE | 2019-04-19 14:20 | NUR ---
Occupational Therapy evaluation offered this date but patient declined stating "not today". Patient reported that he was getting dialysis tomorrow then discharged home. OTR will attempt at a later date. Luz Elena Stone OTR/denise
[2019-04-19 16:00] VITALS: BP 159/74
[2019-04-19 20:00] VITALS: BP 159/71
--- NOTE | 2019-04-19 20:00 | NUR ---
AAOX3 SITTING UP IN CHAIR IN ROOM. PT. VOICES NO C/O AT THIS TIME. ANTIBIOTIC HUNG PER ORDER. CALL LIGHT WITHIN REACH.
--- NOTE | 2019-04-19 21:10 | NUR ---
BLOOD SUGAR; COVERAGE GIVEN PER EMAR.
[2019-04-20] VITALS: BP 172/89
--- NOTE | 2019-04-20 00:30 | NUR ---
PT. C/O DIFFICULTY BREATHING; ENCOURAGED TO SIT UP IN BED TO FACILITATE EASE OF BREATHING & PUT 02 ON PATIENT AT 2LPM VIA NASAL CANNULA. PT. AUDIBLY WHEEZY; NO ACUTE DISTRESS NOTED; WILL CONTINUE TO MONITOR. VERY NONCOMPLIANT FAR INTAKE & OUTPUT. REFUSING TO USE URINAL & DRINKING WHATEVER HE WANTS.
--- NOTE | 2019-04-20 03:00 | NUR ---
SITTING UP IN CHAIR. 02 REMAINS ON. PT. NO LONGER SOUNDS WHEEZY; WILL CONTINUE TO MONITOR. CALL LIGHT WITHIN REACH.
--- NOTE | 2019-04-20 06:30 | NUR ---
BLOOD SUGAR 199; 3 UNITS COVERAGE GIVEN.
[2019-04-20 06:36] LABS: INTERNATIONAL NORM RATIO 1.4 (2.0-3.5)
[2019-04-20 08:00] VITALS: BP 156/65
--- NOTE | 2019-04-20 08:00 | NUR ---
PATIENT RESTING COMFORTABLY IN BED NO COMPLAINTS. INSTRUCTED PATIENT TO LEAVE OXYGEN OFF WILL SPOT CHECK.
--- NOTE | 2019-04-20 08:51 | NUR ---
case management received a message that patient would be discharged today and would go to dialysis from the hospital, case management contacted patient's regarding transportation. she stated she would be at the hospital at 10am to pick him up and transport him to dialysis.
--- NOTE | 2019-04-20 09:09 | NUR ---
POX ON ROOM AIR 97%. CPM MACHINE PLACED BY THERAPY. PATIENT DENIES NEED FOR ANY PAIN MEDICATION.
--- NOTE | 2019-04-20 09:12 | NUR ---
POX 95% RA.
[2019-04-20] MEDS ORDERED: MUCINEX ER600 MG PO (09:22)
[2019-04-20] MEDS ORDERED: COUMADIN6 M2 PO (09:22)
--- NOTE | 2019-04-20 09:37 | NUR ---
TAYLOR notified the Work Buckle Attaching Machine OperatorSarah that the patient spouse would be here at 10am to transport the patient to his 11am Dialysis appointment. Still waiting on discharge order. Packaging Mechanic unable to set up HHC Services as the [place] is setting them up per patients spouse. -TAYLOR Mclean
--- NOTE | 2019-04-20 09:39 | NUR ---
PATIENT TO BE DISCHARGED TODAY TO GO TO DIALYSIS.
--- NOTE | 2019-04-20 09:40 | NUR ---
PATIENT REFUSING ALL MEDS EXCEPT BLOOD PRESSURE BECAUSE HE IS GOING TO DIALYSIS.
[2019-04-20] MEDS ORDERED: ZITHROMAX500 MG PO (09:52)
--- NOTE | 2019-04-20 10:00 | NUR ---
PATIENT DISCHARGED TO HOME
== END 2019-04-20 10:00 | disposition home or self-care (01) | DRG 193 ==
LOC: ED 15:41 → 5E 17:00 → EDHOLD 17:00 → 5E 17:22
PROVIDERS: Physician Assistant; Registered Nurse; Student in an Organized Health Care Education/Training Program; ADMIT Emergency Medicine
PROC: 5A1D70Z Performance of Urinary Filtration, Intermittent, Less than 6 Hours Per Day (ICD-10-PCS; principal; 2019-04-18)
DX: J15.9 Unspecified bacterial pneumonia (principal); G93.41 Metabolic encephalopathy; N18.6 End stage renal disease; I13.2 Hypertensive heart and chronic kidney disease with heart failure and with stage 5 chronic kidney disease, or end stage renal disease; J44.0 Chronic obstructive pulmonary disease with (acute) lower respiratory infection; I50.42 Chronic combined systolic (congestive) and diastolic (congestive) heart failure; R78.81 Bacteremia; E66.2 Morbid (severe) obesity with alveolar hypoventilation; E44.0 Moderate protein-calorie malnutrition; E87.2 Acidosis; I48.21 Permanent atrial fibrillation; E78.5 Hyperlipidemia, unspecified; I25.10 Atherosclerotic heart disease of native coronary artery without angina pectoris; D53.9 Nutritional anemia, unspecified; E55.9 Vitamin D deficiency, unspecified; F32.9 Major depressive disorder, single episode, unspecified; E11.649 Type 2 diabetes mellitus with hypoglycemia without coma; R74.0 Nonspecific elevation of levels of transaminase and lactic acid dehydrogenase [LDH]; R79.1 Abnormal coagulation profile; R79.89 Other specified abnormal findings of blood chemistry; E11.65 Type 2 diabetes mellitus with hyperglycemia; E11.40 Type 2 diabetes mellitus with diabetic neuropathy, unspecified; E78.00 Pure hypercholesterolemia, unspecified; E11.22 Type 2 diabetes mellitus with diabetic chronic kidney disease; Z99.2 Dependence on renal dialysis; Z88.5 Allergy status to narcotic agent; Z88.1 Allergy status to other antibiotic agents; Z88.8 Allergy status to other drugs, medicaments and biological substances; Z88.6 Allergy status to analgesic agent; Z95.5 Presence of coronary angioplasty implant and graft; Z90.11 Acquired absence of right breast and nipple; Z98.52 Vasectomy status; Z83.3 Family history of diabetes mellitus; Z80.9 Family history of malignant neoplasm, unspecified; I25.2 Old myocardial infarction; Z87.11 Personal history of peptic ulcer disease

== ENCOUNTER 2019-04-30 22:57 | Inpatient (IN) | payer MEDICARE ==
[~2019-04-30] VITALS: Ht 182.9 cm; Wt 104.1 kg
--- NOTE | ~2019-04-30 | CON ---
[place], [place] REPORT OF CONSULTATION [id number] #: [id number] ROOM: 407 DOCTOR: MOIZ PALOMARES MD BIRTHDATE: [birth year] DOS: 05/01/2019 NEPHROLOGY CONSULTATION REASON FOR CONSULTATION: Management of dialysis/patient known to you. HISTORY OF PRESENT ILLNESS: This is a 69-year-old male with past medical history of end-stage renal disease on hemodialysis Thursday, Thursday, Thursday through an upper extremity AV fistula. The patient was just in the hospital and discharged it seems a few days ago. He gives history of atrial fibrillation, coronary artery disease, COPD, CHF. Apparently, he missed his dialysis on Thursday. He tells me he was not feeling well, had nausea, vomiting, diarrhea. He came back in the hospital and I was called overnight. It was presented to me that the patient was struggling to breathe. He had an acceptable potassium. He seemed to be volume overloaded according to the nurse, particularly in his abdominal area. Apparently, this is where the patient puts on most of his volume. I gave instructions to transfer the patient to the ICU for potential BiPAP and to contact the dialysis nurse for dialysis this morning. I was called early this morning. I did give orders for 3-hour treatment to remove 3 liters. The patient did tolerate his treatment and feels much better. In fact, when I saw him, he was sitting in a chair, was on room air. He had no complaints of shortness of breath, nausea, vomiting or diarrhea. He states that those symptoms had resolved. He was trying to figure out why he had those recent symptoms, but again they did resolve. ALLERGIES: Listed to MORPHINE, QUINOLONES, ZETIA, FLUVASTATIN, NIACIN AND ALL OTHER STATINS. MEDICATIONS: Reviewed. PAST MEDICAL HISTORY: 1. End-stage renal disease, on hemodialysis as stated above. 2. Asthma. 3. Atrial fibrillation. 4. Coronary artery disease. 5. CHF. 6. COPD. 7. Depression. 8. Neuropathy. 9. Hyperlipidemia. 10. Normal pressure hydrocephalus. 11. Osteoarthritis. 12. Peptic ulcer disease. 13. Vitamin D deficiency. 14. Cardiac catheterization with stenting. 15. Back surgery. 16. Colonoscopy. 17. EGD. 18. Inguinal hernia repair. 19. Right mastectomy. [place], [place] REPORT OF CONSULTATION NAME: NOBLE GENTILE UNIT #: [id number] ROOM: 407 DOCTOR: MOIZ PALOMARES MD BIRTHDATE: [birth year] 20. Vasectomy. 21. Tonsillectomy. 22. Tooth extraction. FAMILY HISTORY: Negative for chronic kidney disease, otherwise noncontributory. SOCIAL HISTORY: No current tobacco, alcohol or illicit drugs. REVIEW OF SYSTEMS: As per HPI, otherwise a 10-point review of systems was reviewed and was negative. PHYSICAL EXAMINATION: VITAL SIGNS: Temperature is afebrile, pulse 65 and respiratory rate 18, blood pressure 149/67. GENERAL: He is awake, alert, comfortable, sitting in chair, in no acute distress. HEENT: Shows no JVD. Sclerae are anicteric. Mucous membranes moist. Pharynx is clear. NECK: Supple. Trachea midline. No lymphadenopathy or thyromegaly. LUNGS: Diminished breath sounds with no wheezes. No tactile fremitus. Not using accessory muscles of respiration. HEART: S1, S2. No rub, thrill or gallop. ABDOMEN: Soft, nontender, mild distention. There is no organomegaly, rigidity, rebound or guarding. There is no CVA tenderness. EXTREMITIES: Had no edema. There is no lower extremity lymphadenopathy. Distal pulses are present. SKIN: Showed no overt rash. There is no petechia or purpura. Skin temperature was warm. NEUROLOGIC: Awake, alert, following commands. Cranial nerves intact. LABORATORY DATA: Hemoglobin 10.5, white count of 9.1, platelets 207. Glucose 301. BUN 64, creatinine 5.2, sodium 132, potassium of 5.6, calcium 7.9, phosphorus 4.8, magnesium 2.0. IMPRESSION: 1. End-stage renal disease on hemodialysis Thursday, Thursday, Thursday through an upper extremity AV fistula. 2. Dyspnea, which has resolved, likely due to missed dialysis session/volume overloaded. 3. Anemia of chronic disease. 4. Hypertension. 5. Diabetes mellitus. 6. Coronary artery disease. PLAN: 1. Dialysis was performed urgently this morning. The patient has improved his symptoms. We will plan for next dialysis again tomorrow to stay on schedule. 2. Dose meds for end-stage renal disease. 3. Continue home medications. 4. We will give as needed erythropoietin stimulating agents with dialysis. [place], [place] REPORT OF CONSULTATION NAME: NOBLE GENTILE UNIT #: [id number] ROOM: 407 DOCTOR: MOIZ PALOMARES MD BIRTHDATE: [birth year] 5. Await further plans. Thank you for this consultation. MOIZ PALOMARES MD CM:CONSTR:REPORT OF CONSULTATION 1300 05/01/19 2315 interface
--- NOTE | ~2019-04-30 | EKG ---
[place], [place] ELECTROCARDIOGRAM REPORT NAME: NOBLE GENTILE UNIT #: [id number] ROOM: [facility] DOCTOR: JEM DRAFT REPORT BIRTHDATE: [birth year] [facility] Test Date: 2019-05-01 Test Time: 04:00:11 Pat Name: NOBLE GENTILE Department: Room: [facility] Gender: M Logging Tractor Operator Swamp: SS RESP : 1950 Requested By: RYAN BROWN Order Number: [id number] Reading MD: Winter Schneider MD Measurements Intervals Stephan Rate: 71 P: 26 DC: 162 QRS: -3 QRSD: 112 T: 244 QT: 434 QTc: 472 Interpretive Statements Sinus rhythm Probable left atrial enlargement LVH with secondary repolarization abnormality Compared to ECG 04/17/2019 16:03:56 Myocardial infarct finding no longer present Electronically Signed On 05-01-2019 7:49:42 PST by Winter Schneider MD CM:EKGRPT:ELECTROCARDIOGRAM REPORT 0400 [id number] RYAN AUGUSTIN DRAFT REPORT RYAN BROWN DO
--- NOTE | ~2019-04-30 | EKG ---
[place], [place] ELECTROCARDIOGRAM REPORT NAME: NOBLE GENTILE UNIT #: [id number] ROOM: 407 DOCTOR: JEM DRAFT REPORT BIRTHDATE: [birth year] [facility] Test Date: 2019-04-30 Test Time: 23:01:24 Pat Name: NOBLE GENTILE Department: Room: 407 Gender: M Photo Machine Operator: : 1950 Requested By: DEXTER POTTER Order Number: [id number] Reading MD: Eric Baldwin Measurements Intervals [place] Rate: 70 P: 16 VT: 159 QRS: -6 QRSD: 107 T: 234 QT: 419 QTc: 453 Interpretive Statements Sinus rhythm LVH with secondary repolarization abnormality Compared to ECG 04/17/2019 16:03:56 Atrial abnormality no longer present Myocardial infarct finding no longer present Electronically Signed On 05-04-2019 9:24:05 PST by Eric Baldwin CM:EKGRPT:ELECTROCARDIOGRAM REPORT 00 [id number] DEXTER AUGUSTIN DRAFT REPORT DEXTER POTTER DO
--- NOTE | ~2019-04-30 | EKG ---
[place], [place] ELECTROCARDIOGRAM REPORT NAME: NOBLE GENTILE UNIT #: [id number] ROOM: [facility] DOCTOR: JEM DRAFT REPORT BIRTHDATE: [birth year] [facility] Test Date: 2019-05-01 Test Time: 00:56:58 Pat Name: NOBLE GENTILE Department: Room: [facility] Gender: M Stock [place] Supervisor: SS RESP : 1950 Requested By: RYAN BROWN Order Number: [id number] Reading MD: Winter Schneider MD Measurements Intervals [place] Rate: 69 P: 27 NC: 155 QRS: -1 QRSD: 109 T: 234 QT: 410 QTc: 440 Interpretive Statements Sinus rhythm Ventricular premature complex Repol abnrm suggests ischemia, diffuse leads Compared to ECG 04/17/2019 16:03:56 Ventricular premature complex(es) now present Possible ischemia now present Atrial abnormality no longer present Left ventricular hypertrophy no longer present Myocardial infarct finding no longer present Electronically Signed On 05-01-2019 5:57:21 PST by Winter Schneider MD CM:EKGRPT:ELECTROCARDIOGRAM REPORT 0056 [id number] RYAN AUGUSTIN DRAFT REPORT RYAN BROWN DO
[~2019-04-30 22:57] MED LIST changes: +MUCINEX ER600 MG PO; +NOVOLOG100 UNIT/1 SQ; +ZITHROMAX500 MG PO
[2019-04-30 23:01] VITALS: BP 133/64
[2019-04-30 23:27] LABS: BASO % 0.1 % (0.0-1.0); EOS # 0.1 10*3/uL (0.0-0.4); EOS % 0.7 % (1.0-4.0); HEMOGLOBIN 10.1 g/dl (14.0-18.0); LYMPH # 1.1 10*3/uL (1.3-4.4); LYMPH % 12.9 % (27.0-41.0); MEAN CELL VOLUME 100.3 fl (80.0-94.0); MEAN CORPUSCULAR HGB 32.7 pg (27.0-31.0); MEAN CORPUSCULAR HGB CONC 32.6 g/dl (33.0-37.0); MONO # 0.9 10*3/uL (0.1-1.0); MONO % 10.9 % (3.0-9.0); NEUT # 6.5 10*3/uL (2.3-7.9); NEUT % 74.6 % (47.0-73.0); PLATELET COUNT AUTOMATED 217 10*3/uL (130-400); RED BLOOD COUNT 3.09 10*6/uL (4.50-5.90); RED CELL DISTRI WIDTH 16.4 % (0-14.5); WHITE BLOOD COUNT 8.7 10*3/uL (4.8-10.8)
[2019-04-30 23:43] LABS: ALBUMIN 3.2 gm/dl (3.1-4.5); CREATININE 5.04 mg/dL (0.70-1.30); POTASSIUM 4.4 mmol/L (3.5-5.1); TOTAL PROTEIN 6.5 gm/dL (6.4-8.2)
[2019-04-30 23:51] LABS: INTERNATIONAL NORM RATIO 1.6 (2.0-3.5)
[2019-05-01 00:14] VITALS: BP 160/82
--- NOTE | 2019-05-01 00:51 | NUR ---
A 69, admitted to 5E, under the services of RYAN Frazier DO with a diagnosis of CHF, CHEST PAIN, ESRD. Chief complaint is SOB. Patient arrived via ambulance from ER. Monitor applied. Initial assessment completed. Vital signs taken and recorded. RYAN FRAZIER DO notified of admission to the unit. Orders received. See assessment for past medical history, medications and allergies. Patient and/or family oriented to unit. [facility] visitation policy reviewed. Clothing/patient valuable form completed. SKY GALLEGOS
--- NOTE | 2019-05-01 01:14 | NUR ---
PT FEELING "OFF" REQUESTED BSG CHECK. BSG 47. NOTIFIED. ORANGE JUICE AND SANDWICH GIVEN PER PT REQUEST. ORDERED TO SUPPLEMENT PO DUE TO CHF AND ESRD. WILL RE-CHECK BSG WITHIN 1 HR.
--- NOTE | 2019-05-01 01:28 | NUR ---
MED REC UPDATED WITH PT AT BEDSIDE.
--- NOTE | 2019-05-01 01:38 | NUR ---
NOTIFIED MED REC WAS UPDATED.
--- NOTE | 2019-05-01 01:55 | NUR ---
CONSULT CALLED TO FOR NEPHROLOGY. AWAITING CALL BACK.
--- NOTE | 2019-05-01 02:00 | NUR ---
Pt placed on BiPap 12/6 and FiO2 40%. Alarms on and audible.
--- NOTE | 2019-05-01 02:02 | NUR ---
CALLED BACK. INFORMED OF PT STATUS. REQUESTED PT BE TAKEN TO ICU FOR FURTHER MONITORING. NOTIFIED AND SAID HE WOULD PUT TRANSFER ORDER IN. JENNIFER ORNELAS INJECTION MOLD TECHNICIAN NOTIFIED.
--- NOTE | 2019-05-01 02:10 | NUR ---
BSG 147 UPON RE-CHECK. TOLERATING BIPAP WELL.
[2019-05-01 02:20] VITALS: BP 115/61
--- NOTE | 2019-05-01 02:20 | NUR ---
TRANSFERRED FROM TO ICU #4. PT A&O, RESP LABORED, POX 98% ON 3L NC. SKIN WARM & DRY. NO ACUTE DISTRESS NOTED. 1+ PITTING EDEMA NOTED TO BLE. HEPLOCK PATENT. NSR ON MONITOR. VSS.
--- NOTE | 2019-05-01 02:39 | NUR ---
TRANSFERRED TO [facility] WITHOUT INCIDENT PER ORDERS. REPORT GIVEN TO TIFFANY DAUGHERTY.
--- NOTE | 2019-05-01 02:43 | NUR ---
DAVID HELM NOTIFED OF ORDERS FOR DIALYSIS LANCE. SAID THEY WOULD PAGE THE DOLL WIG HACKLER NURSE.
--- NOTE | 2019-05-01 02:46 | NUR ---
DR RODARTE NOTIFIED OF CONSULT. NO NEW ORDERS RECEIVED.
--- NOTE | 2019-05-01 03:06 | NUR ---
DR PALOMARES NOTIFIED OF TRANSFER AND ORDER GIVEN FOR DIALYSIS LANCE. DIALYSIS NURSE NOTIFIED.
[2019-05-01 06:15] LABS: HEMOGLOBIN 10.5 g/dl (14.0-18.0); MEAN CELL VOLUME 100.3 fl (80.0-94.0); MEAN CORPUSCULAR HGB 31.9 pg (27.0-31.0); MEAN CORPUSCULAR HGB CONC 31.8 g/dl (33.0-37.0); MEAN PLATELET VOLUME 11.4 fl (9.6-12.3); PLATELET COUNT AUTOMATED 207 10*3/uL (130-400); RED BLOOD COUNT 3.29 10*6/uL (4.50-5.90); RED CELL DISTRI WIDTH 16.2 % (0-14.5); WHITE BLOOD COUNT 9.1 10*3/uL (4.8-10.8)
[2019-05-01 06:20] LABS: CREATININE 5.23 mg/dL (0.70-1.30); PHOSPHOROUS 4.8 mg/dL (2.5-4.9)
[2019-05-01 06:23] LABS: INTERNATIONAL NORM RATIO 1.6 (2.0-3.5)
[2019-05-01 07:20] LABS: PLATELET SUFFICIENCY NORMAL (NORMAL); TOTAL CELLS COUNTED 100 #CELLS
[2019-05-01 07:31] LABS: POTASSIUM 5.6 mmol/L (3.5-5.1)
[2019-05-01 08:00] VITALS: BP 176/90
--- NOTE | 2019-05-01 08:11 | NUR ---
Listless , softly snoring at times. Spouse called in and update was given. Dialysis in progress.
--- NOTE | 2019-05-01 08:14 | NUR ---
[facility]
--- NOTE | 2019-05-01 09:42 | NUR ---
Dialysis complete, up to chair for breakfast.
--- NOTE | 2019-05-01 09:42 | NUR ---
Dr. Duran in to [facility]. Order for transfer out recieved.
--- NOTE | 2019-05-01 10:02 | NUR ---
Took breakfast well. to radiology for 2v chest.
[2019-05-01 12:00] VITALS: BP 149/67
--- NOTE | 2019-05-01 12:52 | NUR ---
Dr. Cheema in to [facility]. Transfer pending to telemetry.
--- NOTE | 2019-05-01 14:30 | NUR ---
PATIENT TRANSFERRED FROM ICU INTO [facility] AT THIS TIME WITHOUT INCIDENT. PATIENT PLACED ON TRANSFORMATION SPECIALIST. ORIENTED TO ROOM AND CALL LIGHT. CALL LIGHT WITHIN REACH, WILL CONTINUE TO MONITOR.
[2019-05-01 16:00] VITALS: BP 173/71
[2019-05-01 20:00] VITALS: BP 159/77
--- NOTE | 2019-05-01 20:11 | NUR ---
1934 RSTING IN BED WITH HOB ELEVATED. CALL LIGHT IN REACH. HEP LOCK INTACT. NO C/O'S CHEST PAIN OR DISCOMFORT VOICED. NO DISTRESS NOTED.
--- NOTE | 2019-05-01 22:12 | NUR ---
2030 UP TO BR. BATHED AT SINK. LINENS CHANGED.
[2019-05-02] VITALS: BP 178/78
--- NOTE | 2019-05-02 00:38 | NUR ---
RESTING IN BED WITH EYES CLOSED. APPEARS TO BE SLEEPING.
--- NOTE | 2019-05-02 00:50 | NUR ---
RESTORIL PO FOR SLEEP. WILL MONITOR.
--- NOTE | 2019-05-02 03:13 | NUR ---
EARLIER RESTORIL EFFECTIVE.
--- NOTE | 2019-05-02 06:13 | NUR ---
AWAKE. SITTING UP ON THE SIDE OF THE BED. REMAINS WITHOUT C/O'S. CONDITION GUARDED.
--- NOTE | 2019-05-02 07:46 | NUR ---
PT OFF FLOOR IN DIALYSIS
[2019-05-02 08:00] VITALS: BP 123/45
--- NOTE | 2019-05-02 08:18 | NUR ---
PT IN DIALYSIS, PT COMPLAIN OF BACK PAIN, TYLENOL GIVEN.
--- NOTE | 2019-05-02 08:20 | NUR ---
PT ASSESSED WHILE IN DIALYSIS, UNABLE TO ASSESS FISTULA, FISTULA IN USE. UNABLE TO ASSESS SKIN COMPLETLY DUE TO PATIENT LYING FLAT ON BACK FOR DIALYSIS. PER PATIENT NO SKIN IMPAIRMENT ISSUES NOTED, WILL ASSESS WHEN PATIENT RETURNS FROM DIALYSIS.
--- NOTE | 2019-05-02 09:00 | NUR ---
case management attempted to visit with patient, he was in dialysis at this time, will see at a later time
--- NOTE | 2019-05-02 10:14 | NUR ---
PT REMAIN IN DIALYISIS
--- NOTE | 2019-05-02 11:16 | NUR ---
PHYSICAL THERAPY Pt in dialysis. Will attempt later. Thank you Ratna Duckworth, PT, DPT
--- NOTE | 2019-05-02 11:18 | NUR ---
RETURN FROM DIALYSIS
[2019-05-02 11:56] VITALS: BP 134/58
[2019-05-02 16:00] VITALS: BP 148/66
--- NOTE | 2019-05-02 16:13 | NUR ---
Nursing screen received and chart reviewed. Patient admitted to ED for SOB. Patient PMH including COPD, ESRD dialysis MWF, with a recent d/c from [facility] on 04/20 for pneumonia. If patient has a decline in ADLs and functional mobility/transfers, please send OT orders. Thank you. Phoebe Ospina, OTR/L
[2019-05-02 20:00] VITALS: BP 143/56
--- NOTE | 2019-05-02 20:19 | NUR ---
24 HR chart check completed.
--- NOTE | 2019-05-02 20:30 | NUR ---
RESTING IN BED WATCHING TV WITH NO ACUTE DISTRESS NOTED. RESPIRATIONS EASY. LUNGS DIMINISHED WITH EXP WHEEZES. PULSE OX 98% RA. CLAIMS COUGH PROD FOR CLEAR. FISTULA NOTED TO LEFT ARM +THRILL/BRUIT. CALL LIGHT WITHIN REACH. NO VOICED COMPLAINTS
--- NOTE | 2019-05-02 21:06 | NUR ---
REQUESTED AND RECEIVED TYLENOL AND RESTORIL PER PRN ORDER FOR COMPLAINTS OF GENERALIZED ACHES/PAIN AND TO ASSIST WITH SLEEP. CALL LIGHT WITHIN REACH. WILL MONITOR
--- NOTE | 2019-05-02 23:15 | NUR ---
MEDS EFFECTIVE, SLEEPING
[2019-05-03] VITALS: BP 139/78
--- NOTE | 2019-05-03 | NUR ---
SLEEPING. NO DISTRESS NOTED. RESPIRATIONS EASY. CALL LIGHT WITHIN REACH
--- NOTE | 2019-05-03 06:00 | NUR ---
SLEPT THROUGHOUT NIGHT WITH NO DISTRESS NOTED. RESPIRATIONS EASY. CALL LIGHT WITHIN REACH. NO VOICED COMPLAINTS THIS SHIFT
--- NOTE | 2019-05-03 07:05 | NUR ---
ARRIVED ON SHIFT, INTRODUCED TO PATIENT, BEDSIDE REPORT RECEIVED, NO NEEDS VOICED AT THIS TIME, WHITE BOARD UPDATED.
--- NOTE | 2019-05-03 07:39 | NUR ---
Shift chart check completed.
[2019-05-03 07:53] LABS: BASO % 0.3 % (0.0-1.0); EOS # 0.2 10*3/uL (0.0-0.4); HEMATOCRIT 36.6 % (42.0-52.0); HEMOGLOBIN 11.6 g/dl (14.0-18.0); LYMPH # 1.7 10*3/uL (1.3-4.4); LYMPH % 21.8 % (27.0-41.0); MEAN CELL VOLUME 100.8 fl (80.0-94.0); MEAN CORPUSCULAR HGB CONC 31.7 g/dl (33.0-37.0); MEAN PLATELET VOLUME 10.4 fl (9.6-12.3); MONO # 0.7 10*3/uL (0.1-1.0); MONO % 8.6 % (3.0-9.0); NEUT # 5.3 10*3/uL (2.3-7.9); NEUT % 66.9 % (47.0-73.0); PLATELET COUNT AUTOMATED 206 10*3/uL (130-400); RED BLOOD COUNT 3.63 10*6/uL (4.50-5.90); RED CELL DISTRI WIDTH 16.6 % (0-14.5)
[2019-05-03 08:00] VITALS: BP 140/62; BP 140/64
[2019-05-03 08:03] LABS: CREATININE 3.92 mg/dL (0.70-1.30); POTASSIUM 3.8 mmol/L (3.5-5.1)
--- NOTE | 2019-05-03 09:00 | NUR ---
Medical Front Desk Coordinator in to talk to patient. Patient states lives at home with . There are few steps in the home. Physician: lizbeth [facility] Home health services: none Patient's level of ADLs: MINIMAL ASSIST Patient has working utilities: all working DME: electric scooter, stir chair, cane Follow-up physician's appointment after d/c: will be made by hospitalist nurse director upon discharge Does patient want to access PORTAL?: no Discharge plan discussed with patient he states he lives at home with , he is independent in adls and uses an electric scooter or cane for ambulation, he states he will return home when medically stable, discussed with him [facility] and he stated the [place] clinic is working on setting up home services for him, case managmeent will follow. ANDREAS BARRIENTOS
[2019-05-03 12:00] VITALS: BP 147/68; BP 158/78
[2019-05-03 16:00] VITALS: BP 182/87
[2019-05-03 20:00] VITALS: BP 170/73
[2019-05-04] VITALS: BP 142/59
--- NOTE | 2019-05-04 01:08 | NUR ---
PATIENT MEDICATED WITH RESTORIL FOR C/O INSOMNIA. WILL MONITOR
--- NOTE | 2019-05-04 02:08 | NUR ---
RESTORIL EFFECTIVE FOR INSOMNIA
[2019-05-04 06:10] LABS: HEMATOCRIT 34.3 % (42.0-52.0); HEMOGLOBIN 11.2 g/dl (14.0-18.0); MEAN CELL VOLUME 98.6 fl (80.0-94.0); MEAN CORPUSCULAR HGB 32.2 pg (27.0-31.0); MEAN CORPUSCULAR HGB CONC 32.7 g/dl (33.0-37.0); MEAN PLATELET VOLUME 11.3 fl (9.6-12.3); PLATELET COUNT AUTOMATED 183 10*3/uL (130-400); RED BLOOD COUNT 3.48 10*6/uL (4.50-5.90); RED CELL DISTRI WIDTH 16.3 % (0-14.5); WHITE BLOOD COUNT 11.1 10*3/uL (4.8-10.8)
[2019-05-04 06:23] LABS: CREATININE 4.47 mg/dL (0.70-1.30); POTASSIUM 4.6 mmol/L (3.5-5.1)
--- NOTE | 2019-05-04 07:00 | NUR ---
ARRIVED ON SHIFT. BEDSIDE REPORT RECEIVED, NO NEEDS VOICED AT THIS TIME, WHITE BOARD UPDATED.
--- NOTE | 2019-05-04 07:35 | NUR ---
Shift chart check completed.
[2019-05-04 07:43] LABS: PLATELET SUFFICIENCY NORMAL (NORMAL); TOTAL CELLS COUNTED 100 #CELLS
[2019-05-04 08:00] VITALS: BP 140/78
--- NOTE | 2019-05-04 09:00 | NUR ---
case management visits with patient, he will return home when medically stable, no home needs at this time
--- NOTE | 2019-05-04 13:23 | NUR ---
PHYSICAL THERAPY Pt out of room for Dialysis. Will attempt at later time. Thank you Ratna Duckworth, PT, DPT
--- NOTE | 2019-05-04 15:43 | NUR ---
PHYSICAL THERAPY Physical therapy evaluation completed, 4E. Full details to follow. moderate complexity determined after evaluation/chart review, [address]. PT to work on strength, endurance, safety, gait, transfers, balance. Recommending home with 24 hour assist with home PT or short term SNF. Thank you Ratna Duckworth, PT, DPT
[2019-05-04 16:00] VITALS: BP 130/61
[2019-05-04 20:00] VITALS: BP 159/75
--- NOTE | 2019-05-04 21:38 | NUR ---
PATIENT MEDICATED WITH RESTORIL FOR C/O INSOMNIA. WILL MONITOR
--- NOTE | 2019-05-04 22:38 | NUR ---
RESTORIL EFFECTIVE FOR INSOMNIA.
[2019-05-05] VITALS: BP 127/58
--- NOTE | 2019-05-05 01:44 | NUR ---
24 HR chart check completed.
[2019-05-05 06:42] LABS: HEMATOCRIT 36.7 % (42.0-52.0); HEMOGLOBIN 11.9 g/dl (14.0-18.0); MEAN CELL VOLUME 99.7 fl (80.0-94.0); MEAN CORPUSCULAR HGB 32.3 pg (27.0-31.0); MEAN CORPUSCULAR HGB CONC 32.4 g/dl (33.0-37.0); MEAN PLATELET VOLUME 11.3 fl (9.6-12.3); PLATELET COUNT AUTOMATED 199 10*3/uL (130-400); RED BLOOD COUNT 3.68 10*6/uL (4.50-5.90); RED CELL DISTRI WIDTH 16.7 % (0-14.5); WHITE BLOOD COUNT 13.9 10*3/uL (4.8-10.8)
[2019-05-05 07:08] LABS: CREATININE 3.98 mg/dL (0.70-1.30); POTASSIUM 4.5 mmol/L (3.5-5.1)
[2019-05-05 07:11] LABS: PLATELET SUFFICIENCY NORMAL (NORMAL); TOTAL CELLS COUNTED 100 #CELLS
[2019-05-05 07:17] LABS: INTERNATIONAL NORM RATIO 2.7 (2.0-3.5)
--- NOTE | 2019-05-05 07:45 | NUR ---
PHYSICAL THERAPY Patient seen this am 1:1 for therapy visit and was supine in bed upon therapist arrival. Patient identified by name / , voicing no new c/o's and transfers supine to sit EOB with SBA. Patient completed sit to stand transfer SBA and ambulates with use of wh walker, SBA, > 150 'x 1, while demonstrating "shuffling" gait pattern / slow mary. Patient is also very cautious during all turns and returned to EOB sit with mild fatigue. Patient remained EOB sit as breakfast arrived with call light, tray table, telephone and bed alarm. Will continue per POC as tolerated, total treatment time 15 minutes. Pancho Malave, TECHNICIAN INVENTORY SPECIALIST
[2019-05-05 08:00] VITALS: BP 174/72
--- NOTE | 2019-05-05 09:00 | NUR ---
case management visits with patient, he will be discharged to home today and denies any home needs
[2019-05-05] MEDS ORDERED: AVPAK AZITHROM250 MG PO (09:32)
[2019-05-05] MEDS ORDERED: PREDNISONE10 MG PO (09:32)
--- NOTE | 2019-05-05 10:21 | NUR ---
IV REMOVED AND HEART MONITOR COLLECTED FOR DISCHARGE. TOLERATED IV REMOVAL WELL.
--- NOTE | 2019-05-05 11:13 | NUR ---
Discharge instructions reviewed with patient/family. Patient receptive and verbalizes understanding. Follow-up care arranged. Written instructions given to patient/family. SKY GALLEGOS
--- NOTE | 2019-05-06 08:11 | NUR ---
PHYSICAL THERAPY CO-SIGN I approve of the Physical Therapy notes written above. Ratna Duckworth, PT, DPT
== END 2019-05-05 11:13 | disposition home or self-care (01) | DRG 291 ==
LOC: ED 22:57 → 4E 05-01 01:09 → EDHOLD 05-01 01:09 → 5E 05-01 01:42 → ICCU 05-01 02:11 → 4E 05-01 13:41
PROVIDERS: Emergency Medicine; Internal Medicine; Student in an Organized Health Care Education/Training Program; ADMIT Family Medicine
PROC: 5A1D70Z Performance of Urinary Filtration, Intermittent, Less than 6 Hours Per Day (ICD-10-PCS; principal; 2019-05-01)
PROC: 5A1D70Z Performance of Urinary Filtration, Intermittent, Less than 6 Hours Per Day (ICD-10-PCS; 2019-05-02)
PROC: 5A1D70Z Performance of Urinary Filtration, Intermittent, Less than 6 Hours Per Day (ICD-10-PCS; 2019-05-04)
DX: I13.2 Hypertensive heart and chronic kidney disease with heart failure and with stage 5 chronic kidney disease, or end stage renal disease (principal); N18.6 End stage renal disease; I50.43 Acute on chronic combined systolic (congestive) and diastolic (congestive) heart failure; E44.0 Moderate protein-calorie malnutrition; E66.2 Morbid (severe) obesity with alveolar hypoventilation; G91.2 (Idiopathic) normal pressure hydrocephalus; J44.1 Chronic obstructive pulmonary disease with (acute) exacerbation; E87.1 Hypo-osmolality and hyponatremia; E87.79 Other fluid overload; D53.9 Nutritional anemia, unspecified; J45.909 Unspecified asthma, uncomplicated; I48.91 Unspecified atrial fibrillation; I25.10 Atherosclerotic heart disease of native coronary artery without angina pectoris; F32.9 Major depressive disorder, single episode, unspecified; E11.40 Type 2 diabetes mellitus with diabetic neuropathy, unspecified; E78.00 Pure hypercholesterolemia, unspecified; M47.9 Spondylosis, unspecified; I25.708 Atherosclerosis of coronary artery bypass graft(s), unspecified, with other forms of angina pectoris; E87.5 Hyperkalemia; I48.0 Paroxysmal atrial fibrillation; E78.5 Hyperlipidemia, unspecified; I34.0 Nonrheumatic mitral (valve) insufficiency; E11.22 Type 2 diabetes mellitus with diabetic chronic kidney disease; E11.65 Type 2 diabetes mellitus with hyperglycemia; R94.31 Abnormal electrocardiogram [ECG] [EKG]; E11.41 Type 2 diabetes mellitus with diabetic mononeuropathy; E55.9 Vitamin D deficiency, unspecified; Z95.5 Presence of coronary angioplasty implant and graft; Z88.6 Allergy status to analgesic agent; Z88.8 Allergy status to other drugs, medicaments and biological substances; Z79.899 Other long term (current) drug therapy; Z79.4 Long term (current) use of insulin; Z79.01 Long term (current) use of anticoagulants; Z87.01 Personal history of pneumonia (recurrent); I25.2 Old myocardial infarction; Z87.11 Personal history of peptic ulcer disease; Z98.52 Vasectomy status; Z90.89 Acquired absence of other organs; Z90.11 Acquired absence of right breast and nipple; Z82.49 Family history of ischemic heart disease and other diseases of the circulatory system; Z83.3 Family history of diabetes mellitus; Z80.8 Family history of malignant neoplasm of other organs or systems; Z99.2 Dependence on renal dialysis; Z68.32 Body mass index [BMI] 32.0-32.9, adult

== ENCOUNTER 2019-06-10 14:40 | Inpatient (IN) | payer MEDICARE ==
[~2019-06-10] VITALS: Ht 182.9 cm; Wt 107.6 kg
[2019-06-10 14:40] VITALS: BP 124/61
[~2019-06-10 14:40] MED LIST changes: +AVPAK AZITHROM250 MG PO
[2019-06-10 15:09] LABS: BASO % 0.3 % (0.0-1.0); EOS # 0.1 10*3/uL (0.0-0.4); EOS % 0.6 % (1.0-4.0); HEMATOCRIT 36.6 % (42.0-52.0); HEMOGLOBIN 12.2 g/dl (14.0-18.0); LYMPH # 1.6 10*3/uL (1.3-4.4); LYMPH % 17.8 % (27.0-41.0); MEAN CELL VOLUME 97.3 fl (80.0-94.0); MEAN CORPUSCULAR HGB 32.4 pg (27.0-31.0); MEAN CORPUSCULAR HGB CONC 33.3 g/dl (33.0-37.0); MONO # 0.7 10*3/uL (0.1-1.0); MONO % 7.4 % (3.0-9.0); NEUT # 6.5 10*3/uL (2.3-7.9); NEUT % 73.4 % (47.0-73.0); PLATELET COUNT AUTOMATED 188 10*3/uL (130-400); RED BLOOD COUNT 3.76 10*6/uL (4.50-5.90); RED CELL DISTRI WIDTH 15.7 % (0-14.5); WHITE BLOOD COUNT 8.8 10*3/uL (4.8-10.8)
[2019-06-10 15:25] LABS: ACT PARTIAL THROMBO TIME 29.5 SECONDS (20.0-32.1); ALBUMIN 3.2 gm/dl (3.1-4.5); CREATININE 2.8 mg/dL (0.70-1.30); INTERNATIONAL NORM RATIO 1.2 (2.0-3.5); POTASSIUM 3.6 mmol/L (3.5-5.1); TOTAL PROTEIN 6.8 gm/dL (6.4-8.2)
--- NOTE | 2019-06-10 15:30 | NUR ---
CRITICAL LAB RECEIVED AT THIS TIME. DR CAMPBELL NOTIFIED.
[2019-06-10 15:31] LABS: TROPONIN I 13.5 ng/ml (<0.045)
[2019-06-10 15:51] VITALS: BP 132/68
[2019-06-10 17:00] VITALS: BP 128/64
[2019-06-10 17:10] VITALS: BP 158/78
--- NOTE | 2019-06-10 17:10 | NUR ---
A 69, admitted to ICCU, under the services of ANNIA Peterson DO with a diagnosis of NSTEMI. Chief complaint is CHEST PAIN. Patient arrived via bed from ER. Monitor applied. Initial assessment completed. Vital signs taken and recorded. ANNIA PETERSON DO notified of admission to the unit. Orders received. See assessment for past medical history, medications and allergies. Patient and/or family oriented to unit. [facility] ICCU visitation policy reviewed. Clothing/patient valuable form completed. GERTRUDIS ROLLE
[2019-06-10] MEDS ORDERED: ZOLOFT100 MG PO (18:06)
[2019-06-10] MEDS ORDERED: LASIX40 MG PO (18:08)
--- NOTE | 2019-06-10 18:20 | NUR ---
NOTIFIED DR. MALDONADO OF CONSULT, NO NEW ORDERS UNLESS PATIENT HAS WORSENING SYMPTOMS. WILL SEE IN THE AM.
--- NOTE | 2019-06-10 19:24 | NUR ---
NOTIFIED DIALYSIS/MIGUEL OF ADMISSION
[2019-06-10 20:00] VITALS: BP 148/59
--- NOTE | 2019-06-10 21:12 | NUR ---
IV started IN RIGHT UPPER ARM with #22 protective cath after 1 attempts. Site prepped with Chloroprep. Sterile dressing applied. Patient tolerated procedure well. TONIE BAILEY
[2019-06-11] VITALS (11 sets, daily range): BP systolic 131–177; BP diastolic 54–75
--- NOTE | 2019-06-11 01:00 | NUR ---
PATIENT REQUESTED HIS BLOOD SUGAR TO BE CHECKED AND STATED HE WAS HAVING SOME CHEST PAIN, MID STERNAL, NON-RADIATING. CHECK BS, 552. NOTIFIED DR. RODAS THAT THERE WAS NO SLIDING SCALE ORDERED, AND NEEDED SOMETHING FOR PAIN. ORDERS RECEIVED. ALLERGY TO MORPHINE, SPOKE WITH PHARMACY, THEY RECOMMENDED ORAL SUCH TRAMADOL. RELAYED BACK TO DR. RODAS, NEW ORDER RECEIVED FOR TRAMADOL.
--- NOTE | 2019-06-11 01:44 | NUR ---
TRAMADOL GIVEN FOR CHEST PAIN. PATIENT STATED MID-STERNAL, NON-RADIATING. 02/05. WILL MONITOR FOR ANY ALLERGIC REACTIONS.
--- NOTE | 2019-06-11 05:10 | NUR ---
PATIENT AWOKE WITH CHEST PAIN, STATED HE WAS ABLE TO SLEEP FOR JUST A SHORT TIME AFTER TAKING THE TRAMADOL. SPOKE WITH DR. WHITEHEAD, NEW ORDER FOR NITRO GTT, AND TO VERIFY WITH DR. MALDONADO. OK'D TO START PER ERICA.
[2019-06-11 06:08] LABS: BASO % 0.3 % (0.0-1.0); EOS # 0.1 10*3/uL (0.0-0.4); EOS % 0.7 % (1.0-4.0); HEMATOCRIT 35.7 % (42.0-52.0); HEMOGLOBIN 11.7 g/dl (14.0-18.0); LYMPH # 1.9 10*3/uL (1.3-4.4); LYMPH % 28.5 % (27.0-41.0); MEAN CELL VOLUME 97.8 fl (80.0-94.0); MEAN CORPUSCULAR HGB 32.1 pg (27.0-31.0); MEAN CORPUSCULAR HGB CONC 32.8 g/dl (33.0-37.0); MEAN PLATELET VOLUME 10.5 fl (9.6-12.3); MONO # 0.7 10*3/uL (0.1-1.0); MONO % 10.8 % (3.0-9.0); PLATELET COUNT AUTOMATED 170 10*3/uL (130-400); RED BLOOD COUNT 3.65 10*6/uL (4.50-5.90); RED CELL DISTRI WIDTH 15.6 % (0-14.5); WHITE BLOOD COUNT 6.8 10*3/uL (4.8-10.8)
[2019-06-11 06:35] LABS: CREATININE 3.95 mg/dL (0.70-1.30); POTASSIUM 3.6 mmol/L (3.5-5.1)
[2019-06-11 06:42] LABS: FREE T4 0.99 ng/dl (0.76-1.46); PHOSPHOROUS 2.7 mg/dL (2.5-4.9); THYROID STIM HORMONE (HS) 0.875 uIU/ml (0.358-4.75); TOTAL PROTEIN 6.4 gm/dL (6.4-8.2)
--- NOTE | 2019-06-11 06:54 | NUR ---
PATIENT REFUSING TO HAVE NITRO GTT ON. STATES IT IS MAKING HIM FEEL FUNNY AND HIS HEAD IS SPINNING. NOTIFIED DR. WHITEHEAD, NEW ORDERS RECEIVED.
--- NOTE | 2019-06-11 07:36 | NUR ---
Shift chart check completed.24 HR chart check completed.
--- NOTE | 2019-06-11 07:40 | NUR ---
24 HR chart check completed.
--- NOTE | 2019-06-11 09:08 | NUR ---
PT RESTING ON BED WTH NO DISTRESS. EASY RESPIRATIONS. DENIES ANY PAIN AT THIS TIME. DENIES CHEST PAIN. IV HEPARIN INFUSING WITHOUT DIFFICULTY. PT NPO AT THIS TIME PENDING DECISION FOR HEART CATHERIZATION. PT DENIES ANY QUESTIONS AT THIS TIME.
--- NOTE | 2019-06-11 10:15 | NUR ---
DR RENTERIA AND DR RODARTE HAVE VISITED. NO PLANS FOR HEART CATH TODAY AT THIS TIME. BREAKFAST ORDERED.
--- NOTE | 2019-06-11 12:04 | NUR ---
PT LUNCH ORDERED. 301 BLOOD GLUCOSE COVERED WITH 15 UNITS NOVOLOG PER ORDERS.
--- NOTE | 2019-06-11 13:18 | NUR ---
HEPARIN BAG #2 HUNG AND INFUSING.
--- NOTE | 2019-06-11 16:35 | NUR ---
RESTING EASILY AT THIS TIME. HEPARIN DRIP CONTINUES AT 12 UNITS/KG/HR PER ORDER. AV FISTULA LEFT ARM. PT IS AWARE HE IS TO GO TO [facility] FOR HEART CATH THURSDAY.
--- NOTE | 2019-06-11 23:36 | NUR ---
NOTIFIED DR. WHITEHEAD OF PATIENTS BP OF 173/83, PRIOR BP 177/74. NEW ORDER FOR HYDRALAZINE 10. WAS GIVEN. WILL REASSESS.
[2019-06-12] VITALS (7 sets, daily range): BP systolic 123–173; BP diastolic 40–83
--- NOTE | 2019-06-12 00:45 | NUR ---
RECHECK OF BP, 149/55.
[2019-06-12 04:57] LABS: BASO % 0.2 % (0.0-1.0); EOS # 0.1 10*3/uL (0.0-0.4); EOS % 1.6 % (1.0-4.0); HEMATOCRIT 34.8 % (42.0-52.0); HEMOGLOBIN 11.2 g/dl (14.0-18.0); LYMPH # 1.6 10*3/uL (1.3-4.4); LYMPH % 28.4 % (27.0-41.0); MEAN CELL VOLUME 100.3 fl (80.0-94.0); MEAN CORPUSCULAR HGB 32.3 pg (27.0-31.0); MEAN CORPUSCULAR HGB CONC 32.2 g/dl (33.0-37.0); MONO # 0.5 10*3/uL (0.1-1.0); MONO % 9.2 % (3.0-9.0); NEUT # 3.5 10*3/uL (2.3-7.9); NEUT % 60.1 % (47.0-73.0); PLATELET COUNT AUTOMATED 133 10*3/uL (130-400); RED BLOOD COUNT 3.47 10*6/uL (4.50-5.90); RED CELL DISTRI WIDTH 15.6 % (0-14.5); WHITE BLOOD COUNT 5.8 10*3/uL (4.8-10.8)
[2019-06-12 05:08] LABS: CREATININE 4.97 mg/dL (0.70-1.30)
[2019-06-12] MEDS ORDERED: Lantus SC (14:51)
--- NOTE | 2019-06-12 18:35 | NUR ---
Shift chart check completed.24 HR chart check completed.
--- NOTE | 2019-06-12 20:12 | NUR ---
ON ASSESSMENT PATIENT RESTING EASILY IN BED, WATCHING TV. NO VOICED COMPLAINTS OF CHEST PAIN. HEPARIN DRIP CONTINUES AT 12UNITS/KG/HR. PT AWARE NPO AFTER MIDNIGHT FOR HEART CATH IN AM. PROVIDED WITH TOWELS FOR SELF PM CARE. SEE ALL APPROPRIATE INTERVENTIONS.
--- NOTE | 2019-06-12 22:57 | NUR ---
RESTING EASILY, WATCHING FOOTBALL GAME.
[2019-06-13] VITALS: BP 152/64
--- NOTE | 2019-06-13 03:34 | NUR ---
SLEEPING AT LONG INTERVALS. NPO FOR HEART CATH TODAY.
[2019-06-13 05:15] VITALS: BP 165/84
--- NOTE | 2019-06-13 05:40 | NUR ---
PTT THERAPEUTIC AT 50.7. NO CHANGE IN HEPARIN INFUSION PER HEPARIN PROTOCOL.
--- NOTE | 2019-06-13 06:49 | NUR ---
TYLENOL WITH A SIP OF WATER FOR A HEADACHE. PT'S CONTENT OF LOCK BOX OBTAINED AND PLACED IN HIS SHOE TO TAKE WITH HIM. AWAITING PHARMACY TO OPEN TO OBTAIN HIS MEDS FROM HOME.
--- NOTE | 2019-06-13 07:21 | NUR ---
REPORT TO NENA AT THE HOME PLANNING CONSULTANT SALESPERSON AT [facility].
--- NOTE | 2019-06-13 07:23 | NUR ---
PT'S MEDS FROM PHARMACY IN HIS BELONGINGS BAG.
--- NOTE | 2019-06-13 08:09 | NUR ---
TRANSFERRED TO [facility] WITH ALL BELONGINGS
== END 2019-06-13 08:09 | disposition short-term general hospital (02) | DRG 280 ==
LOC: ED 14:40 → EDHOLD 16:19 → ICCU 16:32
PROVIDERS: Emergency Medicine; Internal Medicine; ADMIT Emergency Medicine
DX: I21.4 Non-ST elevation (NSTEMI) myocardial infarction (principal); N18.6 End stage renal disease; E87.1 Hypo-osmolality and hyponatremia; E44.1 Mild protein-calorie malnutrition; I50.42 Chronic combined systolic (congestive) and diastolic (congestive) heart failure; I13.2 Hypertensive heart and chronic kidney disease with heart failure and with stage 5 chronic kidney disease, or end stage renal disease; D68.59 Other primary thrombophilia; E66.2 Morbid (severe) obesity with alveolar hypoventilation; R74.0 Nonspecific elevation of levels of transaminase and lactic acid dehydrogenase [LDH]; E55.9 Vitamin D deficiency, unspecified; J44.9 Chronic obstructive pulmonary disease, unspecified; M47.9 Spondylosis, unspecified; F32.9 Major depressive disorder, single episode, unspecified; E11.65 Type 2 diabetes mellitus with hyperglycemia; E11.22 Type 2 diabetes mellitus with diabetic chronic kidney disease; E78.00 Pure hypercholesterolemia, unspecified; I25.10 Atherosclerotic heart disease of native coronary artery without angina pectoris; E11.40 Type 2 diabetes mellitus with diabetic neuropathy, unspecified; D53.9 Nutritional anemia, unspecified; I48.0 Paroxysmal atrial fibrillation; E78.5 Hyperlipidemia, unspecified; Z79.01 Long term (current) use of anticoagulants; Z68.32 Body mass index [BMI] 32.0-32.9, adult; Z79.4 Long term (current) use of insulin; I25.2 Old myocardial infarction; Z95.5 Presence of coronary angioplasty implant and graft; Z99.2 Dependence on renal dialysis; Z88.0 Allergy status to penicillin; Z88.1 Allergy status to other antibiotic agents; Z88.8 Allergy status to other drugs, medicaments and biological substances; Z90.11 Acquired absence of right breast and nipple; Z98.52 Vasectomy status; Z98.49 Cataract extraction status, unspecified eye; Z80.8 Family history of malignant neoplasm of other organs or systems; Z83.3 Family history of diabetes mellitus; Z82.49 Family history of ischemic heart disease and other diseases of the circulatory system; Z87.11 Personal history of peptic ulcer disease; Z79.899 Other long term (current) drug therapy

== ENCOUNTER 2019-07-05 11:39 | Inpatient (IN) | payer MEDICARE ==
[2019-07-05] VITALS (12 sets, daily range): BP systolic 107–157; BP diastolic 56–77
[~2019-07-05] VITALS: Ht 182.8 cm; Wt 111.1 kg
[~2019-07-05 11:39] MED LIST changes: +Lantus SC
--- NOTE | 2019-07-05 12:09 | NUR ---
AFTER NITRO PT TELLS ME IS HAVING "REALLY BAD CHEST PAIN NOW". VSS, DR LAZARO NOTIFIED
[2019-07-05 12:15] LABS: BASO % 0.3 % (0.0-1.0); EOS # 0.1 10*3/uL (0.0-0.4); EOS % 1.9 % (1.0-4.0); HEMOGLOBIN 11.1 g/dl (14.0-18.0); LYMPH # 1.5 10*3/uL (1.3-4.4); LYMPH % 25.4 % (27.0-41.0); MEAN CELL VOLUME 99.1 fl (80.0-94.0); MEAN CORPUSCULAR HGB 32.4 pg (27.0-31.0); MEAN CORPUSCULAR HGB CONC 32.6 g/dl (33.0-37.0); MEAN PLATELET VOLUME 10.4 fl (9.6-12.3); MONO # 0.6 10*3/uL (0.1-1.0); MONO % 11.1 % (3.0-9.0); NEUT # 3.5 10*3/uL (2.3-7.9); NEUT % 60.8 % (47.0-73.0); PLATELET COUNT AUTOMATED 168 10*3/uL (130-400); RED BLOOD COUNT 3.43 10*6/uL (4.50-5.90); RED CELL DISTRI WIDTH 14.6 % (0-14.5); WHITE BLOOD COUNT 5.8 10*3/uL (4.8-10.8)
--- NOTE | 2019-07-05 12:21 | NUR ---
ANOTHER SUBLINGUAL NITRO GIVEN, WILL CONTINUE TO MONITOR.
[2019-07-05 12:27] LABS: ACT PARTIAL THROMBO TIME 32.7 SECONDS (20.0-32.1); INTERNATIONAL NORM RATIO 1.6 (2.0-3.5)
[2019-07-05 12:33] LABS: ALBUMIN 3.2 gm/dl (3.1-4.5); CREATININE 4.25 mg/dL (0.70-1.30); POTASSIUM 3.8 mmol/L (3.5-5.1); TOTAL PROTEIN 6.7 gm/dL (6.4-8.2)
[2019-07-05 12:34] LABS: TROPONIN I 0.02 ng/ml (<0.045)
--- NOTE | 2019-07-05 12:44 | NUR ---
PT TELLS ME THAT PAIN IS A "LITLE BIT BETTER".
--- NOTE | 2019-07-05 12:50 | NUR ---
DR VILLAR IN ROOM WITH PT AT THIS TIME.
--- NOTE | 2019-07-05 14:10 | NUR ---
ORDERED LUNCH TRAY PER DR TEJAS GUZMAN
--- NOTE | 2019-07-05 14:41 | NUR ---
SLEEPING IN BED LEFT LATERAL. EASILY AROUSED.
--- NOTE | 2019-07-05 15:15 | NUR ---
SITTING UP IN BED EATING LUNCH TRAY.
--- NOTE | 2019-07-05 16:20 | NUR ---
NPT AMBULATED TO BATHROOM, TOLERATED WELL.
--- NOTE | 2019-07-05 16:25 | NUR ---
SPOKE WITH NEFTALI, NURSE FROM [place] AND SHE STATES NO CARDIAC BEDS AT THIS TIME. IT IS OK TO ADMIT HERE.
--- NOTE | 2019-07-05 18:14 | NUR ---
SITTING UP WITH LEGS OVER SIDE OF BED EATING DINNER AND WATCHING TV.
--- NOTE | 2019-07-05 19:20 | NUR ---
PATIENT LEFT AGAINST MEDICAL ADVICE AT THIS TIME, DUE TO NOT WANTING TO SIT DOWN IN THE ER ALL NIGHT. PATIENT STABLE AT THIS TIME. DR LAZARO TALKED WITH PATIENT AND PATIENT STATES HE WILL BE BACK IF PAIN GETS WORSE AND STATES HE WILL FOLLOW UP WITH PCP TOMORROW. PATIENTS COMING TO PICK HIM UP AT THIS TIME.
== END 2019-07-05 20:45 | disposition left against medical advice (07) | DRG 313 ==
LOC: ED 11:39 → EDHOLD 16:53
PROVIDERS: Emergency Medicine; ADMIT Family Medicine
DX: R07.89 Other chest pain (principal); N18.6 End stage renal disease; I13.2 Hypertensive heart and chronic kidney disease with heart failure and with stage 5 chronic kidney disease, or end stage renal disease; E66.2 Morbid (severe) obesity with alveolar hypoventilation; I50.42 Chronic combined systolic (congestive) and diastolic (congestive) heart failure; D68.59 Other primary thrombophilia; I48.91 Unspecified atrial fibrillation; E11.22 Type 2 diabetes mellitus with diabetic chronic kidney disease; I25.10 Atherosclerotic heart disease of native coronary artery without angina pectoris; E78.5 Hyperlipidemia, unspecified; J44.9 Chronic obstructive pulmonary disease, unspecified; F32.9 Major depressive disorder, single episode, unspecified; E78.00 Pure hypercholesterolemia, unspecified; M47.819 Spondylosis without myelopathy or radiculopathy, site unspecified; E55.9 Vitamin D deficiency, unspecified; E11.42 Type 2 diabetes mellitus with diabetic polyneuropathy; Z87.11 Personal history of peptic ulcer disease; Z90.11 Acquired absence of right breast and nipple; Z98.52 Vasectomy status; Z80.8 Family history of malignant neoplasm of other organs or systems; I25.2 Old myocardial infarction; Z95.5 Presence of coronary angioplasty implant and graft; Z88.6 Allergy status to analgesic agent; Z88.1 Allergy status to other antibiotic agents; Z79.899 Other long term (current) drug therapy; Z79.4 Long term (current) use of insulin; Z79.01 Long term (current) use of anticoagulants; Z99.2 Dependence on renal dialysis; Z83.3 Family history of diabetes mellitus; Z82.49 Family history of ischemic heart disease and other diseases of the circulatory system; Z68.32 Body mass index [BMI] 32.0-32.9, adult

== ENCOUNTER 2019-07-13 11:43 | Inpatient (IN) | payer MEDICARE ==
[~2019-07-13] VITALS: Ht 182.8 cm; Wt 108.1 kg
[2019-07-13 11:45] VITALS: BP 146/57
[2019-07-13 12:14] LABS: BASO % 0.1 % (0.0-1.0); EOS # 0.1 10*3/uL (0.0-0.4); EOS % 0.9 % (1.0-4.0); HEMATOCRIT 30.6 % (42.0-52.0); HEMOGLOBIN 10.1 g/dl (14.0-18.0); LYMPH # 0.8 10*3/uL (1.3-4.4); LYMPH % 10.4 % (27.0-41.0); MEAN CELL VOLUME 98.7 fl (80.0-94.0); MEAN CORPUSCULAR HGB 32.6 pg (27.0-31.0); MEAN PLATELET VOLUME 10.9 fl (9.6-12.3); MONO # 0.6 10*3/uL (0.1-1.0); MONO % 7.1 % (3.0-9.0); NEUT # 6.3 10*3/uL (2.3-7.9); PLATELET COUNT AUTOMATED 149 10*3/uL (130-400); WHITE BLOOD COUNT 7.8 10*3/uL (4.8-10.8)
[2019-07-13 12:26] VITALS: BP 153/67
[2019-07-13 12:26] LABS: ACT PARTIAL THROMBO TIME 28.8 SECONDS (20.0-32.1); INTERNATIONAL NORM RATIO 1.2 (2.0-3.5)
[2019-07-13 12:30] LABS: ALBUMIN 3.1 gm/dl (3.1-4.5); CREATININE 5.08 mg/dL (0.70-1.30); POTASSIUM 3.9 mmol/L (3.5-5.1); TOTAL PROTEIN 6.5 gm/dL (6.4-8.2)
[2019-07-13 12:32] LABS: TROPONIN I 0.19 ng/ml (<0.045)
--- NOTE | 2019-07-13 12:34 | NUR ---
TROPONIN 0.191 DR LAZARO ADVISED
[2019-07-13 12:46] VITALS: BP 132/78
--- NOTE | 2019-07-13 14:00 | NUR ---
A 69, admitted to 4E, under the services of JYOTSNA Lopez DO with a diagnosis of SYNCOPE. Chief complaint is SYNCOPE. Patient arrived via bed from ER. Monitor applied. Initial assessment completed. Vital signs taken and recorded. JYOTSNA LOPEZ DO notified of admission to the unit. Orders received. See assessment for past medical history, medications and allergies. Patient and/or family oriented to unit. . Clothing/patient valuable form completed. MUNIR CONTRERAS
--- NOTE | 2019-07-13 15:28 | NUR ---
OFFICE NOTIFIED OF CONSULT
[2019-07-13 16:00] VITALS: BP 172/69
--- NOTE | 2019-07-13 17:43 | NUR ---
SPOKE WITH PT TO HAVE DIALYSIS TOMORROW HE WILL CONTACT HIS NURSE
--- NOTE | 2019-07-13 17:43 | NUR ---
NOTIFIED OF EVLAVATED BP
--- NOTE | 2019-07-13 18:26 | NUR ---
NOTIFIED OF REPEAT BS 554, NEW ORDERS RECIEVED
--- NOTE | 2019-07-13 18:47 | NUR ---
PT C/O OF PAIN ALL OVER PRN TYLENOL GIVEN PER ORDER
[2019-07-13 18:58] LABS: CREATININE 5.16 mg/dL (0.70-1.30); POTASSIUM 4.1 mmol/L (3.5-5.1)
--- NOTE | 2019-07-13 19:05 | NUR ---
NOTIFIED OF BS AND ANION GAP
[2019-07-13 19:33] LABS: ARTERIAL BLOOD GAS PH 7.337 (7.35-7.45)
[2019-07-13 19:35] LABS: ABG BASE EXCESS -6.4 mmol/L (-2.0-2.0)
--- NOTE | 2019-07-13 19:49 | NUR ---
DR. RON WANTS PATIENT'S BLOOD GLUCOSE TAKEN IN 1/2 HOUR AND COVER WITH SLIDING SCALE AND CALL HIM WITH RESULTS.
[2019-07-13 20:00] VITALS: BP 148/48
--- NOTE | 2019-07-13 20:54 | NUR ---
DR. RON ORDERED NS AT 150CC/HR X1 BAG BUT TO NOTIFY DR. RIVERA FIRST TO MAKE SURE IT IS OK. ATTEMPTED TO CALL DR. RIVERA X2 WITH NO RETURN CALL. DR. RON SAID NOT TO START FLUIDS UNTIL DR. RIVERA CALL BACK AND SAYS IT IS OK.
--- NOTE | 2019-07-13 22:21 | NUR ---
BEDSIDE GLUCOSE 341. NEW ORDER TO NOT COVER AND RECHECK GLUCOSE AT 2300 AND COVER WITH SLIDING SCALE.
--- NOTE | 2019-07-13 23:16 | NUR ---
BEDSIDE BLOOD GLUCOSE 251. DR. RON NOTIFIED AND SAID NOT TO COVER AT THIS TIME AND RETAKE AT 0000 AND COVER WITH SLIDING SCALE.
--- NOTE | 2019-07-14 | NUR ---
BEDSIDE GLUCOSE 213. COVERED PER SLIDING SCALE AND DR. RON NOTIFIED. START ROUTINE GLUCOSE CHECKS IN AM.
[2019-07-14 00:14] VITALS: BP 150/70
[2019-07-14 07:17] LABS: BASO % 0.2 % (0.0-1.0); EOS # 0.1 10*3/uL (0.0-0.4); HEMATOCRIT 30.1 % (42.0-52.0); HEMOGLOBIN 9.9 g/dl (14.0-18.0); LYMPH # 0.9 10*3/uL (1.3-4.4); LYMPH % 14.1 % (27.0-41.0); MEAN CELL VOLUME 98.4 fl (80.0-94.0); MEAN CORPUSCULAR HGB 32.4 pg (27.0-31.0); MEAN CORPUSCULAR HGB CONC 32.9 g/dl (33.0-37.0); MONO # 0.6 10*3/uL (0.1-1.0); MONO % 8.7 % (3.0-9.0); NEUT # 4.8 10*3/uL (2.3-7.9); NEUT % 75.5 % (47.0-73.0); PLATELET COUNT AUTOMATED 150 10*3/uL (130-400); RED BLOOD COUNT 3.06 10*6/uL (4.50-5.90); RED CELL DISTRI WIDTH 14.9 % (0-14.5); WHITE BLOOD COUNT 6.3 10*3/uL (4.8-10.8)
[2019-07-14 07:23] LABS: INTERNATIONAL NORM RATIO 1.3 (2.0-3.5)
[2019-07-14 08:00] VITALS: BP 174/76
--- NOTE | 2019-07-14 08:00 | NUR ---
PT RESTING IN BED./ EATING BREAKFAST. NO DISTRESS NOTED. WILL MONITOR
[2019-07-14 08:01] LABS: CREATININE 5.64 mg/dL (0.70-1.30); PHOSPHOROUS 4.8 mg/dL (2.5-4.9); POTASSIUM 3.9 mmol/L (3.5-5.1)
--- NOTE | 2019-07-14 08:16 | NUR ---
PHYSICAL THERAPY Screen and PT eval received will follow, thank you Cassandra Urbano PT
--- NOTE | 2019-07-14 09:00 | NUR ---
Cancer Program Consultant in to talk to patient. Patient states lives at home with . There are few steps in the home. Physician: lizbeth [facility] Home health services: none Patient's level of ADLs: MINIMAL ASSIST Patient has working utilities: all working DME: electric scooter, stair chair, cane Follow-up physician's appointment after d/c: will be made by hospitalist nurse director upon discharge Does patient want to access PORTAL?: no Discharge plan discussed with patient, he lives at home with , is independent in adls and uses a cane or electric scooter for ambulation, he states he has dialysis thursday, thursday and thursday, he states he will return home when medically stable, case management will follow for any home needsy. ANDREAS BARRIENTOS
--- NOTE | 2019-07-14 10:00 | NUR ---
ATTEMPTED TO COMPLETE MED REC. PT UNABLE TO TELL ME HIS MEDICATIONS PT IS AT HOME BUT UNABLE TO TELL THE MEDICATIONS [facility]
[2019-07-14 12:00] VITALS: BP 162/90
--- NOTE | 2019-07-14 13:41 | NUR ---
PHYSICAL THERAPY Attempted to see pt at the bedside not available as currently at [facility] will follow Gurjit Urbano PT
--- NOTE | 2019-07-14 14:36 | NUR ---
[facility]ED [facility] TO [facility] FLOOR
[2019-07-14 15:34] VITALS: BP 176/84
[2019-07-14 20:00] VITALS: BP 176/63
--- NOTE | 2019-07-14 21:57 | NUR ---
PATIENT BEDSIDE BLOOD GLUCOSE READING HI X2. REFLEXED TO LAB. DR. RON NOTIFED AND PATIENT COVERED WITH 22U OF INSULIN AND WILL RETAKE BLOOD SUGAR IN ONE HOUR.
--- NOTE | 2019-07-14 22:17 | NUR ---
DR. RON NOTIFIED PATIENT'S BLOOD SUGAR IS 806.
[2019-07-14 23:40] LABS: CREATININE 4.26 mg/dL (0.70-1.30)
--- NOTE | 2019-07-14 23:45 | NUR ---
DR. RON NOTIFIED OF CRITICAL GLUCOSE OF 804. NEW ORDER FOR ANOTHER 22U OF NOVOLOG AND RECHECK IN ANOTHER HOUR.
[2019-07-15] VITALS: BP 180/79
--- NOTE | 2019-07-15 00:59 | NUR ---
DR. RON NOTIFIED OF GLUCOSE OF 512. NEW ORDER TO COVER WITH AN ADDITIONAL 22U AND THEN CHECK GLUCOSE IN THE AM.
--- NOTE | 2019-07-15 06:36 | NUR ---
AM BLOOD SUGAR 55. ORANGE JUICE AND BOXED LUNCH GIVEN TO PATIENT. PATIENT IS ASYMPTOMATIC. ONE HOUR LATER BLOOD SUGAR IS 97. DR. RON NOTIFIED.
[2019-07-15 06:55] LABS: INTERNATIONAL NORM RATIO 1.3 (2.0-3.5)
[2019-07-15 07:00] LABS: BASO % 0.3 % (0.0-1.0); EOS # 0.1 10*3/uL (0.0-0.4); EOS % 2.1 % (1.0-4.0); HEMOGLOBIN 11.4 g/dl (14.0-18.0); LYMPH # 1.4 10*3/uL (1.3-4.4); LYMPH % 22.3 % (27.0-41.0); MEAN CORPUSCULAR HGB 32.2 pg (27.0-31.0); MEAN CORPUSCULAR HGB CONC 33.5 g/dl (33.0-37.0); MEAN PLATELET VOLUME 10.5 fl (9.6-12.3); MONO # 0.9 10*3/uL (0.1-1.0); MONO % 14.9 % (3.0-9.0); NEUT # 3.8 10*3/uL (2.3-7.9); NEUT % 59.9 % (47.0-73.0); RED BLOOD COUNT 3.54 10*6/uL (4.50-5.90); RED CELL DISTRI WIDTH 14.7 % (0-14.5); WHITE BLOOD COUNT 6.3 10*3/uL (4.8-10.8)
[2019-07-15 07:04] LABS: PLATELET COUNT AUTOMATED 216 10*3/uL (130-400)
[2019-07-15 07:11] LABS: CREATININE 4.26 mg/dL (0.70-1.30); POTASSIUM 3.6 mmol/L (3.5-5.1)
[2019-07-15 08:00] VITALS: BP 172/80
--- NOTE | 2019-07-15 09:00 | NUR ---
case management visits with patient, he states he will return home today and denies any home needs
[2019-07-15] MEDS ORDERED: MELATONIN3 M3 PO (09:02)
--- NOTE | 2019-07-15 09:50 | NUR ---
Discharge instructions reviewed with patient/family. Patient receptive and verbalizes understanding. Follow-up care arranged. Written instructions given to patient/family. WILMAN MCCLAIN
== END 2019-07-15 09:50 | disposition home or self-care (01) | DRG 640 ==
LOC: ED 11:43 → 4E 12:55 → EDHOLD 12:55 → 4E 13:20
PROVIDERS: Emergency Medicine; Family Medicine; Internal Medicine; Student in an Organized Health Care Education/Training Program; ADMIT Internal Medicine
PROC: 5A1D70Z Performance of Urinary Filtration, Intermittent, Less than 6 Hours Per Day (ICD-10-PCS; principal; 2019-07-14)
DX: E86.9 Volume depletion, unspecified (principal); N18.6 End stage renal disease; I13.2 Hypertensive heart and chronic kidney disease with heart failure and with stage 5 chronic kidney disease, or end stage renal disease; E66.2 Morbid (severe) obesity with alveolar hypoventilation; I50.42 Chronic combined systolic (congestive) and diastolic (congestive) heart failure; I24.8 Other forms of acute ischemic heart disease; E87.1 Hypo-osmolality and hyponatremia; I25.10 Atherosclerotic heart disease of native coronary artery without angina pectoris; E11.65 Type 2 diabetes mellitus with hyperglycemia; E11.22 Type 2 diabetes mellitus with diabetic chronic kidney disease; J44.9 Chronic obstructive pulmonary disease, unspecified; E55.9 Vitamin D deficiency, unspecified; M47.9 Spondylosis, unspecified; I34.0 Nonrheumatic mitral (valve) insufficiency; F32.9 Major depressive disorder, single episode, unspecified; E78.00 Pure hypercholesterolemia, unspecified; I48.91 Unspecified atrial fibrillation; D53.9 Nutritional anemia, unspecified; E87.8 Other disorders of electrolyte and fluid balance, not elsewhere classified; E11.40 Type 2 diabetes mellitus with diabetic neuropathy, unspecified; Z99.2 Dependence on renal dialysis; Z68.32 Body mass index [BMI] 32.0-32.9, adult; Z79.4 Long term (current) use of insulin; Z79.01 Long term (current) use of anticoagulants; Z88.5 Allergy status to narcotic agent; Z88.1 Allergy status to other antibiotic agents; Z88.8 Allergy status to other drugs, medicaments and biological substances; I25.2 Old myocardial infarction; Z95.5 Presence of coronary angioplasty implant and graft; Z87.11 Personal history of peptic ulcer disease; Z90.11 Acquired absence of right breast and nipple; Z98.52 Vasectomy status; Z98.49 Cataract extraction status, unspecified eye; Z82.49 Family history of ischemic heart disease and other diseases of the circulatory system; Z83.3 Family history of diabetes mellitus; Z80.8 Family history of malignant neoplasm of other organs or systems; Z79.899 Other long term (current) drug therapy

== ENCOUNTER 2019-08-05 10:11 | Inpatient (IN) | payer MEDICARE ==
[~2019-08-05] VITALS: Ht 182.8 cm; Wt 105.7 kg
[~2019-08-05 10:11] MED LIST changes: +MELATONIN3 M3 PO
[2019-08-05 10:20] VITALS: BP 133/76
[2019-08-05 11:11] LABS: BASO % 0.2 % (0.0-1.0); EOS # 0.2 10*3/uL (0.0-0.4); EOS % 3.3 % (1.0-4.0); HEMATOCRIT 33.5 % (42.0-52.0); HEMOGLOBIN 11.1 g/dl (14.0-18.0); LYMPH % 22.4 % (27.0-41.0); MEAN CELL VOLUME 99.7 fl (80.0-94.0); MEAN CORPUSCULAR HGB CONC 33.1 g/dl (33.0-37.0); MEAN PLATELET VOLUME 10.6 fl (9.6-12.3); MONO # 0.7 10*3/uL (0.1-1.0); MONO % 14.4 % (3.0-9.0); NEUT # 2.7 10*3/uL (2.3-7.9); NEUT % 59.3 % (47.0-73.0); PLATELET COUNT AUTOMATED 141 10*3/uL (130-400); RED BLOOD COUNT 3.36 10*6/uL (4.50-5.90); RED CELL DISTRI WIDTH 15.4 % (0-14.5); WHITE BLOOD COUNT 4.6 10*3/uL (4.8-10.8)
[2019-08-05 11:26] LABS: INTERNATIONAL NORM RATIO 2.6 (2.0-3.5)
[2019-08-05 11:29] LABS: ALBUMIN 3.3 gm/dl (3.1-4.5); ALKALINE PHOSPHATASE 108 U/L (45-117); BUN 51 mg/dl (7-24); CHLORIDE 94 mmol/L (98-107); CREATININE 5.54 mg/dL (0.70-1.30); POTASSIUM 4.6 mmol/L (3.5-5.1); SGOT/AST 13 IU/L (3-35); SGPT/ALT 25 U/L (12-78); SODIUM 131 mmol/L (136-145); TOTAL PROTEIN 6.9 gm/dL (6.4-8.2)
[2019-08-05 11:30] LABS: TROPONIN I < 0.015 ng/ml (<0.045)
[2019-08-05 13:46] VITALS: BP 170/80
--- NOTE | 2019-08-05 13:50 | NUR ---
DR BYOER NTIFIED OFSBP 170'S, PT ASYMPTOMATIC, NO NEW ORDERS.
[2019-08-05 14:50] VITALS: BP 158/74
--- NOTE | 2019-08-05 15:00 | NUR ---
PT WAS PROVIDED A NOX LUNCH AND A BEVERAGE. PT SITTING UP TO THE SIDE OF THE BED, NO DISTRESS NOTED. CALL LIGHT IN REACH WILL MONITOR.
--- NOTE | 2019-08-05 15:45 | NUR ---
PT AMBUALATED TO THE BATH WITHOUT DIFFICULTY, PT DID STTES HOWEVER HIS WAS SLIGHTLY DIZZINESS, NOTIFED DR BOYER.
[2019-08-05 16:06] VITALS: BP 129/51
--- NOTE | 2019-08-05 17:19 | NUR ---
Time: 519 A 69 year old MALE admitted to 5E under services of ANNIA PETERSON DO. Pt. arrived via bed from ER. Chief complaint: DIZZINESS. COLTON MOISE
[2019-08-05 17:25] VITALS: BP 158/75
--- NOTE | 2019-08-05 17:46 | NUR ---
ATTEMPTED TO CALL DIALYSIS NURSE TO INFORM HER OF ADMISSION WITH NO ANSWER AND NO OPTION TO LEAVE VOICMAIL.
[2019-08-05] MEDS ORDERED: COUMADIN6 M2 PO (17:54)
[2019-08-05 20:00] VITALS: BP 173/71
--- NOTE | 2019-08-05 20:22 | NUR ---
CALLED DR. MENDOZA PERTAINING TO ORDERS FOR PATIENT. NO MEDICATIONS ORDERS ARE IN. DR. RON ANSWERED THE PHONE & STATED THAT HE WOULD PUT IN THE SLIDING SCALE.
--- NOTE | 2019-08-05 20:28 | NUR ---
CALLED & SPOKE TO DR. RON REGARDING PT'S BLOOD SUGAR OF GREATER THAN 600. WAITING FOR HIM TO PUT IN SLIDING SCALED. REFLEX ALSO ORDERED.
--- NOTE | 2019-08-05 21:21 | NUR ---
MEDICATED WITH TYLENOL FOR C/O HEADACHE. ALSO MEDICATED RESTORIL FOR C/O INSOMNIA.
--- NOTE | 2019-08-05 21:30 | NUR ---
C/O BEING UNABLE TO BREATHE. PT. LYING FLAT IN BED. PT. REPOSITIONED & HOB ELEVATED. PULSE OX 100% ON ROOM AIR & HEART RATE 97. NO DISTRESS NOTED; WILL CONTINUE TO MONITOR.
[2019-08-05 21:42] LABS: CLARITY CLEAR (CLEAR); COLOR YELLOW (YELLOW)
[2019-08-05 21:43] LABS: BILIRUBIN NEGATIVE (NEGATIVE); BLOOD 1+ (NEGATIVE); GLUCOSE 3+ (NEGATIVE); KETONE 3+ (NEGATIVE); LEUKO ESTERASE NEGATIVE (NEGATIVE); NITRITE NEGATIVE (NEGATIVE); UROBILINOGEN 0.2 E.U./dl (0.2-1.0)
[2019-08-05 21:49] LABS: BACTERIA TRACE; EPITHELIAL CELLS 0-2; WBC 0-2 wbc/hpf (0-5)
--- NOTE | 2019-08-05 22:00 | NUR ---
22 UNITS OF COVERAGE GIVEN & LANTUS 60 GIVEN. TO RECHECK IN 2 HOURS.
--- NOTE | 2019-08-05 23:19 | NUR ---
BLOOD SUGAR >600; STAT REFLEX ORDERED.
--- NOTE | 2019-08-05 23:23 | NUR ---
CALLED DR. MENDOZA/DR. RON PERTAINING TO BLOOD SUGAR. NO ANSWER.
--- NOTE | 2019-08-05 23:37 | NUR ---
CALLED RESIDENTS AGAIN; NO ANSWER.
--- NOTE | 2019-08-05 23:55 | NUR ---
22 UNITS OF COVERAGE GIVEN PER M.D. ORDERS.
[2019-08-06] VITALS: BP 174/76
--- NOTE | 2019-08-06 00:10 | NUR ---
BLOOD SUGAR 633.
--- NOTE | 2019-08-06 01:57 | NUR ---
BLOOD SUGAR 374. DR. MENDOZA AWARE. NO NEW ORDERS RECEIVED AT THIS TIME.
--- NOTE | 2019-08-06 04:45 | NUR ---
BATHED BY ENID.
--- NOTE | 2019-08-06 05:48 | NUR ---
BLOOD SUGAR 121.
[2019-08-06 06:23] LABS: BASO % 0.2 % (0.0-1.0); EOS # 0.1 10*3/uL (0.0-0.4); EOS % 2.8 % (1.0-4.0); HEMATOCRIT 30.7 % (42.0-52.0); LYMPH # 1.4 10*3/uL (1.3-4.4); LYMPH % 29.2 % (27.0-41.0); MEAN CELL VOLUME 98.1 fl (80.0-94.0); MEAN CORPUSCULAR HGB 31.9 pg (27.0-31.0); MEAN CORPUSCULAR HGB CONC 32.6 g/dl (33.0-37.0); MEAN PLATELET VOLUME 10.7 fl (9.6-12.3); MONO # 0.7 10*3/uL (0.1-1.0); MONO % 14.3 % (3.0-9.0); NEUT # 2.5 10*3/uL (2.3-7.9); NEUT % 53.1 % (47.0-73.0); PLATELET COUNT AUTOMATED 133 10*3/uL (130-400); RED BLOOD COUNT 3.13 10*6/uL (4.50-5.90); RED CELL DISTRI WIDTH 15.2 % (0-14.5); WHITE BLOOD COUNT 4.7 10*3/uL (4.8-10.8)
[2019-08-06 06:37] LABS: CREATININE 6.04 mg/dL (0.70-1.30); POTASSIUM 4.1 mmol/L (3.5-5.1)
[2019-08-06 08:00] VITALS: BP 133/68
--- NOTE | 2019-08-06 11:07 | NUR ---
this patient was not seen as he was not in his room.
[2019-08-06 16:00] VITALS: BP 177/72
[2019-08-06 20:00] VITALS: BP 174/78
--- NOTE | 2019-08-06 22:00 | NUR ---
BLOOD SUGAR 265; COVERAGE GIVEN PER EMAR. PT. VOICES NO C/O AT THIS TIME. STATES THAT HE IS FEELING SOMEWHAT BETTER AFTER RECEIVING DIALYSIS. VOICES NO C/O AT THIS TIME. BED ALARM ON; CALL LIGHT WITHIN REACH.
[2019-08-07] VITALS: BP 154/72
--- NOTE | 2019-08-07 | NUR ---
SITTING UP IN CHAIR ROOM; VOICES NO C/O AT THIS TIME. CALL LIGHT WITHIN REACH.
--- NOTE | 2019-08-07 06:00 | NUR ---
BLOOD SUGAR 357; COVERAGE PER EMAR.
[2019-08-07 06:26] LABS: INTERNATIONAL NORM RATIO 2.7 (2.0-3.5)
[2019-08-07 06:31] LABS: CREATININE 4.51 mg/dL (0.70-1.30); PHOSPHOROUS 3.8 mg/dL (2.5-4.9); POTASSIUM 4.1 mmol/L (3.5-5.1)
[2019-08-07 08:00] VITALS: BP 171/70
[2019-08-07 12:00] VITALS: BP 180/70
--- NOTE | 2019-08-07 13:00 | NUR ---
Discharge instructions reviewed with patient/family. Patient receptive and verbalizes understanding. Follow-up care arranged. Written instructions given to patient/family. HEPLOCK DISCONTINUED. PICKED UP BY FAMILY MEMBER; TAKEN OFF FLOOR BY WHEELCHAIR. IMER KOTHARI
== END 2019-08-07 13:00 | disposition home or self-care (01) | DRG 391 ==
LOC: ED 10:11 → EDHOLD 16:38 → 5E 16:58
PROVIDERS: Internal Medicine; ADMIT Emergency Medicine
PROC: 5A1D70Z Performance of Urinary Filtration, Intermittent, Less than 6 Hours Per Day (ICD-10-PCS; principal; 2019-08-05)
DX: A08.4 Viral intestinal infection, unspecified (principal); N18.6 End stage renal disease; G91.2 (Idiopathic) normal pressure hydrocephalus; I50.32 Chronic diastolic (congestive) heart failure; I13.2 Hypertensive heart and chronic kidney disease with heart failure and with stage 5 chronic kidney disease, or end stage renal disease; E87.1 Hypo-osmolality and hyponatremia; R27.0 Ataxia, unspecified; E11.42 Type 2 diabetes mellitus with diabetic polyneuropathy; J44.9 Chronic obstructive pulmonary disease, unspecified; K27.9 Peptic ulcer, site unspecified, unspecified as acute or chronic, without hemorrhage or perforation; E11.65 Type 2 diabetes mellitus with hyperglycemia; M47.20 Other spondylosis with radiculopathy, site unspecified; F32.9 Major depressive disorder, single episode, unspecified; E11.22 Type 2 diabetes mellitus with diabetic chronic kidney disease; I25.10 Atherosclerotic heart disease of native coronary artery without angina pectoris; D53.9 Nutritional anemia, unspecified; E87.8 Other disorders of electrolyte and fluid balance, not elsewhere classified; E83.41 Hypermagnesemia; E83.51 Hypocalcemia; R11.14 Bilious vomiting; Z99.2 Dependence on renal dialysis; Z79.4 Long term (current) use of insulin; Z79.01 Long term (current) use of anticoagulants; Z79.899 Other long term (current) drug therapy; I25.2 Old myocardial infarction; Z95.5 Presence of coronary angioplasty implant and graft; Z90.11 Acquired absence of right breast and nipple; Z80.8 Family history of malignant neoplasm of other organs or systems; Z88.1 Allergy status to other antibiotic agents; Z88.5 Allergy status to narcotic agent; Z88.8 Allergy status to other drugs, medicaments and biological substances

== ENCOUNTER 2019-09-22 08:36 | Emergency (ER) | payer MEDICARE ==
[~2019-09-22] VITALS: Ht 182.8 cm; Wt 108.9 kg
[2019-09-22 09:27] LABS: BASO % 0.3 % (0.0-1.0); EOS # 0.2 10*3/uL (0.0-0.4); EOS % 3.2 % (1.0-4.0); HEMOGLOBIN 9.5 g/dl (14.0-18.0); LYMPH # 1.1 10*3/uL (1.3-4.4); LYMPH % 16.4 % (27.0-41.0); MEAN CELL VOLUME 105.4 fl (80.0-94.0); MEAN CORPUSCULAR HGB 32.3 pg (27.0-31.0); MEAN CORPUSCULAR HGB CONC 30.6 g/dl (33.0-37.0); MEAN PLATELET VOLUME 9.8 fl (9.6-12.3); MONO # 0.8 10*3/uL (0.1-1.0); MONO % 11.8 % (3.0-9.0); NEUT # 4.4 10*3/uL (2.3-7.9); NEUT % 67.8 % (47.0-73.0); PLATELET COUNT AUTOMATED 237 10*3/uL (130-400); RED BLOOD COUNT 2.94 10*6/uL (4.50-5.90); RED CELL DISTRI WIDTH 15.9 % (0-14.5); WHITE BLOOD COUNT 6.5 10*3/uL (4.8-10.8)
[2019-09-22 09:36] LABS: ACT PARTIAL THROMBO TIME 29.9 SECONDS (20.0-32.1); INTERNATIONAL NORM RATIO 1.3 (2.0-3.5)
[2019-09-22 09:41] LABS: ALBUMIN 2.7 gm/dl (3.1-4.5); CREATININE 3.26 mg/dL (0.70-1.30); POTASSIUM 4.1 mmol/L (3.5-5.1); TOTAL PROTEIN 6.6 gm/dL (6.4-8.2); TROPONIN I 0.043 ng/ml (<0.045)
[2019-09-22 09:57] VITALS: BP 161/77
== END 2019-09-22 10:23 | disposition home or self-care (01) ==
LOC: ED 08:36
PROVIDERS: Emergency Medicine
DX: R51 Headache (principal); M54.2 Cervicalgia; I25.10 Atherosclerotic heart disease of native coronary artery without angina pectoris; J44.9 Chronic obstructive pulmonary disease, unspecified; E11.43 Type 2 diabetes mellitus with diabetic autonomic (poly)neuropathy; I25.2 Old myocardial infarction; M19.90 Unspecified osteoarthritis, unspecified site; I50.9 Heart failure, unspecified; I11.0 Hypertensive heart disease with heart failure; Z88.6 Allergy status to analgesic agent; Z88.8 Allergy status to other drugs, medicaments and biological substances; Z79.899 Other long term (current) drug therapy; W10.8XXA Fall (on) (from) other stairs and steps, initial encounter; Y93.89 Activity, other specified; Y92.89 Other specified places as the place of occurrence of the external cause; Y99.8 Other external cause status

== ENCOUNTER 2019-09-28 12:20 | Inpatient (IN) | payer OTHER, MEDICARE ==
[~2019-09-28] VITALS: Ht 182.8 cm; Wt 105.4 kg
[2019-09-28 12:30] VITALS: BP 164/68
--- NOTE | 2019-09-28 12:30 | NUR ---
in to see pt.
--- NOTE | 2019-09-28 12:40 | NUR ---
Pt to xray.
--- NOTE | 2019-09-28 12:50 | NUR ---
Pt back from xray.
[2019-09-28 13:30] VITALS: BP 170/76
[2019-09-28 13:32] LABS: BASO % 0.2 % (0.0-1.0); EOS # 0.1 10*3/uL (0.0-0.4); EOS % 0.6 % (1.0-4.0); HEMATOCRIT 32.1 % (42.0-52.0); HEMOGLOBIN 9.8 g/dl (14.0-18.0); LYMPH # 0.6 10*3/uL (1.3-4.4); MEAN CELL VOLUME 104.6 fl (80.0-94.0); MEAN CORPUSCULAR HGB 31.9 pg (27.0-31.0); MEAN CORPUSCULAR HGB CONC 30.5 g/dl (33.0-37.0); MEAN PLATELET VOLUME 10.5 fl (9.6-12.3); MONO # 0.6 10*3/uL (0.1-1.0); MONO % 7.5 % (3.0-9.0); NEUT # 6.8 10*3/uL (2.3-7.9); PLATELET COUNT AUTOMATED 243 10*3/uL (130-400); RED BLOOD COUNT 3.07 10*6/uL (4.50-5.90); RED CELL DISTRI WIDTH 15.8 % (0-14.5); WHITE BLOOD COUNT 8.1 10*3/uL (4.8-10.8)
[2019-09-28 13:50] LABS: ALBUMIN 2.8 gm/dl (3.1-4.5); CREATININE 5.24 mg/dL (0.70-1.30); TOTAL PROTEIN 6.7 gm/dL (6.4-8.2)
--- NOTE | 2019-09-28 13:50 | NUR ---
aware of blood sugar over 1000 and dialysis pt.Ok for normal saline at 125 cc an hour.
[2019-09-28 13:53] LABS: POTASSIUM 6.3 mmol/L (3.5-5.1)
[2019-09-28 14:00] VITALS: BP 154/66
[2019-09-28 14:28] LABS: ABG BASE EXCESS -7.3 mmol/L (-2.0-2.0); ARTERIAL BLOOD GAS PH 7.276 (7.35-7.45)
--- NOTE | 2019-09-28 14:28 | NUR ---
Fistula noted on left lower arm with good bruit / thrill.Pt states he was supposed to get diaylsis today.Pt also stated he still makes some urine.
--- NOTE | 2019-09-28 15:05 | NUR ---
aware of blood sugar still over 600 with glucometer.No blood draw needed at this time and ok for pt to transfer to floor.
[2019-09-28 15:06] VITALS: BP 154/65
[2019-09-28 15:45] VITALS: BP 166/73
--- NOTE | 2019-09-28 15:53 | NUR ---
Family aware of transfer to icu at this time.
--- NOTE | 2019-09-28 15:55 | NUR ---
Pt transfered to icu on monitor with all belongings and insulin drip infusing at 5cc an hour per order.
--- NOTE | 2019-09-28 16:10 | NUR ---
A 69, admitted to ICCU, under the services of JYOTSAN Lopez DO with a diagnosis of DKA. Chief complaint is BACK PAIN. Patient arrived via stretcher from ER. Monitor applied. Initial assessment completed. Vital signs taken and recorded. JYOTSNA LOPEZ DO notified of admission to the unit. Orders received. See assessment for past medical history, medications and allergies. Patient and/or family oriented to unit. [facility] ICCU visitation policy reviewed. IVF & INSULIN DRIP VIA RAN IV SITE. LEFT ARM + THRILL & BRUIT (LIMB ALERT BAND PLACED) KELLY SAM
--- NOTE | 2019-09-28 17:22 | NUR ---
BEDGLUCOSE READ HI. STAT REFLEX ORDERED.
[2019-09-28 17:51] LABS: INTERNATIONAL NORM RATIO 1.2 (2.0-3.5)
[2019-09-28 17:54] LABS: CREATININE 5.48 mg/dL (0.70-1.30)
--- NOTE | 2019-09-28 18:13 | NUR ---
MEDICATED PT PER PRN ORDER WITH NORCO FOR C/O LOWER BACK PAIN THAT RATES 10/[address] JONES UPDATED ON PT'S CRITICAL LAB RESULTS.
--- NOTE | 2019-09-28 19:09 | NUR ---
PT STATES NO RELIEF OF PAIN WITH EARLIER NORCO.
[2019-09-28 19:46] LABS: ABG BASE EXCESS -1.4 mmol/L (-2.0-2.0); ARTERIAL BLOOD GAS PH 7.367 (7.35-7.45)
[2019-09-28 20:00] VITALS: BP 125/56
--- NOTE | 2019-09-28 20:14 | NUR ---
1999 RESTING IN BED WATHING TV. CALL LIGHT IN REACH. PULSE OX 94% ON RA. URINAL AT BEDSIDE. INSULIN GTT CONT. IV FLUIDS CONT X'S 1 BAG. SEE INTERVENTION SCREEN FOR Q1H BLOOD SUGARS. NO DISTRESS NOTED. CONT TO C/O LOW BACK.
--- NOTE | 2019-09-28 21:24 | NUR ---
2115 RESTORIL PO FOR SLEEP. WILL MONITOR.
[2019-09-28 21:30] LABS: CREATININE 5.52 mg/dL (0.70-1.30); POTASSIUM 4.7 mmol/L (3.5-5.1)
--- NOTE | 2019-09-28 21:43 | NUR ---
DR. BROWN NOTIFIED OF RECENT TROPONIN RESULTS, RECENT BLOOD SUGAR AND GAP.
[2019-09-28 23:24] LABS: BACTERIA 1+; BILIRUBIN NEGATIVE (NEGATIVE); BLOOD 1+ (NEGATIVE); CLARITY CLEAR (CLEAR); COLOR STRAW (YELLOW); GLUCOSE 2+ (NEGATIVE); KETONE 1+ (NEGATIVE); LEUKO ESTERASE NEGATIVE (NEGATIVE); NITRITE NEGATIVE (NEGATIVE); PH 6.5 (5.0-9.0); RBC 0-2 rbc/hpf (0-2); UROBILINOGEN 0.2 E.U./dl (0.2-1.0)
[2019-09-29] VITALS: BP 110/76
--- NOTE | 2019-09-29 00:17 | NUR ---
RESTING IN BED WITH EYES CLOSED. APPEARS TO BE SLEEPING. INSULIN GTT CONT.
--- NOTE | 2019-09-29 00:20 | NUR ---
EARLIER RESTORIL EFFECTIVE.
[2019-09-29 02:02] LABS: CREATININE 5.34 mg/dL (0.70-1.30); POTASSIUM 4.1 mmol/L (3.5-5.1)
[2019-09-29 04:00] VITALS: BP 132/66
--- NOTE | 2019-09-29 04:07 | NUR ---
Q1 HOUR BEDSIDE BLOOD SUGAR CHECKS CONT. SEE INTERVENTION SCREEN. TITRATING INSULIN GTT DOWN.
[2019-09-29 04:54] LABS: BASO % 0.5 % (0.0-1.0); EOS # 0.3 10*3/uL (0.0-0.4); EOS % 5.5 % (1.0-4.0); HEMATOCRIT 26.7 % (42.0-52.0); HEMOGLOBIN 8.6 g/dl (14.0-18.0); LYMPH # 1.5 10*3/uL (1.3-4.4); LYMPH % 23.6 % (27.0-41.0); MEAN CORPUSCULAR HGB CONC 32.2 g/dl (33.0-37.0); MEAN PLATELET VOLUME 10.1 fl (9.6-12.3); MONO # 0.5 10*3/uL (0.1-1.0); MONO % 8.7 % (3.0-9.0); NEUT # 3.8 10*3/uL (2.3-7.9); NEUT % 61.1 % (47.0-73.0); PLATELET COUNT AUTOMATED 234 10*3/uL (130-400); RED BLOOD COUNT 2.69 10*6/uL (4.50-5.90); RED CELL DISTRI WIDTH 15.3 % (0-14.5); WHITE BLOOD COUNT 6.2 10*3/uL (4.8-10.8)
[2019-09-29 05:04] LABS: MEAN CELL VOLUME 99.3 fl (80.0-94.0)
[2019-09-29 05:08] LABS: ACT PARTIAL THROMBO TIME 27.5 SECONDS (20.0-32.1); INTERNATIONAL NORM RATIO 1.2 (2.0-3.5)
[2019-09-29 05:12] LABS: CREATININE 5.54 mg/dL (0.70-1.30); FREE T4 0.8 ng/dl (0.76-1.46); PHOSPHOROUS 4.5 mg/dL (2.5-4.9)
[2019-09-29 05:17] LABS: THYROID STIM HORMONE (HS) 0.695 uIU/ml (0.358-4.75)
--- NOTE | 2019-09-29 05:52 | NUR ---
DR. BROWN UPDATED ON PT RECENT BMP AND INSULIN GTT RATE. NO NEW ORDERS RECEIVED.
--- NOTE | 2019-09-29 06:17 | NUR ---
RESTING IN BED WITH EYES CLOSED. REMAINS SLEEPING. INSULIN GTT CONT AT 2UNITS/HR. NO DISTRESS NOTED. CONDITION GUARDED
[2019-09-29 07:02] LABS: VITAMIN D, 25-HYDROXY 24.8 ng/mL (30-100)
--- NOTE | 2019-09-29 07:40 | NUR ---
IV INSULIN GTT D/C'D. VSS. PT AAOX3. RESP EASY. POX 95% RA. PT C/O CONTINUED LOWER BACK PAIN. WILL MEDICATE WITH PRN NORCO WHEN IT IS TIME.
[2019-09-29 08:00] VITALS: BP 145/64
--- NOTE | 2019-09-29 08:30 | NUR ---
DR CARMONA IN TO SEE PT. NEW ORDERS RECEIVED.
--- NOTE | 2019-09-29 09:08 | NUR ---
PHYSICAL THERAPY Screen and PT eval received will follow thank you Cassandra Urbano PT
--- NOTE | 2019-09-29 09:43 | NUR ---
MEDICATED PT PER PRN ORDER WITH NORCO FOR C/O LOWER BACK PAIN THAT RATES 10/10 WITH MOVEMENT AND 1/10 WHEN LYING STILL.
--- NOTE | 2019-09-29 10:01 | NUR ---
Dry Cell Sealer in to talk to patient. Patient states lives at home with his . There are no steps in the home. He has a stair lift. Physician: Dr. Eric Montes Pharmacy: [facility] or [place] Home health services: wants [facility] on discharge Patient's level of ADLs: MINIMAL ASSIST Patient has working utilities: yes DME: walker, nebulizer, c-pap, stair lift, electric wheelchair Follow-up physician's appointment after d/c: will be made by the hospitalist nurse director upon discharge Does patient want to access PORTAL?: no Discharge plan discussed with patient. He lives at home with his . He is independent in his ADLs and ambulates with a walker or uses his electric wheelchair. Discussed short term SNF and he refuses. Discussed home health care services and he is agreeable. When provided with a list of agencies he chose [facility]. Hospitalist nurse director notified. [facility] also [facility]. case planner notified. He is dialysis MWF. [facility]. He states his will provide transportation on discharge. DANIEL BRAVO
--- NOTE | 2019-09-29 10:15 | NUR ---
Physical Therapy evaluation completed on 4th floor with full evaluation to follow. Recommend physical therapy per plan of care and SNF upon discharge. At time of eval pt only able to stand heavy Mod x 2 w FWW unable to take steps for transfer into chair or event to to sidestep to HOB. Pt has fallen several times at home and remains a very high fall risk with increased LBP and also with use of oxygen of which he does not use at home. Discussed with CM Thank you for this referral. Cassandra Urbano PT
--- NOTE | 2019-09-29 10:20 | NUR ---
Occupational Therapy evaluation completed on ICCU with full evaluation to follow. Recommend occupational therapy per plan of care and SNF upon discharge. If refused, home with SN, OT, and PT with 19/01 supervision assist. Thank you for this referral. Phoebe Ospina OTR/L
--- NOTE | 2019-09-29 10:30 | NUR ---
PT STATES MINIMAL RELIEF OF PAIN WITH EARLIER NORCO.
--- NOTE | 2019-09-29 10:41 | NUR ---
Contacted As[facility] from the [facility]. She has a new phone number. Asiya Busby: (cell phone) [phone]. She stated this patient is well known to them and he doesn't currently have any home services through them. She stated she will be setting him up with home services. CM notified.
--- NOTE | 2019-09-29 10:57 | NUR ---
DIALYSIS NURSE HERE TO START DIALYSIS.
--- NOTE | 2019-09-29 11:35 | NUR ---
Notified Adelfo at the [facility] of admission. [employer] Safety Program Coordinator will be Emmie tyler [phone]. Faxed clincal to [phone].
[2019-09-29 12:00] VITALS: BP 146/72
--- NOTE | 2019-09-29 14:55 | NUR ---
Faxed new home health order to Maya
[2019-09-29 15:24] LABS: BASO % 0.4 % (0.0-1.0); EOS # 0.2 10*3/uL (0.0-0.4); HEMOGLOBIN 9.3 g/dl (14.0-18.0); LYMPH # 1.1 10*3/uL (1.3-4.4); LYMPH % 13.2 % (27.0-41.0); MEAN CELL VOLUME 101.4 fl (80.0-94.0); MEAN CORPUSCULAR HGB 32.5 pg (27.0-31.0); MEAN CORPUSCULAR HGB CONC 32.1 g/dl (33.0-37.0); MEAN PLATELET VOLUME 10.1 fl (9.6-12.3); MONO # 0.5 10*3/uL (0.1-1.0); MONO % 6.2 % (3.0-9.0); NEUT # 6.5 10*3/uL (2.3-7.9); NEUT % 77.7 % (47.0-73.0); PLATELET COUNT AUTOMATED 247 10*3/uL (130-400); RED BLOOD COUNT 2.86 10*6/uL (4.50-5.90); RED CELL DISTRI WIDTH 15.7 % (0-14.5); WHITE BLOOD COUNT 8.4 10*3/uL (4.8-10.8)
--- NOTE | 2019-09-29 15:33 | NUR ---
PT TRANSFERED TO 4005 VIA BED. PT REPORT GIVEN TO RECEIVING NURSE.
[2019-09-29 15:34] LABS: ALBUMIN 2.6 gm/dl (3.1-4.5); CREATININE 3.12 mg/dL (0.70-1.30); POTASSIUM 4.2 mmol/L (3.5-5.1)
[2019-09-29 15:35] LABS: PHOSPHOROUS 2.2 mg/dL (2.5-4.9)
--- NOTE | 2019-09-29 15:59 | NUR ---
Moncho WRIGHT TELEROUNDED AND SPOKE WITH PT AT BEDSIDE.PER H ADRIANA DO NOT GIVE LYRICA. WILL HOLD UNTIL NEXT DOSE OR WHEN PT LESS LETHARGIC.
[2019-09-29 16:00] VITALS: BP 139/56
[2019-09-29 20:00] VITALS: BP 146/60
--- NOTE | 2019-09-29 21:34 | NUR ---
PATIENT RESTING IN BED. REQUESTING A PILL TO HELP HIM SLEEP. PATIENT GIVEN RESTORIL AT THIS TIME. WILL CHECK EFFECTIVENESS.
[2019-09-30] VITALS: BP 148/68
[2019-09-30 06:18] LABS: INTERNATIONAL NORM RATIO 1.4 (2.0-3.5)
[2019-09-30 06:49] LABS: BASO % 0.4 % (0.0-1.0); EOS # 0.2 10*3/uL (0.0-0.4); EOS % 3.9 % (1.0-4.0); HEMATOCRIT 29.9 % (42.0-52.0); HEMOGLOBIN 9.2 g/dl (14.0-18.0); LYMPH # 1.1 10*3/uL (1.3-4.4); LYMPH % 19.7 % (27.0-41.0); MEAN CELL VOLUME 104.2 fl (80.0-94.0); MEAN CORPUSCULAR HGB 32.1 pg (27.0-31.0); MEAN CORPUSCULAR HGB CONC 30.8 g/dl (33.0-37.0); MEAN PLATELET VOLUME 10.5 fl (9.6-12.3); MONO # 0.6 10*3/uL (0.1-1.0); MONO % 11.2 % (3.0-9.0); NEUT # 3.5 10*3/uL (2.3-7.9); NEUT % 64.2 % (47.0-73.0); PLATELET COUNT AUTOMATED 220 10*3/uL (130-400); RED BLOOD COUNT 2.87 10*6/uL (4.50-5.90); RED CELL DISTRI WIDTH 15.9 % (0-14.5); WHITE BLOOD COUNT 5.4 10*3/uL (4.8-10.8)
[2019-09-30 06:58] LABS: ALBUMIN 2.5 gm/dl (3.1-4.5); CREATININE 4.2 mg/dL (0.70-1.30); PHOSPHOROUS 3.6 mg/dL (2.5-4.9); POTASSIUM 4.2 mmol/L (3.5-5.1)
--- NOTE | 2019-09-30 07:32 | NUR ---
INITIAL ASSESSMENT COMPLETED.VITALS OBTAINED. PT TRANSFERRED VIA BED TO ICU FOR HEMODIALYSIS BY CLINICAL INFORMATICS EDUCATOR RN AND PA.
[2019-09-30 08:00] VITALS: BP 160/75
--- NOTE | 2019-09-30 09:24 | NUR ---
OT NOTE Attempted to see pt this A.M. for OT session and upon arrival pt was out of the room for dialysis. Will check back at a later time/date and continue with POC as able. TRAVIS Abrams/Saeed
--- NOTE | 2019-09-30 09:49 | NUR ---
Nutritional Support Services Note: Pt is eating 100% of all meals. He receieves an 1800cal diabetic diet as ordered. Pt has not questions at this time regarding diet. Dialysis pt. Continue to encourage good po intake. No open areas noted. Shasta Eason Rdn Ld
--- NOTE | 2019-09-30 11:32 | NUR ---
SOPHIA faxed new patient referral to [facility] on this date. Pending acceptance.
[2019-09-30 11:33] VITALS: BP 177/73
--- NOTE | 2019-09-30 11:35 | NUR ---
PT RETURNED FROM DIALYSIS VIA BED. 3.7 KILO OFF. PT TOLERATED WELL. VITALS OBTAINED AND PT GIVEN BREAKFAST. BLOOD SUGAR 136, NO COVERAGE PER SLIDING SCALE. DENIES ANY NEEDS AT THIS TIME. CALL LIGHT IN REACH.
--- NOTE | 2019-09-30 11:47 | NUR ---
SOPHIA got a denial from [facility] on this date due to insurance reasons.
--- NOTE | 2019-09-30 12:18 | NUR ---
SOPHIA faxed referral information to [facility] on this date. Pending acceptance.
--- NOTE | 2019-09-30 12:19 | NUR ---
case management was asked to talk with patient regarding going to a short term long term prior to returning home, patient was agreeable to this and stated he had no preference at this time, social security specialist will see which facilities take patient's insurance and make referral, case mangement will follow
--- NOTE | 2019-09-30 12:45 | NUR ---
OT NOTE Pt was seen this P.M. 1:1 for 15 minute OT session. Upon arrival pt was supine in bed. Pt identified by name and and had complaints of 8/10 back pain at rest and 10/10 back pain with movement. Pt presented to therapy with continuous 2L-O2 via NC which he remained on throughout the entire session. Pt transferred supine to sit EOB with maxA X 2. Requested for pt to brendan B socks and pt reported that he couldn't due to back pain resulting in maxA for donning. While sitting EOB challenged pt's dynamic sitting balance while weight shifting, crossing midline, and reaching over all planes for increased I and enhanced safety in self care tasks and functional transfers. Pt was able to maintain F/F+ sitting balance. Attempted to complete sit to stand transfers and pt declined. Pt then transferred back into bed sit to supine with Lev and maxA X 2 for assist with repositioning in bed. Pt was left supine in bed with call light in hand, tray table in place, and bed alarm activated for safety. Continue with rec d/C plan to SNF. TRAVIS Abrams/Saeed
--- NOTE | 2019-09-30 14:02 | NUR ---
OCCUPATIONAL THERAPY CO-SIGN I approve of the Occupational Therapy notes written above. CHERYL FORD, OTR/L
--- NOTE | 2019-09-30 14:39 | NUR ---
PHYSICAL THERAPY TREATMENT TIME: IN 12:31 PM Patient presented to therapy in supine with head of bed elevated and 3 liters of spO2 VIA NASAL CANULA. Patient was identified by name and on wristband. Patient has severe pain in the low back and LEs of 10/10 with activity and 8/10 with rest. Patient completed supine to sitting at EOB with MAX A X 2. Patient sat on EOB for 15 minutes total with SBA-CGA. Patient performed LAQs X 20 reps each LE sitting on EOB for strengthening in order to improve patient's functional mobility. Patient is unwilling to attempt standing due to the LBP. Patient performed was transferred back to supine in bed with MAX A X 2. Patient was moved up to head of bed with drawsheet MAX A X 2. Patient was left in supine in bed with head of bed elevated, call light within reach and bed alarm activated. Patient was 1:1 with this JAVA APPLICATION ENGINEER for 18 minutes total. MILTON CLEANING JAVA APPLICATION ENGINEER
[2019-09-30 16:00] VITALS: BP 150/75
--- NOTE | 2019-09-30 17:15 | NUR ---
NOTIFIED DR RODAS OF PT BLOOD GLUCOSE OF 510. REFLUX ORDERED.
--- NOTE | 2019-09-30 18:19 | NUR ---
NOTIFIED DR RODAS OF REFLUX OF 597. MEDICATED PT WITH 22 UNITS HUMOLOG POST REFLUX DRAW.NO OTHER ORDERS AT THIS TIME. PT CONTINUES TO EAT DINNER.
[2019-09-30 20:00] VITALS: BP 168/70
[2019-10-01] VITALS: BP 143/57
[2019-10-01 06:08] LABS: BASO % 0.4 % (0.0-1.0); EOS # 0.3 10*3/uL (0.0-0.4); EOS % 4.2 % (1.0-4.0); HEMATOCRIT 31.7 % (42.0-52.0); HEMOGLOBIN 9.7 g/dl (14.0-18.0); LYMPH % 14.9 % (27.0-41.0); MEAN CELL VOLUME 103.6 fl (80.0-94.0); MEAN CORPUSCULAR HGB 31.7 pg (27.0-31.0); MEAN CORPUSCULAR HGB CONC 30.6 g/dl (33.0-37.0); MEAN PLATELET VOLUME 10.4 fl (9.6-12.3); MONO # 0.7 10*3/uL (0.1-1.0); MONO % 10.3 % (3.0-9.0); NEUT # 4.7 10*3/uL (2.3-7.9); NEUT % 69.6 % (47.0-73.0); PLATELET COUNT AUTOMATED 222 10*3/uL (130-400); RED BLOOD COUNT 3.06 10*6/uL (4.50-5.90); WHITE BLOOD COUNT 6.7 10*3/uL (4.8-10.8)
[2019-10-01 06:23] LABS: INTERNATIONAL NORM RATIO 1.5 (2.0-3.5)
[2019-10-01 06:37] LABS: ALBUMIN 2.6 gm/dl (3.1-4.5); CREATININE 3.38 mg/dL (0.70-1.30); PHOSPHOROUS 2.4 mg/dL (2.5-4.9); POTASSIUM 4.7 mmol/L (3.5-5.1); TOTAL PROTEIN 6.3 gm/dL (6.4-8.2)
--- NOTE | 2019-10-01 07:50 | NUR ---
MEDICATED WITH PRN PO NORCO FOR LOWER BACK PAIN AT THIS TIME.
[2019-10-01 08:00] VITALS: BP 144/62
--- NOTE | 2019-10-01 08:06 | NUR ---
PATIENT UP TO CHAIR WITH 3 ASSIST, EATING BREAKFAST.
--- NOTE | 2019-10-01 09:33 | NUR ---
PRN PO NORCO EFFECTIVE FOR PAIN, PER PATIENT.
--- NOTE | 2019-10-01 11:42 | NUR ---
mEDICATED FOR C/O HEART BURN VS. NAUSEA.
[2019-10-01 12:00] VITALS: BP 155/67
[2019-10-01 16:00] VITALS: BP 140/62
[2019-10-01 20:00] VITALS: BP 159/78
[2019-10-02] VITALS: BP 166/74
[2019-10-02 07:19] LABS: BASO % 0.3 % (0.0-1.0); EOS # 0.4 10*3/uL (0.0-0.4); EOS % 5.2 % (1.0-4.0); HEMATOCRIT 31.2 % (42.0-52.0); HEMOGLOBIN 9.6 g/dl (14.0-18.0); MEAN CELL VOLUME 104.7 fl (80.0-94.0); MEAN CORPUSCULAR HGB 32.2 pg (27.0-31.0); MEAN CORPUSCULAR HGB CONC 30.8 g/dl (33.0-37.0); MEAN PLATELET VOLUME 10.8 fl (9.6-12.3); MONO # 0.7 10*3/uL (0.1-1.0); MONO % 9.7 % (3.0-9.0); NEUT # 4.8 10*3/uL (2.3-7.9); NEUT % 69.9 % (47.0-73.0); PLATELET COUNT AUTOMATED 200 10*3/uL (130-400); RED BLOOD COUNT 2.98 10*6/uL (4.50-5.90); RED CELL DISTRI WIDTH 16.5 % (0-14.5); WHITE BLOOD COUNT 6.9 10*3/uL (4.8-10.8)
[2019-10-02 07:27] LABS: CREATININE 4.32 mg/dL (0.70-1.30); POTASSIUM 5.2 mmol/L (3.5-5.1)
[2019-10-02 08:00] VITALS: BP 148/62
--- NOTE | 2019-10-02 08:20 | NUR ---
MEDICATED WITH PRN PO NORCO FOR LOWER BACK PAIN.
--- NOTE | 2019-10-02 09:15 | NUR ---
PRN PO NORCO EFFECTIVE FOR BACK PAIN, PER PATIENT
[2019-10-02 12:00] VITALS: BP 137/68
[2019-10-02 16:00] VITALS: BP 153/63
[2019-10-02 20:00] VITALS: BP 164/76
[2019-10-03] VITALS: BP 174/76
[2019-10-03 06:13] LABS: BASO % 0.5 % (0.0-1.0); EOS # 0.3 10*3/uL (0.0-0.4); EOS % 5.1 % (1.0-4.0); HEMATOCRIT 31.7 % (42.0-52.0); HEMOGLOBIN 9.7 g/dl (14.0-18.0); LYMPH % 14.3 % (27.0-41.0); MEAN CELL VOLUME 103.9 fl (80.0-94.0); MEAN CORPUSCULAR HGB 31.8 pg (27.0-31.0); MEAN CORPUSCULAR HGB CONC 30.6 g/dl (33.0-37.0); MEAN PLATELET VOLUME 10.5 fl (9.6-12.3); MONO # 0.6 10*3/uL (0.1-1.0); NEUT # 4.7 10*3/uL (2.3-7.9); NEUT % 70.3 % (47.0-73.0); PLATELET COUNT AUTOMATED 211 10*3/uL (130-400); RED BLOOD COUNT 3.05 10*6/uL (4.50-5.90); RED CELL DISTRI WIDTH 16.4 % (0-14.5); WHITE BLOOD COUNT 6.6 10*3/uL (4.8-10.8)
[2019-10-03 06:18] LABS: CREATININE 5.17 mg/dL (0.70-1.30); POTASSIUM 4.9 mmol/L (3.5-5.1)
[2019-10-03 06:32] LABS: INTERNATIONAL NORM RATIO 2.5 (2.0-3.5)
--- NOTE | 2019-10-03 07:42 | NUR ---
PATIENT TO DIALYSIS AT THIS TIME.
--- NOTE | 2019-10-03 08:52 | NUR ---
SHIFT ASSESSMENT PERFORMED IN DIALYSIS ROOM, SEE SHIFT ASSESSMENT FLOW SCREENS FOR DETAILS.
--- NOTE | 2019-10-03 09:25 | NUR ---
SOPHIA faxed clinically updates to [facility] on this date. Pending acceptance.
--- NOTE | 2019-10-03 10:37 | NUR ---
PHYSICAL THERAPY SHUTTLE TRUCK DRIVER attempted to see pt for session this AM, but unable due to pt being in dialysis. Will check back after to attempt session. Halima Nunes SHUTTLE TRUCK DRIVER
[2019-10-03 12:00] VITALS: BP 135/62
--- NOTE | 2019-10-03 12:13 | NUR ---
OBTAINED BEDSIDE GLUCOSE RESULTS IN DIALYSIS ROOM OF 43 AND 40, ORDERING STAT REFLEX GLUCOSE. PATIENT DRANK 4 OZ. ORANGE JUICE AND ONE AMP D50 ADMINISTERED PER PRN ORDER. PATIENT STATES HE IS UNABLE TO TELL WHEN HIS BSG IS LOW, IS HAVING NO S/S OF HYPOGLYCEMIA, AND THAT HE DOES NOT HAVE SYMPTOMS AT HOME UNTIL HE PASSES OUT USUALLY. DR. VALLECILLO IN TO ASSESS THE PATIENT AND IS AWARE OF THE METER RESULTS AND THAT STAT REFLEX GLUCOSE IS PENDING. PATIENT HAS FINISHED DIALYSIS TREATMENT AND READY TO COME BACK TO HIS ROOM AND ORDER LUNCH.
--- NOTE | 2019-10-03 12:20 | NUR ---
Hospital exemption completed online in [facility] for [facility].
--- NOTE | 2019-10-03 12:25 | NUR ---
PATIENT RETURNED FROM DIALYSIS, RESUMING MEDS AND MEALS.
--- NOTE | 2019-10-03 12:34 | NUR ---
MEDICATED WITH PRN PO NORCO FOR C/O LOWER BACK PAIN. PATIENT SITTING ON SIDE OF THE BED AND WAITING FOR LUNCH, EXERCISING WITH PHYSICAL THERAPIST.
--- NOTE | 2019-10-03 12:54 | NUR ---
OT NOTE Pt was seen this P.M. 1:1 for 24 minute OT session. Upon arrival pt was supine in bed. Pt identified by name and and had complaints of generalized fatigue, weakness, and low back pain which he did not rate on 0-10 pain scale. Pt transferred supine to sit EOB with modA for assist with UB. While sitting EOB challenged pt's static sitting balance, upon inital rise pt presented with F- requiring Lev to correct R lateral lean and was then able to self correct with no UE support. Then challenged pt's dynamic sitting balance while weight shifting, crossing midline, and reaching over all planes. Pt was able to maintain F+/G- sitting balance throughout. Also while sitting EOB requested for pt to brendan B socks, pt stated "I can't do that, you have to do it." Educated pt on compensatory technique which pt presented with fair carry over requiring Lev for donning B socks. Pt then completed three sit to stand transfers from bed level with modA and use of w/w for UE support. Challenged pt's static standing tolerance needed for increased I in self care tasks and functional transfers. Pt was able to tolerate aprox 15-20 seconds at a time before sitting due to fatigue. Pt then transferred back into bed sit to supine with Lev and education on log roll technique for back protection, pt verbalized understanding however had poor carry over. Pt was left supine in bed with call light in hand, tray table in place, and bed alarm activated for safety. Continue with rec D/C plan to SNF. ANDRZEJ Abrams
--- NOTE | 2019-10-03 13:12 | NUR ---
STAT REFLEX GLUCOSE RESULT 142.
--- NOTE | 2019-10-03 13:48 | NUR ---
PHYSICAL THERAPY ARCHERY EQUIPMENT REPAIRER arrives to room as pt is transferring back into bed with ROBLES. Pt states that he is fatigued, maybe because his BS was low in dialysis. Pt reports low back pain currently, but unable to rate 0-10. Pt performed supine therex only due to fatigue as noted: SLR, hip adduction iso, ankle pumps x10 bilaterally, as well as LTR x5 reps and bridges 2 sets of 5 reps. Pt required verbal instruction for proper technique with each exercise. At conclusion of treatment, pt supine with call light in reach and bed alarm armed. Pt coughed throughout treatment, states he is ok, basin given due to pt needing to expel sputum. Pt instructed to use call light if additional needs present. Total treatment time 10 mins with 1:1 ARCHERY EQUIPMENT REPAIRER.
--- NOTE | 2019-10-03 14:10 | NUR ---
Patient has been accepted to [facility] on this date. Precert Started. Once obtained and medically stable patient can discharge to [facility].
--- NOTE | 2019-10-03 15:57 | NUR ---
PHYSICAL THERAPY CO-SIGN I approve of the Physical Therapy notes written above. DANIEL GALVAN PT, DPT
[2019-10-03 16:00] VITALS: BP 142/65
[2019-10-03 20:00] VITALS: BP 162/72
--- NOTE | 2019-10-03 22:30 | NUR ---
BLOOD SUGAR CHECKED AT THIS TIME, PATIENTS BLOOD SUGAR 225. PATIENT STATED HE ONLY WANTED 10 UNITS OF LANTUS AND NO SHORT ACTING. EXPLAINED TO PATIENT HIS SUGAR WS OVER 1000 WHEN HE CAME IN AND THAT HE NEEDED TO TAKE WHAT WAS PRESCRIBED. PATIENT STATED HE WILL BE FINE. HE WAS LOW THIS MORNING. PATIENT THEN ASKED FOR ICE CREAM. EXPLAINED TO PATIENT HE IS ON A NO CONCENTRATED SWEETS DIET.
[2019-10-04] VITALS: BP 163/82
--- NOTE | 2019-10-04 00:26 | NUR ---
24 HR chart check completed.
[2019-10-04 06:03] LABS: CREATININE 3.95 mg/dL (0.70-1.30); PHOSPHOROUS 3.6 mg/dL (2.5-4.9); POTASSIUM 4.3 mmol/L (3.5-5.1)
[2019-10-04 06:08] LABS: BASO % 0.4 % (0.0-1.0); EOS # 0.3 10*3/uL (0.0-0.4); EOS % 4.4 % (1.0-4.0); HEMATOCRIT 30.2 % (42.0-52.0); HEMOGLOBIN 9.4 g/dl (14.0-18.0); LYMPH # 1.2 10*3/uL (1.3-4.4); LYMPH % 16.4 % (27.0-41.0); MEAN CELL VOLUME 101.7 fl (80.0-94.0); MEAN CORPUSCULAR HGB 31.6 pg (27.0-31.0); MEAN CORPUSCULAR HGB CONC 31.1 g/dl (33.0-37.0); MEAN PLATELET VOLUME 10.3 fl (9.6-12.3); MONO # 0.8 10*3/uL (0.1-1.0); MONO % 11.1 % (3.0-9.0); NEUT # 4.7 10*3/uL (2.3-7.9); NEUT % 67.1 % (47.0-73.0); PLATELET COUNT AUTOMATED 201 10*3/uL (130-400); RED BLOOD COUNT 2.97 10*6/uL (4.50-5.90); RED CELL DISTRI WIDTH 16.5 % (0-14.5)
[2019-10-04 08:00] VITALS: BP 150/67
--- NOTE | 2019-10-04 08:30 | NUR ---
Patient resting quietly with no c/o discomfort. Respirations easy and regular. Vital signs stable. No overt distress. ASHIA NUÑEZ R
--- NOTE | 2019-10-04 08:57 | NUR ---
PHYSICAL THERAPY PT SUPINE IN BED WITH BED ALARM ON UPON ARRIVAL. PT C/O 10/10 PAIN ON LOW BACK. PT AGREED TO ALL PHYSICAL THERAPY TREATMENT THIS A.M. PT IDENTIFIED BY NAME AND ON NAME BAND. PT PERFORMED SUPINE TO SITTING EOB WITH MODa X2 AND VC'S FOR SAFETY AND TO HELP WITH USING BEDRAIL. PT PERFORMED STS FROM EOB TO FWQW WITH MINaX2. PT GAIT TRAINED 2 FT WITH FWW MINaX2 AND SHUFFLED GAIT, WITH VC'S TO HAVE A HIGHER STEP HIGH AND SAFETY WITH WALKER. PT PERFORMED STS TO AND FROM [facility] WITH Woody AND VC'S FOR SAFETY. PT PERFORMED SIDE STEPPING 3 FOOT TO THE L WITH Woody X2 FWW WITH VC'S FOR TECHNIQUE, SAFETY WITH WALKER, POSTURE AND BREATHING. PT WAS RETRO AND LEADING TO RIGHT DURING ALL STANDING AND GAIT. PT PERFORMED STS TO RECLINER WITH VC'S FOR HAND PLACEMENT. PT SITTING IN RECLINER WITH LE ELEVATED, CALL LIGHT SITTING AT PTS RIGHT SIDE. PT REPORTED NO OTHER NEEDS AT THIS TIME. PT SEEN 1:1 FOR 27MINS. ROSHAN CURRY PTA
--- NOTE | 2019-10-04 09:20 | NUR ---
OT NOTE Pt was seen this A.M. 1:1 for 25 minute OT session. Upon arrival pt was supine in bed with BLE's hanging over the edge. Pt identified by name and and had complaints of 10/10 low back pain. Educated pt on back protection and pt verbalized understanding however presented with poor carry over. Pt transferred supine to sit EOB with modA X 2. While sitting EOB pt presented with a R lateral lean that required Lev to correct and donned new gown with Lev. Sit to stand completed from bed level with Lev X 2 and use of w/w for UE support. Upon rise pt presented with retrograde posture and R lateral lean that required modA to correct. Functional mobility completed to the bedside commode with Lev and use of w/w and verbal prompts for walker safety. Pt transferred on to bedside commode with CGA and off with Lev X 2 due to low surface. Clothing management completed with Lev. Functional mobility was then completed to the recliner with Lev while still presenting with retrograde posture and R lateral lean requiring modA to correct. Pt was left sitting upright in the recliner with BLE's elevated, call light in hand, tray table in place, and body alarm activated for safety. Continue with rec D/C plan to SNF. TRAVIS Abrams/Saeed
[2019-10-04] MEDS ORDERED: NEURONTIN100 MG PO (11:30)
--- NOTE | 2019-10-04 13:54 | NUR ---
Patient is discharged at this time to [facility] via [facility] @ 1500. Dc information, [place], nursing/steward racetrack and family all notified.
--- NOTE | 2019-10-04 14:02 | NUR ---
PHYSICAL THERAPY CO-SIGN I approve of the Physical Therapy notes written above. DANIEL GALVAN PT,DPT
--- NOTE | 2019-10-04 14:04 | NUR ---
OCCUPATIONAL THERAPY CO-SIGN I approve of the Occupational Therapy notes written above. Phoebe Ospina, OTR/L
--- NOTE | 2019-10-04 15:08 | NUR ---
Faxed discharge clinical to Emmie at the [place] as requested
--- NOTE | 2019-10-04 15:21 | NUR ---
REPORT CALLED TO JI AT [facility].
--- NOTE | 2019-10-04 15:21 | NUR ---
RADHA RETURNED TO PT THAT WAS IN LOCK BOX. PT ACKNOWLEGED AND SIGNED PAPER.
--- NOTE | 2019-10-04 15:22 | NUR ---
Discharge instructions reviewed with patient/family. Patient receptive and verbalizes understanding. Follow-up care arranged. Written instructions given to patient/family. ASHIA NUÑEZ
== END 2019-10-04 15:22 | disposition other institution (70) | DRG 640 ==
LOC: ED 12:20 → EDHOLD 14:40 → ICCU 14:40 → 4E 14:40 → 4NE 14:40 → 4E 14:54 → ICCU 15:17 → 4NE 09-29 16:08 → 4E 09-30 16:42
PROVIDERS: Emergency Medicine; Hospitalist; Internal Medicine; Internal Medicine Nephrology; Student in an Organized Health Care Education/Training Program; ADMIT Internal Medicine
PROC: 5A1D70Z Performance of Urinary Filtration, Intermittent, Less than 6 Hours Per Day (ICD-10-PCS; principal; 2019-09-29)
PROC: 5A1D70Z Performance of Urinary Filtration, Intermittent, Less than 6 Hours Per Day (ICD-10-PCS; 2019-09-30)
PROC: 5A1D70Z Performance of Urinary Filtration, Intermittent, Less than 6 Hours Per Day (ICD-10-PCS; 2019-10-03)
DX: E87.1 Hypo-osmolality and hyponatremia (principal); N18.6 End stage renal disease; E43 Unspecified severe protein-calorie malnutrition; I50.22 Chronic systolic (congestive) heart failure; I13.2 Hypertensive heart and chronic kidney disease with heart failure and with stage 5 chronic kidney disease, or end stage renal disease; E66.2 Morbid (severe) obesity with alveolar hypoventilation; G91.2 (Idiopathic) normal pressure hydrocephalus; K27.9 Peptic ulcer, site unspecified, unspecified as acute or chronic, without hemorrhage or perforation; E87.2 Acidosis; S20.229A Contusion of unspecified back wall of thorax, initial encounter; D53.9 Nutritional anemia, unspecified; E87.8 Other disorders of electrolyte and fluid balance, not elsewhere classified; E83.51 Hypocalcemia; J44.9 Chronic obstructive pulmonary disease, unspecified; M47.9 Spondylosis, unspecified; F32.9 Major depressive disorder, single episode, unspecified; I25.10 Atherosclerotic heart disease of native coronary artery without angina pectoris; K08.199 Complete loss of teeth due to other specified cause, unspecified class; I48.91 Unspecified atrial fibrillation; E11.69 Type 2 diabetes mellitus with other specified complication; E11.42 Type 2 diabetes mellitus with diabetic polyneuropathy; E53.8 Deficiency of other specified B group vitamins; E83.39 Other disorders of phosphorus metabolism; E83.41 Hypermagnesemia; Z99.2 Dependence on renal dialysis; E11.22 Type 2 diabetes mellitus with diabetic chronic kidney disease; W19.XXXA Unspecified fall, initial encounter; Y93.89 Activity, other specified; Y92.89 Other specified places as the place of occurrence of the external cause; Y99.8 Other external cause status; Z68.32 Body mass index [BMI] 32.0-32.9, adult; Z88.5 Allergy status to narcotic agent; Z88.1 Allergy status to other antibiotic agents; Z88.8 Allergy status to other drugs, medicaments and biological substances; Z79.899 Other long term (current) drug therapy; Z95.5 Presence of coronary angioplasty implant and graft; Z98.52 Vasectomy status; Z98.42 Cataract extraction status, left eye; Z98.41 Cataract extraction status, right eye; Z80.9 Family history of malignant neoplasm, unspecified; Z79.01 Long term (current) use of anticoagulants

== ENCOUNTER 2019-10-06 11:03 | Emergency (ER) | payer MEDICARE ==
[~2019-10-06] VITALS: Ht 182.8 cm; Wt 107.5 kg
[2019-10-06 11:44] LABS: BASO % 0.3 % (0.0-1.0); EOS # 0.1 10*3/uL (0.0-0.4); EOS % 1.2 % (1.0-4.0); HEMATOCRIT 31.2 % (42.0-52.0); HEMOGLOBIN 9.6 g/dl (14.0-18.0); LYMPH # 0.8 10*3/uL (1.3-4.4); MEAN CORPUSCULAR HGB CONC 30.8 g/dl (33.0-37.0); MEAN PLATELET VOLUME 9.9 fl (9.6-12.3); MONO # 0.7 10*3/uL (0.1-1.0); NEUT # 7.4 10*3/uL (2.3-7.9); NEUT % 80.7 % (47.0-73.0); PLATELET COUNT AUTOMATED 210 10*3/uL (130-400); WHITE BLOOD COUNT 9.1 10*3/uL (4.8-10.8)
[2019-10-06 12:00] LABS: ACT PARTIAL THROMBO TIME 37.9 SECONDS (20.0-32.1)
[2019-10-06 12:01] LABS: ALBUMIN 2.6 gm/dl (3.1-4.5); CREATININE 3.38 mg/dL (0.70-1.30); POTASSIUM 4.9 mmol/L (3.5-5.1); TOTAL PROTEIN 6.7 gm/dL (6.4-8.2); TROPONIN I 0.02 ng/ml (<0.045)
[2019-10-06 14:10] VITALS: BP 174/80
[2019-10-06 14:46] LABS: BACTERIA TRACE; BILIRUBIN NEGATIVE (NEGATIVE); BLOOD NEGATIVE (NEGATIVE); CLARITY CLEAR (CLEAR); COLOR YELLOW (YELLOW); GLUCOSE 3+ (NEGATIVE); KETONE NEGATIVE (NEGATIVE); LEUKO ESTERASE NEGATIVE (NEGATIVE); NITRITE NEGATIVE (NEGATIVE); SPECIFIC GRAVITY 1.005 (1.005-1.030); UROBILINOGEN 0.2 E.U./dl (0.2-1.0); WBC 0-2 wbc/hpf (0-5)
== END 2019-10-06 16:36 | disposition other institution (70) ==
LOC: ED 11:03
PROVIDERS: Emergency Medicine
DX: E11.649 Type 2 diabetes mellitus with hypoglycemia without coma (principal); E11.22 Type 2 diabetes mellitus with diabetic chronic kidney disease; I13.0 Hypertensive heart and chronic kidney disease with heart failure and stage 1 through stage 4 chronic kidney disease, or unspecified chronic kidney disease; N18.5 Chronic kidney disease, stage 5; E11.40 Type 2 diabetes mellitus with diabetic neuropathy, unspecified; I25.10 Atherosclerotic heart disease of native coronary artery without angina pectoris; E78.5 Hyperlipidemia, unspecified; Z88.5 Allergy status to narcotic agent; Z88.1 Allergy status to other antibiotic agents; Z88.8 Allergy status to other drugs, medicaments and biological substances; Z79.899 Other long term (current) drug therapy; Z79.4 Long term (current) use of insulin; Z98.61 Coronary angioplasty status; Z98.890 Other specified postprocedural states; Z99.2 Dependence on renal dialysis

== ENCOUNTER 2019-10-15 14:56 | Inpatient (IN) | payer MEDICARE ==
[~2019-10-15] VITALS: Ht 182.8 cm; Wt 102.2 kg
[2019-10-15 15:09] VITALS: BP 146/67
--- NOTE | 2019-10-15 15:19 | NUR ---
PATIENT DENIES ANY WOUNDS A&OX4.
[2019-10-15 15:29] LABS: BASO % 0.3 % (0.0-1.0); EOS # 0.3 10*3/uL (0.0-0.4); EOS % 4.2 % (1.0-4.0); HEMATOCRIT 33.1 % (42.0-52.0); LYMPH # 1.3 10*3/uL (1.3-4.4); LYMPH % 18.3 % (27.0-41.0); MEAN CELL VOLUME 100.6 fl (80.0-94.0); MEAN CORPUSCULAR HGB CONC 30.8 g/dl (33.0-37.0); MEAN PLATELET VOLUME 10.1 fl (9.6-12.3); MONO # 0.7 10*3/uL (0.1-1.0); MONO % 10.2 % (3.0-9.0); NEUT # 4.8 10*3/uL (2.3-7.9); NEUT % 66.7 % (47.0-73.0); PLATELET COUNT AUTOMATED 231 10*3/uL (130-400); RED BLOOD COUNT 3.29 10*6/uL (4.50-5.90); WHITE BLOOD COUNT 7.2 10*3/uL (4.8-10.8)
[2019-10-15 15:30] VITALS: BP 155/72
[2019-10-15 15:42] LABS: ACT PARTIAL THROMBO TIME 35.9 SECONDS (20.0-32.1); INTERNATIONAL NORM RATIO 2.4 (2.0-3.5)
--- NOTE | 2019-10-15 15:45 | NUR ---
PATIENT STATES HE FELT SOB. STARTED 2L ON PATIENT NASAL CANNULA. PULSE OX WAS 97% ON ROOM AIR.
[2019-10-15 15:48] LABS: ALBUMIN 2.9 gm/dl (3.1-4.5); CREATININE 3.68 mg/dL (0.70-1.30); POTASSIUM 4.7 mmol/L (3.5-5.1); TOTAL PROTEIN 6.5 gm/dL (6.4-8.2); TROPONIN I 0.019 ng/ml (<0.045)
[2019-10-15 17:20] VITALS: BP 151/67
--- NOTE | 2019-10-15 17:50 | NUR ---
PATIENT TAKEN TO 4TH FLOOR AT THIS TIME BY THIS NURSE.
[2019-10-15 18:00] VITALS: BP 159/66
--- NOTE | 2019-10-15 18:00 | NUR ---
A 69, admitted to , under the services of Dr. AMILCAR GARVEY,JAYLEEN Bloom with a diagnosis of CHEST PAIN. Chief complaint is CHEST PAIN RIGHT SIDED. Patient arrived via stretcher from ER. Monitor applied. Initial assessment completed. Vital signs taken and recorded. DR. AMILCAR GARVEY,JAYLEEN Bloom notified of admission to the unit. Orders received. See assessment for past medical history, medications and allergies. Patient and/or family oriented to unit. [address] visitation policy reviewed. Clothing/patient valuable form completed. ASHIA NUÑEZ
[2019-10-15] MEDS ORDERED: LANTUS SOL100 UNIT/1 SQ (18:31)
--- NOTE | 2019-10-15 18:51 | NUR ---
DR RIVERA NOTIFIED IN ER OF CONSULT/ADMISSION
--- NOTE | 2019-10-15 18:51 | NUR ---
CALLED DR MALDONADO VIA ANSWERING SERVICE Re: CONSULT. WILL AWAIT RETURN CALL
--- NOTE | 2019-10-15 18:53 | NUR ---
DR MALDONADO RETURNED CALL. NOTIFIED OF CONSULT AND CURRENT TROPONINS. HE STATES TO KEEP AN EYE ON HIM AND CALL IF WE NEED HIM.
[2019-10-15 20:00] VITALS: BP 141/69
[2019-10-16] VITALS: BP 160/82; BP 179/81
[2019-10-16 03:12] LABS: BASO % 0.2 % (0.0-1.0); EOS # 0.4 10*3/uL (0.0-0.4); HEMATOCRIT 31.2 % (42.0-52.0); LYMPH # 1.3 10*3/uL (1.3-4.4); MEAN CELL VOLUME 101.6 fl (80.0-94.0); MEAN CORPUSCULAR HGB 30.9 pg (27.0-31.0); MEAN CORPUSCULAR HGB CONC 30.4 g/dl (33.0-37.0); MEAN PLATELET VOLUME 9.7 fl (9.6-12.3); MONO # 0.5 10*3/uL (0.1-1.0); MONO % 8.1 % (3.0-9.0); NEUT # 3.8 10*3/uL (2.3-7.9); NEUT % 63.2 % (47.0-73.0); PLATELET COUNT AUTOMATED 199 10*3/uL (130-400); RED BLOOD COUNT 3.07 10*6/uL (4.50-5.90); RED CELL DISTRI WIDTH 16.3 % (0-14.5)
[2019-10-16 03:21] LABS: CREATININE 4.28 mg/dL (0.70-1.30); INTERNATIONAL NORM RATIO 2.5 (2.0-3.5); POTASSIUM 4.4 mmol/L (3.5-5.1)
--- NOTE | 2019-10-16 07:47 | NUR ---
pt resting in bed/ no distress noted. will monitor
[2019-10-16 08:00] VITALS: BP 160/70
--- NOTE | 2019-10-16 08:26 | NUR ---
PT STATES THAT "I FEEL WEIRD, IM DIZZY IM NOT SURE WHATS WRONG MAYBE ITS MY SUGAR" GLUCOSE CHECKED 124, BP 160/[address] PELAYO CALLED AND NOTIFIED
[2019-10-16 12:00] VITALS: BP 145/66
[2019-10-16 16:00] VITALS: BP 143/58
[2019-10-16 20:00] VITALS: BP 140/53
[2019-10-16 21:26] VITALS: BP 140/72
--- NOTE | 2019-10-16 21:27 | NUR ---
BS 123, PATIENT NOT GIVEN LANTUS AND WILL BE NPO AT MIDNIGHT
[2019-10-17] VITALS: BP 147/80
--- NOTE | 2019-10-17 05:15 | NUR ---
DIALYSIS AWARE OF PT'S PROCEDURE TODAY.
[2019-10-17 06:00] LABS: BASO % 0.3 % (0.0-1.0); EOS # 0.4 10*3/uL (0.0-0.4); EOS % 6.3 % (1.0-4.0); HEMATOCRIT 32.9 % (42.0-52.0); LYMPH # 1.2 10*3/uL (1.3-4.4); LYMPH % 17.1 % (27.0-41.0); MEAN CELL VOLUME 103.1 fl (80.0-94.0); MEAN CORPUSCULAR HGB CONC 30.1 g/dl (33.0-37.0); MEAN PLATELET VOLUME 10.6 fl (9.6-12.3); MONO # 0.6 10*3/uL (0.1-1.0); MONO % 8.8 % (3.0-9.0); NEUT # 4.7 10*3/uL (2.3-7.9); NEUT % 67.1 % (47.0-73.0); PLATELET COUNT AUTOMATED 195 10*3/uL (130-400); RED BLOOD COUNT 3.19 10*6/uL (4.50-5.90); RED CELL DISTRI WIDTH 16.4 % (0-14.5)
[2019-10-17 06:21] LABS: CREATININE 5.26 mg/dL (0.70-1.30); POTASSIUM 5.1 mmol/L (3.5-5.1)
[2019-10-17 06:32] LABS: INTERNATIONAL NORM RATIO 3.2 (2.0-3.5)
[2019-10-17 08:00] VITALS: BP 154/66
--- NOTE | 2019-10-17 08:11 | NUR ---
PT RESTING IN BED/ NO DISTRESS NOTED. WILL MONITOR
--- NOTE | 2019-10-17 08:13 | NUR ---
Nursing screen received and chart reviewed. Patient admitted for right sided chest pain and dyspnea. If patient has a decline in ADLs, functional transfers, or mobility, please send OT orders. Thank you. Phoebe Ospina, OTR/L
--- NOTE | 2019-10-17 08:39 | NUR ---
PRECERT is required for return to [facility]. Patient is Short Term at [facility].
--- NOTE | 2019-10-17 08:41 | NUR ---
Will need PT/OT evaluation for PRECERT.
--- NOTE | 2019-10-17 08:52 | NUR ---
MACHINE TOOL TECHNICIAN INSTRUCTOR faxed updates to [facility].
--- NOTE | 2019-10-17 08:54 | NUR ---
PHYSICAL THERAPY Nursing screen received and chart reviewed. PT order received. Thank you for this referral. Shireen Cannon,PT,DPT
--- NOTE | 2019-10-17 09:44 | NUR ---
INFORMED CONSENT SIGNED FOR LEXISCAN STRESS TEST WITH DR. FITZGERALD. RESTING EKG NSR WITH RARE PVC, HR 69, BP 152/74. PULSE OX 100% ON 2L/NC AND LUNGS DEMINISHGED BILATERALLY WITH PV RALES. COMPLETED ONE MINUTE OF LEXISCAN PROTOCOL RECEIVING LEXISCAN 0.4MG OVER 10 SECONDS. PVC NOTED WITH NO NEW ST CHANGES. PT C/O NAUSEA, HEADACHE AND CHEST TIGHTNESS. LAST RECOVERY HR 82, BP 136//62. WAITING NUCLEAR SCANNING IN STABLE CONDITION.
--- NOTE | 2019-10-17 09:54 | NUR ---
Patient is from [facility] short term and plans to return there upon discharge. vegetable farmworker following. He is dialysis MWF.
--- NOTE | 2019-10-17 10:30 | NUR ---
Occupational therapy orders received and chart reviewed. Patient out of the room at a stress test this AM. Will follow up with patient when available. Thank you. Phoebe Ospina OTR/L
--- NOTE | 2019-10-17 10:31 | NUR ---
PHYSICAL THERAPY PT orders received and chart reviewed. Patient out of the room at a stress test this AM. Will follow up with patient when available. Thank you. Shireen Cannon,PT,DPT
--- NOTE | 2019-10-17 11:15 | NUR ---
Occupational therapy orders received and chart reviewed. Patient decling an OT evaluation at this time stating "I'm wiped out and I want to eat before dialysis." Patient educated on benefits of OT and declined. Will follow up with the patient at a later date. Thank you. Phoebe Ospina, OTR/L
--- NOTE | 2019-10-17 11:20 | NUR ---
PHYSICAL THERAPY PT orders received and chart reviewed. Patient declining PT evaluation at this time stating "I'm wiped out and I want to eat before dialysis." Patient educated on benefits of PT and declined. Will follow up with the patient at a later date. Thank you. Shireen Cannon,PT,DPT
[2019-10-17 12:00] VITALS: BP 167/86
[2019-10-17 16:00] VITALS: BP 171/67
--- NOTE | 2019-10-17 17:27 | NUR ---
DR RIVERA AND DR MALDONADO ANSWERING SERVICE NOTIFIED
[2019-10-17 20:00] VITALS: BP 164/80
--- NOTE | 2019-10-17 21:01 | NUR ---
MEDICATED WITH PRN TYLENOL FOR C/O RIGHT UPPER MOUTH TOOTH ACHE. WILL MONITOR
[2019-10-18] VITALS: BP 149/53; BP 98/52
--- NOTE | 2019-10-18 05:58 | NUR ---
DR AGUSTIN AWARE OF BLOOD SUGAR. ORDER FOR 25 UNITS OF REGULAR INSULIN NOW
[2019-10-18 06:18] LABS: BASO % 0.2 % (0.0-1.0); EOS # 0.1 10*3/uL (0.0-0.4); EOS % 0.9 % (1.0-4.0); HEMATOCRIT 31.1 % (42.0-52.0); LYMPH # 1.1 10*3/uL (1.3-4.4); LYMPH % 12.4 % (27.0-41.0); MEAN CORPUSCULAR HGB CONC 31.2 g/dl (33.0-37.0); MEAN PLATELET VOLUME 10.7 fl (9.6-12.3); MONO # 0.7 10*3/uL (0.1-1.0); MONO % 7.8 % (3.0-9.0); NEUT # 6.8 10*3/uL (2.3-7.9); NEUT % 78.4 % (47.0-73.0); PLATELET COUNT AUTOMATED 212 10*3/uL (130-400); RED BLOOD COUNT 3.13 10*6/uL (4.50-5.90); RED CELL DISTRI WIDTH 16.6 % (0-14.5); WHITE BLOOD COUNT 8.7 10*3/uL (4.8-10.8)
[2019-10-18 06:20] LABS: INTERNATIONAL NORM RATIO 3.6 (2.0-3.5)
[2019-10-18 06:21] LABS: CREATININE 4.14 mg/dL (0.70-1.30); POTASSIUM 4.6 mmol/L (3.5-5.1)
--- NOTE | 2019-10-18 06:28 | NUR ---
PATIENT'S BLOOD SUGAR 515. DR AGUSTIN MADE AWARE AND SHE GAVE ORDERS FOR THE PATIENT TO HAVE 25 UNITS OF INSULIN THIS MORNING. 25 UNITS ADMINISTERED TO PATIENT.
[2019-10-18 06:29] LABS: MEAN CELL VOLUME 99.4 fl (80.0-94.0)
--- NOTE | 2019-10-18 06:29 | NUR ---
CRITICAL LAB RECIEVED OF BLOOD SUGAR 531. DR AGUSTIN MADE AWARE BY NURSE ORACIO.
[2019-10-18 08:00] VITALS: BP 128/58
--- NOTE | 2019-10-18 08:45 | NUR ---
Discussed therapy eval with PT/OT in the hallway. They are going to attempt to work with patient this morning. Awaiting evals for precert to [facility] to be started. leadite worker following.
--- NOTE | 2019-10-18 09:00 | NUR ---
Occupational Therapy evaluation completed on four with full evaluation to follow. Recommend occupational therapy per plan of care and SNF upon discharge. Thank you for this referral. Phoebe Ospina OTR/L
--- NOTE | 2019-10-18 09:06 | NUR ---
PHYSICAL THERAPY Physical Therapy evaluation completed on 4E with full evaluation to follow. Low complexity PT evaluation per chart review and evaluation, [id number]. Recommend physical therapy per plan of care and SNF upon discharge. Thank you for this referral. Shireen Cannon,PT,DPT
[2019-10-18 12:00] VITALS: BP 108/57
--- NOTE | 2019-10-18 12:09 | NUR ---
UPdated clinicals and therapy evals faxed to [facility], precert started. [facility] stating they should get precert today. credit card clerk notified I will let her know once patient can be set up since the discharge is already in.
--- NOTE | 2019-10-18 15:38 | NUR ---
Patient is dsicharged at this time to [facility] via [place] at 1630. Dc information faxed, [place], Nursing/invoice control clerk notified as well as .
--- NOTE | 2019-10-18 16:30 | NUR ---
Discharge instructions reviewed with patient/family. Patient receptive and verbalizes understanding. Follow-up care arranged. Written instructions given to patient/family. MANNY CHERY
--- NOTE | 2019-10-18 16:30 | NUR ---
REPORT CALLED TO [facility]
== END 2019-10-18 16:36 | disposition other institution (70) | DRG 313 ==
LOC: ED 14:56 → 4E 17:06
PROVIDERS: Emergency Medicine; ADMIT Internal Medicine
PROC: 5A1D70Z Performance of Urinary Filtration, Intermittent, Less than 6 Hours Per Day (ICD-10-PCS; principal; 2019-10-17)
PROC: 3E073KZ Introduction of Other Diagnostic Substance into Coronary Artery, Percutaneous Approach (ICD-10-PCS; principal; 2019-10-17)
PROC: 4A02XM4 Measurement of Cardiac Total Activity, External Approach (ICD-10-PCS; principal; 2019-10-17)
DX: R07.89 Other chest pain (principal); N18.6 End stage renal disease; I50.22 Chronic systolic (congestive) heart failure; I13.2 Hypertensive heart and chronic kidney disease with heart failure and with stage 5 chronic kidney disease, or end stage renal disease; E44.1 Mild protein-calorie malnutrition; F33.0 Major depressive disorder, recurrent, mild; I48.21 Permanent atrial fibrillation; E66.2 Morbid (severe) obesity with alveolar hypoventilation; E11.22 Type 2 diabetes mellitus with diabetic chronic kidney disease; N40.1 Benign prostatic hyperplasia with lower urinary tract symptoms; R33.8 Other retention of urine; I25.10 Atherosclerotic heart disease of native coronary artery without angina pectoris; J44.9 Chronic obstructive pulmonary disease, unspecified; E11.40 Type 2 diabetes mellitus with diabetic neuropathy, unspecified; E55.9 Vitamin D deficiency, unspecified; E11.65 Type 2 diabetes mellitus with hyperglycemia; D63.8 Anemia in other chronic diseases classified elsewhere; J45.40 Moderate persistent asthma, uncomplicated; M47.816 Spondylosis without myelopathy or radiculopathy, lumbar region; Z88.5 Allergy status to narcotic agent; Z95.5 Presence of coronary angioplasty implant and graft; Z90.11 Acquired absence of right breast and nipple; Z98.52 Vasectomy status; Z83.3 Family history of diabetes mellitus; Z82.49 Family history of ischemic heart disease and other diseases of the circulatory system; Z80.8 Family history of malignant neoplasm of other organs or systems; Z87.11 Personal history of peptic ulcer disease; Z88.8 Allergy status to other drugs, medicaments and biological substances; Z88.1 Allergy status to other antibiotic agents; Z99.2 Dependence on renal dialysis; Z79.4 Long term (current) use of insulin; Z79.899 Other long term (current) drug therapy; Z68.30 Body mass index [BMI] 30.0-30.9, adult

== ENCOUNTER 2019-11-11 11:03 | Emergency (ER) | payer MEDICARE ==
[~2019-11-11] VITALS: Wt 127.0 kg
[2019-11-11 11:04] VITALS: BP 120/52
[2019-11-11] MEDS ORDERED: PREDNISONE20 M1 PO (13:33)
== END 2019-11-11 13:50 | disposition home or self-care (01) ==
LOC: ED 11:03
DX: M54.42 Lumbago with sciatica, left side (principal); M54.41 Lumbago with sciatica, right side; G89.29 Other chronic pain; J45.909 Unspecified asthma, uncomplicated; I25.10 Atherosclerotic heart disease of native coronary artery without angina pectoris; E11.22 Type 2 diabetes mellitus with diabetic chronic kidney disease; I13.0 Hypertensive heart and chronic kidney disease with heart failure and stage 1 through stage 4 chronic kidney disease, or unspecified chronic kidney disease; N18.9 Chronic kidney disease, unspecified; I50.9 Heart failure, unspecified; E11.40 Type 2 diabetes mellitus with diabetic neuropathy, unspecified; F32.9 Major depressive disorder, single episode, unspecified; Z88.8 Allergy status to other drugs, medicaments and biological substances; Z88.1 Allergy status to other antibiotic agents; Z79.899 Other long term (current) drug therapy; Z79.4 Long term (current) use of insulin; Z79.01 Long term (current) use of anticoagulants; Z98.61 Coronary angioplasty status; Z90.89 Acquired absence of other organs; Z99.2 Dependence on renal dialysis

== ENCOUNTER 2019-11-15 13:35 | Emergency (ER) | payer MEDICARE ==
[~2019-11-15] VITALS: Ht 182.8 cm; Wt 110.2 kg
[~2019-11-15 13:35] MED LIST changes: +PREDNISONE20 M1 PO
[2019-11-15 15:26] LABS: BASO % 0.1 % (0.0-1.0); EOS # 0.1 10*3/uL (0.0-0.4); EOS % 0.8 % (1.0-4.0); HEMATOCRIT 36.9 % (42.0-52.0); LYMPH # 1.1 10*3/uL (1.3-4.4); LYMPH % 9.7 % (27.0-41.0); MEAN CELL VOLUME 100.5 fl (80.0-94.0); MEAN CORPUSCULAR HGB 32.4 pg (27.0-31.0); MEAN CORPUSCULAR HGB CONC 32.2 g/dl (33.0-37.0); MEAN PLATELET VOLUME 10.2 fl (9.6-12.3); MONO # 0.8 10*3/uL (0.1-1.0); MONO % 7.7 % (3.0-9.0); NEUT # 8.8 10*3/uL (2.3-7.9); NEUT % 81.4 % (47.0-73.0); PLATELET COUNT AUTOMATED 160 10*3/uL (130-400); RED BLOOD COUNT 3.67 10*6/uL (4.50-5.90); RED CELL DISTRI WIDTH 17.4 % (0-14.5); WHITE BLOOD COUNT 10.8 10*3/uL (4.8-10.8)
[2019-11-15 15:42] LABS: ALBUMIN 3.4 gm/dl (3.1-4.5); CREATININE 4.58 mg/dL (0.70-1.30); TOTAL PROTEIN 6.6 gm/dL (6.4-8.2)
[2019-11-15 15:55] LABS: INTERNATIONAL NORM RATIO 1.3 (2.0-3.5)
[2019-11-15 16:10] VITALS: BP 129/66
== END 2019-11-15 19:00 | disposition home or self-care (01) ==
LOC: ED 13:35
PROVIDERS: Emergency Medicine
DX: S16.1XXA Strain of muscle, fascia and tendon at neck level, initial encounter (principal); S00.03XA Contusion of scalp, initial encounter; R42 Dizziness and giddiness; Z88.6 Allergy status to analgesic agent; Z88.8 Allergy status to other drugs, medicaments and biological substances; Z79.899 Other long term (current) drug therapy; Z79.01 Long term (current) use of anticoagulants; W18.39XA Other fall on same level, initial encounter; Y93.89 Activity, other specified; Y92.89 Other specified places as the place of occurrence of the external cause; Y99.8 Other external cause status

== ENCOUNTER 2019-12-31 08:25 | Emergency (ER) | payer MEDICARE ==
[2019-12-31 08:30] VITALS: BP 141/86
[2019-12-31 09:03] LABS: BASO % 0.3 % (0.0-1.0); EOS # 0.1 10*3/uL (0.0-0.4); EOS % 1.7 % (1.0-4.0); HEMATOCRIT 44.4 % (42.0-52.0); LYMPH # 0.7 10*3/uL (1.3-4.4); MEAN CELL VOLUME 99.3 fl (80.0-94.0); MEAN CORPUSCULAR HGB 30.6 pg (27.0-31.0); MEAN CORPUSCULAR HGB CONC 30.9 g/dl (33.0-37.0); MEAN PLATELET VOLUME 10.4 fl (9.6-12.3); MONO # 0.7 10*3/uL (0.1-1.0); MONO % 11.6 % (3.0-9.0); NEUT # 4.3 10*3/uL (2.3-7.9); NEUT % 73.7 % (47.0-73.0); PLATELET COUNT AUTOMATED 202 10*3/uL (130-400); RED BLOOD COUNT 4.47 10*6/uL (4.50-5.90); RED CELL DISTRI WIDTH 16.7 % (0-14.5); WHITE BLOOD COUNT 5.8 10*3/uL (4.8-10.8)
[2019-12-31 09:15] LABS: ACT PARTIAL THROMBO TIME 35.1 SECONDS (20.0-32.1); INTERNATIONAL NORM RATIO 2.2 (2.0-3.5)
[2019-12-31 09:21] LABS: ALBUMIN 3.7 gm/dl (3.1-4.5); CREATININE 3.63 mg/dL (0.70-1.30); POTASSIUM 3.7 mmol/L (3.5-5.1); TOTAL PROTEIN 7.6 gm/dL (6.4-8.2)
[2019-12-31 09:24] LABS: TROPONIN I 0.24 ng/ml (<0.045)
== END 2019-12-31 12:30 | disposition home or self-care (01) ==
LOC: ED 08:25
PROVIDERS: Emergency Medicine
DX: E11.649 Type 2 diabetes mellitus with hypoglycemia without coma (principal); I13.2 Hypertensive heart and chronic kidney disease with heart failure and with stage 5 chronic kidney disease, or end stage renal disease; I50.9 Heart failure, unspecified; E11.22 Type 2 diabetes mellitus with diabetic chronic kidney disease; N18.6 End stage renal disease; I25.10 Atherosclerotic heart disease of native coronary artery without angina pectoris; E78.5 Hyperlipidemia, unspecified; J44.9 Chronic obstructive pulmonary disease, unspecified; Z99.2 Dependence on renal dialysis; Z88.5 Allergy status to narcotic agent; Z88.8 Allergy status to other drugs, medicaments and biological substances; Z79.899 Other long term (current) drug therapy; Z79.4 Long term (current) use of insulin; Z79.01 Long term (current) use of anticoagulants

== ENCOUNTER 2020-04-03 07:02 | Emergency (ER) | payer MEDICARE ==
[~2020-04-03] VITALS: Ht 182.8 cm; Wt 107.5 kg
[2020-04-03] MEDS ORDERED: WARFARIN SODIUM4 MG PO (07:25)
[2020-04-03] MEDS ORDERED: CLOPIDOGREL75 MG PO (07:30)
[2020-04-03] MEDS ORDERED: BUSPIRONE10 MG PO (07:30)
[2020-04-03] MEDS ORDERED: ISOSORBIDE DINI30 MG PO (07:32)
[2020-04-03 07:42] LABS: BASO % 0.2 % (0.0-1.0); EOS # 0.1 10*3/uL (0.0-0.4); EOS % 1.6 % (1.0-4.0); HEMATOCRIT 34.8 % (42.0-52.0); LYMPH # 0.7 10*3/uL (1.3-4.4); LYMPH % 14.5 % (27.0-41.0); MEAN CELL VOLUME 103.3 fl (80.0-94.0); MEAN CORPUSCULAR HGB 33.2 pg (27.0-31.0); MEAN CORPUSCULAR HGB CONC 32.2 g/dl (33.0-37.0); MEAN PLATELET VOLUME 10.8 fl (9.6-12.3); MONO # 0.8 10*3/uL (0.1-1.0); MONO % 16.6 % (3.0-9.0); NEUT # 3.3 10*3/uL (2.3-7.9); NEUT % 66.7 % (47.0-73.0); PLATELET COUNT AUTOMATED 159 10*3/uL (130-400); RED BLOOD COUNT 3.37 10*6/uL (4.50-5.90); RED CELL DISTRI WIDTH 15.9 % (0-14.5); WHITE BLOOD COUNT 4.9 10*3/uL (4.8-10.8)
[2020-04-03 07:52] LABS: INTERNATIONAL NORM RATIO 1.3 (2.0-3.5)
[2020-04-03 07:59] LABS: ALBUMIN 3.3 gm/dl (3.1-4.5); CREATININE 4.69 mg/dL (0.70-1.30); POTASSIUM 3.2 mmol/L (3.5-5.1); TOTAL PROTEIN 6.4 gm/dL (6.4-8.2)
[2020-04-03 11:52] VITALS: BP 101/50
== END 2020-04-03 12:07 | disposition home or self-care (01) ==
LOC: ED 07:02
PROVIDERS: Emergency Medicine
DX: S16.1XXA Strain of muscle, fascia and tendon at neck level, initial encounter (principal); Z88.5 Allergy status to narcotic agent; Z88.8 Allergy status to other drugs, medicaments and biological substances; Z79.899 Other long term (current) drug therapy; Z79.2 Long term (current) use of antibiotics; Z79.4 Long term (current) use of insulin; Z79.01 Long term (current) use of anticoagulants; X58.XXXA Exposure to other specified factors, initial encounter; Y93.89 Activity, other specified; Y92.89 Other specified places as the place of occurrence of the external cause; Y99.8 Other external cause status

== ENCOUNTER 2020-05-01 22:01 | Inpatient (IN) | payer MEDICARE ==
[~2020-05-01] VITALS: Ht 182.8 cm; Wt 110.8 kg
[~2020-05-01 22:01] MED LIST changes: +ISOSORBIDE DINI30 MG PO; +WARFARIN SODIUM4 MG PO
[2020-05-01 22:07] VITALS: BP 177/72
--- NOTE | 2020-05-01 22:08 | NUR ---
PT POX 96 ON RA PT REQUESTING O2, PT PUT ON 2L FOR SOB
[2020-05-01 22:38] LABS: BASO % 0.1 % (0.0-1.0); EOS % 0.1 % (1.0-4.0); HEMATOCRIT 38.4 % (42.0-52.0); LYMPH # 0.5 10*3/uL (1.3-4.4); MEAN CELL VOLUME 101.6 fl (80.0-94.0); MEAN CORPUSCULAR HGB 33.1 pg (27.0-31.0); MEAN CORPUSCULAR HGB CONC 32.6 g/dl (33.0-37.0); MEAN PLATELET VOLUME 10.4 fl (9.6-12.3); MONO # 0.9 10*3/uL (0.1-1.0); MONO % 7.5 % (3.0-9.0); NEUT # 10.6 10*3/uL (2.3-7.9); NEUT % 87.8 % (47.0-73.0); PLATELET COUNT AUTOMATED 188 10*3/uL (130-400); RED BLOOD COUNT 3.78 10*6/uL (4.50-5.90); RED CELL DISTRI WIDTH 15.3 % (0-14.5); WHITE BLOOD COUNT 12.1 10*3/uL (4.8-10.8)
[2020-05-01 22:48] LABS: INTERNATIONAL NORM RATIO 3.2 (2.0-3.5)
--- NOTE | 2020-05-01 22:54 | NUR ---
PT DENIES WOUNDS AT THIS TIME. NO WOUNDS VISUALIZED UPON INSPECTION.
[2020-05-01 22:55] LABS: ALBUMIN 3.6 gm/dl (3.1-4.5); CREATININE 4.45 mg/dL (0.70-1.30); POTASSIUM 3.9 mmol/L (3.5-5.1); TOTAL PROTEIN 6.9 gm/dL (6.4-8.2)
[2020-05-01 22:57] LABS: TROPONIN I 0.487 ng/ml (<0.045)
--- NOTE | 2020-05-02 00:28 | NUR ---
PT GIVEN BOX LUNCH AND DIET TOÑO ALEC. WILL CONTINUE TO MONITOR.
[2020-05-02 00:35] VITALS: BP 160/74
[2020-05-02 01:00] VITALS: BP 165/78
--- NOTE | 2020-05-02 01:00 | NUR ---
A 70, admitted to 5E, under the services of SANTANA Iyer MD with a diagnosis of COPD; CHF. Chief complaint is C/O INCREASED WEAKNESS FOR A COUPLE OF WEEKS, INCREASED SOB; STATES EMESIS AT HOME & STATES NOT TAKING MEDICATIONS YESTERDAY. Patient arrived via stretcher from ER. Monitor applied. Initial assessment completed. Vital signs taken and recorded. SANTANA IYER MD notified of admission to the unit. Orders received. See assessment for past medical history, medications and allergies. Patient and/or family oriented to unit. [facility] visitation policy reviewed. Clothing/patient valuable form completed. LILIA TOLEDO
[2020-05-02] MEDS ORDERED: NITROSTAT0.4 MG SL (01:39)
--- NOTE | 2020-05-02 02:30 | NUR ---
REQUESTING SNACK; TOOK PT. JUICE, TOSHA CRACKERS & PEANUT BUTTER. CALL LIGHT REMAINS WITHIN REACH.
--- NOTE | 2020-05-02 04:37 | NUR ---
LEFT MESSAGE WITH DR. RIVERA'S ANSWERING SERVICE.
--- NOTE | 2020-05-02 05:30 | NUR ---
CALLED DR. AGUSTIN WITH PATIENT'S BLOOD SUGAR OF 707. ORDER TO GIVEN 20 UNITS OF REGULAR INSULIN COVERAGE & LANTUS 100 UNITS NOW.
--- NOTE | 2020-05-02 06:00 | NUR ---
INFORMED PATIENT OF BLOOD SUGAR OF 707 WHICH HE LAUGHTED ABOUT. PT. VERY NONCOMPLIANT WITH DIET & MEDICATIONS.
[2020-05-02 06:04] LABS: CREATININE 4.69 mg/dL (0.70-1.30)
[2020-05-02 06:36] LABS: INTERNATIONAL NORM RATIO 2.9 (2.0-3.5)
[2020-05-02 06:37] LABS: HEMATOCRIT 36.9 % (42.0-52.0); MEAN CELL VOLUME 104.2 fl (80.0-94.0); MEAN CORPUSCULAR HGB 32.8 pg (27.0-31.0); MEAN CORPUSCULAR HGB CONC 31.4 g/dl (33.0-37.0); MEAN PLATELET VOLUME 11.4 fl (9.6-12.3); PLATELET COUNT AUTOMATED 157 10*3/uL (130-400); RED BLOOD COUNT 3.54 10*6/uL (4.50-5.90); RED CELL DISTRI WIDTH 15.2 % (0-14.5); WHITE BLOOD COUNT 10.6 10*3/uL (4.8-10.8)
[2020-05-02 07:06] LABS: PLATELET SUFFICIENCY NORMAL (NORMAL); TOTAL CELLS COUNTED 100 #CELLS
[2020-05-02 07:07] LABS: POLYCHROMASIA SLIGHT
--- NOTE | 2020-05-02 07:37 | NUR ---
PHYSICAL THERAPY Screen received pt admitted with weakness with COPD and CHF please consult PT if pt has a decline in functional status below baseline, thank you. Cassandra Urbano PT
[2020-05-02 08:00] VITALS: BP 160/68
--- NOTE | 2020-05-02 08:20 | NUR ---
OT NOTE Nursing screen received. Patient admitted for CHF and COPD. If patient has a decline in ADLs, transfers, or mobility, please consult OT orders. Thank you. Phoebe Ospina, OTR/L
--- NOTE | 2020-05-02 08:42 | NUR ---
PT RESTING IN BED. NO DISTRESS NOTED. DR AGUSTIN IN TO SEE PT
--- NOTE | 2020-05-02 08:56 | NUR ---
[facility] CALLED AND NOTIFIED OF CONSULT
[2020-05-02 09:07] LABS: CREATININE 5.13 mg/dL (0.70-1.30); POTASSIUM 4.3 mmol/L (3.5-5.1)
--- NOTE | 2020-05-02 13:45 | NUR ---
CONCESSION WORKER SPOKE TO ABOUT THE PATIENT BEING TRANSFERRED FOR A HEART CATH TO [facility] OR TO [facility]. CONCESSION WORKER SPOKE TO FISH TENDER DANIEL. SHE IS GOING TO SPEAK TO THE PATIENT TO SEE WHICH FACILITY HE WOULD LIKE TO GO TO.
[2020-05-02 16:00] VITALS: BP 145/65
[2020-05-02 20:00] VITALS: BP 133/64
--- NOTE | 2020-05-02 21:46 | NUR ---
PATIENT MEDICATED WITH TYLENOL FOR COMPLAINTS OF BACK PAIN AND TRAZODONE FOR COMPLAINTS OF INSOMNIA. WILL MONITOR FOR EFFECTIVENESS. CALL LIGHT IN REACH.
--- NOTE | 2020-05-02 22:40 | NUR ---
TYLENOL AND TRAZODONE EFFECTIVE. RESTING IN BED WITH EYES CLOSED. NO SIGNS OR SYMPTOMS OF DISTRESS NOTED. CALL LIGHT IN REACH.
[2020-05-03] VITALS: BP 127/58
[2020-05-03 06:29] LABS: INTERNATIONAL NORM RATIO 2.3 (2.0-3.5)
[2020-05-03 08:00] VITALS: BP 128/60
--- NOTE | 2020-05-03 08:32 | NUR ---
CM in to see patient. He wants transferred to [facility]. Spoke to [facility] intake center. He is 100% service connected. [facility] CM will be Emmie. Faxed clinical to [phone]. Discussed with Dr. Grajeda who is currently rounding.
[2020-05-03 08:44] LABS: ALBUMIN 3.3 gm/dl (3.1-4.5); CREATININE 3.48 mg/dL (0.70-1.30); POTASSIUM 3.4 mmol/L (3.5-5.1)
--- NOTE | 2020-05-03 08:56 | NUR ---
PT RESTING IN BED. NO DISTRESS NOTED. WILL MONITOR SEE SHIFT ASSESSMENT
--- NOTE | 2020-05-03 09:00 | NUR ---
Transition Of Care Specialist in to talk to patient. Patient states lives at home with his . There are no steps in the home. He has a stair lift. Physician: Dr. Eric Montes Pharmacy: [facility] or [place] Home health services: has had [facility] in the past Patient's level of ADLs: MINIMAL ASSIST Patient has working utilities: yes DME: walker, nebulizer, c-pap, electric wheelchair Follow-up physician's appointment after d/c: he prefers to make his own follow up appt after discharge Does patient want to access PORTAL?: no Discharge plan discussed with patient. He lives at home with his . He is independent in his ADLs and ambulates with a walker or uses his electric wheelchair. He has HD MWF, chair time [id number], he uses [employer] for transportation. Awaiting reply from [facility] for transfer. DANIEL BRAVO
--- NOTE | 2020-05-03 09:11 | NUR ---
Received call from Emmie at the [facility]. They need a COVID ordered. Gave Dr. Grajeda' cell phone number if their medical delivery driver has any further questions. Discussed with Dr. Grajeda.
[2020-05-03 12:00] VITALS: BP 124/58
--- NOTE | 2020-05-03 12:34 | NUR ---
Received call from [facility]. Cardio has accepted. Awaiting bed.
--- NOTE | 2020-05-03 14:40 | NUR ---
Received call from Emmie at the [facility]. They need a disk with any images, his entire chart. He will be going to [facility]. Phone to call report [phone] x [phone]. brick chimney supervisor time is 4pm. Call report to [facility] once patient has been picked up not before. Emmie is faxing a paper for the patient to sign for consent to transfer. Awaiting paperwork.
--- NOTE | 2020-05-03 16:24 | NUR ---
[facility] CALLED TO SAY THEY HAVE HEARD FROM AMBULANCE THAT THEY WILL NOT BE GETTING HERE UNTIL 6PM TO PICK PT UP. CALLED 5E AND INFORMED ORACIO MYERS.
[2020-05-03 20:00] VITALS: BP 142/63
--- NOTE | 2020-05-03 21:00 | NUR ---
Discharge instructions reviewed with patient/family. Patient receptive and verbalizes understanding. Follow-up care arranged. Written instructions given to patient/family. DANNY JIMENEZ
== END 2020-05-03 21:00 | disposition short-term general hospital (02) | DRG 291 ==
LOC: ED 22:01 → 5E 05-02 00:13 → EDHOLD 05-02 00:13 → 5E 05-02 00:27
PROVIDERS: Physician Assistant; Social Worker Clinical; Student in an Organized Health Care Education/Training Program; ADMIT Internal Medicine; ATTEND Internal Medicine
PROC: 5A1D70Z Performance of Urinary Filtration, Intermittent, Less than 6 Hours Per Day (ICD-10-PCS; principal; 2020-05-02)
DX: I13.2 Hypertensive heart and chronic kidney disease with heart failure and with stage 5 chronic kidney disease, or end stage renal disease (principal); N18.6 End stage renal disease; I50.21 Acute systolic (congestive) heart failure; J44.1 Chronic obstructive pulmonary disease with (acute) exacerbation; I48.21 Permanent atrial fibrillation; E87.1 Hypo-osmolality and hyponatremia; Z20.828 Contact with and (suspected) exposure to other viral communicable diseases; I25.10 Atherosclerotic heart disease of native coronary artery without angina pectoris; I48.0 Paroxysmal atrial fibrillation; I27.20 Pulmonary hypertension, unspecified; E11.22 Type 2 diabetes mellitus with diabetic chronic kidney disease; E11.65 Type 2 diabetes mellitus with hyperglycemia; F32.9 Major depressive disorder, single episode, unspecified; M47.9 Spondylosis, unspecified; J45.909 Unspecified asthma, uncomplicated; G89.29 Other chronic pain; M54.42 Lumbago with sciatica, left side; M54.41 Lumbago with sciatica, right side; E11.40 Type 2 diabetes mellitus with diabetic neuropathy, unspecified; S16.1XXA Strain of muscle, fascia and tendon at neck level, initial encounter; Z99.2 Dependence on renal dialysis; E11.649 Type 2 diabetes mellitus with hypoglycemia without coma; Z91.14 Patient's other noncompliance with medication regimen; Z95.5 Presence of coronary angioplasty implant and graft; Z98.49 Cataract extraction status, unspecified eye; I25.2 Old myocardial infarction; Z87.11 Personal history of peptic ulcer disease; Z98.52 Vasectomy status; Z90.11 Acquired absence of right breast and nipple; Z68.33 Body mass index [BMI] 33.0-33.9, adult; X58.XXXA Exposure to other specified factors, initial encounter; Y93.89 Activity, other specified; Y92.89 Other specified places as the place of occurrence of the external cause; Y99.8 Other external cause status

== ENCOUNTER 2020-05-16 06:42 | Observation (INO) | payer MEDICARE ==
[~2020-05-16] VITALS: Wt 104.8 kg
[2020-05-16] VITALS (8 sets, daily range): BP systolic 117–170; BP diastolic 60–82
[~2020-05-16 06:42] MED LIST changes: +NITROSTAT0.4 MG SL
[2020-05-16 07:05] LABS: BASO % 0.2 % (0.0-1.0); EOS # 0.1 10*3/uL (0.0-0.4); EOS % 1.3 % (1.0-4.0); HEMATOCRIT 33.3 % (42.0-52.0); LYMPH # 0.7 10*3/uL (1.3-4.4); LYMPH % 8.3 % (27.0-41.0); MEAN CELL VOLUME 103.7 fl (80.0-94.0); MEAN CORPUSCULAR HGB CONC 31.8 g/dl (33.0-37.0); MEAN PLATELET VOLUME 10.3 fl (9.6-12.3); MONO # 0.6 10*3/uL (0.1-1.0); MONO % 7.4 % (3.0-9.0); NEUT # 7.1 10*3/uL (2.3-7.9); NEUT % 82.3 % (47.0-73.0); PLATELET COUNT AUTOMATED 168 10*3/uL (130-400); RED BLOOD COUNT 3.21 10*6/uL (4.50-5.90); WHITE BLOOD COUNT 8.7 10*3/uL (4.8-10.8)
[2020-05-16 07:17] LABS: ACT PARTIAL THROMBO TIME 33.8 SECONDS (20.0-32.1)
[2020-05-16 07:20] LABS: ALBUMIN 3.6 gm/dl (3.1-4.5); CREATININE 4.37 mg/dL (0.70-1.30); POTASSIUM 3.8 mmol/L (3.5-5.1); TOTAL PROTEIN 6.9 gm/dL (6.4-8.2)
[2020-05-16 07:24] LABS: TROPONIN I 0.038 ng/ml (<0.045)
--- NOTE | 2020-05-16 08:00 | NUR ---
PT DENIES CHEST PAIN OR SOB "JUST TIRED"
--- NOTE | 2020-05-16 10:20 | NUR ---
PT C/O "SUGAR DROPPING, SEEING SPOTS" PT BEDSIDE GLUCOSE 34, AMP OF DEXTROSE ADMINISTERED, TRAY ORDERED, GAVE PATIENT JUICE, MILK AND JELLY PT A&OX3
--- NOTE | 2020-05-16 10:30 | NUR ---
PT STATES HE WAS FEELING A LITTLE BETTER BUT STILL NOT WELL, "SEEING SPOTS AGAIN" ADMINISTERED SECOND AMP OF DEXTROSE PER DR LAZARO ORDER, GLUCOSE CHECK POST ADMINISTRATION 161
--- NOTE | 2020-05-16 11:21 | NUR ---
REPORT RECIEVED FROM Wolf CONTEH RN PT IN BED LOW FOWLERS SLEEPING RESP EASY PT AWAKESE TO VERBAL STIMULI BED IN LOWEST POSITION BED RAILS UP X 2 CALL LIGHT IN REACH
--- NOTE | 2020-05-16 12:25 | NUR ---
PT EATING OATMEAL
--- NOTE | 2020-05-16 14:50 | NUR ---
PT IN BED AWOKE TO SOFT VERBAL STIMULI PT ONLY COMPLAINT IS BEING COLD PT GIVEN 2 WARM BLANKETS PT SPOKE WITH ON PHONE PT HAS NO REQUESTS AT THIS TIME BED IN LOWEST POSITION BED RAILS UP X 2 CALL LIGHT IN REACH
--- NOTE | 2020-05-16 17:37 | NUR ---
PT EATING CARDIAC DINNER
--- NOTE | 2020-05-16 22:54 | NUR ---
DR FITZGERALD GAVE VO TO GIVE PT 1000MG OF TYLENOL [id number] FOR PAIN.
[2020-05-17 01:49] VITALS: BP 152/83
--- NOTE | 2020-05-17 04:55 | NUR ---
BGL IS 301
[2020-05-17 06:47] VITALS: BP 151/76
--- NOTE | 2020-05-17 07:24 | NUR ---
I SPOKE TO DR AGUSTIN WHO ADVISED ONCOMING RN TO CONTACT DR MARIA FOR DIALYSIS AND TO D/C FLUIDS
--- NOTE | 2020-05-17 08:23 | NUR ---
CALLED TO CONSULT FOR DIALYSIS. LEFT MESSAGE WITH EVARISTO. PT CURRENTLY RESTING IN BED WITH NO VOICED COMPLAINTS AT THIS TIME.
[2020-05-17 10:32] LABS: BASO % 0.1 % (0.0-1.0); EOS # 0.1 10*3/uL (0.0-0.4); EOS % 1.4 % (1.0-4.0); HEMATOCRIT 36.6 % (42.0-52.0); LYMPH # 0.9 10*3/uL (1.3-4.4); LYMPH % 10.2 % (27.0-41.0); MEAN CELL VOLUME 103.1 fl (80.0-94.0); MEAN CORPUSCULAR HGB 32.7 pg (27.0-31.0); MEAN CORPUSCULAR HGB CONC 31.7 g/dl (33.0-37.0); MEAN PLATELET VOLUME 10.7 fl (9.6-12.3); MONO # 0.6 10*3/uL (0.1-1.0); MONO % 7.2 % (3.0-9.0); NEUT # 6.9 10*3/uL (2.3-7.9); NEUT % 80.9 % (47.0-73.0); PLATELET COUNT AUTOMATED 198 10*3/uL (130-400); RED BLOOD COUNT 3.55 10*6/uL (4.50-5.90); RED CELL DISTRI WIDTH 15.1 % (0-14.5); WHITE BLOOD COUNT 8.5 10*3/uL (4.8-10.8)
[2020-05-17 10:39] LABS: ALBUMIN 3.7 gm/dl (3.1-4.5); CREATININE 3.43 mg/dL (0.70-1.30); POTASSIUM 4.2 mmol/L (3.5-5.1)
--- NOTE | 2020-05-17 11:40 | NUR ---
Received call from [facility]. Patient is current with them.
--- NOTE | 2020-05-17 13:04 | NUR ---
CM in to see patient. He is not currently in his room. Will follow up at a later time.
[2020-05-17 13:40] VITALS: BP 154/60
--- NOTE | 2020-05-17 13:40 | NUR ---
A 70, admitted to 5E, under the services of SANTANA Iyer MD with a diagnosis of HYPOGLYCEMIA, CHEST PAIN. Chief complaint is HYPOGLYCEMIA. Patient arrived via stretcher from ER. Monitor applied. Initial assessment completed. Vital signs taken and recorded. SANTANA IYER MD notified of admission to the unit. Orders received. See assessment for past medical history, medications and allergies. Patient and/or family oriented to unit. [address] visitation policy reviewed. Clothing/patient valuable form completed. ASHIA NUÑEZ
--- NOTE | 2020-05-17 14:15 | NUR ---
Building Supervisor in to talk to patient. Patient states lives at home with his . There are no steps in the home. He has a stair lift. Physician: Dr. Eric Montes and Dr. Blane Sage Pharmacy: [facility] or [place] Home health services: currently has [facility] Patient's level of ADLs: MINIMAL ASSIST Patient has working utilities: yes DME: walker, nebulizer, c-pap, electric wheelchair Follow-up physician's appointment after d/c: he prefers to make his own follow up appt after discharge Does patient want to access PORTAL?: no Discharge plan discussed with patient. He lives at home with his . He is independent in his ADLs and ambulates with a walker or uses his electric wheelchair. He has HD MWF, chair time [id number], he uses [employer] for transportation. Discussed home health care services and he currently has [facility] and wishes to resume those services upon discharge. He states when he was transferred to the [place] they put 4 stents in his heart. When medically stable he will be discharged to home with the resumption of his [facility]. He states his will provide transportation on discharge. DANIEL BRAVO
[2020-05-17 16:00] VITALS: BP 141/60
[2020-05-17 20:00] VITALS: BP 127/68
[2020-05-18] VITALS: BP 161/79
--- NOTE | 2020-05-18 07:30 | NUR ---
PT CURRENTLY NOT IN ROOM AT THIS TIME. PT AT DIALYSIS, RECEIVING TREATMENT.
[2020-05-18 08:11] LABS: BASO % 0.3 % (0.0-1.0); EOS # 0.2 10*3/uL (0.0-0.4); EOS % 2.2 % (1.0-4.0); HEMATOCRIT 31.9 % (42.0-52.0); LYMPH % 14.1 % (27.0-41.0); MEAN CELL VOLUME 102.2 fl (80.0-94.0); MEAN CORPUSCULAR HGB CONC 32.3 g/dl (33.0-37.0); MEAN PLATELET VOLUME 10.5 fl (9.6-12.3); MONO # 0.5 10*3/uL (0.1-1.0); MONO % 6.7 % (3.0-9.0); NEUT # 5.2 10*3/uL (2.3-7.9); NEUT % 76.4 % (47.0-73.0); PLATELET COUNT AUTOMATED 174 10*3/uL (130-400); RED BLOOD COUNT 3.12 10*6/uL (4.50-5.90); WHITE BLOOD COUNT 6.8 10*3/uL (4.8-10.8)
--- NOTE | 2020-05-18 09:00 | NUR ---
CM in to see patient. No new needs or request at this time. When medically stable he will be discharged to home with the resumption of his [facility].
[2020-05-18 09:01] LABS: ALBUMIN 3.3 gm/dl (3.1-4.5); CREATININE 2.52 mg/dL (0.70-1.30); POTASSIUM 3.8 mmol/L (3.5-5.1)
--- NOTE | 2020-05-18 09:30 | NUR ---
PT JOSE ANGEL AT DIALYSIS. WILL CATCH PT UP ON MEDICATIONS WHEN HE RETURNS.
--- NOTE | 2020-05-18 10:00 | NUR ---
RUG CUTTER HELPER FAXED RESUMPTION REFERRAL/ORDER TO [facility].
--- NOTE | 2020-05-18 11:52 | NUR ---
DIRECTOR OF REAL ESTATE RECEIVED CALL FROM [facility]. THEY STATED THAT THE [facility] PH[facility]IC[facility] HAS TO BE WILLING TO SIGN THE ORDERS FOR THE PATIENT TO RESUME SERVICES. THEY ALSO EXPRESSED THAT THEY FEEL THE PATIENT IS UNSAFE AT HOME DUE TO FOLLOWING AND NON COMPLIANCE WITH MEDICATION. DIRECTOR OF REAL ESTATE ASKED IF THEY HAVE REPORTED IT TO [facility] THIS IS THIRD DEMOCRAT INFORMATION NOW, SHE STATED THEY HAVE ONLY SEEN THE PATIENT FOR A WEEK AND HAD NOT DONE SO. DIRECTOR OF REAL ESTATE SPOKE WITH METER CHANGES RECORDS CLERK DANIEL AND SHE IS AWARE.
[2020-05-18 12:00] VITALS: BP 129/59
--- NOTE | 2020-05-18 12:16 | NUR ---
PT RETURNS FROM DIALYSIS AT THIS TIME. CAUGHT UP ON AM MEDICATIONS AND ASSESSMENT COMPLETE.
--- NOTE | 2020-05-18 13:19 | NUR ---
PT GIVEN TYLENOL FOR C/O BACK PAIN. WILL MONITOR FOR EFFECTIVENESS. CALL LIGHT IN REACH.
--- NOTE | 2020-05-18 14:45 | NUR ---
ARRIVED ON SHIFT, REPORT RECEIVED FROM OFFGOING NURSE, ASSUMED CARE OF PATIENT, INTRODUCED SELF TO PATIENT, BED IN LOW POSITION, SIDE RAILS UP X 2 FOR TURNING AND REPOSITIONING, CALL LIGHT WITHIN REACH NO NEEDS VOICED AT THIS TIME, WHITE BOARD UPDATED.
--- NOTE | 2020-05-18 15:36 | NUR ---
Shift chart check completed.
[2020-05-18 16:00] VITALS: BP 131/55
--- NOTE | 2020-05-18 16:45 | NUR ---
CHECKED PATIENTS BLOOD SUGAR BEDSIDE, BLOOD SUGAR 492, AND 490, NOTIFIED DR. FITZGERALD, ORDER RECEIVED 15 UNITS REGULAR INSULIN AND CHANGE DIET TO NCS
[2020-05-18 20:00] VITALS: BP 141/59
--- NOTE | 2020-05-19 03:52 | NUR ---
PATIENT GIVEN TYLENOL FOR HEADACHE
[2020-05-19 06:53] LABS: ACT PARTIAL THROMBO TIME 36.1 SECONDS (20.0-32.1); INTERNATIONAL NORM RATIO 2.6 (2.0-3.5)
[2020-05-19 08:00] VITALS: BP 134/58
--- NOTE | 2020-05-19 08:26 | NUR ---
Report received from night nurse. Patient in bed eating breakfast. Patient reported no pain. Safety mainatined. Will continue to monitor.
[2020-05-19 12:00] VITALS: BP 128/70
--- NOTE | 2020-05-19 13:34 | NUR ---
Nutritional Support Services Note: Appetite is good for meals, he receives an 1800cal diabetic diet as ordered. Pt declines need for diet instruction or diet copy. Knows what he can't have per patient. Encouraged healthy eating and three meals daily and a night snack. Will follow if needed. Shasta Eason Rdn Ld
[2020-05-19 16:00] VITALS: BP 138/73
[2020-05-19] MEDS ORDERED: Lantus SC (16:00)
--- NOTE | 2020-05-19 17:33 | NUR ---
Hep Lock discontinued. Site Asymptomatic. Site asymptomatic. Pressure applied. Sterile dressing applied. Purchaser Discontinued due to Discharge Home and Placed in Tele Pack Box. Call Placed to Monitor Room to discontinue Monitoring. Christina Azar LPN
--- NOTE | 2020-05-19 18:07 | NUR ---
Patient discharged instructions received. No pain reported. will come pick him up. iV removed. Safety maintained.
--- NOTE | 2020-05-20 08:32 | NUR ---
Faxed discharge instructions and summary to [facility]
== END 2020-05-19 18:45 | disposition home or self-care (01) ==
LOC: ED 06:42 → EDHOLD 10:20 → 5E 05-17 13:15
PROVIDERS: Emergency Medicine; Internal Medicine Nephrology; ADMIT Internal Medicine; ATTEND Internal Medicine
DX: E11.649 Type 2 diabetes mellitus with hypoglycemia without coma (principal); I25.10 Atherosclerotic heart disease of native coronary artery without angina pectoris; I13.2 Hypertensive heart and chronic kidney disease with heart failure and with stage 5 chronic kidney disease, or end stage renal disease; N18.6 End stage renal disease; I50.22 Chronic systolic (congestive) heart failure; I48.91 Unspecified atrial fibrillation; Z91.19 Patient's noncompliance with other medical treatment and regimen; E11.22 Type 2 diabetes mellitus with diabetic chronic kidney disease

== ENCOUNTER 2020-05-25 11:50 | Observation (INO) | payer MEDICARE ==
[~2020-05-25] VITALS: Ht 182.8 cm; Wt 48.5 kg
[2020-05-25 12:07] VITALS: BP 162/78
[2020-05-25 12:23] LABS: BASO % 0.2 % (0.0-1.0); EOS % 0.5 % (1.0-4.0); HEMATOCRIT 32.8 % (42.0-52.0); LYMPH # 0.7 10*3/uL (1.3-4.4); MEAN CELL VOLUME 100.6 fl (80.0-94.0); MEAN CORPUSCULAR HGB 33.1 pg (27.0-31.0); MEAN CORPUSCULAR HGB CONC 32.9 g/dl (33.0-37.0); MEAN PLATELET VOLUME 11.1 fl (9.6-12.3); MONO # 0.6 10*3/uL (0.1-1.0); NEUT # 4.5 10*3/uL (2.3-7.9); PLATELET COUNT AUTOMATED 138 10*3/uL (130-400); RED BLOOD COUNT 3.26 10*6/uL (4.50-5.90); RED CELL DISTRI WIDTH 14.6 % (0-14.5); WHITE BLOOD COUNT 5.8 10*3/uL (4.8-10.8)
[2020-05-25 12:33] LABS: ACT PARTIAL THROMBO TIME 36.5 SECONDS (20.0-32.1); INTERNATIONAL NORM RATIO 1.5 (2.0-3.5)
[2020-05-25 12:38] LABS: ALBUMIN 3.5 gm/dl (3.1-4.5); CREATININE 3.86 mg/dL (0.70-1.30); POTASSIUM 4.3 mmol/L (3.5-5.1); TOTAL PROTEIN 6.7 gm/dL (6.4-8.2)
[2020-05-25 12:45] LABS: TROPONIN I 0.065 ng/ml (<0.045)
--- NOTE | 2020-05-25 12:50 | NUR ---
PT DESTAT TO 90% ON 2L NC. INCREASED TO 4L NC AND O2 LEVEL RAISED TO 100%
--- NOTE | 2020-05-25 13:48 | NUR ---
PT RESTING IN BED. NO ACUTE DISTRESS AT THIS TIME
--- NOTE | 2020-05-25 15:16 | NUR ---
PT RESTING IN BED. NO ACUTE DISTRESS. COVERED WITH BLANKET. CALL LIGHT WITHIN REACH
[2020-05-25 15:20] VITALS: BP 173/91
--- NOTE | 2020-05-25 15:53 | NUR ---
PT PULLED UP IN BED AND REPOSITIONED. PT WANTED TO SIT ON EDGE OF BED
--- NOTE | 2020-05-25 16:06 | NUR ---
UPDATED PTS PER PTS REQUEST
--- NOTE | 2020-05-25 16:08 | NUR ---
PT DENIES WOUNDS
--- NOTE | 2020-05-25 17:04 | NUR ---
PT RIPPED IV OUT WITHOUT CALLING FOR THIS RN. CALL LIGHT WAS WITHIN REACH OF PT. UNKNOWN HOW MUCH POTASSIUM PT GOT. PT STATED "THE IV WAS GETTING ON MY NERVES." DR CAMPBELL AWARE
--- NOTE | 2020-05-25 17:48 | NUR ---
PT RESTING IN BED WATCHING TV. MOVED TO ROOM #5 DUE TO TRAUMA ROOM NEEDED. NO ACUTE DISTRESS.
--- NOTE | 2020-05-25 18:04 | NUR ---
CRITICAL LAB TROPONIN 0.064
--- NOTE | 2020-05-25 18:05 | NUR ---
DR CAMPBELL NOTIFIED OF ELEVATED TROPONIN
--- NOTE | 2020-05-25 18:46 | NUR ---
I CONTACTED DR AGUSTIN WHO SAID TO CONSULT DR MARIA. AND TO HAVE BLOOD SUGAR CHECKED QID WITH COVERAGE. SHE ALSO STATED PT IS TO HAVE A 1800 CALORIE DIET
--- NOTE | 2020-05-25 18:54 | NUR ---
DR AGUSTIN CONSULT DR PASCUAL. CALLED HIS OFFICE WHICH WAS CLOSED. I WAS ABLE TO SPEAK TO SOMEONE STATION GATEMAN WHO STATED HE WILL PASS ON THE INFORMATION AND WILL CALL BACK
--- NOTE | 2020-05-25 20:08 | NUR ---
PT TO BEDSIDE COMMODE AT THIS TIME. WILL CONTINUE TO MONITOR.
--- NOTE | 2020-05-25 20:20 | NUR ---
PT BACK TO BED. DENIES OTHER NEEDS AT THIS TIME. WILL CONTINUE TO MONITOR.
[2020-05-25 23:59] VITALS: BP 163/78
--- NOTE | 2020-05-26 00:39 | NUR ---
PER PREVIOUS SHIFT NO HOME MEDS ORDERED. PER DR WING ER ATTENDING. ORDERED S/S INSULIN, AND HOME MEDICATIONS WARFARIN AND COREG ORDERED X1 DAY. RN WILL CONTACT DR AGUSTIN IN AM TO RECONCILE HOME MEDICATIONS. PER PREVIOUS SHIFT DR PASCUAL WAS CALLED AND NO CALL BACK AT THIS TIME. PT REMAINS ED HOLD AND IN VIEW OF NURSES STATION. BGL NOTED TO BE 514 AFTER EATING BEFORE BED AND BP 160/70'S. WILL TREAT WITH SLIDING SCALE AND HOME MEDICATIONS AND CONTINUE TO MONITOR
[2020-05-26 00:45] VITALS: BP 157/75
--- NOTE | 2020-05-26 03:48 | NUR ---
PT SITTING ON THE SIDE OF BED. VSS. NO DISTRESS NOTED AT THIS TIME. WILL CONTINUE TO MONITOR.
[2020-05-26 03:50] VITALS: BP 185/97
--- NOTE | 2020-05-26 05:23 | NUR ---
PT SITTING ON BEDSIDE CHAIR. VISIBLE FROM NURSE STATION. DENIES NEEDS AT THIS TIME. WILL CONTINUE TO MONITOR.
--- NOTE | 2020-05-26 05:49 | NUR ---
NURSE CIGARETTE TIPPER ASKED ABOUT COREG 25 MG AT THIS TIME. STATES SHE IS UNABLE TO OBTAIN IT AT THIS TIME AND WILL GET MEDICATION WHEN SHE CAN.
--- NOTE | 2020-05-26 07:27 | NUR ---
PT IS RESTING IN BED. NO SIGNS OF ACUTE DISTRESS NOTED. RESPIRATIONS ARE EASY AND NONLABORED. WILL CONTINUE TO MONITOR.
[2020-05-26 08:05] VITALS: BP 166/76
[2020-05-26 09:26] VITALS: BP 161/82
--- NOTE | 2020-05-26 10:37 | NUR ---
[facility] , under the services of SANTANA Iyer MD with a diagnosis of CHEST PAIN. Chief complaint is DENIES C/O AT PRESENT. Patient arrived via bed from ER. Monitor applied. Initial assessment completed. Vital signs taken and recorded. SANTANA IYER MD notified of admission to the unit. Orders received. See assessment for past medical history, medications and allergies. Patient and/or family oriented to unit. [facility] visitation policy reviewed. Clothing/patient valuable form completed. JOSEP YOUSSEF
--- NOTE | 2020-05-26 10:58 | NUR ---
Cook Box Filler in to talk to patient. Patient states lives at home with his . There are no steps in the home. He has a stair lift. Physician: Gail Shrestha at the [facility] and Dr. Blane Sage Pharmacy: [facility] or [place] Home health services: currently has [facility] Patient's level of ADLs: MINIMAL ASSIST Patient has working utilities: yes DME: walker, nebulizer, c-pap, electric wheelchair Follow-up physician's appointment after d/c: he prefers to make his own follow up appt after discharge Does patient want to access PORTAL?: no Discharge plan discussed with patient. He lives at home with his . He is independent in his ADLs and ambulates with a walker or uses his electric wheelchair. He has HD MWF, chair time [phone], he uses [employer] for transportation. Discussed home health care services and he currently has [facility] and wishes to resume those services upon discharge. When medically stable he will be discharged to home with the resumption of his [facility]. He states his will provide transportation on discharge. DANIEL BRAVO
--- NOTE | 2020-05-26 13:09 | NUR ---
DR. MALDONADO'S ANSWERING SERVICE NOTIFIED OF CONSULT.
[2020-05-26 16:00] VITALS: BP 117/55
--- NOTE | 2020-05-26 17:44 | NUR ---
DR. RIVERA AWARE OF CONSULT.
[2020-05-26 20:00] VITALS: BP 151/68
[2020-05-27] VITALS: BP 131/56
[2020-05-27 06:50] LABS: BASO % 0.4 % (0.0-1.0); EOS # 0.1 10*3/uL (0.0-0.4); EOS % 1.8 % (1.0-4.0); HEMATOCRIT 30.6 % (42.0-52.0); LYMPH % 17.7 % (27.0-41.0); MEAN CELL VOLUME 103.4 fl (80.0-94.0); MEAN CORPUSCULAR HGB 33.4 pg (27.0-31.0); MEAN CORPUSCULAR HGB CONC 32.4 g/dl (33.0-37.0); MEAN PLATELET VOLUME 11.3 fl (9.6-12.3); MONO # 0.5 10*3/uL (0.1-1.0); NEUT # 3.8 10*3/uL (2.3-7.9); NEUT % 69.9 % (47.0-73.0); PLATELET COUNT AUTOMATED 128 10*3/uL (130-400); RED BLOOD COUNT 2.96 10*6/uL (4.50-5.90); RED CELL DISTRI WIDTH 14.6 % (0-14.5); WHITE BLOOD COUNT 5.4 10*3/uL (4.8-10.8)
[2020-05-27 06:59] LABS: INTERNATIONAL NORM RATIO 1.5 (2.0-3.5)
--- NOTE | 2020-05-27 07:31 | NUR ---
24 HR chart check completed.
[2020-05-27 07:40] LABS: ALBUMIN 3.3 gm/dl (3.1-4.5); CREATININE 3.43 mg/dL (0.70-1.30); TOTAL PROTEIN 6.2 gm/dL (6.4-8.2)
[2020-05-27 08:00] VITALS: BP 126/57
--- NOTE | 2020-05-27 09:00 | NUR ---
RESTING IN BED WITH NO ACUTE DISTRESS NOTED. RESPIRATIONS EASY. LUNGS DIMINISHED WITH CRACKLES, POOR AIR MOVEMENT. PULSE OX 100% 2L. CLAIMS INFREQUENT COUGH. CALL LIGHT WITHIN REACH. NO VOICED COMPLAINTS
--- NOTE | 2020-05-27 10:45 | NUR ---
ATTEMPTED TO REACH DR ESTEVEZ REGARDING CONSULT. MESSAGE LEFT WITH ANSWERING SERVICE
[2020-05-27 12:00] VITALS: BP 148/68
--- NOTE | 2020-05-27 12:00 | NUR ---
DR ESTEVEZ PRESENT ON FLOOR TO ASSESS PATIENT AND DISCUSS PLAN OF CARE
--- NOTE | 2020-05-27 15:00 | NUR ---
DR MOORE HERE TO ASSESS PATIENT AND DISCUSS PLAN OF CARE
[2020-05-27 16:00] VITALS: BP 144/89
--- NOTE | 2020-05-27 18:00 | NUR ---
SITTING AT BEDSIDE. NO ACUTE DISTRESS NOTED. RESPIRATIONS EASY. CALL LIGHT WITHIN REACH. NO VOICED COMPLAINTS
[2020-05-27 20:00] VITALS: BP 165/77
--- NOTE | 2020-05-27 22:00 | NUR ---
RESTING WITH EYES CLOSED. RESPIRATIONS EASY. O2 IN USE AT 2L. CALL LIGHT WITHIN REACH. NO VOICED COMPLAINTS
[2020-05-28] VITALS: BP 172/78
--- NOTE | 2020-05-28 00:42 | NUR ---
IV ZOFRAN GIVEN FOR C/O NAUSEA WITHOUT EMESIS. PT DENIES ANY OTHER SYMPTOMS/NEEDS. WILL MONITOR. CALL LIGHT IN REACH. BED ALARM INTACT.
[2020-05-28 01:00] VITALS: BP 152/84
--- NOTE | 2020-05-28 01:30 | NUR ---
EARLIER ZOFRAN EFFECTIVE PER PT. WILL MONITOR.
[2020-05-28] MEDS ORDERED: IMDUR SA60 M1 PO (08:28)
[2020-05-28] MEDS ORDERED: Ipratropium Brom3 ML NEB (08:28)
[2020-05-28] MEDS ORDERED: RANEXA500 M1 PO (08:28)
[2020-05-28] MEDS ORDERED: NATEGLINIDE60 MG PO (08:29)
[2020-05-28] MEDS ORDERED: CEFUROXIME AXE250 MG PO (08:38)
--- NOTE | 2020-05-28 09:00 | NUR ---
CM in to see patient. Discussed CM speaking to Dr. Grajeda this morning and she wanted to make sure patient has a working nebulizer at home. He states he does have a working nebulizer at home but just needs the medications to go in it. He is currently on his way to dialysis by the patient attendants. Discussed his discharge after dialysis and if he needed anything at home. He would like to resume his [facility] services.
--- NOTE | 2020-05-28 11:14 | NUR ---
Faxed home health resumption order to [facility] along with clinical and notification of patient being observation.
--- NOTE | 2020-05-28 13:26 | NUR ---
Received call from Stacey at [facility]. They will resume services of PT/OT.
--- NOTE | 2020-05-28 15:00 | NUR ---
Discharge instructions reviewed with patient/family. Patient receptive and verbalizes understanding. Follow-up care arranged. Written instructions given to patient/family, IV REMOVED, MONITOR REMOVED, TAKEN REINFORCED NEED TO TAKE PERSCRIPTIONS TO HIS PHARMACY, VERSED UNDERSTANDING. TAKEN OUT VIA WHEEL CHAIR. KEYON HOOPER
== END 2020-05-28 15:00 | disposition home or self-care (01) ==
LOC: ED 11:50 → EDHOLD 12:55 → 4E 05-26 09:47
PROVIDERS: Emergency Medicine; ADMIT Internal Medicine; ATTEND Internal Medicine
DX: I13.2 Hypertensive heart and chronic kidney disease with heart failure and with stage 5 chronic kidney disease, or end stage renal disease (principal); I50.21 Acute systolic (congestive) heart failure; N18.6 End stage renal disease; I48.91 Unspecified atrial fibrillation; E11.22 Type 2 diabetes mellitus with diabetic chronic kidney disease; R07.89 Other chest pain; I25.10 Atherosclerotic heart disease of native coronary artery without angina pectoris

== ENCOUNTER 2020-05-31 11:47 | Inpatient (IN) | payer MEDICARE ==
[~2020-05-31] VITALS: Ht 182.8 cm; Wt 97.2 kg
[~2020-05-31 11:47] MED LIST changes: +CEFUROXIME AXE250 MG PO; +Ipratropium Brom3 ML NEB; +NATEGLINIDE60 MG PO
[2020-05-31 11:57] VITALS: BP 162/83
[2020-05-31 12:34] LABS: BASO % 0.4 % (0.0-1.0); EOS # 0.1 10*3/uL (0.0-0.4); EOS % 1.8 % (1.0-4.0); HEMATOCRIT 34.3 % (42.0-52.0); LYMPH # 1.1 10*3/uL (1.3-4.4); MEAN CELL VOLUME 105.9 fl (80.0-94.0); MEAN CORPUSCULAR HGB 33.3 pg (27.0-31.0); MEAN CORPUSCULAR HGB CONC 31.5 g/dl (33.0-37.0); MEAN PLATELET VOLUME 11.1 fl (9.6-12.3); MONO # 0.7 10*3/uL (0.1-1.0); MONO % 11.4 % (3.0-9.0); NEUT # 3.8 10*3/uL (2.3-7.9); NEUT % 67.2 % (47.0-73.0); PLATELET COUNT AUTOMATED 152 10*3/uL (130-400); RED BLOOD COUNT 3.24 10*6/uL (4.50-5.90); RED CELL DISTRI WIDTH 15.1 % (0-14.5); WHITE BLOOD COUNT 5.7 10*3/uL (4.8-10.8)
[2020-05-31 12:44] LABS: ACT PARTIAL THROMBO TIME 25.8 SECONDS (20.0-32.1); INTERNATIONAL NORM RATIO 1.3 (2.0-3.5)
[2020-05-31 13:03] LABS: ALBUMIN 3.3 gm/dl (3.1-4.5); CREATININE 3.36 mg/dL (0.70-1.30); POTASSIUM 3.7 mmol/L (3.5-5.1); TOTAL PROTEIN 6.6 gm/dL (6.4-8.2); TROPONIN I 0.033 ng/ml (<0.045)
[2020-05-31 14:20] VITALS: BP 172/84
--- NOTE | 2020-05-31 17:34 | NUR ---
NOTIFIED DR PASCUAL OF CONSULT FOR DIALYSIS . MESSAGE LEFT WITH ANSWERING SERVICE AND SERVICE STATES THEY WILL CALL HIM.
--- NOTE | 2020-05-31 17:38 | NUR ---
DR PASCUAL CALLED BACK TO CHECK ON PATIENT, INFORMATION GIVEN. NO NEW ORDERS RECEIVED.
[2020-05-31 18:07] VITALS: BP 169/100
--- NOTE | 2020-05-31 19:34 | NUR ---
PT UNABLE TO OBTAIN URINE SAMPLE AT THIS TIME. URINAL AND BLANKET GIVEN TO PT. WILL CONTINUE TO MONITOR.
--- NOTE | 2020-05-31 23:03 | NUR ---
THIS RN GAVE PTS UPDATE ON PT AT THIS TIME. VERBAL PERMISSION GIVEN PT.
[2020-05-31 23:06] LABS: BILIRUBIN Negative (Negative); BLOOD Negative (Negative); CLARITY Clear (Clear); COLOR Yellow (Yellow); GLUCOSE 3+ (Negative); KETONE 1+ (Negative); LEUKO ESTERASE Negative (Negative); NITRITE Negative (Negative); UROBILINOGEN 0.2 E.U./dl (0.0-1.0)
--- NOTE | 2020-05-31 23:28 | NUR ---
PT DENIES WOUNDS AT THIS TIME. NO WOUNDS DOCUMENTED DURING ASSESSMENT. PT DENIES NEEDS AT THIS TIME. SAFETY PRECAUTIONS INTACT. CALL LIGHT WITH IN REACH.
[2020-05-31 23:49] VITALS: BP 175/82
[2020-05-31 23:51] LABS: WBC 0-2 wbc/hpf (0-5)
[2020-06-01 04:00] VITALS: BP 140/74
[2020-06-01 06:39] VITALS: BP 139/68
--- NOTE | 2020-06-01 08:29 | NUR ---
PT TAKEN TO DIALYSIS VIA BED.
--- NOTE | 2020-06-01 09:04 | NUR ---
CM in to see patient in ER. Patient is not currently in his room. Will follow up at a later time.
--- NOTE | 2020-06-01 09:25 | NUR ---
PT UNABLE TO RECEIVE DIALYSIS D/T WATER BREAK. PT RETURNED TO ED.
[2020-06-01 12:46] VITALS: BP 161/85
--- NOTE | 2020-06-01 13:10 | NUR ---
Time: 1309 A 70 year old MALE admitted to 5E under services of DR. VAMSI GARVEY,SANTANA. Pt. arrived via stretcher from ER. Chief complaint: WEAKNESS. ERICKA BROUSSARD
[2020-06-01 13:30] VITALS: BP 155/76
--- NOTE | 2020-06-01 14:45 | NUR ---
Suture Winder Hand in to talk to patient. Patient states lives at home with his . There are no steps in the home. He has a stair lift. Physician: Gail Shrestha at the [facility] and Dr. Blane Sage Pharmacy: [facility] or [place] Home health services: currently has [facility] Patient's level of ADLs: MINIMAL ASSIST Patient has working utilities: yes DME: walker, nebulizer, c-pap, electric wheelchair Follow-up physician's appointment after d/c: he prefers to make his own follow up appt after discharge Does patient want to access PORTAL?: no Discharge plan discussed with patient. He lives at home with his . He is independent in his ADLs and ambulates with a walker or uses his electric wheelchair. He has HD MWF, chair time [phone], he uses [employer] for transportation. Discussed home health care services and he currently has [facility]. He is unsure at this time what he would like to do on discharge. He would like to call his . DANIEL BRAVO
--- NOTE | 2020-06-01 14:45 | NUR ---
PHYSICAL THERAPY Attempted to see pt for evaluation this PM however pt declining at this time was to have dialysis this AM but was cancelle due to water break in town and currently "too tired" at this time will follow at a later date. Cassandra Urbano PT
--- NOTE | 2020-06-01 14:45 | NUR ---
OT NOTE Occupational therapy order received, chart reviewed, and attempted to see patient at bedside. Patient declining an OT evaluation at this time reporting he is "too tired." Patient was agreeable to an OT eval at a later date. Will check back. Thank you. Phoebe Ospina, OTR/L
--- NOTE | 2020-06-01 14:50 | NUR ---
Spoke to , Radha, regarding patient returning home health [facility] vs [facility]. She states the last time he was at [facility] therapy only worked with him a couple of days and prefers for him not to go back there. She [facility] to the [facility] yesterday and the [facility] is sending her a list of the medications he is supposed to be taking. She states he is very bad at taking his medications as he is supposed to and she doesn't know what he is supposed to be taking and not taking and that is why she reached out to the [facility]. She states she will take control of his medications. She will ask him if he takes his meds and he tells her yes. He currently does have [facility]. Therapy comes out twice a week. She said it is up to him where he wants to go on discharge but when she spoke to the nurse at the [place] the nurse didn't think it was a good idea with COVID to go to a facility.
--- NOTE | 2020-06-01 14:55 | NUR ---
Spoke to patient stating his said it was up to him on whether he wanted to return home with home health or go to a short term rehab. He said he is all confused about what medications he should be taking. Asked if the home health nurse wrote down and set up his home medications for him. He states he was supposed to gather all of his medications and make a list for the home health nurse and he has not done that. He states his medications were in boxes. His main concern is getting his medications right. Explained that his called the [place] for an up to date med list and will take control of his medications. He verbalized an understanding and agreed to take the medications as he should. He said [facility] therapy wanted to come out 3 times a week but with dialysis and doctor appts twice a week is what they worked out. When medically stable he will be discharged to home with the resumption of his [facility].
--- NOTE | 2020-06-01 15:18 | NUR ---
GARBAGE TRUCK DISPATCHER MADE REFERRAL TO APS DUE TO 4 ADMISSIONS TO THIS FACILITY IN THE LAST MONTH AND NON COMPLIANCE WITH MEDICATIONS.
[2020-06-01 16:00] VITALS: BP 134/63
[2020-06-01 20:00] VITALS: BP 153/74
[2020-06-02] VITALS: BP 149/68
--- NOTE | 2020-06-02 03:24 | NUR ---
24 HR chart check completed.
--- NOTE | 2020-06-02 03:46 | NUR ---
ASSISTED PATIENT UP AND INTO CHAIR. PATIENT STATED HE DIDN'T NEED A BODY ALARM BECAUSE HE WON'T GET UP WITHOUT ASSISTANCE.
[2020-06-02 04:00] VITALS: BP 140/74
--- NOTE | 2020-06-02 07:20 | NUR ---
PATIENT TAKEN TO DIALYSIS AT THIS TIME.
[2020-06-02 07:37] LABS: BASO % 0.2 % (0.0-1.0); EOS # 0.1 10*3/uL (0.0-0.4); EOS % 1.7 % (1.0-4.0); HEMATOCRIT 31.9 % (42.0-52.0); LYMPH # 0.8 10*3/uL (1.3-4.4); LYMPH % 13.2 % (27.0-41.0); MEAN CELL VOLUME 105.6 fl (80.0-94.0); MEAN CORPUSCULAR HGB 33.1 pg (27.0-31.0); MEAN CORPUSCULAR HGB CONC 31.3 g/dl (33.0-37.0); MEAN PLATELET VOLUME 10.9 fl (9.6-12.3); MONO # 0.4 10*3/uL (0.1-1.0); MONO % 6.7 % (3.0-9.0); NEUT # 4.6 10*3/uL (2.3-7.9); NEUT % 77.9 % (47.0-73.0); PLATELET COUNT AUTOMATED 115 10*3/uL (130-400); RED BLOOD COUNT 3.02 10*6/uL (4.50-5.90); RED CELL DISTRI WIDTH 15.4 % (0-14.5); WHITE BLOOD COUNT 5.9 10*3/uL (4.8-10.8)
[2020-06-02 07:49] LABS: ALBUMIN 3.3 gm/dl (3.1-4.5); CREATININE 5.14 mg/dL (0.70-1.30); POTASSIUM 4.5 mmol/L (3.5-5.1)
[2020-06-02 08:00] VITALS: BP 157/76
[2020-06-02 12:00] VITALS: BP 154/84
--- NOTE | 2020-06-02 12:08 | NUR ---
BACK TO ROOM FROM DIALYSIS. NO COMPLAINTS VOICED. 4KILO OFF TODAY PER DIALYSIS NURSE.
--- NOTE | 2020-06-02 12:20 | NUR ---
PT BACK FROM DIALYSIS AT THIS TIME
[2020-06-02 16:00] VITALS: BP 142/60
--- NOTE | 2020-06-02 17:50 | NUR ---
PT RESTING COMFORTABLY, NO COMPLAINTS AT THIS TIME. CALL LIGHT IS WITHIN REACH.
[2020-06-02 20:00] VITALS: BP 140/65
[2020-06-03] VITALS: BP 139/57
--- NOTE | 2020-06-03 01:29 | NUR ---
24 HR chart check completed.
--- NOTE | 2020-06-03 03:10 | NUR ---
PATIENT CALLED THIS NURSE IN HIS ROOM AND STATED THAT HE FELT FUNNY AND THAT HE THOUGHT HIS SUGAR WAS LOW AND THAT HE NEEDED SOMETHING TO EAT. BLOOD SUGAR CHECKED AT THIS TIME. IT WAS 189. PATIENT STATED HE STILL NEEDED SOMETHING TO EAT. EDUCATED PATIENT THAT THIS WASN'T A LOW BLOOD SUGAR BUT HE INSISTED ON SOMETHING TO EAT
[2020-06-03 08:00] VITALS: BP 151/80
--- NOTE | 2020-06-03 11:31 | NUR ---
MEDICATED WITH PRN PO TYLENOL FOR GENERALIZED DISCOMFORT.
[2020-06-03 12:00] VITALS: BP 160/80
--- NOTE | 2020-06-03 12:30 | NUR ---
PATIENT SLEEPING; PRN PO TYLENOL EFFECTIVE FOR GENERALIZED DISCOMFORT.
[2020-06-03 16:00] VITALS: BP 150/63
--- NOTE | 2020-06-03 16:24 | NUR ---
ON UNIT. MADE AWARE OF ELEVATED BSGS. CURRENT BSG 494
[2020-06-03 17:35] LABS: INTERNATIONAL NORM RATIO 1.3 (2.0-3.5)
[2020-06-03 20:00] VITALS: BP 148/74
--- NOTE | 2020-06-03 20:55 | NUR ---
PT RESTING IN BED. RESP-EASY AND REGULAR. BSG-434, SEE EMAR. NO C/O AT THIS TIME. CALL LIGHT IN REACH. WILL CON'T TO MONITOR.
--- NOTE | 2020-06-03 22:30 | NUR ---
PT AMBULATORY TO BATHROOM AND BACK TO BED. RESP-EASY AND REGULAR. NO C/O AT THIS TIME. CALL LIGHT IN REACH.
[2020-06-04] VITALS: BP 143/62
--- NOTE | 2020-06-04 00:20 | NUR ---
RESTING IN BED WITH EYES CLOSED. AWAKENS EASILY. RESP-EASY AND REGULAR. OXYGEN IN USE. CALL LIGHT IN REACH. SEE SHIFT ASSESSMENT.
--- NOTE | 2020-06-04 03:18 | NUR ---
CALLED OUT STATES HE FEELS LIKE HIS BLOOD SUGAR HAS DROPPED. BSG DONE READ 48. STAT REFLUX ORDERED. DEXTROSE GIVEN IV, LAB ON FLOOR. PT GIVEN ORANGE JUICE AND CRACKERS. RESTING IN BED. SKIN W/D. CALL LIGHT IN REACH.
--- NOTE | 2020-06-04 03:32 | NUR ---
RESTING IN BED. SKIN W/D. PT STATES HE FEELS A LITTLE BIT BETTER. WILL CON'T TO MONITOR. EATING CRACKERS. WAITING FOR LABWORK.
--- NOTE | 2020-06-04 04:18 | NUR ---
RESTING IN BED. SKIN W/D. BSG-171. CALL LIGHT IN REACH.
--- NOTE | 2020-06-04 06:40 | NUR ---
TRANSPORTED VIA BED TO DIALYSIS. SKIN W/D. CALL LIGHT IN REACH.
--- NOTE | 2020-06-04 07:37 | NUR ---
PT. IN DIALYSIS
[2020-06-04 08:00] VITALS: BP 145/77
--- NOTE | 2020-06-04 08:11 | NUR ---
PHYSICAL THERAPY Pt currently in dialysis will attempt to see pt later in the afternoon as appropriate, thank you Cassandra Urbano PT
--- NOTE | 2020-06-04 08:11 | NUR ---
OT NOTE Occupational therapy order received. Patient is currently in dialysis per nursing notes. Will check back later for completion of an OT evaluation. Thank you. Phoebe Ospina, OTR/L
--- NOTE | 2020-06-04 10:51 | NUR ---
CM in to see patient in dialysis room. Discussed short term rehab and he states his doesn't want him going to a SNF. He wants to return home with the resumption of his [facility]. When medically stable he will be discharged to home.
--- NOTE | 2020-06-04 11:30 | NUR ---
DENIES ANY COMPLAINTS.
[2020-06-04 12:00] VITALS: BP 145/66
[2020-06-04 12:17] LABS: BASO % 0.2 % (0.0-1.0); EOS # 0.1 10*3/uL (0.0-0.4); EOS % 1.4 % (1.0-4.0); LYMPH # 0.7 10*3/uL (1.3-4.4); LYMPH % 11.1 % (27.0-41.0); MEAN CELL VOLUME 104.9 fl (80.0-94.0); MEAN CORPUSCULAR HGB 33.3 pg (27.0-31.0); MEAN CORPUSCULAR HGB CONC 31.8 g/dl (33.0-37.0); MEAN PLATELET VOLUME 11.1 fl (9.6-12.3); MONO # 0.4 10*3/uL (0.1-1.0); MONO % 6.8 % (3.0-9.0); NEUT % 80.2 % (47.0-73.0); PLATELET COUNT AUTOMATED 116 10*3/uL (130-400); RED BLOOD COUNT 3.24 10*6/uL (4.50-5.90); RED CELL DISTRI WIDTH 15.2 % (0-14.5); WHITE BLOOD COUNT 6.3 10*3/uL (4.8-10.8)
[2020-06-04 12:28] LABS: ALBUMIN 3.5 gm/dl (3.1-4.5); CREATININE 2.15 mg/dL (0.70-1.30); POTASSIUM 4.1 mmol/L (3.5-5.1)
--- NOTE | 2020-06-04 13:30 | NUR ---
Occupational Therapy evaluation completed on five with full evaluation to follow. Recommend occupational therapy per plan of care and SNF upon discharge. Thank you for this referral. Phoebe Ospina OTR/L
--- NOTE | 2020-06-04 13:35 | NUR ---
PHYSICAL THERAPY Physical Therapy evaluation completed on 5th floor with full evaluation to follow. Recommend physical therapy per plan of care and SNF upon discharge. Thank you for this referral. Cassandra Urbano PT
[2020-06-04 16:04] VITALS: BP 127/48
--- NOTE | 2020-06-04 16:04 | NUR ---
BSG WAS 471, REPEAT CHECK WAS DONE ON OPPOSITE HAND WITH RESULT OF 470. DR. FITZGERALD NOTIFIED AND HE STATES TO GIVE THE 14 UNITS OF COVERAGE PER SLIDING SCALE ALREADY ORDERED.
[2020-06-04 20:04] VITALS: BP 128/58
--- NOTE | 2020-06-04 20:36 | NUR ---
24 HR chart check completed.
--- NOTE | 2020-06-04 21:00 | NUR ---
SITTING IN RECLINER WITH NO DISTRESS NOTED. RESPIRATIONS EASY. LUNGS DIMINISHED, CLEAR. PULSE OX 99% 2L. CALL LIGHT WITHIN REACH. NO VOICED COMPLAINTS.
[2020-06-04] MEDS ORDERED: LANTUS SOL100 UNIT/1 SC (21:47)
[2020-06-04] MEDS ORDERED: INSULIN AS100 UNIT/3 SC (21:48)
--- NOTE | 2020-06-04 22:00 | NUR ---
BSG 557, RECHECK 568. STAT REFLEX ORDERED, 692. DR AGUSTIN CONTACTED, NEW ORDERS RECEIVED
[2020-06-05] VITALS: BP 146/65
--- NOTE | 2020-06-05 00:58 | NUR ---
BSG 514, RECHECK 534. STAT REFLEX ORDERED, 544. DR AGUSTIN CONTACTED, NEW ORDERS RECEIVED
--- NOTE | 2020-06-05 02:00 | NUR ---
RESTING WITH EYES CLOSED AND NO DISTRESS NOTED
--- NOTE | 2020-06-05 03:50 | NUR ---
BSG 127. PATIENT PROVIDED WITH GURWINDER
--- NOTE | 2020-06-05 05:00 | NUR ---
BSG 131
--- NOTE | 2020-06-05 06:45 | NUR ---
MAHING RECHECKED 193. DECLINES COVERAGE
[2020-06-05 08:00] VITALS: BP 164/82
[2020-06-05] MEDS ORDERED: REGLAN5 MG PO (10:03)
--- NOTE | 2020-06-05 10:30 | NUR ---
TAYLOR RECEIVED CALL FROM NATHAN STEINBERG. SHE WILL BE FOLLOWING UP WITH THE PATIENT ONCE HE IS DISCHARGED HOME.
--- NOTE | 2020-06-05 10:51 | NUR ---
OT NOTE Pt was seen this A.M. 1:1 for 20 minute OT session. Upon arrival pt was sitting upright on the EOB. Pt identified by name and and had complaints of feeling nauseated at this time. Pt presented to therapy with continuous 2L-O2 via NC. While sitting EOB pt donned B socks with SBA while using compensatory technique of bringing his legs up to knee level. Sit to stand completed from bed level with Lev and use of w/w for UE support. Functional mobility completed to the bathroom with CGA and use of w/w. There he transferred on/off standard commode with CGA and use of grab bar for UE support. He then stood sink side while washing his hands with CGA for safety. Functional mobility completed back to the EOB with CGA and use of w/w. Pt tolerated aprox 4 minutes of activity before requesting to sit due to low back pain (unrated). After a seated rest break pt completed sit to stand from bed level with Lev and use of w/w followed by functional mobility to the recliner with CGA and use of w/w. There he was left sitting upright with call light in hand, tray table in place, and phone in reach. Continue with rec D/C plan to SNF. TRAVIS Abrams/Saeed
--- NOTE | 2020-06-05 10:54 | NUR ---
MEDICATED WITH PRN IV ZOFRAN FOR NAUSEA.
--- NOTE | 2020-06-05 11:25 | NUR ---
PHYSICAL THERAPY Patient presented to therapy in supine in bed with head of bed elevated and bed alarm off. Patient had no complaints. Patient gives inforemd consent for treatment. Patient is on 2 liters of spO2 VIA NASAL CANULA ,which he does not have on. Patient refuses to wear spO2. Patient performed supine > sitting on EOB with SBA. Patient sat on EOB with SBA. Patient STS from EOB with MIN A X 1 with verbal cues for hand placement. Patient ambulated with Wh Walker and CGA 15' x 1 and sat in low chair with CGA. V/Cs FOR PUTTING HANDS BACK ON ARMRESTS of chair. Patient STS from low chair after short rest break with SBA - CGA. Patient ambulated with CGA - Close Supervision with Wh Walker again back to EOB and sat on EOB with SBA. Patient rested briefly then STS from EOB again with CGA. Patient ambulated another 15' around bed with W/W and Close Supervision with no LOB and no SOB. Patient sat in bedside chair with SBA. Patient then performed seated bilatera LE ther ex 2 x 10 reps each in all planes of movement including LAQs, marches, hip abduction and heel/toe raises. Patient performed 5 Xs STS from EOB also, with 5 sit to stands completed in 47 seconds total, requiring MIN A X 1 the 1st two attempts and CGA the remaning 3 attempts. Patient was left in bedside chair with call light within reach and tray table in front of patient. LEs in low position. Patient was 1:1 with this SENIOR CLINICAL DATA COORDINATOR for 23 minutes total. MILTON CLEANING SENIOR CLINICAL DATA COORDINATOR
--- NOTE | 2020-06-05 11:45 | NUR ---
PRN IV ZOFRAN EFFECTIVE, PER PATIENT.
[2020-06-05 12:00] VITALS: BP 131/55
--- NOTE | 2020-06-05 14:27 | NUR ---
BS RECHECK WAS FOLLOWS 555 ON RIGHT HAND AT 1421 AND 525 RIGHT HAND AT 1424. RN NOTIFIED OF BS RESULTS.
[2020-06-05 16:00] VITALS: BP 124/57
--- NOTE | 2020-06-05 16:30 | NUR ---
DR. FITZGERALD NOTIFIED OF PATIENT'S MOST RECENT BLOOD GLUCOSE RESULTS. OBTAINED ORDER FOR VICTOZA 0.6MG SC DAILY, START 1ST DOSE NOW.
[2020-06-05 20:00] VITALS: BP 141/65
--- NOTE | 2020-06-05 21:00 | NUR ---
RESTING IN BED WITH NO ACUTE DISTRESS NOTED. RESPIRATIONS EASY. LUNGS DIMINISHED, CLEAR. PULSE OX 100% 2L. CALL LIGHT WITHIN REACH. NO VOICED COMPLAINTS.
--- NOTE | 2020-06-05 21:00 | NUR ---
24 HR chart check completed.
[2020-06-06] VITALS: BP 125/60
--- NOTE | 2020-06-06 | NUR ---
REMAINS AWAKE, RESTING IN BED WITH NO DISTRESS NOTED. RESPIRATIONS EASY. VSS. CALL LIGHT WITHIN REACH
--- NOTE | 2020-06-06 04:00 | NUR ---
PULLED IV OUT, REQUESTING NO RESTICK D/T PROBABLE D/C
--- NOTE | 2020-06-06 06:00 | NUR ---
RESTED THROUGHOUT NIGHT. NO DISTRESS NOTED. BSG THIS AM, 189. CALL LIGHT WITHIN REACH. NO VOICED COMPLAINTS
[2020-06-06 07:12] LABS: INTERNATIONAL NORM RATIO 2.6 (2.0-3.5)
[2020-06-06 08:00] VITALS: BP 140/72
--- NOTE | 2020-06-06 09:26 | NUR ---
PATIENT TO DIALYSIS BY BED AT THIS TIME.
--- NOTE | 2020-06-06 09:35 | NUR ---
OT NOTE Attempted to see pt this A.M. for OT session and upon arrival pt was out of the room for dialysis. Will check back at a later time/date and continue with POC as able. TRAVIS Abrams/Saeed
[2020-06-06 10:12] LABS: BASO % 0.2 % (0.0-1.0); EOS # 0.2 10*3/uL (0.0-0.4); EOS % 2.5 % (1.0-4.0); LYMPH # 1.1 10*3/uL (1.3-4.4); LYMPH % 18.5 % (27.0-41.0); MEAN CELL VOLUME 103.1 fl (80.0-94.0); MEAN CORPUSCULAR HGB 33.6 pg (27.0-31.0); MEAN CORPUSCULAR HGB CONC 32.6 g/dl (33.0-37.0); MEAN PLATELET VOLUME 11.1 fl (9.6-12.3); MONO # 0.7 10*3/uL (0.1-1.0); MONO % 11.4 % (3.0-9.0); NEUT % 67.1 % (47.0-73.0); PLATELET COUNT AUTOMATED 148 10*3/uL (130-400); RED BLOOD COUNT 2.23 10*6/uL (4.50-5.90)
[2020-06-06 10:23] LABS: CREATININE 4.41 mg/dL (0.70-1.30); POTASSIUM 4.5 mmol/L (3.5-5.1)
--- NOTE | 2020-06-06 10:50 | NUR ---
PHYSICAL THERAPY Patient was in dialysis at 09:36 am and 10:45 am. Will check with patient later. MILTON CLEANING CAR RUNNER
--- NOTE | 2020-06-06 11:09 | NUR ---
OT NOTE Second attempt made to see pt this A.M. for OT session and upon arrival pt was out of the room for dialysis. Will check back at a later time and continue with POC as able. TRAVIS Abrams/Saeed
--- NOTE | 2020-06-06 13:45 | NUR ---
OT NOTE Third attempt made to see pt this P.M. for OT session and upon arrival pt was still out of the room for dialysis. Will check back at a later time/date and continue with POC as able. TRAVIS Abrams/Saeed
--- NOTE | 2020-06-06 14:18 | NUR ---
PATIENT RETURNED FROM DIALYSIS, RESUMING MEDS AND TREATMENTS.
[2020-06-06 16:00] VITALS: BP 152/65
[2020-06-06 20:00] VITALS: BP 152/65
--- NOTE | 2020-06-06 20:43 | NUR ---
24 HR chart check completed.
--- NOTE | 2020-06-06 21:00 | NUR ---
SITTING IN RECLINER WATCHING TV, NO DISTRESS NOTED. RESPIRATIONS EASY. LUNGS DIMINISHED, CLEAR. PULSE OX 97% RA, O2 PRESENT AT BEDSIDE FOR PRN USE. CALL LIGHT WITHIN REACH. NO VOICED COMPLAINTS
--- NOTE | 2020-06-06 22:31 | NUR ---
MEDICATED WITH TYLENOL PER PRN ORDER FOR COMPLAINTS OF BACK PAIN RATING A 5. CALL LIGHT WITHIN REACH. WILL MONITOR
--- NOTE | 2020-06-06 23:39 | NUR ---
RESTING IN BED. STATES RELIEF FROM EARLIER TYLENOL. CALL LIGHT WITHIN REACH. NO FURTHER VOICED COMPLAINTS
[2020-06-07] VITALS: BP 127/42
--- NOTE | 2020-06-07 01:00 | NUR ---
RESITNG WITH EYES CLOSED. RESPIRATIONS EASY. O2 IN USE.
--- NOTE | 2020-06-07 06:00 | NUR ---
RESTED THROUGHOUT NIGHT WITH NO DISTRESS NOTED. RESPIRATIONS EASY. CALL LIGHT WITHIN REACH. NO VOICED COMPLAINTS THIS SHIFT
--- NOTE | 2020-06-07 07:30 | NUR ---
TOOK OVER CARE OF PT AT THIS TIME. PT RESTING IN BED. RESPIRATIONS EASY AND UNLABORED ON ROOM AIR. WILL MONITOR. CALL LIGHT IN REACH.
[2020-06-07 08:00] VITALS: BP 136/63
--- NOTE | 2020-06-07 08:35 | NUR ---
PHYSICAL THERAPY Patient seen this am 1:1 for therapy visit and was sitting up on EOB upon therapist arrival. Patient identified by name / and was very pleasant, presenting with continuos O2-2L via NC. Patient reports chronic c/o 4/10 LBP, otherwise no new c/o's at this time. Patient transfers CGA while ambulating with use of wh walker, 10' x 1 to bathroom, then additional 30'x 1, CGA, demonstrating very slow mary, decreased stride and mild fatigue. Patient also very cautious during all 90/180 turns and slow rise during all sit to stand transfers, requiring v/c to improve safe technique. Patient returned to bedside chair and remained with call light, tray table and telephone awaiting breakfast. Will continue per POC as tolerated, total treatment time 16 minutes. Pancho Malave, SUPERVISING FIRE MARSHAL
--- NOTE | 2020-06-07 08:50 | NUR ---
OT NOTE Pt was seen this A.M. 1:1 for 20 minute OT session. Upon arrival pt was supine in bed. Pt identified by name and and had complaints of 4/10 "chronic" low back pain. Pt presented to therapy with continuous 2L-O2 via NC which he refused to wear throughout treatment, SpO2 within functional limits. Pt transferred supine to sit EOB with SBA. While sitting EOB pt donned B socks with SBA while using compensatory technique of bringing his leg up to knee level. Sit to stand completed from bed level with Lev and use of w/w for UE support. Upon inital rise from the EOB pt presented with retrograde LOB that required Lev to correct. Functional mobility completed to the bathroom with CGA and use of w/w for UE support. There he transferred on/off standard commode with CGA and use of grab bar for UE support. He then stood sink side while washing his hands with CGA, pt presented with bouts of unsteady stance that required Lev to correct. Functional mobility completed back to the recliner with CGA and use of w/w. Pt was able to tolerate aprox 4 minutes of activity at a time before sitting due to fatigue. Pt was left sitting upright in the recliner with call light in hand, tray table in place, O2 donned, and phone in reach. Continue with rec D/C plan to SNF. ANDRZEJ Abrams
--- NOTE | 2020-06-07 09:00 | NUR ---
CM in to see patient. No new needs or request at this time. When medically stable he will be discharged to home with the resumption of his [place] [facility].
[2020-06-07 12:00] VITALS: BP 145/68
--- NOTE | 2020-06-07 14:58 | NUR ---
Received call from Larry at the [facility] regarding him receiving several messages from [employer] stating they do not wish to take the patient back and would like to have another company. Asked if there was a company in particular to be used and he states there was not. [employer] was set up when the patient was in [place]. Spoke to Stacey at [facility]. She believes there is a conflict in the home with the patient and a therapist. Reached out to [facility] to see if they are able to accept patient. Awaiting return call.
[2020-06-07 16:00] VITALS: BP 128/70
[2020-06-07 20:00] VITALS: BP 144/56
[2020-06-08] VITALS: BP 112/74
--- NOTE | 2020-06-08 02:30 | NUR ---
PATIENT STATED HE GOT A LITTLE DIZZY WALKING BACK FROM THE BATHROOM. BLOOD GLUCOSE 210. BLOOD PRESSURE 149/69. STATES HE FEELS OK AT THIS TIME. WILL CONTINUE TO MONITOR. CALL LIGHT IN REACH.
--- NOTE | 2020-06-08 05:09 | NUR ---
PATIENT MEDICATED WITH TYLENOL FOR COMPLAINTS OF A HEADACHE. WILL MONITOR FOR EFFECTIVENESS. CALL LIGHT IN REACH.
--- NOTE | 2020-06-08 06:00 | NUR ---
TYLENOL EFFECTIVE AT THIS TIME. PATIENT STATES HEADACHE IS SOME BETTER. WILL CONTINUE TO MONITOR.
--- NOTE | 2020-06-08 07:30 | NUR ---
TOOK OVER CARE OF PT AT THIS TIME. PT RESTING IN BED. RESPIRATIONS EASY AND UNLABORED ON 2L NC. PT DENIES DISTRESS OR PAIN. WILL CONTINUE TO MONITOR. CALL LIGHT IN REACH.
--- NOTE | 2020-06-08 07:45 | NUR ---
OT NOTE Pt was seen this A.M. 1:1 for 30 minute OT session. Upon arrival pt was supine in bed. Pt identified by name and and had complaints of feeling nauseated at this time and very weak. Pt presented to therapy with continuous 2L-O2 via NC which he remained on throughout the entire session. Pt transferred supine to sit EOB with Lev for assist with upper body. Upon inital rise to the EOB pt had complaints of feeling dizzy, after aprox 20 seconds pt had no other complaints. Sit to stand completed from bed level with Lev and use of w/w for UE support. Functional mobility completed to the bathroom with Lev and use of w/w, pt required several standing rest breaks throughout due to fatigue and weakness. Pt transferred on to the standard commode with Lev due to poor safety with alignment and sitting to soon. Upon sitting onto the commode pt had some productive emesis into the trash can and then stated that he no longer felt nauseated. Sit to stand completed from standard commode with modA and use of grab bar for UE support. Clothing management completed with maxA due to being very unsteady without UE support. Attempted to complete functional mobility back to the EOB and pt was unable to make it any further than aprox 3 feet resulting in sitting in wheeled recliner with modA. Pt was left sitting upright in the recliner with call light in hand, tray table in place, and phone in reach. Continue with rec D/C plan to SNF. ANDRZEJ Abrams
[2020-06-08 08:00] VITALS: BP 135/74
--- NOTE | 2020-06-08 08:02 | NUR ---
Received call from Clare at [facility]. They have seen patient in the past. Faxed referral to [facility].
--- NOTE | 2020-06-08 09:20 | NUR ---
Discussed discharge planning with Dr. Sage. Plan is to discharge patient today if patient's blood sugars are controlled. Awaiting Dr. Sage to round.
--- NOTE | 2020-06-08 09:25 | NUR ---
PHYSICAL THERAPY Patient was sitting up in bedside chair resting this am when approached for therapy visit. Patient stated he was not feeling well and is scheduled for Dialysis this morning, declining all treatment at this time. Will continue per POC as able. Pancho Malave, STORM SASH MAKER
[2020-06-08] MEDS ORDERED: VICTOZA 2-0.6 MG/0.1 SC (10:18)
[2020-06-08 10:21] LABS: BASO % 0.1 % (0.0-1.0); EOS # 0.2 10*3/uL (0.0-0.4); EOS % 1.6 % (1.0-4.0); HEMATOCRIT 34.3 % (42.0-52.0); LYMPH # 0.6 10*3/uL (1.3-4.4); LYMPH % 5.6 % (27.0-41.0); MEAN CELL VOLUME 104.3 fl (80.0-94.0); MEAN CORPUSCULAR HGB 33.7 pg (27.0-31.0); MEAN CORPUSCULAR HGB CONC 32.4 g/dl (33.0-37.0); MEAN PLATELET VOLUME 10.8 fl (9.6-12.3); MONO # 0.9 10*3/uL (0.1-1.0); MONO % 7.9 % (3.0-9.0); NEUT # 9.1 10*3/uL (2.3-7.9); NEUT % 84.5 % (47.0-73.0); PLATELET COUNT AUTOMATED 148 10*3/uL (130-400); RED BLOOD COUNT 3.29 10*6/uL (4.50-5.90); RED CELL DISTRI WIDTH 15.1 % (0-14.5); WHITE BLOOD COUNT 10.8 10*3/uL (4.8-10.8)
[2020-06-08] MEDS ORDERED: REGLAN5 MG PO (10:28)
[2020-06-08 10:29] LABS: ALBUMIN 3.4 gm/dl (3.1-4.5); CREATININE 4.74 mg/dL (0.70-1.30); POTASSIUM 4.9 mmol/L (3.5-5.1)
--- NOTE | 2020-06-08 12:00 | NUR ---
DR FITZGERALD STATES THAT PT CAN BE DISCHARGED TODAY AFTER DIALYSIS TREATMENT.
--- NOTE | 2020-06-08 12:46 | NUR ---
Received call from Clare at [facility]. They are able to accept patient. Informed there is not a discharge in yet for today but possibly over the weekend. She will touch base with CM on Thursday. Gave Dr. Sage's office number for follow up orders.
--- NOTE | 2020-06-08 12:56 | NUR ---
PT. IN DIALYSIS
--- NOTE | 2020-06-08 13:00 | NUR ---
PT AT DIALYSIS AT THIS TIME. PT STABLE. NO COMPLAINTS VOICED. WILL MONITOR.
--- NOTE | 2020-06-08 14:50 | NUR ---
PT RETURNS FROM DIALYSIS AT THIS TIME.
--- NOTE | 2020-06-08 15:46 | NUR ---
PHYSICAL THERAPY CO-SIGN I approve of the Physical Therapy notes written above. Cassandra Urbano PT
--- NOTE | 2020-06-08 15:52 | NUR ---
OCCUPATIONAL THERAPY CO-SIGN I approve of the Occupational Therapy notes written above. CHERYL FORD, OTR/L
--- NOTE | 2020-06-08 16:30 | NUR ---
Discharge instructions reviewed with patient/family. Patient receptive and verbalizes understanding. Follow-up care arranged. Written instructions given to patient/family. FELICIANO DYER
--- NOTE | 2020-06-08 16:55 | NUR ---
PT TRANSPORTED VIA WC TO 'S CAR IN LOBBY PARKING LOT.
--- NOTE | 2020-06-11 07:53 | NUR ---
Faxed discharge instructions and summary to [facility]
--- NOTE | 2020-06-11 09:29 | NUR ---
Received call from Shireen at [facility]. She requested face sheet on patient. Faxed face sheet.
--- NOTE | 2020-06-12 09:36 | NUR ---
Received call from Shireen at [facility]. [facility] will be taking patient for home health services.
== END 2020-06-08 16:30 | disposition home or self-care (01) | DRG 637 ==
LOC: ED 11:47 → 5E 14:04 → EDHOLD 14:04 → 4NE 17:39 → EDHOLD 17:41 → 5E 06-01 12:35
PROVIDERS: Emergency Medicine; Internal Medicine; Internal Medicine Nephrology; ADMIT Internal Medicine; ATTEND Internal Medicine
PROC: 5A1D80Z Performance of Urinary Filtration, Prolonged Intermittent, 6-18 hours Per Day (ICD-10-PCS; principal; 2020-06-02)
PROC: 5A1D70Z Performance of Urinary Filtration, Intermittent, Less than 6 Hours Per Day (ICD-10-PCS; 2020-06-04)
PROC: 5A1D70Z Performance of Urinary Filtration, Intermittent, Less than 6 Hours Per Day (ICD-10-PCS; 2020-06-06)
DX: E11.65 Type 2 diabetes mellitus with hyperglycemia (principal); I50.23 Acute on chronic systolic (congestive) heart failure; N18.6 End stage renal disease; I13.2 Hypertensive heart and chronic kidney disease with heart failure and with stage 5 chronic kidney disease, or end stage renal disease; E66.2 Morbid (severe) obesity with alveolar hypoventilation; E11.22 Type 2 diabetes mellitus with diabetic chronic kidney disease; E11.43 Type 2 diabetes mellitus with diabetic autonomic (poly)neuropathy; K31.84 Gastroparesis; I25.10 Atherosclerotic heart disease of native coronary artery without angina pectoris; K59.09 Other constipation; G89.29 Other chronic pain; M54.32 Sciatica, left side; M54.31 Sciatica, right side; J44.9 Chronic obstructive pulmonary disease, unspecified; F32.9 Major depressive disorder, single episode, unspecified; D64.9 Anemia, unspecified; R62.7 Adult failure to thrive; E11.42 Type 2 diabetes mellitus with diabetic polyneuropathy; Z99.2 Dependence on renal dialysis; Z88.5 Allergy status to narcotic agent; Z88.8 Allergy status to other drugs, medicaments and biological substances; I25.2 Old myocardial infarction; Z95.5 Presence of coronary angioplasty implant and graft; Z98.52 Vasectomy status; Z80.9 Family history of malignant neoplasm, unspecified; Z79.899 Other long term (current) drug therapy; Z68.30 Body mass index [BMI] 30.0-30.9, adult; Z20.828 Contact with and (suspected) exposure to other viral communicable diseases

== ENCOUNTER 2020-07-02 14:07 | Inpatient (IN) | payer MEDICARE ==
[~2020-07-02] VITALS: Ht 183 cm; Wt 90.5 kg
[~2020-07-02 14:07] MED LIST changes: +INSULIN AS100 UNIT/3 SC; +REGLAN5 MG PO; +VICTOZA 2-0.6 MG/0.1 SC
[2020-07-02 14:20] VITALS: BP 129/66
[2020-07-02 14:41] LABS: BASO % 0.2 % (0.0-1.0); EOS # 0.3 10*3/uL (0.0-0.4); EOS % 5.5 % (1.0-4.0); HEMATOCRIT 31.7 % (42.0-52.0); LYMPH # 1.1 10*3/uL (1.3-4.4); LYMPH % 24.3 % (27.0-41.0); MEAN CORPUSCULAR HGB 33.4 pg (27.0-31.0); MEAN CORPUSCULAR HGB CONC 33.4 g/dl (33.0-37.0); MEAN PLATELET VOLUME 9.2 fl (9.6-12.3); MONO # 0.6 10*3/uL (0.1-1.0); MONO % 13.3 % (3.0-9.0); NEUT # 2.5 10*3/uL (2.3-7.9); NEUT % 56.3 % (47.0-73.0); PLATELET COUNT AUTOMATED 209 10*3/uL (130-400); RED BLOOD COUNT 3.17 10*6/uL (4.50-5.90); RED CELL DISTRI WIDTH 14.2 % (0-14.5); WHITE BLOOD COUNT 4.5 10*3/uL (4.8-10.8)
[2020-07-02 14:53] LABS: ACT PARTIAL THROMBO TIME 31.3 SECONDS (20.0-32.1); INTERNATIONAL NORM RATIO 1.6 (2.0-3.5)
[2020-07-02 14:58] LABS: ALBUMIN 3.5 gm/dl (3.1-4.5); CREATININE 2.65 mg/dL (0.70-1.30); POTASSIUM 3.4 mmol/L (3.5-5.1); TOTAL PROTEIN 7.1 gm/dL (6.4-8.2)
[2020-07-02 15:03] LABS: TROPONIN I 0.716 ng/ml (<0.045)
[2020-07-02 15:38] VITALS: BP 141/72
[2020-07-02 16:20] VITALS: BP 149/73
[2020-07-02 17:34] VITALS: BP 144/63
[2020-07-02] MEDS ORDERED: METOCLOPRAMIDE H5 M1 PO (18:54)
[2020-07-02 20:44] VITALS: BP 160/80
[2020-07-02 23:55] VITALS: BP 142/63
[2020-07-03 01:56] VITALS: BP 157/83
[2020-07-03 03:57] LABS: BASO % 0.2 % (0.0-1.0); EOS # 0.2 10*3/uL (0.0-0.4); EOS % 3.1 % (1.0-4.0); HEMATOCRIT 32.2 % (42.0-52.0); LYMPH # 1.1 10*3/uL (1.3-4.4); LYMPH % 18.2 % (27.0-41.0); MEAN CELL VOLUME 102.2 fl (80.0-94.0); MEAN CORPUSCULAR HGB 33.3 pg (27.0-31.0); MEAN CORPUSCULAR HGB CONC 32.6 g/dl (33.0-37.0); MEAN PLATELET VOLUME 10.1 fl (9.6-12.3); MONO # 0.5 10*3/uL (0.1-1.0); MONO % 9.2 % (3.0-9.0); NEUT % 69.1 % (47.0-73.0); PLATELET COUNT AUTOMATED 181 10*3/uL (130-400); RED BLOOD COUNT 3.15 10*6/uL (4.50-5.90); RED CELL DISTRI WIDTH 14.6 % (0-14.5); WHITE BLOOD COUNT 5.8 10*3/uL (4.8-10.8)
[2020-07-03 04:16] LABS: ALBUMIN 3.3 gm/dl (3.1-4.5); CREATININE 4.02 mg/dL (0.70-1.30); TOTAL PROTEIN 6.6 gm/dL (6.4-8.2)
[2020-07-03 04:17] LABS: FREE T4 0.86 ng/dl (0.76-1.46)
[2020-07-03 04:22] LABS: POTASSIUM 4.8 mmol/L (3.5-5.1); THYROID STIM HORMONE (HS) 0.834 uIU/ml (0.358-4.75)
[2020-07-03 05:36] VITALS: BP 157/71
[2020-07-03 08:14] LABS: VITAMIN D, 25-HYDROXY 26.2 ng/mL (30-100)
[2020-07-03 14:12] VITALS: BP 149/70
[2020-07-03 20:00] VITALS: BP 151/62
[2020-07-04] VITALS: BP 142/69
[2020-07-04 05:51] LABS: CREATININE 4.95 mg/dL (0.70-1.30); POTASSIUM 4.3 mmol/L (3.5-5.1)
[2020-07-04 06:17] LABS: ACT PARTIAL THROMBO TIME 48.6 SECONDS (20.0-32.1)
[2020-07-04 06:20] LABS: BASO % 0.3 % (0.0-1.0); EOS # 0.3 10*3/uL (0.0-0.4); EOS % 5.1 % (1.0-4.0); HEMATOCRIT 33.4 % (42.0-52.0); LYMPH # 1.1 10*3/uL (1.3-4.4); LYMPH % 16.6 % (27.0-41.0); MEAN CELL VOLUME 101.8 fl (80.0-94.0); MEAN CORPUSCULAR HGB 33.5 pg (27.0-31.0); MEAN CORPUSCULAR HGB CONC 32.9 g/dl (33.0-37.0); MEAN PLATELET VOLUME 10.5 fl (9.6-12.3); MONO # 0.5 10*3/uL (0.1-1.0); NEUT # 4.6 10*3/uL (2.3-7.9); NEUT % 69.7 % (47.0-73.0); PLATELET COUNT AUTOMATED 204 10*3/uL (130-400); RED BLOOD COUNT 3.28 10*6/uL (4.50-5.90); RED CELL DISTRI WIDTH 14.5 % (0-14.5); WHITE BLOOD COUNT 6.6 10*3/uL (4.8-10.8)
[2020-07-04 08:00] VITALS: BP 154/93
[2020-07-04 08:31] LABS: INTERNATIONAL NORM RATIO 1.8 (2.0-3.5)
[2020-07-04 13:10] VITALS: BP 136/74
[2020-07-04 16:00] VITALS: BP 169/66
[2020-07-04 20:00] VITALS: BP 100/52
[2020-07-05] VITALS (7 sets, daily range): BP systolic 86–127; BP diastolic 40–61
[2020-07-05 06:44] LABS: INTERNATIONAL NORM RATIO 2.6 (2.0-3.5)
[2020-07-06] VITALS: BP 150/78
[2020-07-06 16:00] VITALS: BP 131/76
[2020-07-06 20:00] VITALS: BP 125/60
[2020-07-07] VITALS: BP 152/60
[2020-07-07 08:00] VITALS: BP 120/75
[2020-07-07] MEDS ORDERED: VICTOZA 2-0.6 MG/0.1 SC (08:22)
[2020-07-07] MEDS ORDERED: IMDUR SA60 M1 PO (08:22)
[2020-07-07 08:35] VITALS: BP 90/44
[2020-07-07 12:00] VITALS: BP 110/55
== END 2020-07-07 13:56 | disposition home health service (06) | DRG 280 ==
LOC: ED 14:07 → EDHOLD 15:26 → 5E 15:26 → EDHOLD 15:55 → 5E 07-03 13:52
PROVIDERS: Emergency Medicine; Internal Medicine; Registered Nurse; ADMIT Internal Medicine; ATTEND Internal Medicine
PROC: 5A1D70Z Performance of Urinary Filtration, Intermittent, Less than 6 Hours Per Day (ICD-10-PCS; principal; 2020-07-04)
DX: I21.4 Non-ST elevation (NSTEMI) myocardial infarction (principal); N18.6 End stage renal disease; I50.22 Chronic systolic (congestive) heart failure; I48.21 Permanent atrial fibrillation; E87.1 Hypo-osmolality and hyponatremia; I13.2 Hypertensive heart and chronic kidney disease with heart failure and with stage 5 chronic kidney disease, or end stage renal disease; E11.65 Type 2 diabetes mellitus with hyperglycemia; J44.9 Chronic obstructive pulmonary disease, unspecified; K08.409 Partial loss of teeth, unspecified cause, unspecified class; I48.0 Paroxysmal atrial fibrillation; R62.7 Adult failure to thrive; D64.9 Anemia, unspecified; E87.8 Other disorders of electrolyte and fluid balance, not elsewhere classified; E11.43 Type 2 diabetes mellitus with diabetic autonomic (poly)neuropathy; K31.84 Gastroparesis; I25.5 Ischemic cardiomyopathy; Z20.822 Contact with and (suspected) exposure to COVID-19; E11.22 Type 2 diabetes mellitus with diabetic chronic kidney disease; I25.110 Atherosclerotic heart disease of native coronary artery with unstable angina pectoris; Z79.4 Long term (current) use of insulin; Z88.6 Allergy status to analgesic agent; Z88.1 Allergy status to other antibiotic agents; Z88.8 Allergy status to other drugs, medicaments and biological substances; Z95.5 Presence of coronary angioplasty implant and graft; Z90.11 Acquired absence of right breast and nipple; Z98.52 Vasectomy status; Z98.49 Cataract extraction status, unspecified eye; Z79.82 Long term (current) use of aspirin; Z79.899 Other long term (current) drug therapy; Z99.2 Dependence on renal dialysis; Z79.01 Long term (current) use of anticoagulants; Z91.14 Patient's other noncompliance with medication regimen; Z68.27 Body mass index [BMI] 27.0-27.9, adult

== ENCOUNTER 2020-07-18 12:56 | Inpatient (IN) | payer MEDICARE ==
[~2020-07-18] VITALS: Wt 95.0 kg
[2020-07-18] VITALS (7 sets, daily range): BP systolic 161–180; BP diastolic 70–89
[~2020-07-18 12:56] MED LIST changes: +METOCLOPRAMIDE H5 M1 PO
[2020-07-18 13:31] LABS: EOS # 0.1 10*3/uL (0.0-0.4); EOS % 1.1 % (1.0-4.0); LYMPH # 0.7 10*3/uL (1.3-4.4); LYMPH % 16.5 % (27.0-41.0); MEAN CELL VOLUME 101.5 fl (80.0-94.0); MEAN CORPUSCULAR HGB 33.7 pg (27.0-31.0); MEAN CORPUSCULAR HGB CONC 33.2 g/dl (33.0-37.0); MEAN PLATELET VOLUME 10.9 fl (9.6-12.3); MONO # 0.5 10*3/uL (0.1-1.0); MONO % 10.2 % (3.0-9.0); NEUT # 3.2 10*3/uL (2.3-7.9); PLATELET COUNT AUTOMATED 120 10*3/uL (130-400); RED BLOOD COUNT 3.35 10*6/uL (4.50-5.90); RED CELL DISTRI WIDTH 14.8 % (0-14.5); WHITE BLOOD COUNT 4.4 10*3/uL (4.8-10.8)
[2020-07-18 13:42] LABS: ACT PARTIAL THROMBO TIME 32.2 SECONDS (20.0-32.1); INTERNATIONAL NORM RATIO 1.3 (2.0-3.5)
[2020-07-18 13:47] LABS: ALBUMIN 3.2 gm/dl (3.1-4.5); CREATININE 3.03 mg/dL (0.70-1.30); POTASSIUM 3.9 mmol/L (3.5-5.1); TOTAL PROTEIN 6.2 gm/dL (6.4-8.2)
[2020-07-18 13:55] LABS: TROPONIN I 0.751 ng/ml (<0.045)
[2020-07-19 00:29] LABS: CREATININE 3.79 mg/dL (0.70-1.30); POTASSIUM 4.3 mmol/L (3.5-5.1)
[2020-07-19 08:00] VITALS: BP 165/73
[2020-07-19 09:22] LABS: INTERNATIONAL NORM RATIO 1.4 (2.0-3.5)
[2020-07-19 10:45] LABS: ABG BASE EXCESS 2.1 mmol/L (-2.0-2.0); ARTERIAL BLOOD GAS PH 7.408 (7.35-7.45)
[2020-07-19 12:00] VITALS: BP 158/71
[2020-07-19 16:00] VITALS: BP 158/82
[2020-07-19 20:00] VITALS: BP 157/78
[2020-07-20] VITALS: BP 149/63
[2020-07-20 06:44] LABS: LYMPH # 0.5 10*3/uL (1.3-4.4); LYMPH % 7.4 % (27.0-41.0); MEAN CELL VOLUME 102.3 fl (80.0-94.0); MEAN CORPUSCULAR HGB 33.7 pg (27.0-31.0); MEAN CORPUSCULAR HGB CONC 32.9 g/dl (33.0-37.0); MEAN PLATELET VOLUME 11.4 fl (9.6-12.3); MONO # 0.4 10*3/uL (0.1-1.0); MONO % 6.3 % (3.0-9.0); NEUT # 5.8 10*3/uL (2.3-7.9); NEUT % 85.9 % (47.0-73.0); PLATELET COUNT AUTOMATED 105 10*3/uL (130-400); RED BLOOD COUNT 3.03 10*6/uL (4.50-5.90); RED CELL DISTRI WIDTH 14.6 % (0-14.5); WHITE BLOOD COUNT 6.7 10*3/uL (4.8-10.8)
[2020-07-20 07:20] LABS: INTERNATIONAL NORM RATIO 1.3 (2.0-3.5)
[2020-07-20 07:30] LABS: ALBUMIN 3.2 gm/dl (3.1-4.5); CREATININE 4.3 mg/dL (0.70-1.30); TOTAL PROTEIN 6.1 gm/dL (6.4-8.2)
[2020-07-20 08:00] VITALS: BP 160/86
[2020-07-20 12:00] VITALS: BP 164/76
[2020-07-20 16:00] VITALS: BP 148/56
[2020-07-20 20:00] VITALS: BP 152/62
[2020-07-21] VITALS: BP 163/76
[2020-07-21 06:39] LABS: HEMATOCRIT 35.7 % (42.0-52.0); MEAN CELL VOLUME 104.7 fl (80.0-94.0); MEAN CORPUSCULAR HGB 33.1 pg (27.0-31.0); MEAN CORPUSCULAR HGB CONC 31.7 g/dl (33.0-37.0); MEAN PLATELET VOLUME 11.6 fl (9.6-12.3); PLATELET COUNT AUTOMATED 109 10*3/uL (130-400); RED BLOOD COUNT 3.41 10*6/uL (4.50-5.90); RED CELL DISTRI WIDTH 14.6 % (0-14.5); WHITE BLOOD COUNT 17.3 10*3/uL (4.8-10.8)
[2020-07-21 06:56] LABS: ALBUMIN 3.3 gm/dl (3.1-4.5); CREATININE 3.45 mg/dL (0.70-1.30); POTASSIUM 4.1 mmol/L (3.5-5.1); TOTAL PROTEIN 7.2 gm/dL (6.4-8.2)
[2020-07-21 07:13] LABS: TOTAL CELLS COUNTED 100 #CELLS; VACUOLATION OF NEUTROPHILS SLIGHT
[2020-07-21 07:14] LABS: OVALOCYTES FEW; PLATELET SUFFICIENCY LOW (NORMAL)
[2020-07-21 08:00] VITALS: BP 158/78
[2020-07-21 12:00] VITALS: BP 156/78
[2020-07-21 16:00] VITALS: BP 164/76
[2020-07-21 20:00] VITALS: BP 160/74
[2020-07-22] VITALS: BP 156/82
[2020-07-22 06:17] LABS: BASO % 0.1 % (0.0-1.0); EOS % 0.3 % (1.0-4.0); HEMATOCRIT 32.4 % (42.0-52.0); LYMPH # 0.5 10*3/uL (1.3-4.4); MEAN CELL VOLUME 104.9 fl (80.0-94.0); MEAN CORPUSCULAR HGB CONC 32.4 g/dl (33.0-37.0); MEAN PLATELET VOLUME 12.1 fl (9.6-12.3); MONO # 0.5 10*3/uL (0.1-1.0); MONO % 6.5 % (3.0-9.0); NEUT # 6.6 10*3/uL (2.3-7.9); NEUT % 85.6 % (47.0-73.0); PLATELET COUNT AUTOMATED 85 10*3/uL (130-400); RED BLOOD COUNT 3.09 10*6/uL (4.50-5.90); RED CELL DISTRI WIDTH 14.9 % (0-14.5); WHITE BLOOD COUNT 7.7 10*3/uL (4.8-10.8)
[2020-07-22 06:25] LABS: ALBUMIN 2.6 gm/dl (3.1-4.5); CREATININE 4.21 mg/dL (0.70-1.30); POTASSIUM 3.9 mmol/L (3.5-5.1)
[2020-07-22 06:30] LABS: TOTAL PROTEIN 6.1 gm/dL (6.4-8.2)
[2020-07-22 08:00] VITALS: BP 126/64
[2020-07-22 11:18] LABS: ARTERIAL BLOOD GAS PH 7.367 (7.35-7.45)
[2020-07-22 12:00] VITALS: BP 114/72
[2020-07-22 16:00] VITALS: BP 128/84
[2020-07-22 20:00] VITALS: BP 143/68
[2020-07-23] VITALS: BP 167/76
[2020-07-23 02:00] VITALS: BP 158/75
[2020-07-23 06:29] LABS: INTERNATIONAL NORM RATIO 2.1 (2.0-3.5)
[2020-07-23 06:35] LABS: EOS % 0.4 % (1.0-4.0); LYMPH # 0.5 10*3/uL (1.3-4.4); LYMPH % 8.6 % (27.0-41.0); MEAN CELL VOLUME 104.2 fl (80.0-94.0); MEAN CORPUSCULAR HGB 33.7 pg (27.0-31.0); MEAN CORPUSCULAR HGB CONC 32.3 g/dl (33.0-37.0); MEAN PLATELET VOLUME 12.5 fl (9.6-12.3); MONO # 0.4 10*3/uL (0.1-1.0); NEUT # 4.4 10*3/uL (2.3-7.9); NEUT % 83.6 % (47.0-73.0); PLATELET COUNT AUTOMATED 107 10*3/uL (130-400); RED BLOOD COUNT 2.88 10*6/uL (4.50-5.90); RED CELL DISTRI WIDTH 14.7 % (0-14.5); WHITE BLOOD COUNT 5.3 10*3/uL (4.8-10.8)
[2020-07-23 06:50] LABS: ALBUMIN 2.5 gm/dl (3.1-4.5); CREATININE 5.21 mg/dL (0.70-1.30); POTASSIUM 4.5 mmol/L (3.5-5.1); TOTAL PROTEIN 6.2 gm/dL (6.4-8.2)
[2020-07-23 08:00] VITALS: BP 156/83
[2020-07-23 12:00] VITALS: BP 132/66
[2020-07-23 16:00] VITALS: BP 113/74
[2020-07-23 20:00] VITALS: BP 133/62
[2020-07-24] VITALS: BP 160/70
[2020-07-24 07:00] LABS: INTERNATIONAL NORM RATIO 2.3 (2.0-3.5)
[2020-07-24 08:00] VITALS: BP 161/72
[2020-07-24 12:00] VITALS: BP 176/82
[2020-07-24 16:00] VITALS: BP 152/71
[2020-07-24 20:00] VITALS: BP 168/70
[2020-07-25] VITALS: BP 158/73
[2020-07-25 06:16] LABS: ALBUMIN 2.6 gm/dl (3.1-4.5); CREATININE 4.5 mg/dL (0.70-1.30); POTASSIUM 4.6 mmol/L (3.5-5.1); TOTAL PROTEIN 6.1 gm/dL (6.4-8.2)
[2020-07-25 06:26] LABS: TROPONIN I 0.107 ng/ml (<0.045)
[2020-07-25 06:30] LABS: BASO % 0.2 % (0.0-1.0); EOS # 0.1 10*3/uL (0.0-0.4); EOS % 0.8 % (1.0-4.0); HEMATOCRIT 31.3 % (42.0-52.0); LYMPH # 0.8 10*3/uL (1.3-4.4); LYMPH % 13.9 % (27.0-41.0); MEAN CELL VOLUME 103.3 fl (80.0-94.0); MEAN CORPUSCULAR HGB CONC 32.9 g/dl (33.0-37.0); MEAN PLATELET VOLUME 11.2 fl (9.6-12.3); MONO # 0.6 10*3/uL (0.1-1.0); MONO % 9.9 % (3.0-9.0); NEUT # 4.5 10*3/uL (2.3-7.9); NEUT % 74.5 % (47.0-73.0); RED BLOOD COUNT 3.03 10*6/uL (4.50-5.90); RED CELL DISTRI WIDTH 14.3 % (0-14.5)
[2020-07-25 06:32] LABS: INTERNATIONAL NORM RATIO 3.6 (2.0-3.5)
[2020-07-25 06:33] LABS: PLATELET COUNT AUTOMATED 194 10*3/uL (130-400)
[2020-07-25 08:00] VITALS: BP 153/70
[2020-07-25] MEDS ORDERED: DEXAMETHASONE0.75 MG PO (09:09)
[2020-07-25 11:59] VITALS: BP 158/70
[2020-07-25 15:11] LABS: ARTERIAL BLOOD GAS PH 7.471 (7.35-7.45)
== END 2020-07-25 17:25 | disposition home or self-care (01) | DRG 871 ==
LOC: ED 12:56 → EDHOLD 16:10 → 4E 16:10 → EDHOLD 16:14 → 4E 20:40
PROVIDERS: Emergency Medicine; Internal Medicine; Internal Medicine Critical Care Medicine; ADMIT Internal Medicine; ATTEND Internal Medicine
PROC: 5A09357 Assistance with Respiratory Ventilation, Less than 24 Consecutive Hours, Continuous Positive Airway Pressure (ICD-10-PCS; 2020-07-19)
PROC: XW033E5 Introduction of Remdesivir Anti-infective into Peripheral Vein, Percutaneous Approach, New Technology Group 5 (ICD-10-PCS; principal; 2020-07-20)
PROC: 5A1D70Z Performance of Urinary Filtration, Intermittent, Less than 6 Hours Per Day (ICD-10-PCS; 2020-07-20)
PROC: 5A09357 Assistance with Respiratory Ventilation, Less than 24 Consecutive Hours, Continuous Positive Airway Pressure (ICD-10-PCS; 2020-07-22)
PROC: 5A1D70Z Performance of Urinary Filtration, Intermittent, Less than 6 Hours Per Day (ICD-10-PCS; 2020-07-23)
PROC: 5A09357 Assistance with Respiratory Ventilation, Less than 24 Consecutive Hours, Continuous Positive Airway Pressure (ICD-10-PCS; 2020-07-24)
PROC: 5A1D70Z Performance of Urinary Filtration, Intermittent, Less than 6 Hours Per Day (ICD-10-PCS; 2020-07-25)
DX: A41.89 Other specified sepsis (principal); U07.1 COVID-19; J12.82 Pneumonia due to coronavirus disease 2019; E11.10 Type 2 diabetes mellitus with ketoacidosis without coma; N18.6 End stage renal disease; D61.818 Other pancytopenia; I48.21 Permanent atrial fibrillation; J44.0 Chronic obstructive pulmonary disease with (acute) lower respiratory infection; E87.1 Hypo-osmolality and hyponatremia; I13.0 Hypertensive heart and chronic kidney disease with heart failure and stage 1 through stage 4 chronic kidney disease, or unspecified chronic kidney disease; E46 Unspecified protein-calorie malnutrition; I42.9 Cardiomyopathy, unspecified; J98.11 Atelectasis; D63.8 Anemia in other chronic diseases classified elsewhere; J45.909 Unspecified asthma, uncomplicated; G25.81 Restless legs syndrome; E87.8 Other disorders of electrolyte and fluid balance, not elsewhere classified; E11.22 Type 2 diabetes mellitus with diabetic chronic kidney disease; I50.9 Heart failure, unspecified; I25.10 Atherosclerotic heart disease of native coronary artery without angina pectoris; E83.39 Other disorders of phosphorus metabolism; E11.65 Type 2 diabetes mellitus with hyperglycemia; R79.1 Abnormal coagulation profile; Z99.2 Dependence on renal dialysis; Z79.01 Long term (current) use of anticoagulants; Z79.4 Long term (current) use of insulin; Z88.5 Allergy status to narcotic agent; Z88.8 Allergy status to other drugs, medicaments and biological substances; Z79.899 Other long term (current) drug therapy; Z90.11 Acquired absence of right breast and nipple; Z68.27 Body mass index [BMI] 27.0-27.9, adult

== ENCOUNTER 2020-07-27 04:37 | Inpatient (IN) | payer MEDICARE ==
[~2020-07-27] VITALS: Ht 182.8 cm; Wt 87.6 kg
[~2020-07-27 04:37] MED LIST changes: +DEXAMETHASONE0.75 MG PO
[2020-07-27 04:40] VITALS: BP 191/94
[2020-07-27 05:58] VITALS: BP 183/96
[2020-07-27 06:06] LABS: BASO % 0.1 % (0.0-1.0); EOS # 0.1 10*3/uL (0.0-0.4); EOS % 0.7 % (1.0-4.0); HEMATOCRIT 34.6 % (42.0-52.0); LYMPH # 0.6 10*3/uL (1.3-4.4); LYMPH % 6.9 % (27.0-41.0); MEAN CORPUSCULAR HGB CONC 32.1 g/dl (33.0-37.0); MEAN PLATELET VOLUME 11.1 fl (9.6-12.3); MONO # 0.7 10*3/uL (0.1-1.0); MONO % 8.2 % (3.0-9.0); NEUT # 6.7 10*3/uL (2.3-7.9); NEUT % 82.9 % (47.0-73.0); RED BLOOD COUNT 3.36 10*6/uL (4.50-5.90); RED CELL DISTRI WIDTH 13.9 % (0-14.5); WHITE BLOOD COUNT 8.1 10*3/uL (4.8-10.8)
[2020-07-27 06:09] LABS: PLATELET COUNT AUTOMATED 290 10*3/uL (130-400)
[2020-07-27 06:19] LABS: CREATININE 4.9 mg/dL (0.70-1.30); TOTAL PROTEIN 6.6 gm/dL (6.4-8.2)
[2020-07-27 06:26] LABS: POTASSIUM 5.7 mmol/L (3.5-5.1)
[2020-07-27 06:27] LABS: TROPONIN I 0.083 ng/ml (<0.045)
[2020-07-27 06:36] LABS: INTERNATIONAL NORM RATIO 6.2 (2.0-3.5)
[2020-07-27 07:42] VITALS: BP 180/95
[2020-07-27 09:21] LABS: CREATININE 5.05 mg/dL (0.70-1.30); POTASSIUM 5.5 mmol/L (3.5-5.1)
[2020-07-27 12:00] VITALS: BP 175/91
[2020-07-27 16:00] VITALS: BP 168/70
[2020-07-27 20:00] VITALS: BP 134/65
[2020-07-28] VITALS: BP 151/74
[2020-07-28 05:20] LABS: BILIRUBIN Negative (Negative); BLOOD Trace-Lysed (Negative); CLARITY Clear (Clear); COLOR Yellow (Yellow); GLUCOSE 2+ (Negative); KETONE Negative (Negative); LEUKO ESTERASE Trace (Negative); NITRITE Negative (Negative); PH 6.5 (4.5-8.0); SPECIFIC GRAVITY 1.015 (1.001-1.030); UROBILINOGEN 0.2 E.U./dl (0.0-1.0)
[2020-07-28 06:02] LABS: CREATININE 5.28 mg/dL (0.70-1.30); POTASSIUM 4.6 mmol/L (3.5-5.1)
[2020-07-28 06:44] LABS: INTERNATIONAL NORM RATIO 5.2 (2.0-3.5)
[2020-07-28 08:00] VITALS: BP 130/68
[2020-07-28 12:00] VITALS: BP 105/61
[2020-07-28 16:00] VITALS: BP 90/51
[2020-07-28 20:00] VITALS: BP 111/53
[2020-07-29] VITALS: BP 122/59
[2020-07-29 08:00] VITALS: BP 143/64
[2020-07-29 12:00] VITALS: BP 124/53
[2020-07-29 16:00] VITALS: BP 118/51
[2020-07-29 20:00] VITALS: BP 127/63
[2020-07-30] VITALS: BP 140/75
[2020-07-30 05:41] LABS: ALBUMIN 2.6 gm/dl (3.1-4.5); CREATININE 5.34 mg/dL (0.70-1.30); POTASSIUM 4.8 mmol/L (3.5-5.1); TOTAL PROTEIN 6.2 gm/dL (6.4-8.2)
[2020-07-30 06:33] LABS: INTERNATIONAL NORM RATIO 2.6 (2.0-3.5)
[2020-07-30 06:45] LABS: BASO % 0.1 % (0.0-1.0); EOS # 0.1 10*3/uL (0.0-0.4); EOS % 1.7 % (1.0-4.0); HEMATOCRIT 31.5 % (42.0-52.0); LYMPH # 1.2 10*3/uL (1.3-4.4); MEAN CELL VOLUME 100.3 fl (80.0-94.0); MEAN CORPUSCULAR HGB 33.1 pg (27.0-31.0); MONO # 0.7 10*3/uL (0.1-1.0); NEUT # 6.3 10*3/uL (2.3-7.9); NEUT % 75.6 % (47.0-73.0); PLATELET COUNT AUTOMATED 254 10*3/uL (130-400); RED BLOOD COUNT 3.14 10*6/uL (4.50-5.90); RED CELL DISTRI WIDTH 13.7 % (0-14.5); WHITE BLOOD COUNT 8.4 10*3/uL (4.8-10.8)
[2020-07-30 12:00] VITALS: BP 141/74
[2020-07-30 16:00] VITALS: BP 101/51
[2020-07-30 20:00] VITALS: BP 110/45
[2020-07-31] VITALS: BP 106/80
[2020-07-31 06:33] LABS: BASO % 0.2 % (0.0-1.0); EOS # 0.1 10*3/uL (0.0-0.4); EOS % 0.7 % (1.0-4.0); HEMATOCRIT 37.5 % (42.0-52.0); LYMPH % 10.4 % (27.0-41.0); MEAN CELL VOLUME 102.5 fl (80.0-94.0); MEAN CORPUSCULAR HGB 32.5 pg (27.0-31.0); MEAN CORPUSCULAR HGB CONC 31.7 g/dl (33.0-37.0); MEAN PLATELET VOLUME 10.7 fl (9.6-12.3); MONO # 0.7 10*3/uL (0.1-1.0); MONO % 7.4 % (3.0-9.0); NEUT # 7.4 10*3/uL (2.3-7.9); NEUT % 80.5 % (47.0-73.0); PLATELET COUNT AUTOMATED 291 10*3/uL (130-400); RED BLOOD COUNT 3.66 10*6/uL (4.50-5.90); RED CELL DISTRI WIDTH 13.7 % (0-14.5); WHITE BLOOD COUNT 9.2 10*3/uL (4.8-10.8)
[2020-07-31 06:51] LABS: ALBUMIN 2.8 gm/dl (3.1-4.5); CREATININE 4.83 mg/dL (0.70-1.30); POTASSIUM 4.7 mmol/L (3.5-5.1); TOTAL PROTEIN 6.8 gm/dL (6.4-8.2)
[2020-07-31 07:11] LABS: INTERNATIONAL NORM RATIO 4.9 (2.0-3.5)
[2020-07-31 08:00] VITALS: BP 142/76
[2020-07-31 12:00] VITALS: BP 100/47
[2020-07-31 16:00] VITALS: BP 119/67
[2020-07-31 20:00] VITALS: BP 104/58
[2020-08-01] VITALS: BP 132/79
[2020-08-01 06:24] LABS: BASO % 0.3 % (0.0-1.0); EOS # 0.2 10*3/uL (0.0-0.4); HEMATOCRIT 31.3 % (42.0-52.0); LYMPH # 1.3 10*3/uL (1.3-4.4); LYMPH % 16.8 % (27.0-41.0); MEAN CELL VOLUME 100.6 fl (80.0-94.0); MEAN CORPUSCULAR HGB 33.8 pg (27.0-31.0); MEAN CORPUSCULAR HGB CONC 33.5 g/dl (33.0-37.0); MEAN PLATELET VOLUME 10.8 fl (9.6-12.3); MONO # 0.7 10*3/uL (0.1-1.0); MONO % 9.6 % (3.0-9.0); NEUT # 5.4 10*3/uL (2.3-7.9); NEUT % 70.6 % (47.0-73.0); PLATELET COUNT AUTOMATED 245 10*3/uL (130-400); RED BLOOD COUNT 3.11 10*6/uL (4.50-5.90); RED CELL DISTRI WIDTH 13.7 % (0-14.5); WHITE BLOOD COUNT 7.6 10*3/uL (4.8-10.8)
[2020-08-01 06:36] LABS: ALBUMIN 2.6 gm/dl (3.1-4.5); CREATININE 5.9 mg/dL (0.70-1.30); POTASSIUM 4.7 mmol/L (3.5-5.1); TOTAL PROTEIN 6.2 gm/dL (6.4-8.2)
[2020-08-01 06:39] LABS: INTERNATIONAL NORM RATIO 5.3 (2.0-3.5)
[2020-08-01 08:00] VITALS: BP 137/58
[2020-08-01] MEDS ORDERED: ANORO ELLIPTA1 EACH INH (08:54)
[2020-08-01 12:00] VITALS: BP 141/60
[2020-08-01 16:00] VITALS: BP 114/57
[2020-08-01 20:00] VITALS: BP 133/54
[2020-08-02] VITALS: BP 113/59
[2020-08-02 06:18] LABS: INTERNATIONAL NORM RATIO 3.1 (2.0-3.5)
[2020-08-02 08:00] VITALS: BP 118/63
[2020-08-02 12:00] VITALS: BP 123/62
== END 2020-08-02 12:50 | DRG 917 ==
LOC: ED 04:37 → 4E 06:57 → EDHOLD 06:57 → ICCU 07:28 → 4E 07-29 03:53
PROVIDERS: Emergency Medicine; Internal Medicine; Internal Medicine Critical Care Medicine; ADMIT Internal Medicine; ATTEND Internal Medicine
PROC: 5A1D70Z Performance of Urinary Filtration, Intermittent, Less than 6 Hours Per Day (ICD-10-PCS; principal; 2020-07-27)
PROC: 5A1D70Z Performance of Urinary Filtration, Intermittent, Less than 6 Hours Per Day (ICD-10-PCS; 2020-07-29)
DX: T45.511A Poisoning by anticoagulants, accidental (unintentional), initial encounter (principal); E11.00 Type 2 diabetes mellitus with hyperosmolarity without nonketotic hyperglycemic-hyperosmolar coma (NKHHC); N18.6 End stage renal disease; I21.4 Non-ST elevation (NSTEMI) myocardial infarction; U07.1 COVID-19; E11.10 Type 2 diabetes mellitus with ketoacidosis without coma; J96.01 Acute respiratory failure with hypoxia; E87.1 Hypo-osmolality and hyponatremia; I42.9 Cardiomyopathy, unspecified; I13.2 Hypertensive heart and chronic kidney disease with heart failure and with stage 5 chronic kidney disease, or end stage renal disease; D68.9 Coagulation defect, unspecified; I48.21 Permanent atrial fibrillation; N17.9 Acute kidney failure, unspecified; E44.0 Moderate protein-calorie malnutrition; I25.10 Atherosclerotic heart disease of native coronary artery without angina pectoris; Z20.822 Contact with and (suspected) exposure to COVID-19; R62.7 Adult failure to thrive; I50.9 Heart failure, unspecified; E55.9 Vitamin D deficiency, unspecified; E11.22 Type 2 diabetes mellitus with diabetic chronic kidney disease; E87.5 Hyperkalemia; G25.81 Restless legs syndrome; F41.9 Anxiety disorder, unspecified; D64.9 Anemia, unspecified; E87.70 Fluid overload, unspecified; Z99.0 Dependence on aspirator; Z88.6 Allergy status to analgesic agent; Z88.1 Allergy status to other antibiotic agents; Z88.8 Allergy status to other drugs, medicaments and biological substances; Z95.5 Presence of coronary angioplasty implant and graft; Z98.52 Vasectomy status; Z98.49 Cataract extraction status, unspecified eye; Z91.19 Patient's noncompliance with other medical treatment and regimen; Z79.01 Long term (current) use of anticoagulants; Y92.89 Other specified places as the place of occurrence of the external cause; Z68.34 Body mass index [BMI] 34.0-34.9, adult; Z87.11 Personal history of peptic ulcer disease; Z82.49 Family history of ischemic heart disease and other diseases of the circulatory system

== ENCOUNTER 2020-08-06 07:54 | Observation (INO) | payer MEDICARE ==
[~2020-08-06] VITALS: Ht 182.8 cm; Wt 89.0 kg
[~2020-08-06 07:54] MED LIST changes: +ANORO ELLIPTA1 EACH INH
[2020-08-06 08:10] VITALS: BP 144/63
[2020-08-06 08:19] LABS: BASO % 0.2 % (0.0-1.0); EOS # 0.2 10*3/uL (0.0-0.4); EOS % 3.8 % (1.0-4.0); HEMATOCRIT 28.3 % (42.0-52.0); LYMPH # 0.9 10*3/uL (1.3-4.4); LYMPH % 17.4 % (27.0-41.0); MEAN CELL VOLUME 101.4 fl (80.0-94.0); MEAN CORPUSCULAR HGB 33.7 pg (27.0-31.0); MEAN CORPUSCULAR HGB CONC 33.2 g/dl (33.0-37.0); MEAN PLATELET VOLUME 10.5 fl (9.6-12.3); MONO # 0.6 10*3/uL (0.1-1.0); MONO % 11.1 % (3.0-9.0); NEUT # 3.4 10*3/uL (2.3-7.9); NEUT % 67.3 % (47.0-73.0); PLATELET COUNT AUTOMATED 175 10*3/uL (130-400); RED BLOOD COUNT 2.79 10*6/uL (4.50-5.90); RED CELL DISTRI WIDTH 13.2 % (0-14.5); WHITE BLOOD COUNT 5.1 10*3/uL (4.8-10.8)
[2020-08-06 08:31] LABS: INTERNATIONAL NORM RATIO 1.6 (2.0-3.5)
[2020-08-06 08:35] LABS: ALBUMIN 2.8 gm/dl (3.1-4.5); CREATININE 5.81 mg/dL (0.70-1.30); POTASSIUM 4.4 mmol/L (3.5-5.1); TOTAL PROTEIN 6.5 gm/dL (6.4-8.2)
[2020-08-06 08:40] LABS: TROPONIN I 0.101 ng/ml (<0.045)
[2020-08-06 11:18] VITALS: BP 168/84
[2020-08-06 12:57] VITALS: BP 118/63
[2020-08-06 17:44] VITALS: BP 168/83
[2020-08-06 20:28] VITALS: BP 168/83
[2020-08-06 21:15] VITALS: BP 158/69
[2020-08-06] MEDS ORDERED: Coumadin3 MG PO (21:35)
[2020-08-06] MEDS ORDERED: IMDUR SA60 M1 PO (21:37)
[2020-08-07] VITALS: BP 158/70
[2020-08-07 08:00] LABS: BASO % 0.4 % (0.0-1.0); EOS # 0.2 10*3/uL (0.0-0.4); EOS % 3.4 % (1.0-4.0); HEMATOCRIT 28.6 % (42.0-52.0); LYMPH # 0.8 10*3/uL (1.3-4.4); LYMPH % 16.7 % (27.0-41.0); MEAN CELL VOLUME 99.3 fl (80.0-94.0); MEAN CORPUSCULAR HGB 33.7 pg (27.0-31.0); MEAN CORPUSCULAR HGB CONC 33.9 g/dl (33.0-37.0); MEAN PLATELET VOLUME 10.9 fl (9.6-12.3); MONO # 0.5 10*3/uL (0.1-1.0); MONO % 10.2 % (3.0-9.0); NEUT # 3.4 10*3/uL (2.3-7.9); NEUT % 68.9 % (47.0-73.0); PLATELET COUNT AUTOMATED 183 10*3/uL (130-400); RED BLOOD COUNT 2.88 10*6/uL (4.50-5.90); RED CELL DISTRI WIDTH 13.2 % (0-14.5)
[2020-08-07 08:14] LABS: ALBUMIN 2.8 gm/dl (3.1-4.5); CREATININE 6.31 mg/dL (0.70-1.30)
[2020-08-07 12:00] VITALS: BP 137/73
[2020-08-07 16:00] VITALS: BP 115/55
[2020-08-07 20:00] VITALS: BP 150/68
[2020-08-08] VITALS (7 sets, daily range): BP systolic 115–152; BP diastolic 43–73
[2020-08-09] VITALS: BP 72/48
[2020-08-09 08:00] VITALS: BP 127/64
[2020-08-09 12:00] VITALS: BP 128/62
[2020-08-09] MEDS ORDERED: ASPIRIN ADULT L81 M1 PO (12:56)
== END 2020-08-09 16:45 ==
LOC: ED 07:54 → EDHOLD 09:27 → 4E 19:18
PROVIDERS: Family Medicine; Internal Medicine Nephrology; ADMIT Internal Medicine; ATTEND Internal Medicine
DX: R07.89 Other chest pain (principal); R62.7 Adult failure to thrive; I25.10 Atherosclerotic heart disease of native coronary artery without angina pectoris; I13.2 Hypertensive heart and chronic kidney disease with heart failure and with stage 5 chronic kidney disease, or end stage renal disease; E11.22 Type 2 diabetes mellitus with diabetic chronic kidney disease; N18.6 End stage renal disease; I50.9 Heart failure, unspecified; I48.20 Chronic atrial fibrillation, unspecified; E44.0 Moderate protein-calorie malnutrition; J96.10 Chronic respiratory failure, unspecified whether with hypoxia or hypercapnia; D72.819 Decreased white blood cell count, unspecified; E87.1 Hypo-osmolality and hyponatremia; E87.8 Other disorders of electrolyte and fluid balance, not elsewhere classified; T45.511A Poisoning by anticoagulants, accidental (unintentional), initial encounter; E11.10 Type 2 diabetes mellitus with ketoacidosis without coma; E11.65 Type 2 diabetes mellitus with hyperglycemia; Z79.4 Long term (current) use of insulin; Z79.899 Other long term (current) drug therapy

== ENCOUNTER 2020-08-12 04:57 | Inpatient (IN) | payer MEDICARE ==
[~2020-08-12] VITALS: Ht 182.8 cm; Wt 86.2 kg
[2020-08-12] VITALS (7 sets, daily range): BP systolic 146–177; BP diastolic 65–85
[~2020-08-12 04:57] MED LIST changes: +ASPIRIN ADULT L81 M1 PO; +Coumadin3 MG PO
[2020-08-12 06:00] LABS: BASO % 0.4 % (0.0-1.0); EOS # 0.1 10*3/uL (0.0-0.4); EOS % 2.8 % (1.0-4.0); HEMATOCRIT 27.4 % (42.0-52.0); LYMPH # 0.9 10*3/uL (1.3-4.4); LYMPH % 18.7 % (27.0-41.0); MEAN CELL VOLUME 96.5 fl (80.0-94.0); MEAN CORPUSCULAR HGB 33.5 pg (27.0-31.0); MEAN CORPUSCULAR HGB CONC 34.7 g/dl (33.0-37.0); MEAN PLATELET VOLUME 10.6 fl (9.6-12.3); MONO # 0.6 10*3/uL (0.1-1.0); NEUT # 3.2 10*3/uL (2.3-7.9); NEUT % 64.9 % (47.0-73.0); PLATELET COUNT AUTOMATED 199 10*3/uL (130-400); RED BLOOD COUNT 2.84 10*6/uL (4.50-5.90); RED CELL DISTRI WIDTH 13.2 % (0-14.5)
[2020-08-12 06:14] LABS: CREATININE 4.77 mg/dL (0.70-1.30); POTASSIUM 3.9 mmol/L (3.5-5.1); TOTAL PROTEIN 6.4 gm/dL (6.4-8.2)
[2020-08-12 06:16] LABS: TROPONIN I 0.48 ng/ml (<0.045)
[2020-08-12 06:17] LABS: INTERNATIONAL NORM RATIO 1.2 (2.0-3.5)
[2020-08-13] VITALS: BP 142/62
[2020-08-13 05:51] LABS: BILIRUBIN Negative (Negative); BLOOD Negative (Negative); CLARITY Clear (Clear); COLOR Yellow (Yellow); GLUCOSE 3+ (Negative); KETONE Negative (Negative); LEUKO ESTERASE Negative (Negative); NITRITE Negative (Negative); SPECIFIC GRAVITY 1.015 (1.001-1.030)
[2020-08-13 05:57] LABS: PH >= 9.0 (4.5-8.0)
[2020-08-13 06:28] LABS: EPITHELIAL CELLS 0-2; RBC 0-2 rbc/hpf (0-2); WBC 0-2 wbc/hpf (0-5)
[2020-08-13 08:00] VITALS: BP 159/77
[2020-08-13 16:00] VITALS: BP 116/55
[2020-08-13 20:00] VITALS: BP 134/60
[2020-08-14] VITALS: BP 114/58
[2020-08-14 08:00] VITALS: BP 142/74
[2020-08-14] MEDS ORDERED: Lantus SC (11:29)
[2020-08-14 12:00] VITALS: BP 154/62
[2020-08-14 16:00] VITALS: BP 144/69
[2020-08-14 20:00] VITALS: BP 158/73
[2020-08-15] VITALS: BP 158/71
[2020-08-15 09:41] LABS: HEMATOCRIT 31.8 % (42.0-52.0)
[2020-08-15 09:42] LABS: BASO % 0.2 % (0.0-1.0); EOS # 0.3 10*3/uL (0.0-0.4); EOS % 4.6 % (1.0-4.0); HEMATOCRIT 32.3 % (42.0-52.0); LYMPH # 1.3 10*3/uL (1.3-4.4); LYMPH % 21.1 % (27.0-41.0); MEAN CELL VOLUME 97.9 fl (80.0-94.0); MEAN CORPUSCULAR HGB 33.3 pg (27.0-31.0); MEAN CORPUSCULAR HGB CONC 34.1 g/dl (33.0-37.0); MONO # 0.5 10*3/uL (0.1-1.0); MONO % 8.4 % (3.0-9.0); NEUT # 4.1 10*3/uL (2.3-7.9); NEUT % 65.4 % (47.0-73.0); PLATELET COUNT AUTOMATED 225 10*3/uL (130-400); RED CELL DISTRI WIDTH 13.7 % (0-14.5); WHITE BLOOD COUNT 6.3 10*3/uL (4.8-10.8)
[2020-08-15 09:53] LABS: ALBUMIN 3.1 gm/dl (3.1-4.5); CREATININE 2.76 mg/dL (0.70-1.30); POTASSIUM 3.3 mmol/L (3.5-5.1)
[2020-08-15 12:00] VITALS: BP 140/71
[2020-08-15 16:00] VITALS: BP 122/47
[2020-08-15 20:00] VITALS: BP 132/64
[2020-08-16] VITALS: BP 117/63
[2020-08-16 08:00] VITALS: BP 146/89
[2020-08-16 12:00] VITALS: BP 135/76
== END 2020-08-16 14:21 | DRG 73 ==
LOC: ED 04:57 → 4E 06:42 → EDHOLD 06:42 → 4E 09:29
PROVIDERS: Emergency Medicine; Internal Medicine Nephrology; ADMIT Internal Medicine; ATTEND Internal Medicine
PROC: 5A1D70Z Performance of Urinary Filtration, Intermittent, Less than 6 Hours Per Day (ICD-10-PCS; principal; 2020-08-13)
DX: E11.43 Type 2 diabetes mellitus with diabetic autonomic (poly)neuropathy (principal); N18.6 End stage renal disease; I50.32 Chronic diastolic (congestive) heart failure; E87.1 Hypo-osmolality and hyponatremia; E44.1 Mild protein-calorie malnutrition; E86.0 Dehydration; K31.84 Gastroparesis; D63.8 Anemia in other chronic diseases classified elsewhere; I48.0 Paroxysmal atrial fibrillation; R62.7 Adult failure to thrive; E11.22 Type 2 diabetes mellitus with diabetic chronic kidney disease; E11.65 Type 2 diabetes mellitus with hyperglycemia; I25.10 Atherosclerotic heart disease of native coronary artery without angina pectoris; Z95.5 Presence of coronary angioplasty implant and graft; Z86.16 Personal history of COVID-19; Z90.11 Acquired absence of right breast and nipple; Z87.891 Personal history of nicotine dependence; Z88.5 Allergy status to narcotic agent; Z88.1 Allergy status to other antibiotic agents; Z88.8 Allergy status to other drugs, medicaments and biological substances; Z91.11 Patient's noncompliance with dietary regimen; Z68.26 Body mass index [BMI] 26.0-26.9, adult

== ENCOUNTER 2020-08-27 22:58 | Inpatient (IN) | payer MEDICARE ==
[~2020-08-27] VITALS: Ht 177.8 cm; Wt 899.7 kg
[2020-08-27 22:59] VITALS: BP 146/82
[2020-08-27 23:24] LABS: BASO % 0.3 % (0.0-1.0); EOS # 0.1 10*3/uL (0.0-0.4); EOS % 1.7 % (1.0-4.0); HEMATOCRIT 32.2 % (42.0-52.0); LYMPH # 1.2 10*3/uL (1.3-4.4); LYMPH % 16.5 % (27.0-41.0); MEAN CELL VOLUME 101.6 fl (80.0-94.0); MEAN CORPUSCULAR HGB 33.4 pg (27.0-31.0); MEAN CORPUSCULAR HGB CONC 32.9 g/dl (33.0-37.0); MEAN PLATELET VOLUME 10.2 fl (9.6-12.3); MONO # 0.6 10*3/uL (0.1-1.0); MONO % 8.2 % (3.0-9.0); NEUT # 5.3 10*3/uL (2.3-7.9); PLATELET COUNT AUTOMATED 195 10*3/uL (130-400); RED BLOOD COUNT 3.17 10*6/uL (4.50-5.90); RED CELL DISTRI WIDTH 15.1 % (0-14.5); WHITE BLOOD COUNT 7.2 10*3/uL (4.8-10.8)
[2020-08-27 23:33] LABS: INTERNATIONAL NORM RATIO 1.1 (2.0-3.5)
[2020-08-27 23:38] LABS: ALBUMIN 2.9 gm/dl (3.1-4.5); CREATININE 3.56 mg/dL (0.70-1.30); POTASSIUM 3.7 mmol/L (3.5-5.1); TOTAL PROTEIN 6.3 gm/dL (6.4-8.2)
[2020-08-27 23:45] LABS: TROPONIN I 0.198 ng/ml (<0.045)
[2020-08-28 02:10] VITALS: BP 162/74
[2020-08-28] MEDS ORDERED: GLUCAGON EMERGEN1 M1 IJ (02:34)
[2020-08-28] MEDS ORDERED: INSULIN AS100 UNIT/3 SQ (02:36)
[2020-08-28] MEDS ORDERED: Imdur SA60 MG PO (02:36)
[2020-08-28] MEDS ORDERED: LANTUS SOL100 UNIT/1 SC (02:37)
[2020-08-28] MEDS ORDERED: ONDANSETRON HYDR4 M1 PO (02:39)
[2020-08-28 06:20] LABS: BASO % 0.3 % (0.0-1.0); EOS # 0.3 10*3/uL (0.0-0.4); EOS % 4.1 % (1.0-4.0); LYMPH # 1.5 10*3/uL (1.3-4.4); LYMPH % 24.2 % (27.0-41.0); MEAN CORPUSCULAR HGB 33.2 pg (27.0-31.0); MEAN CORPUSCULAR HGB CONC 33.5 g/dl (33.0-37.0); MEAN PLATELET VOLUME 9.8 fl (9.6-12.3); MONO # 0.8 10*3/uL (0.1-1.0); MONO % 12.4 % (3.0-9.0); NEUT # 3.6 10*3/uL (2.3-7.9); NEUT % 58.7 % (47.0-73.0); PLATELET COUNT AUTOMATED 205 10*3/uL (130-400); RED BLOOD COUNT 3.13 10*6/uL (4.50-5.90); RED CELL DISTRI WIDTH 14.8 % (0-14.5); WHITE BLOOD COUNT 6.1 10*3/uL (4.8-10.8)
[2020-08-28 06:29] LABS: CREATININE 3.38 mg/dL (0.70-1.30); POTASSIUM 3.5 mmol/L (3.5-5.1)
[2020-08-28 08:00] VITALS: BP 142/63
[2020-08-28 12:00] VITALS: BP 136/57
[2020-08-28 16:00] VITALS: BP 121/51
[2020-08-28 20:00] VITALS: BP 156/66
[2020-08-29] VITALS: BP 156/70
[2020-08-29 06:17] LABS: BASO % 0.6 % (0.0-1.0); EOS # 0.3 10*3/uL (0.0-0.4); EOS % 4.8 % (1.0-4.0); HEMATOCRIT 29.8 % (42.0-52.0); LYMPH # 1.4 10*3/uL (1.3-4.4); LYMPH % 27.2 % (27.0-41.0); MEAN CELL VOLUME 98.3 fl (80.0-94.0); MEAN CORPUSCULAR HGB CONC 34.6 g/dl (33.0-37.0); MEAN PLATELET VOLUME 10.1 fl (9.6-12.3); MONO # 0.6 10*3/uL (0.1-1.0); MONO % 11.9 % (3.0-9.0); NEUT # 2.9 10*3/uL (2.3-7.9); NEUT % 55.1 % (47.0-73.0); PLATELET COUNT AUTOMATED 184 10*3/uL (130-400); RED BLOOD COUNT 3.03 10*6/uL (4.50-5.90); RED CELL DISTRI WIDTH 15.1 % (0-14.5); WHITE BLOOD COUNT 5.2 10*3/uL (4.8-10.8)
[2020-08-29 08:00] VITALS: BP 152/66
[2020-08-29 12:00] VITALS: BP 130/70
[2020-08-29 16:00] VITALS: BP 145/65
[2020-08-29 20:08] VITALS: BP 138/54
[2020-08-30] VITALS: BP 128/50
[2020-08-30 08:00] VITALS: BP 151/62
== END 2020-08-30 09:10 | disposition short-term general hospital (02) | DRG 280 ==
LOC: ED 22:58 → EDHOLD 08-28 00:45 → 5E 08-28 00:45
PROVIDERS: Physician Assistant; ADMIT Internal Medicine; ATTEND Internal Medicine
PROC: 5A1D70Z Performance of Urinary Filtration, Intermittent, Less than 6 Hours Per Day (ICD-10-PCS; principal; 2020-08-29)
DX: I21.4 Non-ST elevation (NSTEMI) myocardial infarction (principal); E11.00 Type 2 diabetes mellitus with hyperosmolarity without nonketotic hyperglycemic-hyperosmolar coma (NKHHC); N18.6 End stage renal disease; I48.21 Permanent atrial fibrillation; I13.2 Hypertensive heart and chronic kidney disease with heart failure and with stage 5 chronic kidney disease, or end stage renal disease; I50.22 Chronic systolic (congestive) heart failure; E87.1 Hypo-osmolality and hyponatremia; E66.2 Morbid (severe) obesity with alveolar hypoventilation; Z99.2 Dependence on renal dialysis; I25.10 Atherosclerotic heart disease of native coronary artery without angina pectoris; R62.7 Adult failure to thrive; F32.9 Major depressive disorder, single episode, unspecified; I25.5 Ischemic cardiomyopathy; D64.9 Anemia, unspecified; E11.22 Type 2 diabetes mellitus with diabetic chronic kidney disease; I48.0 Paroxysmal atrial fibrillation; J44.9 Chronic obstructive pulmonary disease, unspecified; Z79.01 Long term (current) use of anticoagulants; Z86.16 Personal history of COVID-19; Z91.19 Patient's noncompliance with other medical treatment and regimen; Z88.1 Allergy status to other antibiotic agents; Z88.5 Allergy status to narcotic agent; Z88.8 Allergy status to other drugs, medicaments and biological substances; Z98.52 Vasectomy status; Z90.11 Acquired absence of right breast and nipple; Z82.49 Family history of ischemic heart disease and other diseases of the circulatory system; Z83.3 Family history of diabetes mellitus; Z80.9 Family history of malignant neoplasm, unspecified; Z79.899 Other long term (current) drug therapy; Z79.4 Long term (current) use of insulin; I25.2 Old myocardial infarction; Z68.31 Body mass index [BMI] 31.0-31.9, adult

== ENCOUNTER 2020-09-04 14:10 | Inpatient (IN) | payer MEDICARE ==
[~2020-09-04] VITALS: Ht 182.9 cm; Wt 89.8 kg
[2020-09-04] VITALS (10 sets, daily range): BP systolic 139–180; BP diastolic 54–87
[~2020-09-04 14:10] MED LIST changes: +GLUCAGON EMERGEN1 M1 IJ; +INSULIN AS100 UNIT/3 SQ; +Imdur SA60 MG PO; +ONDANSETRON HYDR4 M1 PO
[2020-09-04 15:00] LABS: BASO % 0.4 % (0.0-1.0); EOS # 0.2 10*3/uL (0.0-0.4); EOS % 3.3 % (1.0-4.0); HEMATOCRIT 31.1 % (42.0-52.0); LYMPH # 0.7 10*3/uL (1.3-4.4); LYMPH % 10.6 % (27.0-41.0); MEAN CELL VOLUME 102.3 fl (80.0-94.0); MEAN CORPUSCULAR HGB 34.2 pg (27.0-31.0); MEAN CORPUSCULAR HGB CONC 33.4 g/dl (33.0-37.0); MEAN PLATELET VOLUME 10.6 fl (9.6-12.3); MONO # 0.8 10*3/uL (0.1-1.0); MONO % 11.3 % (3.0-9.0); NEUT # 5.1 10*3/uL (2.3-7.9); PLATELET COUNT AUTOMATED 203 10*3/uL (130-400); RED BLOOD COUNT 3.04 10*6/uL (4.50-5.90); RED CELL DISTRI WIDTH 15.5 % (0-14.5); WHITE BLOOD COUNT 6.9 10*3/uL (4.8-10.8)
[2020-09-04 15:12] LABS: ACT PARTIAL THROMBO TIME 31.3 SECONDS (20.0-32.1); INTERNATIONAL NORM RATIO 1.4 (2.0-3.5)
[2020-09-04 15:16] LABS: ALBUMIN 3.5 gm/dl (3.1-4.5); CREATININE 4.2 mg/dL (0.70-1.30); POTASSIUM 3.3 mmol/L (3.5-5.1); TOTAL PROTEIN 7.1 gm/dL (6.4-8.2); TROPONIN I 0.044 ng/ml (<0.045)
[2020-09-05] MEDS ORDERED: WARFARIN SODIUM6 MG PO (05:14)
[2020-09-05 06:30] LABS: INTERNATIONAL NORM RATIO 1.6 (2.0-3.5)
[2020-09-05 06:59] LABS: BASO % 0.2 % (0.0-1.0); EOS % 0.3 % (1.0-4.0); LYMPH # 0.9 10*3/uL (1.3-4.4); MEAN CELL VOLUME 103.6 fl (80.0-94.0); MEAN CORPUSCULAR HGB CONC 32.8 g/dl (33.0-37.0); MEAN PLATELET VOLUME 11.3 fl (9.6-12.3); MONO # 0.7 10*3/uL (0.1-1.0); MONO % 6.3 % (3.0-9.0); NEUT # 9.4 10*3/uL (2.3-7.9); NEUT % 84.8 % (47.0-73.0); PLATELET COUNT AUTOMATED 167 10*3/uL (130-400); RED BLOOD COUNT 3.09 10*6/uL (4.50-5.90); RED CELL DISTRI WIDTH 15.4 % (0-14.5)
[2020-09-05 07:07] LABS: CREATININE 4.98 mg/dL (0.70-1.30)
[2020-09-05 07:15] LABS: POTASSIUM 4.6 mmol/L (3.5-5.1)
[2020-09-05 08:00] VITALS: BP 123/59
[2020-09-05] MEDS ORDERED: STARLIX60 M1 PO (08:57)
[2020-09-05] MEDS ORDERED: VICTOZA 2-0.6 MG/0.1 SC (08:59)
[2020-09-05] MEDS ORDERED: ANORO ELLIPTA1 EACH INH (09:00)
[2020-09-05 16:00] VITALS: BP 126/54
[2020-09-05 20:00] VITALS: BP 140/58
[2020-09-06] VITALS: BP 150/52; BP 160/60
[2020-09-06 07:06] LABS: INTERNATIONAL NORM RATIO 1.9 (2.0-3.5)
[2020-09-06 08:00] VITALS: BP 165/80
[2020-09-06 12:00] VITALS: BP 155/67
[2020-09-06 16:00] VITALS: BP 134/74
[2020-09-06 20:00] VITALS: BP 155/74
[2020-09-07] VITALS: BP 174/74
[2020-09-07 08:00] VITALS: BP 156/85
[2020-09-07 16:00] VITALS: BP 157/78
[2020-09-07 20:00] VITALS: BP 171/79
[2020-09-08] VITALS: BP 135/60
[2020-09-08 06:11] LABS: ALBUMIN 2.8 gm/dl (3.1-4.5); CREATININE 3.16 mg/dL (0.70-1.30); POTASSIUM 3.9 mmol/L (3.5-5.1); TOTAL PROTEIN 6.3 gm/dL (6.4-8.2)
[2020-09-08 06:18] LABS: BASO % 0.4 % (0.0-1.0); EOS # 0.2 10*3/uL (0.0-0.4); EOS % 3.4 % (1.0-4.0); HEMATOCRIT 31.8 % (42.0-52.0); LYMPH # 0.9 10*3/uL (1.3-4.4); LYMPH % 18.1 % (27.0-41.0); MEAN CELL VOLUME 103.2 fl (80.0-94.0); MEAN CORPUSCULAR HGB 33.8 pg (27.0-31.0); MEAN CORPUSCULAR HGB CONC 32.7 g/dl (33.0-37.0); MEAN PLATELET VOLUME 10.2 fl (9.6-12.3); MONO # 0.6 10*3/uL (0.1-1.0); MONO % 11.8 % (3.0-9.0); NEUT # 3.3 10*3/uL (2.3-7.9); NEUT % 65.9 % (47.0-73.0); PLATELET COUNT AUTOMATED 200 10*3/uL (130-400); RED BLOOD COUNT 3.08 10*6/uL (4.50-5.90); RED CELL DISTRI WIDTH 14.7 % (0-14.5); WHITE BLOOD COUNT 5.1 10*3/uL (4.8-10.8)
[2020-09-08 06:28] LABS: INTERNATIONAL NORM RATIO 2.8 (2.0-3.5)
[2020-09-08 08:00] VITALS: BP 183/80
[2020-09-08 10:49] VITALS: BP 106/50
[2020-09-08 12:00] VITALS: BP 82/44
[2020-09-08 16:00] VITALS: BP 113/60
[2020-09-08 20:00] VITALS: BP 152/64
[2020-09-09] VITALS: BP 149/55
[2020-09-09 08:00] VITALS: BP 151/71
[2020-09-09 12:00] VITALS: BP 141/64
[2020-09-09 16:00] VITALS: BP 116/59
[2020-09-09 20:00] VITALS: BP 125/57
[2020-09-10] VITALS: BP 106/68
[2020-09-10 07:59] LABS: BASO % 0.3 % (0.0-1.0); EOS # 0.3 10*3/uL (0.0-0.4); EOS % 4.8 % (1.0-4.0); HEMATOCRIT 30.3 % (42.0-52.0); LYMPH # 1.2 10*3/uL (1.3-4.4); MEAN CELL VOLUME 100.7 fl (80.0-94.0); MEAN CORPUSCULAR HGB 33.9 pg (27.0-31.0); MEAN CORPUSCULAR HGB CONC 33.7 g/dl (33.0-37.0); MEAN PLATELET VOLUME 10.3 fl (9.6-12.3); MONO # 0.6 10*3/uL (0.1-1.0); MONO % 10.1 % (3.0-9.0); NEUT # 3.8 10*3/uL (2.3-7.9); NEUT % 64.5 % (47.0-73.0); PLATELET COUNT AUTOMATED 225 10*3/uL (130-400); RED BLOOD COUNT 3.01 10*6/uL (4.50-5.90); RED CELL DISTRI WIDTH 14.9 % (0-14.5); WHITE BLOOD COUNT 5.9 10*3/uL (4.8-10.8)
[2020-09-10 08:11] LABS: ALBUMIN 2.9 gm/dl (3.1-4.5); CREATININE 5.43 mg/dL (0.70-1.30); POTASSIUM 4.9 mmol/L (3.5-5.1)
[2020-09-10 12:00] VITALS: BP 131/61
[2020-09-10 16:00] VITALS: BP 142/76
[2020-09-10 20:00] VITALS: BP 151/70
[2020-09-11] VITALS: BP 134/68
[2020-09-11 06:31] LABS: INTERNATIONAL NORM RATIO 4.1 (2.0-3.5)
[2020-09-11 08:00] VITALS: BP 126/55
[2020-09-11] MEDS ORDERED: METOCLOPRAMIDE H5 M1 PO (09:14)
[2020-09-11 12:00] VITALS: BP 118/45
[2020-09-11 16:00] VITALS: BP 169/78
[2020-09-11 20:00] VITALS: BP 170/78
[2020-09-12] VITALS: BP 152/64
[2020-09-12 06:35] LABS: INTERNATIONAL NORM RATIO 5.5 (2.0-3.5)
[2020-09-12 08:08] VITALS: BP 136/72
[2020-09-12 10:05] LABS: BASO % 0.3 % (0.0-1.0); EOS # 0.2 10*3/uL (0.0-0.4); EOS % 3.4 % (1.0-4.0); HEMATOCRIT 32.3 % (42.0-52.0); LYMPH # 1.2 10*3/uL (1.3-4.4); LYMPH % 19.5 % (27.0-41.0); MEAN CELL VOLUME 102.2 fl (80.0-94.0); MEAN CORPUSCULAR HGB 34.2 pg (27.0-31.0); MEAN CORPUSCULAR HGB CONC 33.4 g/dl (33.0-37.0); MEAN PLATELET VOLUME 9.8 fl (9.6-12.3); MONO # 0.6 10*3/uL (0.1-1.0); MONO % 9.8 % (3.0-9.0); NEUT # 3.9 10*3/uL (2.3-7.9); NEUT % 66.5 % (47.0-73.0); PLATELET COUNT AUTOMATED 217 10*3/uL (130-400); RED BLOOD COUNT 3.16 10*6/uL (4.50-5.90); RED CELL DISTRI WIDTH 14.7 % (0-14.5); WHITE BLOOD COUNT 5.9 10*3/uL (4.8-10.8)
[2020-09-12 10:17] LABS: CREATININE 4.92 mg/dL (0.70-1.30); POTASSIUM 5.2 mmol/L (3.5-5.1)
[2020-09-12 12:00] VITALS: BP 107/59
[2020-09-12 16:00] VITALS: BP 147/70
[2020-09-12 20:00] VITALS: BP 107/48
[2020-09-13] VITALS: BP 131/57
[2020-09-13 08:00] VITALS: BP 119/59
[2020-09-13] MEDS ORDERED: REMERON15 M2 PO (08:00)
[2020-09-13 09:19] LABS: INTERNATIONAL NORM RATIO 3.9 (2.0-3.5)
[2020-09-13 12:00] VITALS: BP 134/60
[2020-09-13 16:00] VITALS: BP 144/69
[2020-09-13 20:00] VITALS: BP 145/70
[2020-09-14] VITALS: BP 146/66
[2020-09-14 06:06] LABS: BASO % 0.6 % (0.0-1.0); EOS # 0.2 10*3/uL (0.0-0.4); EOS % 3.9 % (1.0-4.0); HEMATOCRIT 28.8 % (42.0-52.0); LYMPH # 1.2 10*3/uL (1.3-4.4); LYMPH % 24.7 % (27.0-41.0); MEAN CELL VOLUME 104.7 fl (80.0-94.0); MEAN CORPUSCULAR HGB 33.8 pg (27.0-31.0); MEAN CORPUSCULAR HGB CONC 32.3 g/dl (33.0-37.0); MEAN PLATELET VOLUME 10.2 fl (9.6-12.3); MONO # 0.7 10*3/uL (0.1-1.0); MONO % 13.5 % (3.0-9.0); NEUT # 2.8 10*3/uL (2.3-7.9); NEUT % 56.7 % (47.0-73.0); PLATELET COUNT AUTOMATED 200 10*3/uL (130-400); RED BLOOD COUNT 2.75 10*6/uL (4.50-5.90); RED CELL DISTRI WIDTH 14.7 % (0-14.5); WHITE BLOOD COUNT 4.9 10*3/uL (4.8-10.8)
[2020-09-14 06:12] LABS: ALBUMIN 2.9 gm/dl (3.1-4.5); CREATININE 4.56 mg/dL (0.70-1.30); POTASSIUM 4.7 mmol/L (3.5-5.1); TOTAL PROTEIN 6.1 gm/dL (6.4-8.2)
[2020-09-14 08:00] VITALS: BP 145/79
[2020-09-14 12:28] VITALS: BP 154/68
[2020-09-14 16:00] VITALS: BP 99/53
[2020-09-14 20:00] VITALS: BP 125/62
[2020-09-15] VITALS: BP 134/54
[2020-09-15 06:19] LABS: INTERNATIONAL NORM RATIO 1.8 (2.0-3.5)
[2020-09-15 08:00] VITALS: BP 138/63
[2020-09-15 12:00] VITALS: BP 135/66
[2020-09-15 16:00] VITALS: BP 145/66
[2020-09-15 20:00] VITALS: BP 154/79
[2020-09-16] VITALS (7 sets, daily range): BP systolic 130–179; BP diastolic 54–81
[2020-09-16 06:08] LABS: ALBUMIN 2.9 gm/dl (3.1-4.5); CREATININE 4.62 mg/dL (0.70-1.30); POTASSIUM 4.9 mmol/L (3.5-5.1); TOTAL PROTEIN 6.1 gm/dL (6.4-8.2)
[2020-09-16 06:25] LABS: INTERNATIONAL NORM RATIO 1.7 (2.0-3.5)
[2020-09-17] VITALS: BP 150/69
[2020-09-17 04:21] LABS: INTERNATIONAL NORM RATIO 2.1 (2.0-3.5)
[2020-09-17 08:00] VITALS: BP 170/74
[2020-09-17 12:00] VITALS: BP 142/70
[2020-09-17 16:00] VITALS: BP 102/50; BP 97/79
[2020-09-17 20:00] VITALS: BP 130/56
[2020-09-18] VITALS: BP 124/56
[2020-09-18 08:00] VITALS: BP 139/56
[2020-09-18 10:01] LABS: INTERNATIONAL NORM RATIO 2.8 (2.0-3.5)
[2020-09-18 12:00] VITALS: BP 139/65
[2020-09-18 16:00] VITALS: BP 115/59
[2020-09-18 20:00] VITALS: BP 127/59
[2020-09-19] VITALS: BP 132/85
[2020-09-19 06:26] LABS: BASO % 0.5 % (0.0-1.0); EOS # 0.2 10*3/uL (0.0-0.4); EOS % 2.7 % (1.0-4.0); HEMATOCRIT 29.9 % (42.0-52.0); LYMPH # 1.2 10*3/uL (1.3-4.4); LYMPH % 21.7 % (27.0-41.0); MEAN CELL VOLUME 102.4 fl (80.0-94.0); MEAN CORPUSCULAR HGB 33.9 pg (27.0-31.0); MEAN CORPUSCULAR HGB CONC 33.1 g/dl (33.0-37.0); MEAN PLATELET VOLUME 10.3 fl (9.6-12.3); MONO # 0.6 10*3/uL (0.1-1.0); MONO % 10.7 % (3.0-9.0); NEUT # 3.5 10*3/uL (2.3-7.9); PLATELET COUNT AUTOMATED 180 10*3/uL (130-400); RED BLOOD COUNT 2.92 10*6/uL (4.50-5.90); RED CELL DISTRI WIDTH 14.5 % (0-14.5); WHITE BLOOD COUNT 5.5 10*3/uL (4.8-10.8)
[2020-09-19 06:37] LABS: INTERNATIONAL NORM RATIO 3.5 (2.0-3.5)
[2020-09-19 06:43] LABS: CREATININE 5.25 mg/dL (0.70-1.30); POTASSIUM 5.6 mmol/L (3.5-5.1)
[2020-09-19 12:00] VITALS: BP 142/74
== END 2020-09-19 17:26 | DRG 73 ==
LOC: ED 14:10 → 5E 17:34 → EDHOLD 17:34 → 5E 17:34
PROVIDERS: Emergency Medicine; Internal Medicine Nephrology; ADMIT Internal Medicine; ATTEND Internal Medicine
PROC: 5A1D70Z Performance of Urinary Filtration, Intermittent, Less than 6 Hours Per Day (ICD-10-PCS; 2020-09-05)
PROC: 5A1D70Z Performance of Urinary Filtration, Intermittent, Less than 6 Hours Per Day (ICD-10-PCS; 2020-09-07)
PROC: 5A1D70Z Performance of Urinary Filtration, Intermittent, Less than 6 Hours Per Day (ICD-10-PCS; principal; 2020-09-10)
PROC: 5A1D70Z Performance of Urinary Filtration, Intermittent, Less than 6 Hours Per Day (ICD-10-PCS; 2020-09-12)
PROC: 5A1D70Z Performance of Urinary Filtration, Intermittent, Less than 6 Hours Per Day (ICD-10-PCS; 2020-09-14)
PROC: 5A1D70Z Performance of Urinary Filtration, Intermittent, Less than 6 Hours Per Day (ICD-10-PCS; 2020-09-17)
PROC: 5A1D70Z Performance of Urinary Filtration, Intermittent, Less than 6 Hours Per Day (ICD-10-PCS; 2020-09-19)
DX: E11.43 Type 2 diabetes mellitus with diabetic autonomic (poly)neuropathy (principal); G93.41 Metabolic encephalopathy; N18.6 End stage renal disease; I42.9 Cardiomyopathy, unspecified; I48.21 Permanent atrial fibrillation; I13.2 Hypertensive heart and chronic kidney disease with heart failure and with stage 5 chronic kidney disease, or end stage renal disease; I50.22 Chronic systolic (congestive) heart failure; E66.2 Morbid (severe) obesity with alveolar hypoventilation; K31.84 Gastroparesis; E11.649 Type 2 diabetes mellitus with hypoglycemia without coma; I25.119 Atherosclerotic heart disease of native coronary artery with unspecified angina pectoris; J44.9 Chronic obstructive pulmonary disease, unspecified; M47.9 Spondylosis, unspecified; F32.9 Major depressive disorder, single episode, unspecified; E11.22 Type 2 diabetes mellitus with diabetic chronic kidney disease; Z20.822 Contact with and (suspected) exposure to COVID-19; D64.9 Anemia, unspecified; Z88.5 Allergy status to narcotic agent; Z88.8 Allergy status to other drugs, medicaments and biological substances; Z88.1 Allergy status to other antibiotic agents; Z95.5 Presence of coronary angioplasty implant and graft; Z99.2 Dependence on renal dialysis; Z90.11 Acquired absence of right breast and nipple; Z98.49 Cataract extraction status, unspecified eye; Z83.3 Family history of diabetes mellitus; Z82.49 Family history of ischemic heart disease and other diseases of the circulatory system; Z80.8 Family history of malignant neoplasm of other organs or systems; Z86.16 Personal history of COVID-19; Z91.19 Patient's noncompliance with other medical treatment and regimen; Z79.4 Long term (current) use of insulin; I25.2 Old myocardial infarction; Z79.82 Long term (current) use of aspirin; Z87.11 Personal history of peptic ulcer disease; Z79.899 Other long term (current) drug therapy; Z68.27 Body mass index [BMI] 27.0-27.9, adult; E11.65 Type 2 diabetes mellitus with hyperglycemia

== ENCOUNTER 2020-10-17 17:41 | Inpatient (IN) | payer MEDICARE ==
[~2020-10-17] VITALS: Ht 182.9 cm; Wt 83.5 kg
[~2020-10-17 17:41] MED LIST changes: +REMERON15 M2 PO; +STARLIX60 M1 PO; +WARFARIN SODIUM6 MG PO
[2020-10-17 17:47] VITALS: BP 154/71
[2020-10-17 18:22] LABS: BASO % 0.2 % (0.0-1.0); EOS # 0.1 10*3/uL (0.0-0.4); EOS % 1.9 % (1.0-4.0); HEMATOCRIT 29.6 % (42.0-52.0); LYMPH # 0.8 10*3/uL (1.3-4.4); LYMPH % 15.6 % (27.0-41.0); MEAN CELL VOLUME 100.7 fl (80.0-94.0); MEAN CORPUSCULAR HGB 33.7 pg (27.0-31.0); MEAN CORPUSCULAR HGB CONC 33.4 g/dl (33.0-37.0); MEAN PLATELET VOLUME 9.9 fl (9.6-12.3); MONO # 0.8 10*3/uL (0.1-1.0); MONO % 15.8 % (3.0-9.0); NEUT # 3.5 10*3/uL (2.3-7.9); NEUT % 66.1 % (47.0-73.0); PLATELET COUNT AUTOMATED 166 10*3/uL (130-400); RED BLOOD COUNT 2.94 10*6/uL (4.50-5.90); WHITE BLOOD COUNT 5.2 10*3/uL (4.8-10.8)
[2020-10-17 18:38] LABS: CREATININE 6.02 mg/dL (0.70-1.30); POTASSIUM 3.3 mmol/L (3.5-5.1); TOTAL PROTEIN 6.7 gm/dL (6.4-8.2)
[2020-10-17 18:43] LABS: INTERNATIONAL NORM RATIO 5.2 (2.0-3.5)
[2020-10-17 18:45] LABS: TROPONIN I 6.08 ng/ml (<0.045)
[2020-10-17 20:48] VITALS: BP 167/85
[2020-10-17 22:00] VITALS: BP 154/64
[2020-10-18] VITALS: BP 153/46
[2020-10-18 05:33] LABS: CREATININE 6.04 mg/dL (0.70-1.30); POTASSIUM 4.1 mmol/L (3.5-5.1)
[2020-10-18 06:33] LABS: INTERNATIONAL NORM RATIO 4.9 (2.0-3.5)
[2020-10-18 08:00] VITALS: BP 161/91
[2020-10-18 16:00] VITALS: BP 109/54
[2020-10-18 20:00] VITALS: BP 151/73
[2020-10-19] VITALS: BP 162/65
[2020-10-19 06:25] LABS: INTERNATIONAL NORM RATIO 3.7 (2.0-3.5)
[2020-10-19 07:04] LABS: ALBUMIN 2.8 gm/dl (3.1-4.5); CREATININE 3.94 mg/dL (0.70-1.30); POTASSIUM 3.3 mmol/L (3.5-5.1)
[2020-10-19 07:05] LABS: BASO % 0.3 % (0.0-1.0); EOS # 0.2 10*3/uL (0.0-0.4); EOS % 2.4 % (1.0-4.0); HEMATOCRIT 32.7 % (42.0-52.0); LYMPH # 1.5 10*3/uL (1.3-4.4); LYMPH % 21.2 % (27.0-41.0); MEAN CELL VOLUME 103.2 fl (80.0-94.0); MEAN CORPUSCULAR HGB 33.4 pg (27.0-31.0); MEAN CORPUSCULAR HGB CONC 32.4 g/dl (33.0-37.0); MEAN PLATELET VOLUME 10.5 fl (9.6-12.3); MONO # 0.8 10*3/uL (0.1-1.0); MONO % 11.7 % (3.0-9.0); NEUT # 4.5 10*3/uL (2.3-7.9); NEUT % 63.8 % (47.0-73.0); RED BLOOD COUNT 3.17 10*6/uL (4.50-5.90); RED CELL DISTRI WIDTH 14.2 % (0-14.5)
[2020-10-19 07:06] LABS: PLATELET COUNT AUTOMATED 225 10*3/uL (130-400)
[2020-10-19 12:00] VITALS: BP 168/75
== END 2020-10-19 15:11 | disposition home health service (06) | DRG 280 ==
LOC: ED 17:41 → 4E 20:03 → EDHOLD 20:03 → 4E 21:14
PROVIDERS: Internal Medicine; Internal Medicine Nephrology; Physician Assistant; ADMIT Internal Medicine; ATTEND Internal Medicine
PROC: 5A1D70Z Performance of Urinary Filtration, Intermittent, Less than 6 Hours Per Day (ICD-10-PCS; principal; 2020-10-18)
PROC: 5A1D70Z Performance of Urinary Filtration, Intermittent, Less than 6 Hours Per Day (ICD-10-PCS; 2020-10-19)
DX: I21.4 Non-ST elevation (NSTEMI) myocardial infarction (principal); N18.6 End stage renal disease; D68.59 Other primary thrombophilia; I50.22 Chronic systolic (congestive) heart failure; E44.1 Mild protein-calorie malnutrition; F33.1 Major depressive disorder, recurrent, moderate; I13.2 Hypertensive heart and chronic kidney disease with heart failure and with stage 5 chronic kidney disease, or end stage renal disease; I38 Endocarditis, valve unspecified; E11.65 Type 2 diabetes mellitus with hyperglycemia; R62.7 Adult failure to thrive; E11.22 Type 2 diabetes mellitus with diabetic chronic kidney disease; I25.10 Atherosclerotic heart disease of native coronary artery without angina pectoris; E87.6 Hypokalemia; E11.43 Type 2 diabetes mellitus with diabetic autonomic (poly)neuropathy; K31.84 Gastroparesis; J44.9 Chronic obstructive pulmonary disease, unspecified; E66.9 Obesity, unspecified; I25.5 Ischemic cardiomyopathy; I48.0 Paroxysmal atrial fibrillation; D63.1 Anemia in chronic kidney disease; Z88.5 Allergy status to narcotic agent; Z88.8 Allergy status to other drugs, medicaments and biological substances; Z68.26 Body mass index [BMI] 26.0-26.9, adult; Z95.5 Presence of coronary angioplasty implant and graft; Z80.9 Family history of malignant neoplasm, unspecified; Z98.52 Vasectomy status; Z98.49 Cataract extraction status, unspecified eye; Z79.4 Long term (current) use of insulin; Z99.2 Dependence on renal dialysis; Z86.16 Personal history of COVID-19; Z96.1 Presence of intraocular lens; Z91.15 Patient's noncompliance with renal dialysis; Z20.822 Contact with and (suspected) exposure to COVID-19

== ENCOUNTER 2020-10-24 07:36 | Emergency (ER) | payer MEDICARE ==
[~2020-10-24] VITALS: Wt 86.0 kg
[2020-10-24 08:21] LABS: BASO % 0.3 % (0.0-1.0); EOS # 0.1 10*3/uL (0.0-0.4); EOS % 1.4 % (1.0-4.0); HEMATOCRIT 33.3 % (42.0-52.0); LYMPH # 1.2 10*3/uL (1.3-4.4); LYMPH % 17.3 % (27.0-41.0); MEAN CELL VOLUME 100.6 fl (80.0-94.0); MEAN CORPUSCULAR HGB 33.8 pg (27.0-31.0); MEAN CORPUSCULAR HGB CONC 33.6 g/dl (33.0-37.0); MEAN PLATELET VOLUME 9.9 fl (9.6-12.3); MONO # 0.9 10*3/uL (0.1-1.0); MONO % 12.3 % (3.0-9.0); NEUT # 4.7 10*3/uL (2.3-7.9); NEUT % 68.1 % (47.0-73.0); PLATELET COUNT AUTOMATED 207 10*3/uL (130-400); RED BLOOD COUNT 3.31 10*6/uL (4.50-5.90); RED CELL DISTRI WIDTH 14.2 % (0-14.5); WHITE BLOOD COUNT 6.9 10*3/uL (4.8-10.8)
[2020-10-24 08:31] LABS: ACT PARTIAL THROMBO TIME 28.9 SECONDS (20.0-32.1); INTERNATIONAL NORM RATIO 1.7 (2.0-3.5)
[2020-10-24 08:36] LABS: ALBUMIN 2.9 gm/dl (3.1-4.5); CREATININE 4.86 mg/dL (0.70-1.30); POTASSIUM 3.6 mmol/L (3.5-5.1); TOTAL PROTEIN 6.3 gm/dL (6.4-8.2)
[2020-10-24 08:40] LABS: TROPONIN I 0.865 ng/ml (<0.045)
[2020-10-24 09:33] VITALS: BP 175/81
[2020-10-24] MEDS ORDERED: ZOFRAN4 MG PO (10:02)
== END 2020-10-24 11:56 | disposition home or self-care (01) ==
LOC: ED 07:36
PROVIDERS: Emergency Medicine
DX: R11.2 Nausea with vomiting, unspecified (principal); R53.1 Weakness; I13.2 Hypertensive heart and chronic kidney disease with heart failure and with stage 5 chronic kidney disease, or end stage renal disease; E11.22 Type 2 diabetes mellitus with diabetic chronic kidney disease; N18.6 End stage renal disease; I50.9 Heart failure, unspecified; Z88.8 Allergy status to other drugs, medicaments and biological substances; Z79.899 Other long term (current) drug therapy; Z79.4 Long term (current) use of insulin; Z79.01 Long term (current) use of anticoagulants; I48.91 Unspecified atrial fibrillation; I25.10 Atherosclerotic heart disease of native coronary artery without angina pectoris; J44.9 Chronic obstructive pulmonary disease, unspecified; Z98.890 Other specified postprocedural states; Z95.818 Presence of other cardiac implants and grafts